=== PATIENT | male | born 1980 | race Caucasian/White ===

== ENCOUNTER 2016-08-07 16:04 | Emergency (ER) | payer MEDICAID, OTHER ==
[~2016-08-07 16:04] MED LIST: ALPR1T; ALPR1TAB; AUGMENTIN; BPR75T PO; BSP5T PO; BUSP5TAB59 PO; CARB200T6; CARB400T; CRB200T; CYCL10TA9 PO; DM H; DULO60CA6; DULO60CA6 PO; FLT05NA16 NSEACH; GABA-488 PO; GABA600T PO; HYDR-2890 PO; HYDR-3812 PO; HYDR1TAB PO; ISOM1CAP11; LISI-593 PO; LISINOPRIL; METH4TAB PO; METO10TA3 PO; NAPR-243 PO; ONDAN4ODT PO; OXYC-12 PO; OXYC5CAP10; TMSL.4C; TRAM-42 PO; TRM50T PO
== END 2016-08-07 16:57 | disposition left against medical advice (07) ==
LOC: EDUNIT# 16:04 → ER 16:06
DX: S61.412A Laceration without foreign body of left hand, initial encounter (principal); Z53.21 Procedure and treatment not carried out due to patient leaving prior to being seen by health care provider

== ENCOUNTER 2016-12-30 13:30 | Outpatient (RCR) | payer MEDICAID | END 2017-01-04 16:09 | disposition home or self-care (01) | PROVIDERS: ATTEND Nurse Practitioner Adult Health | DX: M54.5 Low back pain (principal) ==

== ENCOUNTER 2017-05-19 11:48 | Emergency (ER) | payer MEDICAID ==
[~2017-05-19] VITALS: Ht 182.9 cm; Wt 104.3 kg
[~2017-05-19 11:48] MED LIST changes: +ACHD5005 PO; -HYDR-3812 PO
--- OUTSIDE RECORDS SUMMARY | 2017-05-19 11:54 | XMS REPORT ---
Author Author DEBBIE DOUGLAS [facility] eClinicalWorks Address Unknown Phone Unavailable Care Team Providers Care Senior Estimator Name Role Phone DEBBIE DOUGLAS Unavailable Allergies No Known Allergies Problems Problem Type Condition ICD-9 Code Onset Dates Condition Status Problem Syncope and collapse 780.2 Active Problem Attention deficit disorder of childhood without mention of hyperactivity 314.00 Active Problem Posttraumatic stress disorder 309.81 Active Problem Other specified counseling V65.49 Active Problem Depressive disorder, not elsewhere classified 311 Active Problem Back pain 724.5 Active Problem Major depressive disorder, recurrent episode, moderate 296.32 Active Problem Lumbago 724.2 Active Problem Generalized osteoarthrosis, unspecified site 715.00 Active Problem Counseling on substance use and abuse V65.42 Active Assessment Generalized anxiety disorder 300.02 Active Assessment Major depressive disorder, recurrent episode, severe, without mention of psychotic behavior 296.33 Active Assessment Posttraumatic stress disorder 309.81 Active Problem Generalized anxiety disorder 300.02 Active Problem Bicipital tenosynovitis 726.12 Active Problem Pain in joint, shoulder region 719.41 Active Problem Unspecified concussion 850.9 Active Problem Major depressive disorder, recurrent episode, severe, without mention of psychotic behavior 296.33 Active Problem Unspecified fall E888.9 Active Medications Medication Code System Code Instructions Start Date End Date Status Dosage Neurontin [facility] [address]-20 600 MG Orally Three times a day October 31, 2013 1 Tablet 3 times per day Wellbutrin SR [facility] [address]-22 200 MG Orally Twice a day October 31, 2013 1 Tablet 2 times per day Zithromax [facility] [address]-26 100 MG/5ML Orally Jan 29, 2015 as directed Tramadol & Dietary Manage Prod ND 0 50 MG Orally 2 times a day Jan 29, 2015 as directed Ibuprofen [facility] [address]-83 600 mg October 03, 2012 take 1 tablet by Oral route 2 times per day with food Lisinopril-Hydrochlorothiazide [facility] 81456646189 20-25 MG TAKE TWO TABLETS BY MOUTH EVERY MORNING PredniSONE [facility] [address]-99 20 mg Orally Once a day Jan 29, 2015 2 Procedures Procedure Coding System Code Date Office Visit, Est Pt., Level 3 CPT-4 35979 Jan 29, 2015 Vital Signs Date/Time: Jan 29, 2015 Temperature 97.7 F Weight 209 lbs Height 72 in BMI 28.34 Index Blood Pressure Diastolic 76 mmHg Blood Pressure Systolic 124 mmHg Cardiac Monitoring Heart Rate 84 bpm Results No Known Results Summary Purpose eClinicalWorks Submission
--- OUTSIDE RECORDS SUMMARY | 2017-05-19 11:54 | XMS REPORT ---
Author Author TAYLA GRACIA Organization eClinicalWorks Address Unknown Phone Unavailable Care Team Providers Care Spring Fitter Name Role Phone TAYLA GRACIA CP Unavailable Allergies No Known Allergies Problems Problem Type Condition Code Onset Dates Condition Status Problem Lumbago 724.2 Active Problem Counseling on substance use and abuse V65.42 Active Problem Major depressive disorder, recurrent episode, moderate 296.32 Active Problem Leg pain M79.606 Active Problem Neuropathy G62.9 Active Problem HTN (hypertension) I10 Active Problem Depressive disorder, not elsewhere classified 311 Active Problem Generalized osteoarthrosis, unspecified site 715.00 Active Problem Back pain 724.5 Active Problem Other specified counseling V65.49 Active Problem Major depressive disorder, recurrent episode, severe, without mention of psychotic behavior 296.33 Active Problem Generalized anxiety disorder 300.02 Active Problem Pain in joint, shoulder region 719.41 Active Problem Unspecified fall E888.9 Active Problem Syncope and collapse 780.2 Active Problem Bicipital tenosynovitis 726.12 Active Problem Posttraumatic stress disorder 309.81 Active Problem Unspecified concussion 850.9 Active Problem Attention deficit disorder of childhood without mention of hyperactivity 314.00 Active Medications Medication Code System Code Instructions Start Date End Date Status Dosage Lisinopril-Hydrochlorothiazide [facility] [address]-10 20-25 MG Orally Once a day TAKE TWO TABLETS BY MOUTH EVERY MORNING Results No Known Results Summary Purpose eClinicalWorks Submission
--- OUTSIDE RECORDS SUMMARY | 2017-05-19 11:55 | XMS REPORT ---
Author TAYLA Devine [facility] eClinicalWorks Address Unknown Phone Unavailable Care Team Providers Care Casting House Worker Name Role Phone TAYLA GRACIA CP Unavailable Allergies, Adverse Reactions, Alerts Substance Reaction Event Type Amphetamine Failed UDS at hospital Non Drug Allergy Buspirone 7.5 Mg Tablet Headache Non Drug Allergy Benzodiazepines Failed UDS at hospital Non Drug Allergy Hydrocodone Failed UDS at hospital Non Drug Allergy Problems Problem Type Condition Code Onset Dates Condition Status Problem Lumbago 724.2 Active Problem Counseling on substance use and abuse V65.42 Active Problem Major depressive disorder, recurrent episode, moderate 296.32 Active Problem Leg pain M79.606 Active Assessment Leg pain M79.606 Active Problem Neuropathy G62.9 Active Assessment Neuropathy G62.9 Active Problem HTN (hypertension) I10 Active Problem Depressive disorder, not elsewhere classified 311 Active Problem Generalized osteoarthrosis, unspecified site 715.00 Active Problem Back pain 724.5 Active Problem Other specified counseling V65.49 Active Problem Major depressive disorder, recurrent episode, severe, without mention of psychotic behavior 296.33 Active Problem Generalized anxiety disorder 300.02 Active Assessment HTN (hypertension) I10 Active Problem Pain in joint, shoulder region 719.41 Active Problem Unspecified fall E888.9 Active Problem Syncope and collapse 780.2 Active Problem Bicipital tenosynovitis 726.12 Active Problem Posttraumatic stress disorder 309.81 Active Problem Unspecified concussion 850.9 Active Problem Attention deficit disorder of childhood without mention of hyperactivity 314.00 Active Medications Medication Code System Code Instructions Start Date End Date Status Dosage Tramadol & Dietary Manage Prod NDC 0 50 MG Orally 2 times a day Jan 29, 2015 as directed Ultram [facility] [address]-24 50 MG Orally 2 times a day Mar 18, 2015 1 tablet as needed Lisinopril-Hydrochlorothiazide [facility] 57121457741 20-25 MG TAKE TWO TABLETS BY MOUTH EVERY MORNING Neurontin [facility] [address]-01 600 MG Orally 4 times a day October 31, 2013 1 Tablet Wellbutrin SR [facility] [address]-66 200 MG Orally Twice a day October 31, 2013 1 Tablet 2 times per day Procedures Procedure Coding System Code Date Office Visit, Est Pt., Level 4 CPT-4 54700 Mar 18, 2015 No Charge CPT-4 98086 Mar 18, 2015 Vital Signs Date/Time: Mar 18, 2015 Temperature 98.0 F Weight 213.9 lbs Height 72 in BMI 29.01 Index Blood Pressure Diastolic 94 mmHg Blood Pressure Systolic 142 mmHg Cardiac Monitoring Heart Rate 80 bpm Results No Known Results Summary Purpose eClinicalWorks Submission
--- OUTSIDE RECORDS SUMMARY | 2017-05-19 11:55 | XMS REPORT ---
Author Author TAYLA GRACIA Organization eClinicalWorks Address Unknown Phone Unavailable Care Team Providers Care Event Mgr Name Role Phone TAYLA GRACIA CP Unavailable Allergies, Adverse Reactions, Alerts Substance Reaction Event Type Buspirone 7.5 Mg Tablet Headache Non Drug Allergy Benzodiazepines Failed UDS at hospital Non Drug Allergy Hydrocodone Failed UDS at hospital Non Drug Allergy Amphetamine Failed UDS at hospital Non Drug Allergy Problems Problem Type Condition Code Onset Dates Condition Status Assessment Depressed F32.9 Active Assessment Chronic pain G89.29 Active Problem Chronic pain G89.29 Active Problem Syncopal episodes R55 Active Problem Depressed F32.9 Active Assessment HTN (hypertension) I10 Active Assessment Syncopal episodes R55 Active Problem HTN (hypertension) I10 Active Problem Neuropathy G62.9 Active Medications Medication Code System Code Instructions Start Date End Date Status Dosage Cymbalta [facility] [address]-27 60 MG Orally Once a day Jun 25, 2015 1 capsule Ibuprofen [facility] [address]-35 200 MG Orally Three times a day October 03, 2012 take 3 tablet by Oral route 2 times per day with food Tylenol [facility] [address]-65 325 MG Orally every 6 hrs 1 tablet as needed Ultram [facility] [address]-48 50 MG Orally 2 times a day Mar 18, 2015 1 tablet as needed Lisinopril [facility] [address]-37 20 MG Orally Once a day Jun 25, 2015 1 tablet Neurontin [facility] [address]-84 600 MG Orally 4 times a day October 31, 2013 1 Tablet Procedures Procedure Coding System Code Date Office Visit, Est Pt., Level 4 CPT-4 78463 Jun 25, 2015 Vital Signs Date/Time: Jun 25, 2015 Temperature 98.0 F Weight 230.2 lbs Height 72 in BMI 31.22 Index Blood Pressure Diastolic 90 mmHg Blood Pressure Systolic 156 mmHg Cardiac Monitoring Heart Rate 68 bpm Results No Known Results Summary Purpose eClinicalWorks Submission
--- OUTSIDE RECORDS SUMMARY | 2017-05-19 11:55 | XMS REPORT ---
Author Author TAYLA GRACIA Organization [facility] Address [address] [place] [address] Care Team Providers Care Cheese Cooker Name Role Phone GRACIACORNELIUSTAYLA Unavailable PROBLEMS Type Condition ICD9-CM Code [id number] Code Onset Dates Condition Status SNOMED Code Problem HTN (hypertension) I10 Active 57911262 Problem Chronic pain G89.29 Active 17484289 Problem Syncopal episodes R55 Active 894276647 Problem Elevated liver enzymes R74.8 Active 364626882 Problem Neuropathy G62.9 Active 744845337 Problem Low back pain M54.5 Active 848888922 Problem Neck muscle strain, initial encounter S16.1XXA Active 872384495 Problem Adjustment disorder with depressed mood F43.21 Active 80510611 Problem Depressed F32.9 Active 46872636 Problem Kidney stones N20.0 Active 02940306 Problem Post traumatic stress disorder (PTSD) F43.10 Active 53647167 ALLERGIES Substance Reaction Event Type Date Status Buspirone 7.5 Mg Tablet Headache Non Drug Allergy Jul, Active SOCIAL HISTORY Never Assessed PLAN OF CARE Activity Details Follow Up 4 weeks Reason:htn anxiety VITAL SIGNS Height 72 in 2016-08-02 Weight 245 lbs 2016-08-02 Temperature 97.9 degrees Fahrenheit 2016-08-02 Heart Rate 80 bpm 2016-08-02 Respiratory Rate 20 2016-08-02 BMI 33.22 kg/m2 2016-08-02 Blood pressure systolic 164 mmHg 2016-08-02 Blood pressure diastolic 100 mmHg 2016-08-02 MEDICATIONS Medication Instructions Dosage Frequency Start Date End Date Duration Status Lisinopril-Hydrochlorothiazide 20-25 MG Orally Once a day TAKE TWO TABLETS BY MOUTH EVERY MORNING 24h 30 Active Ibuprofen 800 MG Orally Three times a day 1 tablet 8h Jul,Aug 30 day(s) Active Neurontin 600 MG Orally 4 times a day 1 Tablet 6h 12 Oct, 2013 30 days Active Ibuprofen 200 MG Orally Three times a day take 3 tablet by Oral route 2 times per day with food 8h 15 Sep, 2012 Active Clonidine HCl 0.1 MG Orally twice a day 1 tablet 12h 14 Jul, 2016 30 day(s) Active Tylenol 325 MG Orally every 6 hrs 1 tablet as needed 6h Active Wellbutrin SR 200 MG Orally Twice a day 1 Tablet 2 times per day 12h 12 Oct Active RESULTS Name Result Date Reference Range UA LONG DIP (IN HOUSE) 2016-08-02 Lot # [id number] Exp date 05/2017 Clarity CLEAR Color YELLOW Odor NO GLU NEG ARSALAN NEG KET NEG SG 1.020 BLO NEG pH 6.0 Protein NEG URO 0.2 NIT NEG JYOTHI NEG Lot # Exp date Written Authorization 2016-08-02 Written Authorization TSH 2016-08-02 TSH 1.200 0.450-4.500 CBC 2016-08-02 WBC 11.2 3.4-10.8 RBC 5.16 4.14-5.80 Hemoglobin 15.7 12.6-17.7 Hematocrit 45.3 37.5-51.0 MCV 88 79-97 MCH 30.4 26.6-33.0 MCHC 34.7 31.5-35.7 RDW 13.3 12.3-15.4 Platelets 242 150-379 Neutrophils 60 Lymphs 29 Monocytes 8 Eos 2 Basos 1 Immature Cells Neutrophils (Absolute) 6.7 1.4-7.0 Lymphs (Absolute) 3.2 0.7-3.1 Monocytes(Absolute) 0.9 0.1-0.9 Eos (Absolute) 0.2 0.0-0.4 Baso (Absolute) 0.1 0.0-0.2 Immature Granulocytes 0 Immature Grans (Abs) 0.0 0.0-0.1 Hematology Comments: Note: CMP 2016-08-02 Glucose, Serum 83 65-99 BUN 7 6-20 Creatinine, Serum 0.88 0.76-1.27 eGFR If NonAfricn Am 112 >59 eGFR If Africn Am 130 >59 BUN/Creatinine Ratio 8 8-19 Sodium, Serum 142 134-144 Potassium, Serum 4.0 3.5-5.2 Chloride, Serum 101 96-106 Carbon Dioxide, Total 23 18-29 Calcium, Serum 9.5 8.7-10.2 Protein, Total, Serum 7.4 6.0-8.5 Albumin, Serum 4.7 3.5-5.5 Globulin, Total 2.7 1.5-4.5 A/G Ratio 1.7 1.2-2.2 Bilirubin, Total 0.4 0.0-1.2 Alkaline Phosphatase, S 124 39-117 AST (SGOT) 33 0-40 ALT (SGPT) 64 0-44 HEPATITIS PROFILE 2016-08-02 Hep A Ab, IgM Negative Negative HBsAg Screen Negative Negative Hep B Core Ab, IgM Negative Negative Hep C Virus Ab <0.1 0.0-0.9 Written Authorization 2016-08-02 Written Authorization PROCEDURES Procedure Date Ordered Result Body Site URINALYSIS, AUTO, W/O SCOPE August 02, 2016 COMPLETE CBC W/AUTO DIFF WBC August 02, 2016 ASSAY THYROID STIM HORMONE August 02, 2016 COMPREHEN METABOLIC PANEL August 02, 2016 VENIPUNCT, ROUTINE* August 02, 2016 IMMUNIZATIONS No Known Immunizations MEDICAL (GENERAL) HISTORY Type Description Date Medical History hypertension Medical History chronic back pain Medical History PTSD Medical History depression and anxiety Surgical History cholecystectomy Surgical History kidney surgery Surgical History right hand Hospitalization History surgeries
--- OUTSIDE RECORDS SUMMARY | 2017-05-19 11:55 | XMS REPORT ---
Author Author ORAL VALDEZ Organization [facility] Address [address] [place] [address] Care Team Providers Care Lab Clerk Name Role Phone ORAL VALDEZ Unavailable PROBLEMS Type Condition ICD9-CM Code [id number] Code Onset Dates Condition Status SNOMED Code Problem HTN (hypertension) I10 Active 60409659 Problem Chronic pain G89.29 Active 16261129 Problem Syncopal episodes R55 Active 897449557 Problem Elevated liver enzymes R74.8 Active 811418885 Problem Neuropathy G62.9 Active 541869863 Problem Low back pain M54.5 Active 183782411 Problem Neck muscle strain, initial encounter S16.1XXA Active 902618250 Problem Adjustment disorder with depressed mood F43.21 Active 82465067 Problem Depressed F32.9 Active 57861242 Problem Kidney stones N20.0 Active 29297811 Problem Post traumatic stress disorder (PTSD) F43.10 Active 53220885 ALLERGIES No Information SOCIAL HISTORY Never Assessed PLAN OF CARE Activity Details Follow Up Next available, prn Reason:Depression VITAL SIGNS MEDICATIONS No Known Medications RESULTS No Results PROCEDURES Procedure Date Ordered Result Body Site Psychotherapy, patient &/family, 30 minutes, established patient August 01, 2016 IMMUNIZATIONS No Known Immunizations MEDICAL (GENERAL) HISTORY Type Description Date Medical History hypertension Medical History chronic back pain Medical History PTSD Medical History depression and anxiety Surgical History cholecystectomy Surgical History kidney surgery Surgical History right hand Hospitalization History surgeries
--- OUTSIDE RECORDS SUMMARY | 2017-05-19 11:55 | XMS REPORT ---
Author BRAD Ramesh [facility] eClinicalWorks Address Unknown Phone Unavailable Care Team Providers Care Ammunition And Explosives Handler Name Role Phone BRAD REID CP Unavailable Allergies, Adverse Reactions, Alerts Substance Reaction Event Type Buspirone 7.5 Mg Tablet Headache Non Drug Allergy Benzodiazepines Failed UDS at hospital Non Drug Allergy Hydrocodone Failed UDS at hospital Non Drug Allergy Amphetamine Failed UDS at hospital Non Drug Allergy Problems Problem Type Condition ICD-9 Code Onset [...] substance use and abuse V65.42 Active Assessment Back pain 724.5 Active Assessment Acute bronchitis 466.0 Active Problem Generalized anxiety disorder 300.02 Active Problem Bicipital tenosynovitis 726.12 Active Problem Pain in joint, shoulder region 719.41 Active Problem Unspecified concussion 850.9 Active Problem Major depressive disorder, recurrent episode, severe, without mention of psychotic behavior 296.33 Active Problem Unspecified fall E888.9 Active Medications Medication Code System Code Instructions Start Date End Date Status Dosage Neurontin [facility] [address]-35 600 mg October 31, 2013 1 Tablet 3 times per day Tramadol & Dietary Manage Prod NDC 0 50 MG Orally 2 times a day Jan 29, 2015 as directed PredniSONE [facility] [address]-90 20 mg Orally Once a day Jan 29, 2015 2 Zithromax Z-Neil [facility] [address]-43 250 MG Orally Once a day Jan 29, 2015 Feb 03, 2015 2 tablets on the first day, then 1 tablet daily for 4 days Lisinopril-Hydrochlorothiazide [facility] 30155651323 20-25 MG TAKE TWO TABLETS BY MOUTH EVERY MORNING Procedures Procedure Coding System Code Date Office Visit, Est Pt., Level 4 CPT-4 36352 Jan 29, 2015 Vital Signs Date/Time: Jan 29, 2015 Temperature 97.7 F Weight 209 lbs Height 72 in BMI 28.34 Index Blood Pressure Diastolic 76 mmHg Blood Pressure Systolic 124 mmHg Cardiac Monitoring Heart Rate 84 bpm Results No Known Results Summary Purpose eClinicalWorks Submission
--- OUTSIDE RECORDS SUMMARY | 2017-05-19 11:55 | XMS REPORT ---
Author Author ORAL VALDEZ Organization [facility] Address [address] [place] [address] Care Team Providers Care Candy Counter Clerk Name Role Phone ORAL VALDEZ Unavailable PROBLEMS Type Condition ICD9-CM Code [id number]-QA Code Onset Dates Condition Status SNOMED Code Problem HTN (hypertension) I10 Active 85104933 Problem Chronic pain G89.29 Active 08859395 Problem Syncopal episodes R55 Active 742236642 Problem Elevated liver enzymes R74.8 Active 337188703 Problem Neuropathy G62.9 Active 884235384 Problem Low back pain M54.5 Active 262901630 Problem Neck muscle strain, initial encounter S16.1XXA Active 112995341 Problem Adjustment disorder with depressed mood F43.21 Active 87991521 Problem Depressed F32.9 Active 97238443 Problem Kidney stones N20.0 Active 65094610 Problem Post traumatic stress disorder (PTSD) F43.10 Active 40270281 ALLERGIES No Information SOCIAL HISTORY Never Assessed PLAN OF CARE Activity Details Follow Up Next available, 1 Week Reason:Depression, anxiety VITAL SIGNS MEDICATIONS No Known Medications RESULTS No Results PROCEDURES Procedure Date Ordered Result Body Site Psychotherapy, patient &/family, 30 minutes, established patient July 29, 2016 IMMUNIZATIONS No Known Immunizations MEDICAL (GENERAL) HISTORY Type Description Date Medical History hypertension Medical History chronic back pain Medical History PTSD Medical History depression and anxiety Surgical History cholecystectomy Surgical History kidney surgery Surgical History right hand Hospitalization History surgeries
--- OUTSIDE RECORDS SUMMARY | 2017-05-19 11:55 | XMS REPORT ---
Author Author TAYLA GRACIA Organization eClinicalWorks Address Unknown Phone Unavailable Care Team Providers Care Wellness Specialist Name Role Phone TAYLA GRACIA CP Unavailable [...] Instructions Start Date End Date Status Dosage [facility] [address]-00 50 MG Orally 2 times a day Mar 18, 2015 1 tablet as needed Results No Known Results Summary Purpose eClinicalWorks Submission
--- OUTSIDE RECORDS SUMMARY | 2017-05-19 11:56 | XMS REPORT ---
Author Author TAYLA GRACIA Organization eClinicalWorks Address Unknown Phone Unavailable Care Team Providers Care Administrative Support Assoc Name Role Phone TAYLA GRACIA CP Unavailable [...] Status Dosage Neurontin [facility] [address]-66 600 MG Orally 4 times a day October 31, 2013 1 Tablet Results No Known Results Summary Purpose eClinicalWorks Submission
--- OUTSIDE RECORDS SUMMARY | 2017-05-19 11:57 | XMS REPORT | Continuity of Care Document ---
Author Author [facility] Address Unknown Phone Unavailable Allergies Active Description Code Type Severity Reaction Onset Reported/Identified Relationship to Patient Clinical Status Yes No Known Drug Allergies [id number] Drug Allergy Mild N/A 10/29/2008 Yes buspirone 7.5 mg tablet Drug Allergy N/A N/A 08/13/2013 Yes amphetamine Drug Allergy N/A N/A 09/02/2013 Yes Benzodiazepines Drug Allergy N/A N/A 09/02/2013 Yes hydrocodone Drug Allergy N/A N/A 09/02/2013 Medications There is no data. Problems Date Dx Coded Attending Type Code Diagnosis Diagnosed By 01/31/2008 ERA DE JESUS DO V58.69 MEDICATION HIGH RISK 01/31/2008 V58.69 MEDICATION HIGH RISK 01/31/2008 ERA DE JESUS DO V58.69 MEDICATION HIGH RISK 01/31/2008 ERA DE JESUS DO V58.69 MEDICATION HIGH RISK 01/31/2008 V58.69 MEDICATION HIGH RISK 01/31/2008 V58.69 MEDICATION HIGH RISK 01/31/2008 V58.69 MEDICATION HIGH RISK 01/31/2008 GENOVEVA YAP, BOB Schmidt V58.69 MEDICATION HIGH RISK 01/31/2008 [facility], JOSEE R V58.69 MEDICATION HIGH RISK 01/31/2008 ERA DE JESUS DO V58.69 MEDICATION HIGH RISK 01/31/2008 ERA DE JESUS DO V58.69 MEDICATION HIGH RISK 01/31/2008 [facility], JOSEE R V58.69 MEDICATION HIGH RISK 01/31/2008 ERA DE JESUS DO V58.69 MEDICATION HIGH RISK 01/31/2008 HAN CABALLERO APRN V58.69 MEDICATION HIGH RISK 01/31/2008 HAN CABALLERO APRN V58.69 MEDICATION HIGH RISK 01/31/2008 DEBBIE DOUGLAS APRN V58.69 MEDICATION HIGH RISK 01/31/2008 ERA DE JESUS DO V58.69 MEDICATION HIGH RISK 01/31/2008 DEBBIE DOUGLAS APRN V58.69 MEDICATION HIGH RISK 01/31/2008 DAVEY PHD, BRISSA Harden V58.69 MEDICATION HIGH RISK 01/31/2008 LIZA VALENCIA ERA K V58.69 MEDICATION HIGH RISK 01/31/2008 JEANETTE TORRES, BRAD V58.69 MEDICATION HIGH RISK 02/27/2008 DE JESUS DO ERA K 848.9 SPRAIN/STRAIN OTHER UNSPEC SITE 02/27/2008 848.9 SPRAIN/STRAIN OTHER UNSPEC SITE 02/27/2008 DE JESUS JONNIE VALENCIAA K 848.9 SPRAIN/STRAIN OTHER UNSPEC SITE 02/27/2008 DE JESUS ERA VALENCIA K 848.9 SPRAIN/STRAIN OTHER UNSPEC SITE 02/27/2008 848.9 SPRAIN/STRAIN OTHER UNSPEC SITE 02/27/2008 848.9 SPRAIN/STRAIN OTHER UNSPEC SITE 02/27/2008 848.9 SPRAIN/STRAIN OTHER UNSPEC SITE 02/27/2008 GENOVEVA YAP, BOB Schmidt 848.9 SPRAIN/STRAIN OTHER UNSPEC SITE 02/27/2008 [facility], JOSEE R 848.9 SPRAIN/STRAIN OTHER UNSPEC SITE 02/27/2008 DE JESUS JONNIE VALENCIAA K 848.9 SPRAIN/STRAIN OTHER UNSPEC SITE 02/27/2008 DE JESUS ERA VALENCIA K 848.9 SPRAIN/STRAIN OTHER UNSPEC SITE 02/27/2008 [facility], JOSEE R 848.9 SPRAIN/STRAIN OTHER UNSPEC SITE 02/27/2008 DE JESUS JONNIE VALENCIAA K 848.9 SPRAIN/STRAIN OTHER UNSPEC SITE 02/27/2008 HAN CABALLERO APRN 848.9 SPRAIN/STRAIN OTHER UNSPEC SITE 02/27/2008 HAN CABALLERO APRN 848.9 SPRAIN/STRAIN OTHER UNSPEC SITE 02/27/2008 DEBBIE DOUGLAS APRN 848.9 SPRAIN/STRAIN OTHER UNSPEC SITE 02/27/2008 DE JESUS JONNIE VALENCIAA K 848.9 SPRAIN/STRAIN OTHER UNSPEC SITE 02/27/2008 DEBBIE DOUGLAS APRN 848.9 SPRAIN/STRAIN OTHER UNSPEC SITE 02/27/2008 DAVEY PHD, BRISSA Harden 848.9 SPRAIN/STRAIN OTHER UNSPEC SITE 02/27/2008 ERA DE JESUS DO 848.9 SPRAIN/STRAIN OTHER UNSPEC SITE 02/27/2008 BRAD REID MD 848.9 SPRAIN/STRAIN OTHER UNSPEC SITE 06/25/2008 ERA DE JESUS DO 296.80 MO BIPOLAR NOS 06/25/2008 ERA DE JESUS DO K 300.01 AN PANIC DIS W/O AGORA 06/25/2008 296.80 MO BIPOLAR NOS 06/25/2008 300.01 AN PANIC DIS W/O AGORA 06/25/2008 ERA DE JESUS DO K 296.80 MO BIPOLAR NOS 06/25/2008 DE JESUS ERA VALENCIA K 300.01 AN PANIC DIS W/O AGORA 06/25/2008 ERA DE JESUS DO K 296.80 MO BIPOLAR NOS 06/25/2008 ERA DE JESUS DO K 300.01 AN PANIC DIS W/O AGORA 06/25/2008 296.80 MO BIPOLAR NOS 06/25/2008 300.01 AN PANIC DIS W/O AGORA 06/25/2008 296.80 MO BIPOLAR NOS 06/25/2008 300.01 AN PANIC DIS W/O AGORA 06/25/2008 296.80 MO BIPOLAR NOS 06/25/2008 300.01 AN PANIC DIS W/O AGORA 06/25/2008 [facility] DDS, BOB B 296.80 MO BIPOLAR NOS 06/25/2008 [facility] DDS, BOB B 300.01 AN PANIC DIS W/O AGORA 06/25/2008 [facility], JOSEE R 296.80 MO BIPOLAR NOS 06/25/2008 [facility], JOSEE R 300.01 AN PANIC DIS W/O AGORA 06/25/2008 ERA DE JESUS DO K 296.80 MO BIPOLAR NOS 06/25/2008 ERA DE JESUS DO K 300.01 AN PANIC DIS W/O AGORA 06/25/2008 JONNIE DE JESUS DOA K 296.80 MO BIPOLAR NOS 06/25/2008 ERA DE JESUS DO K 300.01 AN PANIC DIS W/O AGORA 06/25/2008 [facility], JOSEE R 296.80 MO BIPOLAR NOS 06/25/2008 [facility], JOSEE R 300.01 AN PANIC DIS W/O AGORA 06/25/2008 ERA DE JESUS DO K 296.80 MO BIPOLAR NOS 06/25/2008 ERA DE JESUS DO K 300.01 AN PANIC DIS W/O AGORA 06/25/2008 LITATON CROSS CUT SAW OPERATORHAN Zuniga 296.80 MO BIPOLAR NOS 06/25/2008 GARTON CROSS CUT SAW OPERATOR, HAN D 300.01 AN PANIC DIS W/O AGORA 06/25/2008 GARTON CROSS CUT SAW OPERATORHAN Zuniga D 296.80 MO BIPOLAR NOS 06/25/2008 G[facility] CROSS CUT SAW OPERATOR, HAN D 300.01 AN PANIC DIS W/O AGORA 06/25/2008 STELLA CROSS CUT SAW OPERATOR, DEBBIE 296.80 MO BIPOLAR NOS 06/25/2008 STELLA CROSS CUT SAW OPERATOR, DEBBIE 300.01 AN PANIC DIS W/O AGORA 06/25/2008 ERA DE JESUS DO 296.80 MO BIPOLAR NOS 06/25/2008 ERA DE JESUS DO 300.01 AN PANIC DIS W/O AGORA 06/25/2008 STELLA CROSS CUT SAW OPERATOR, DEBBIE 296.80 MO BIPOLAR NOS 06/25/2008 STELLA CROSS CUT SAW OPERATOR, DEBBIE 300.01 AN PANIC DIS W/O AGORA 06/25/2008 DAVEY LOU, BRISSA A 296.80 MO BIPOLAR NOS 06/25/2008 DAVEY LOU, BRISSA Harden 300.01 AN PANIC DIS W/O AGORA 06/25/2008 ERA DE JESUS DO 296.80 MO BIPOLAR NOS 06/25/2008 ERA DE JESUS DO 300.01 AN PANIC DIS W/O AGORA 06/25/2008 BRAD REID MD 296.80 MO BIPOLAR NOS 06/25/2008 BRAD REID MD 300.01 AN PANIC DIS W/O AGORA 08/29/2008 ERA DE JESUS DO 300.00 AN ANXIETY UNSPEC 08/29/2008 ERA DE JESUS DO 307.47 SI DYSSOMNIA NOS 08/29/2008 ERA DE JESUS DO K 312.30 I IMPULSE CONTROL DISORDER NOS 08/29/2008 300.00 AN ANXIETY UNSPEC 08/29/2008 307.47 SI DYSSOMNIA NOS 08/29/2008 312.30 I IMPULSE CONTROL DISORDER NOS 08/29/2008 ERA DE JESUS DO K 300.00 AN ANXIETY UNSPEC 08/29/2008 ERA DE JESUS DO K 307.47 SI DYSSOMNIA NOS 08/29/2008 ERA DE JESUS DO K 312.30 I IMPULSE CONTROL DISORDER NOS 08/29/2008 DE JESUS DO, ERA K 300.00 AN ANXIETY UNSPEC 08/29/2008 DE JESUS DO, ERA K 307.47 SI DYSSOMNIA NOS 08/29/2008 DE JESUS DO, ERA K 312.30 I IMPULSE CONTROL DISORDER NOS 08/29/2008 300.00 AN ANXIETY UNSPEC 08/29/2008 307.47 SI DYSSOMNIA NOS 08/29/2008 312.30 I IMPULSE CONTROL DISORDER NOS 08/29/2008 300.00 AN ANXIETY UNSPEC 08/29/2008 307.47 SI DYSSOMNIA NOS 08/29/2008 312.30 I IMPULSE CONTROL DISORDER NOS 08/29/2008 300.00 AN ANXIETY UNSPEC 08/29/2008 307.47 SI DYSSOMNIA NOS 08/29/2008 312.30 I IMPULSE CONTROL DISORDER NOS 08/29/2008 [facility] DDS, BOB B 300.00 AN ANXIETY UNSPEC 08/29/2008 [facility] DDS, BOB B 307.47 SI DYSSOMNIA NOS 08/29/2008 [facility] DDS, BOB B 312.30 I IMPULSE CONTROL DISORDER NOS 08/29/2008 [facility], JOSEE R 300.00 AN ANXIETY UNSPEC 08/29/2008 [facility], JOSEE R 307.47 SI DYSSOMNIA NOS 08/29/2008 [facility], JOSEE R 312.30 I IMPULSE CONTROL DISORDER NOS 08/29/2008 LIZA VALENCIA ERA K 300.00 AN ANXIETY UNSPEC 08/29/2008 DE JESUS DO ERA K 307.47 SI DYSSOMNIA NOS 08/29/2008 DE JESUS DO, ERA K 312.30 I IMPULSE CONTROL DISORDER NOS 08/29/2008 LIZA VALENCIA ERA K 300.00 AN ANXIETY UNSPEC 08/29/2008 DE JESUS DO ERA K 307.47 SI DYSSOMNIA NOS 08/29/2008 DE JESUS DO, ERA K 312.30 I IMPULSE CONTROL DISORDER NOS 08/29/2008 [facility], JOSEE R 300.00 AN ANXIETY UNSPEC 08/29/2008 [facility], JOSEE R 307.47 SI DYSSOMNIA NOS 08/29/2008 [facility], JOSEE R 312.30 I IMPULSE CONTROL DISORDER NOS 08/29/2008 DE JESUS DO ERA K 300.00 AN ANXIETY UNSPEC 08/29/2008 DE JESUS DO ERA K 307.47 SI DYSSOMNIA NOS 08/29/2008 LIZA VALENCIA ERA K 312.30 I IMPULSE CONTROL DISORDER NOS 08/29/2008 HAN CABALLERO APRN 300.00 AN ANXIETY UNSPEC 08/29/2008 HAN CABALLERO APRN 307.47 SI DYSSOMNIA NOS 08/29/2008 HAN CABALLERO APRN 312.30 I IMPULSE CONTROL DISORDER NOS 08/29/2008 HAN CABALLERO APRN 300.00 AN ANXIETY UNSPEC 08/29/2008 HAN CABALLERO APRN 307.47 SI DYSSOMNIA NOS 08/29/2008 HAN CABALLERO APRN 312.30 I IMPULSE CONTROL DISORDER NOS 08/29/2008 DAVID DOUGLAS APRNETTE 300.00 AN ANXIETY UNSPEC 08/29/2008 DAVID DOUGLAS APRNETTE 307.47 SI DYSSOMNIA NOS 08/29/2008 DAVID DOUGLAS APRNETTE 312.30 I IMPULSE CONTROL DISORDER NOS 08/29/2008 JONNIE DE JESUS DOA K 300.00 AN ANXIETY UNSPEC 08/29/2008 JONNIE DE JESUS DOA K 307.47 SI DYSSOMNIA NOS 08/29/2008 LIZA VALENCIA ERA K 312.30 I IMPULSE CONTROL DISORDER NOS 08/29/2008 DAVID DOUGLAS APRNETTE 300.00 AN ANXIETY UNSPEC 08/29/2008 DEBBIE DOUGLAS APRN 307.47 SI DYSSOMNIA NOS 08/29/2008 STELLA PARKER DEBBIE 312.30 I IMPULSE CONTROL DISORDER NOS 08/29/2008 DAVEY LOU, BRISSA A 300.00 AN ANXIETY UNSPEC 08/29/2008 DAVEY PHD, BRISSA A 307.47 SI DYSSOMNIA NOS 08/29/2008 DAVEY PHD, BRISSA A 312.30 I IMPULSE CONTROL DISORDER NOS 08/29/2008 LIZA VALENCIA ERA K 300.00 AN ANXIETY UNSPEC 08/29/2008 JONNIE DE JESUS DOA K 307.47 SI DYSSOMNIA NOS 08/29/2008 DE JESUS DO ERA K 312.30 I IMPULSE CONTROL DISORDER NOS 08/29/2008 BRAD REID MD 300.00 AN ANXIETY UNSPEC 08/29/2008 BRAD REID MD 307.47 SI DYSSOMNIA NOS 08/29/2008 BRAD REID MD 312.30 I IMPULSE CONTROL DISORDER NOS 09/18/2008 ERA DE JESUS DO 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 09/18/2008 ERA DE JESUS DO K 297.0 PARANOID STATE SIMPLE 09/18/2008 ERA DE JESUS DO K 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 09/18/2008 ERA DE JESUS DO K 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 09/18/2008 ERA DE JESUS DO K 316 PF PSYCHIC FACTORS MED COND 09/18/2008 ERA DE JESUS DO V61.10 RL RELATION COUNS 09/18/2008 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 09/18/2008 297.0 PARANOID STATE SIMPLE 09/18/2008 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 09/18/2008 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 09/18/2008 316 PF PSYCHIC FACTORS MED COND 09/18/2008 V61.10 RL RELATION COUNS 09/18/2008 ERA DE JESUS DO 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 09/18/2008 ERA DE JESUS DO K 297.0 PARANOID STATE SIMPLE 09/18/2008 ERA DE JESUS DO 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 09/18/2008 ERA DE JESUS DO 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 09/18/2008 ERA DE JESUS DO K 316 PF PSYCHIC FACTORS MED COND 09/18/2008 ERA DE JESUS DO V61.10 RL RELATION COUNS 09/18/2008 ERA DE JESUS DO 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 09/18/2008 ERA DE JESUS DO K 297.0 PARANOID STATE SIMPLE 09/18/2008 ERA DE JESUS DO K 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 09/18/2008 ERA DE JESUS DO 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 09/18/2008 ERA DE JESUS DO K 316 PF PSYCHIC FACTORS MED COND 09/18/2008 ERA DE JESUS DO V61.10 RL RELATION COUNS 09/18/2008 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 09/18/2008 297.0 PARANOID STATE SIMPLE 09/18/2008 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 09/18/2008 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 09/18/2008 316 PF PSYCHIC FACTORS MED COND 09/18/2008 V61.10 RL RELATION COUNS 09/18/2008 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 09/18/2008 297.0 PARANOID STATE SIMPLE 09/18/2008 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 09/18/2008 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 09/18/2008 316 PF PSYCHIC FACTORS MED COND 09/18/2008 V61.10 RL RELATION COUNS 09/18/2008 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 09/18/2008 297.0 PARANOID STATE SIMPLE 09/18/2008 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 09/18/2008 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 09/18/2008 316 PF PSYCHIC FACTORS MED COND 09/18/2008 V61.10 RL RELATION COUNS 09/18/2008 GEN[facility]A DDS, BOB B 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 09/18/2008 GENOVEVA DDS, BOB B 297.0 PARANOID STATE SIMPLE 09/18/2008 GENOVEVA DDS, BOB B 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 09/18/2008 GENOVEVA DDS, BOB B 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 09/18/2008 GENOVEVA DDS, BOB B 316 PF PSYCHIC FACTORS MED COND 09/18/2008 GENOVEVA DDS, BOB B V61.10 RL RELATION COUNS 09/18/2008 [facility] JOSEE [facility] 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 09/18/2008 [facility], JOSEE R 297.0 PARANOID STATE SIMPLE 09/18/2008 [facility] JOSEE R 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 09/18/2008 [facility], JOSEE R 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 09/18/2008 [facility], JOSEE R 316 PF PSYCHIC FACTORS MED COND 09/18/2008 [facility], JOSEE R V61.10 RL RELATION COUNS 09/18/2008 DE JESUS DO, ERA K 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 09/18/2008 DE JESUS DO, ERA K 297.0 PARANOID STATE SIMPLE 09/18/2008 DE JESUS DO, ERA K 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 09/18/2008 DE JESUS DO, ERA K 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 09/18/2008 DE JESUS DO, ERA K 316 PF PSYCHIC FACTORS MED COND 09/18/2008 DE JESUS DO, ERA K V61.10 RL RELATION COUNS 09/18/2008 DE JESUS DO, ERA K 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 09/18/2008 DE JESUS DO, ERA K 297.0 PARANOID STATE SIMPLE 09/18/2008 JONNIE DE JESUS DOA K 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 09/18/2008 LIZA VALENCIA ERA K 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 09/18/2008 LIZA VALENCIA ERA K 316 PF PSYCHIC FACTORS MED COND 09/18/2008 LIZA VALENCIA ERA K V61.10 RL RELATION COUNS 09/18/2008 [facility], JOSEE R 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 09/18/2008 [facility], JOSEE R 297.0 PARANOID STATE SIMPLE 09/18/2008 [facility], JOSEE R 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 09/18/2008 [facility], JOSEE R 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 09/18/2008 [facility], JOSEE R 316 PF PSYCHIC FACTORS MED COND 09/18/2008 [facility], JOSEE R V61.10 RL RELATION COUNS 09/18/2008 ERA DE JESUS DO K 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 09/18/2008 JONNIE ED JESUS DOA K 297.0 PARANOID STATE SIMPLE 09/18/2008 LIZA VALENCIA ERA K 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 09/18/2008 JONNIE DE JESUS DOA K 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 09/18/2008 LIZA VALENCIA ERA K 316 PF PSYCHIC FACTORS MED COND 09/18/2008 JONNIE DE JESUS DOA K V61.10 RL RELATION COUNS 09/18/2008 HAN CABALLERO APRN 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 09/18/2008 HAN CABALLERO APRN 297.0 PARANOID STATE SIMPLE 09/18/2008 HAN CABALLERO APRN 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 09/18/2008 HAN CABALLERO APRN 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 09/18/2008 HAN CABALLERO APRN 316 PF PSYCHIC FACTORS MED COND 09/18/2008 HAN CABALLERO APRN V61.10 RL RELATION COUNS 09/18/2008 HAN CABALLERO APRN 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 09/18/2008 HAN CABALLERO APRN 297.0 PARANOID STATE SIMPLE 09/18/2008 HAN CABALLEOR APRN 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 09/18/2008 HAN CABALLERO APRN 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 09/18/2008 HAN CABALLERO APRN 316 PF PSYCHIC FACTORS MED COND 09/18/2008 HAN CABALLERO APRN V61.10 RL RELATION COUNS 09/18/2008 STELLA CROSS CUT SAW OPERATOR, DEBBIE 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 09/18/2008 TSELLA CROSS CUT SAW OPERATOR, DEBBIE 297.0 PARANOID STATE SIMPLE 09/18/2008 STELLA CROSS CUT SAW OPERATOR, DEBBIE 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 09/18/2008 STELLA CROSS CUT SAW OPERATOR, DEBBIE 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 09/18/2008 STELLA CROSS CUT SAW OPERATOR, DEBBIE 316 PF PSYCHIC FACTORS MED COND 09/18/2008 STELLA CROSS CUT SAW OPERATOR, DEBBIE V61.10 RL RELATION COUNS 09/18/2008 DE JESUS DO ERA K 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 09/18/2008 DE JESUS DO ERA K 297.0 PARANOID STATE SIMPLE 09/18/2008 DE JESUS DO ERA K 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 09/18/2008 DE JESUS DO ERA K 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 09/18/2008 DE JESUS DO, ERA K 316 PF PSYCHIC FACTORS MED COND 09/18/2008 DE JESUS DO, ERA K V61.10 RL RELATION COUNS 09/18/2008 STELLA CROSS CUT SAW OPERATOR, DEBBIE 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 09/18/2008 STELLA CROSS CUT SAW OPERATOR, DEBBIE 297.0 PARANOID STATE SIMPLE 09/18/2008 STELLA CROSS CUT SAW OPERATOR, DEBBIE 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 09/18/2008 STELLA CROSS CUT SAW OPERATOR, DEBBIE 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 09/18/2008 STELLA CROSS CUT SAW OPERATOR, DEBBIE 316 PF PSYCHIC FACTORS MED COND 09/18/2008 STELLA CROSS CUT SAW OPERATOR, DEBBIE V61.10 RL RELATION COUNS 09/18/2008 DAVEY LOU, BRISSA Harden 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 09/18/2008 BRISSA MARISCAL PHD 297.0 PARANOID STATE SIMPLE 09/18/2008 DAVEY LOU, BRISSA Harden 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 09/18/2008 DAVEY LOU, BRISSA Harden 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 09/18/2008 BRISSA MARISCAL PHD 316 PF PSYCHIC FACTORS MED COND 09/18/2008 BRISSA MARISCAL PHD V61.10 RL RELATION COUNS 09/18/2008 DE JESUS DO, ERA K 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 09/18/2008 DE JESUS DO, ERA K 297.0 PARANOID STATE SIMPLE 09/18/2008 DE JESUS DO, ERA K 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 09/18/2008 DE JESUS DO, ERA K 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 09/18/2008 DE JESUS DO, ERA K 316 PF PSYCHIC FACTORS MED COND 09/18/2008 DE JESUS DO, ERA K V61.10 RL RELATION COUNS 09/18/2008 BRAD REID MD 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 09/18/2008 BRAD REID MD 297.0 PARANOID STATE SIMPLE 09/18/2008 BRAD REID MD 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 09/18/2008 BRAD REID MD 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 09/18/2008 BRAD REID MD 316 PF PSYCHIC FACTORS MED COND 09/18/2008 BRAD REID MD V61.10 RL RELATION COUNS 11/09/2008 DE JESUS DO, ERA K 590.2 KIDNEY STONES 11/09/2008 590.2 KIDNEY STONES 11/09/2008 DE JESUS DO, ERA K 590.2 KIDNEY STONES 11/09/2008 DE JESUS DO, ERA K 590.2 KIDNEY STONES 11/09/2008 590.2 KIDNEY STONES 11/09/2008 590.2 KIDNEY STONES 11/09/2008 590.2 KIDNEY STONES 11/09/2008 [facility] DDS, BOB B 590.2 KIDNEY STONES 11/09/2008 [facility], JOSEE R 590.2 KIDNEY STONES 11/09/2008 DE JESUS DO, ERA K 590.2 KIDNEY STONES 11/09/2008 DE JESUS DO, ERA K 590.2 KIDNEY STONES 11/09/2008 [facility], JOSEE R 590.2 KIDNEY STONES 11/09/2008 DE JESUS DO, ERA K 590.2 KIDNEY STONES 11/09/2008 HAN CABALLERO APRN 590.2 KIDNEY STONES 11/09/2008 HAN CABALLERO APRN 590.2 KIDNEY STONES 11/09/2008 STELLA CROSS CUT SAW OPERATOR, DEBBIE 590.2 KIDNEY STONES 11/09/2008 DE JESUS DO, ERA K 590.2 KIDNEY STONES 11/09/2008 STELLA CROSS CUT SAW OPERATOR, DEBBIE 590.2 KIDNEY STONES 11/09/2008 DAVEY PHD, BRISSA Harden 590.2 KIDNEY STONES 11/09/2008 DE JESUS DO ERA K 590.2 KIDNEY STONES 11/09/2008 JEANETTE TORRES, BRAD 590.2 KIDNEY STONES 03/27/2010 Ot 788.0 03/27/2010 Ot 789.09 03/27/2010 Ot V13.01 06/28/2010 Ot 592.0 07/26/2010 DE JESUS DO ERA K 305.1 NONDEPENDENT TOBACCO USE DISORDER 07/26/2010 DE JESUS DO ERA K 465.9 UPPER RESPIRATORY INFECTION 07/26/2010 DE JESUS DO ERA K 466.0 BRONCHITIS, ACUTE 07/26/2010 305.1 NONDEPENDENT TOBACCO USE DISORDER 07/26/2010 465.9 UPPER RESPIRATORY INFECTION 07/26/2010 466.0 BRONCHITIS, ACUTE 07/26/2010 DE JESUS DO ERA K 305.1 NONDEPENDENT TOBACCO USE DISORDER 07/26/2010 DE JESUS DO ERA K 465.9 UPPER RESPIRATORY INFECTION 07/26/2010 DE JESUS DO ERA K 466.0 BRONCHITIS, ACUTE 07/26/2010 DE JESUS DO ERA K 305.1 NONDEPENDENT TOBACCO USE DISORDER 07/26/2010 DE JESUS DO, ERA K 465.9 UPPER RESPIRATORY INFECTION 07/26/2010 DE JESUS DO ERA K 466.0 BRONCHITIS, ACUTE 07/26/2010 305.1 NONDEPENDENT TOBACCO USE DISORDER 07/26/2010 465.9 UPPER RESPIRATORY INFECTION 07/26/2010 466.0 BRONCHITIS, ACUTE 07/26/2010 305.1 NONDEPENDENT TOBACCO USE DISORDER 07/26/2010 465.9 UPPER RESPIRATORY INFECTION 07/26/2010 466.0 BRONCHITIS, ACUTE 07/26/2010 305.1 NONDEPENDENT TOBACCO USE DISORDER 07/26/2010 465.9 UPPER RESPIRATORY INFECTION 07/26/2010 466.0 BRONCHITIS, ACUTE 07/26/2010 [facility] DDS, BOB B 305.1 NONDEPENDENT TOBACCO USE DISORDER 07/26/2010 [facility] DDS, BOB B 465.9 UPPER RESPIRATORY INFECTION 07/26/2010 [facility] DDS, BOB B 466.0 BRONCHITIS, ACUTE [facility]26/[facility] 305[facility]1 NONDEPENDENT TOBACCO USE DISORDER 07/26/2010 [facility], JOSEE R 465.9 UPPER RESPIRATORY INFECTION 07/26/2010 [facility], JOSEE R 466.0 BRONCHITIS, ACUTE 07/26/2010 DE JESUS DO, ERA K 305.1 NONDEPENDENT TOBACCO USE DISORDER 07/26/2010 DE JESUS DO, ERA K 465.9 UPPER RESPIRATORY INFECTION 07/26/2010 DE JESUS DO, ERA K 466.0 BRONCHITIS, ACUTE 07/26/2010 DE JESUS DO, ERA K 305.1 NONDEPENDENT TOBACCO USE DISORDER 07/26/2010 DE JESUS DO, ERA K 465.9 UPPER RESPIRATORY INFECTION 07/26/2010 DE JESUS DO, ERA K 466.0 BRONCHITIS, ACUTE 07/26/2010 [facility], JOSEE R 305.1 NONDEPENDENT TOBACCO USE DISORDER 07/26/2010 [facility], JOSEE R 465.9 UPPER RESPIRATORY INFECTION 07/26/2010 [facility], JOSEE R 466.0 BRONCHITIS, ACUTE 07/26/2010 DE JESUS DO, ERA K 305.1 NONDEPENDENT TOBACCO USE DISORDER 07/26/2010 DE JESUS DO, ERA K 465.9 UPPER RESPIRATORY INFECTION 07/26/2010 DE JESUS DO, ERA K 466.0 BRONCHITIS, ACUTE 07/26/2010 HAN CABALLERO APRN 305.1 NONDEPENDENT TOBACCO USE DISORDER 07/26/2010 HAN CABALLERO APRN 465.9 UPPER RESPIRATORY INFECTION 07/26/2010 HAN CABALLERO APRN 466.0 BRONCHITIS, ACUTE 07/26/2010 HAN CABALLERO APRN 305.1 NONDEPENDENT TOBACCO USE DISORDER 07/26/2010 HAN CABALLERO APRN 465.9 UPPER RESPIRATORY INFECTION 07/26/2010 HAN CABALLERO APRN 466.0 BRONCHITIS, ACUTE 07/26/2010 STELLA CROSS CUT SAW OPERATOR, DEBBIE 305.1 NONDEPENDENT TOBACCO USE DISORDER 07/26/2010 STELLA CROSS CUT SAW OPERATOR, DEBBIE 465.9 UPPER RESPIRATORY INFECTION 07/26/2010 STELLA CROSS CUT SAW OPERATOR, DEBBIE 466.0 BRONCHITIS, ACUTE 07/26/2010 DE JESUS DO, ERA K 305.1 NONDEPENDENT TOBACCO USE DISORDER 07/26/2010 DE JESUS DO, ERA K 465.9 UPPER RESPIRATORY INFECTION 07/26/2010 DE JESUS DO, ERA K 466.0 BRONCHITIS, ACUTE 07/26/2010 STELLA CROSS CUT SAW OPERATOR, DEBBIE 305.1 NONDEPENDENT TOBACCO USE DISORDER 07/26/2010 STELLA CROSS CUT SAW OPERATOR, DEBBIE 465.9 UPPER RESPIRATORY INFECTION 07/26/2010 STELLA CROSS CUT SAW OPERATOR, DEBBIE 466.0 BRONCHITIS, ACUTE 07/26/2010 DAVEY PHD, BRISSA A 305.1 NONDEPENDENT TOBACCO USE DISORDER 07/26/2010 DAVEY PHD, BRISSA A 465.9 UPPER RESPIRATORY INFECTION 07/26/2010 DAVEY PHD, BRISSA A 466.0 BRONCHITIS, ACUTE 07/26/2010 LIZA VALENCIA ERA K 305.1 NONDEPENDENT TOBACCO USE DISORDER 07/26/2010 DE JESUS DO ERA K 465.9 UPPER RESPIRATORY INFECTION 07/26/2010 LIZA VALENCIA ERA K 466.0 BRONCHITIS, ACUTE 07/26/2010 BRAD REID MD 305.1 NONDEPENDENT TOBACCO USE DISORDER 07/26/2010 BRAD REID MD 465.9 UPPER RESPIRATORY INFECTION 07/26/2010 BRAD REID MD 466.0 BRONCHITIS, ACUTE 09/20/2010 LIZA VALENCIA ERA K 401.1 ESSENTIAL HYPERTENSION BENIGN 09/20/2010 DE JESUS DO ERA K 719.45 joint pain, localized in the hip 09/20/2010 401.1 ESSENTIAL HYPERTENSION BENIGN 09/20/2010 719.45 joint pain, localized in the hip 09/20/2010 DE JESUS DO ERA K 401.1 ESSENTIAL HYPERTENSION BENIGN 09/20/2010 DE JESUS DO ERA K 719.45 joint pain, localized in the hip 09/20/2010 DE JESUS DO ERA K 401.1 ESSENTIAL HYPERTENSION BENIGN 09/20/2010 DE JESUS DO ERA K 719.45 joint pain, localized in the hip 09/20/2010 401.1 ESSENTIAL HYPERTENSION BENIGN 09/20/2010 719.45 joint pain, localized in the hip 09/20/2010 401.1 ESSENTIAL HYPERTENSION BENIGN 09/20/2010 719.45 joint pain, localized in the hip 09/20/2010 401.1 ESSENTIAL HYPERTENSION BENIGN 09/20/2010 719.45 joint pain, localized in the hip 09/20/2010 GENOVEVA DDS, BOB B 401.1 ESSENTIAL HYPERTENSION BENIGN 09/20/2010 GENOVEVA DDS, BOB B 719.45 joint pain, localized in the hip 09/20/2010 JOSEE NELSON 401.1 ESSENTIAL HYPERTENSION BENIGN 09/20/2010 [facility], JOSEE R 719.45 joint pain, localized in the hip 09/20/2010 DE JESUS DO, ERA K 401.1 ESSENTIAL HYPERTENSION BENIGN 09/20/2010 DE JESUS DO, ERA K 719.45 joint pain, localized in the hip 09/20/2010 DE JESUS DO, ERA K 401.1 ESSENTIAL HYPERTENSION BENIGN 09/20/2010 DE JESUS DO, ERA K 719.45 joint pain, localized in the hip 09/20/2010 [facility], JOSEE R 401.1 ESSENTIAL HYPERTENSION BENIGN 09/20/2010 [facility] JO[facility] 719.45 joint pain, localized in the hip 09/20/2010 DE JESUS DO, ERA K 401.1 ESSENTIAL HYPERTENSION BENIGN 09/20/2010 DE JESUS DO, ERA K 719.45 joint pain, localized in the hip 09/20/2010 HAN CABALLERO APRN 401.1 ESSENTIAL HYPERTENSION BENIGN 09/20/2010 HAN CABALLERO APRN 719.45 joint pain, localized in the hip 09/20/2010 HAN CABALLERO APRN 401.1 ESSENTIAL HYPERTENSION BENIGN 09/20/2010 HAN CABALLERO APRN 719.45 joint pain, localized in the hip 09/20/2010 STELLA KEITH DEBBIE 401.1 ESSENTIAL HYPERTENSION BENIGN 09/20/2010 STELLA CROSS CUT SAW OPERATOR DEBBIE 719.45 joint pain, localized in the hip 09/20/2010 DE JESUS DO, ERA K 401.1 ESSENTIAL HYPERTENSION BENIGN 09/20/2010 DE JESUS DO, ERA K 719.45 joint pain, localized in the hip 09/20/2010 STELLA CROSS CUT SAW OPERATOR DEBBIE 401.1 ESSENTIAL HYPERTENSION BENIGN 09/20/2010 STELLA CROSS CUT SAW OPERATOR, DEBBIE 719.45 joint pain, localized in the hip 09/20/2010 BRISSA MARISCAL PHD 401.1 ESSENTIAL HYPERTENSION BENIGN 09/20/2010 BRISSA MARISCAL PHD 719.45 joint pain, localized in the hip 09/20/2010 DE JESUS DO, ERA K 401.1 ESSENTIAL HYPERTENSION BENIGN 09/20/2010 DE JESUS DO, ERA K 719.45 joint pain, localized in the hip 09/20/2010 BRAD REID MD 401.1 ESSENTIAL HYPERTENSION BENIGN 09/20/2010 BRAD REID MD 719.45 joint pain, localized in the hip 09/30/2010 LIZA VALENCIA ERA K 726.5 ENTHESOPATHY OF HIP REGION 09/30/2010 726.5 ENTHESOPATHY OF HIP REGION 09/30/2010 DE JESUS DO ERA K 726.5 ENTHESOPATHY OF HIP REGION 09/30/2010 DE JESUS DO ERA K 726.5 ENTHESOPATHY OF HIP REGION 09/30/2010 726.5 ENTHESOPATHY OF HIP REGION 09/30/2010 726.5 ENTHESOPATHY OF HIP REGION 09/30/2010 726.5 ENTHESOPATHY OF HIP REGION 09/30/2010 GENOVEVA HERNANDEZS, BOB B 726.5 ENTHESOPATHY OF HIP REGION 09/30/2010 [facility] ENTHESOPATHY OF HIP REGION 09/30/2010 JONNIE DE JESUS DOA K 726.5 ENTHESOPATHY OF HIP REGION 09/30/2010 JONNIE DE JESUS DOA K 726.5 ENTHESOPATHY OF HIP REGION 09/30/2010 [facility] ENTHESOPATHY OF HIP REGION 09/30/2010 JONNIE DE JESUS DOA K 726.5 ENTHESOPATHY OF HIP REGION 09/30/2010 HAN CABALLERO APRN 726.5 ENTHESOPATHY OF HIP REGION 09/30/2010 HAN CABALLERO APRN 726.5 ENTHESOPATHY OF HIP REGION 09/30/2010 STELLA PARKER DEBBIE 726.5 ENTHESOPATHY OF HIP REGION 09/30/2010 JONNIE DE JESUS DOA K 726.5 ENTHESOPATHY OF HIP REGION 09/30/2010 STELLA PARKER DEBBIE 726.5 ENTHESOPATHY OF HIP REGION 09/30/2010 DAVEY PHD, BRISSA Harden 726.5 ENTHESOPATHY OF HIP REGION 09/30/2010 JONNIE DE JESUS DOA K 726.5 ENTHESOPATHY OF HIP REGION 09/30/2010 BRAD REID MD 726.5 ENTHESOPATHY OF HIP REGION 01/10/2012 Ot 845.00 SPRAIN OF ANKLE NOS 01/10/2012 Ot 959.7 LOWER LEG INJURY NOS 01/10/2012 Ot E000.8 OTHER EXTERNAL CAUSE STATUS 01/10/2012 Ot E849.0 ACCIDENT IN HOME 01/10/2012 Ot E927.0 OVEREXERTION FROM SUDDEN STRENUOUS MOVEM 02/28/2012 ERA DE JESUS DO K 311 DEPRESSIVE DISORDER NOS 02/28/2012 311 DEPRESSIVE DISORDER NOS 02/28/2012 JONNIE DE JESUS DOA K 311 DEPRESSIVE DISORDER NOS 02/28/2012 LIZA VALENCIA, ERA K 311 DEPRESSIVE DISORDER NOS 02/28/2012 311 DEPRESSIVE DISORDER NOS 02/28/2012 311 DEPRESSIVE DISORDER NOS 02/28/2012 311 DEPRESSIVE DISORDER NOS 02/28/2012 GENOVEVA HERNANDEZS, BOB B 311 DEPRESSIVE DISORDER NOS 02/28/2012 [facility], JOSEE R 311 DEPRESSIVE DISORDER NOS 02/28/2012 JONNIE DE JESUS DOA K 311 DEPRESSIVE DISORDER NOS 02/28/2012 JONNIE DE JESUS DOA K 311 DEPRESSIVE DISORDER NOS 02/28/2012 [facility], JOSEE R 311 DEPRESSIVE DISORDER NOS 02/28/2012 LIZA VALENCIA, ERA K 311 DEPRESSIVE DISORDER NOS 02/28/2012 HAN CABALLERO APRN 311 DEPRESSIVE DISORDER NOS 02/28/2012 HAN CABALLERO APRN 311 DEPRESSIVE DISORDER NOS 02/28/2012 STELLARUSTY PARKER, DEBBIE 311 DEPRESSIVE DISORDER NOS 02/28/2012 JONNIE DE JESUS DOA K 311 DEPRESSIVE DISORDER NOS 02/28/2012 STELLA PARKER DEBBIE 311 DEPRESSIVE DISORDER NOS 02/28/2012 DAVEY LOU, BRISSA Harden 311 DEPRESSIVE DISORDER NOS 02/28/2012 LIZA VALENCIA, ERA K 311 DEPRESSIVE DISORDER NOS 02/28/2012 BRAD REID MD 311 DEPRESSIVE DISORDER NOS 05/13/2012 Ot 719.41 JOINT PAIN- SHLDER 05/13/2012 Ot 959.2 SHLDR/UPPER ARM INJ NOS 05/13/2012 Ot E000.8 OTHER EXTERNAL CAUSE STATUS 05/13/2012 Ot E927.0 OVEREXERTION FROM SUDDEN STRENUOUS MOVEM 05/16/2012 REA DE JESUS DO 726.12 BICIPITAL TENOSYNOVITIS 05/16/2012 726.12 BICIPITAL TENOSYNOVITIS 05/16/2012 ERA DE JESUS DO 726.12 BICIPITAL TENOSYNOVITIS 05/16/2012 ERA DE JESUS DO 726.12 BICIPITAL TENOSYNOVITIS 05/16/2012 726.12 BICIPITAL TENOSYNOVITIS 05/16/2012 726.12 BICIPITAL TENOSYNOVITIS 05/16/2012 726.12 BICIPITAL TENOSYNOVITIS 05/16/2012 GENOVEVA YAP, BOB B 726.12 BICIPITAL TENOSYNOVITIS 05/16/2012 [facility], JOSEE R 726.12 BICIPITAL TENOSYNOVITIS 05/16/2012 ERA DE JESUS DO 726.12 BICIPITAL TENOSYNOVITIS 05/16/2012 ERA DE JESUS DO 726.12 BICIPITAL TENOSYNOVITIS 05/16/2012 [facility], JOSEE R 726.12 BICIPITAL TENOSYNOVITIS 05/16/2012 ERA DE JESUS DO 726.12 BICIPITAL TENOSYNOVITIS 05/16/2012 HAN CABALLERO APRN 726.12 BICIPITAL TENOSYNOVITIS 05/16/2012 HAN CABALLERO APRN 726.12 BICIPITAL TENOSYNOVITIS 05/16/2012 STELLA CROSS CUT SAW OPERATOR, DEBBIE 726.12 BICIPITAL TENOSYNOVITIS 05/16/2012 ERA DE JESUS DO 726.12 BICIPITAL TENOSYNOVITIS 05/16/2012 STELLA CROSS CUT SAW OPERATOR, DEBBIE 726.12 BICIPITAL TENOSYNOVITIS 05/16/2012 ERA DE JESUS DO 726.12 BICIPITAL TENOSYNOVITIS 05/16/2012 BRAD REID MD 726.12 BICIPITAL TENOSYNOVITIS 06/20/2012 719.41 PAIN IN JOINT INVOLVING SHOULDER REGION 06/20/2012 ERA DE JESUS DO 719.41 PAIN IN JOINT INVOLVING SHOULDER REGION 06/20/2012 ERA DE JESUS DO 719.41 PAIN IN JOINT INVOLVING SHOULDER REGION 06/20/2012 719.41 PAIN IN JOINT INVOLVING SHOULDER REGION 06/20/2012 719.41 PAIN IN JOINT INVOLVING SHOULDER REGION 06/20/2012 719.41 PAIN IN JOINT INVOLVING SHOULDER REGION 06/20/2012 GENOVEVA YAP, BOB B 719.41 PAIN IN JOINT INVOLVING SHOULDER REGION 06/20/2012 [facility] PAIN IN JOINT INVOLVING SHOULDER REGION 06/20/2012 ERA DE JESUS DO 719.41 PAIN IN JOINT INVOLVING SHOULDER REGION 06/20/2012 ERA DE JESUS DO 719.41 PAIN IN JOINT INVOLVING SHOULDER REGION 06/20/2012 [facility], JOSEE R 719.41 PAIN IN JOINT INVOLVING SHOULDER REGION 06/20/2012 ERA DE JESUS DO 719.41 PAIN IN JOINT INVOLVING SHOULDER REGION 06/20/2012 HAN CABALLERO APRN 719.41 PAIN IN JOINT INVOLVING SHOULDER REGION 06/20/2012 HAN CABALLERO APRN 719.41 PAIN IN JOINT INVOLVING SHOULDER REGION 06/20/2012 DEBBIE DOUGLAS APRN 719.41 PAIN IN JOINT INVOLVING SHOULDER REGION 06/20/2012 ERA DE JESUS DO 719.41 PAIN IN JOINT INVOLVING SHOULDER REGION 06/20/2012 DEBBIE DOUGLAS APRN 719.41 PAIN IN JOINT INVOLVING SHOULDER REGION 06/20/2012 ERA DE JESUS DO 719.41 PAIN IN JOINT INVOLVING SHOULDER REGION 06/20/2012 BRAD REID MD 719.41 PAIN IN JOINT INVOLVING SHOULDER REGION 08/03/2012 Ot 719.41 JOINT PAIN- SHLDER 08/03/2012 Ot V57.1 PHYSICAL THERAPY NEC 08/07/2012 ERA DE JESUS DO 724.2 LUMBAGO/ LOW BACK PAIN 08/07/2012 724.2 LUMBAGO/ LOW BACK PAIN 08/07/2012 724.2 LUMBAGO/ LOW BACK PAIN 08/07/2012 724.2 LUMBAGO/ LOW BACK PAIN 08/07/2012 GENOVEVA YAP, BOB B 724.2 LUMBAGO/ LOW BACK PAIN 08/07/2012 [facility], JSOEE R 724.2 LUMBAGO/ LOW BACK PAIN 08/07/2012 ERA DE JESUS DO K 724.2 LUMBAGO/ LOW BACK PAIN 08/07/2012 ERA DE JESUS DO 724.2 LUMBAGO/ LOW BACK PAIN 08/07/2012 [facility], JOSEE R 724.2 LUMBAGO/ LOW BACK PAIN 08/07/2012 ERA DE JESUS DO 724.2 LUMBAGO/ LOW BACK PAIN 08/07/2012 HAN CABALLERO APRN 724.2 LUMBAGO/ LOW BACK PAIN 08/07/2012 HAN CABALLERO APRN 724.2 LUMBAGO/ LOW BACK PAIN 08/07/2012 DEBBIE DOUGLAS APRN 724.2 LUMBAGO/ LOW BACK PAIN 08/07/2012 ERA DE JESUS DO 724.2 LUMBAGO/ LOW BACK PAIN 08/07/2012 DEBBIE DOUGLAS APRN 724.2 LUMBAGO/ LOW BACK PAIN 08/07/2012 ERA DE JESUS DO 724.2 LUMBAGO/ LOW BACK PAIN 08/07/2012 BRAD REID MD 724.2 LUMBAGO/ LOW BACK PAIN 09/17/2012 296.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 09/17/2012 300.02 AN GEN ANXIETY 09/17/2012 296.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 09/17/2012 300.02 AN GEN ANXIETY 09/17/2012 296.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 09/17/2012 300.02 AN GEN ANXIETY 09/17/2012 GENOVEVA BOB YAP 296.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 09/17/2012 [facility] DAVIDSBOB B 300.02 AN GEN ANXIETY 09/17/2012 [facility], JOSEE R 296.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 09/17/2012 [facility], JOSEE R 300.02 AN GEN ANXIETY 09/17/2012 ERA DE JESUS DO K 296.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 09/17/2012 JONNIE DE JESUS DOA K 300.02 AN GEN ANXIETY 09/17/2012 ERA DE JESUS DO K 296.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 09/17/2012 ERA DE JESUS DO K 300.02 AN GEN ANXIETY 09/17/2012 [facility], JOSEE R 296.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 09/17/2012 [facility], JOSEE R 300.02 AN GEN ANXIETY 09/17/2012 JONNIE DE JESUS DOA K 296.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 09/17/2012 ERA DE JESUS DO K 300.02 AN GEN ANXIETY 09/17/2012 HAN CABALLERO APRN 296.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 09/17/2012 HAN CABALLERO APRN 300.02 AN GEN ANXIETY 09/17/2012 HAN CABALLERO APRN 296.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 09/17/2012 HAN CABALLERO APRN 300.02 AN GEN ANXIETY 09/17/2012 DEBBIE DOUGLAS APRN 296.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 09/17/2012 STELLA PARKER DEBBIE 300.02 AN GEN ANXIETY 09/17/2012 JONNIE DE JESUS DOA K 296.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 09/17/2012 JONNIE DE JESUS DOA K 300.02 AN GEN ANXIETY 09/17/2012 STELLA KEITH DEBBIE 296.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 09/17/2012 STELLA PARKER DEBBIE 300.02 AN GEN ANXIETY 09/17/2012 JONNIE DE JESUS DOA K 296.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 09/17/2012 JONNIE DE JESUS DOA K 300.02 AN GEN ANXIETY 09/17/2012 BRAD REID MD 296.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 09/17/2012 BRAD REID MD 300.02 AN GEN ANXIETY 10/09/2012 309.81 AN PTSD 10/09/2012 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 10/09/2012 [facility] DDS, BOB B 309.81 AN PTSD 10/09/2012 [facility] DDS, BOB B 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 10/09/2012 [facility], JOSEE R 309.81 AN PTSD 10/09/2012 [facility], JOSEE R 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 10/09/2012 JONNIE DE JESUS DOA K 309.81 AN PTSD 10/09/2012 JONNIE DE JESUS DOA K 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 10/09/2012 JONNIE DE JESUS DOA K 309.81 AN PTSD 10/09/2012 LIZA VALENCIA ERA K 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 10/09/2012 [facility], JOSEE R 309.81 AN PTSD 10/09/2012 [facility], JOSEE R 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 10/09/2012 JONNIE DE JESUS DOA K 309.81 AN PTSD 10/09/2012 JONNIE DE JESUS DOA K 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 10/09/2012 HAN CABALLERO APRN 309.81 AN PTSD 10/09/2012 HAN CABALLERO APRN 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 10/09/2012 HAN CABALLERO APRN 309.81 AN PTSD 10/09/2012 HAN CABALLERO APRN 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 10/09/2012 STELLA CROSS CUT SAW OPERATOR, DEBBIE 309.81 AN PTSD 10/09/2012 STELLA CROSS CUT SAW OPERATOR, DEBBIE 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 10/09/2012 ERA DE JESUS DO K 309.81 AN PTSD 10/09/2012 JONNIE DE JESUS DOA K 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 10/09/2012 STELLA CROSS CUT SAW OPERATOR, DEBBIE 309.81 AN PTSD 10/09/2012 STELLA CROSS CUT SAW OPERATOR, DEBBIE 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 10/09/2012 JONNIE DE JESUS DOA K 309.81 AN PTSD 10/09/2012 JONNIE DE JESUS DOA K 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 10/09/2012 BRAD REID MD 309.81 AN PTSD 10/09/2012 BRAD REID MD 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 07/29/2013 ERA DE JESUS DO K 715.00 OSTEOARTHROSIS GENERALIZED INVOLVING UNSPECIFIED SITE 07/29/2013 JONNIE DE JESUS DOA K V65.42 COUNSELING - SMOKING CESSATION 07/29/2013 JONNIE DE JESUS DOA K 715.00 OSTEOARTHROSIS GENERALIZED INVOLVING UNSPECIFIED SITE 07/29/2013 JONNIE DE JESUS DOA K V65.42 COUNSELING - SMOKING CESSATION 07/29/2013 [facility], JOSEE R 715.00 OSTEOARTHROSIS GENERALIZED INVOLVING UNSPECIFIED SITE 07/29/2013 [facility], JOSEE R V65.42 COUNSELING - SMOKING CESSATION 07/29/2013 ERA DE JESUS DO K 715.00 OSTEOARTHROSIS GENERALIZED INVOLVING UNSPECIFIED SITE 07/29/2013 JONNIE DE JESUS DOA K V65.42 COUNSELING - SMOKING CESSATION 07/29/2013 HAN CABALLERO APRN 715.00 OSTEOARTHROSIS GENERALIZED INVOLVING UNSPECIFIED SITE 07/29/2013 HAN CABALLERO APRN V65.42 COUNSELING - SMOKING CESSATION 07/29/2013 HAN CABALLERO APRN 715.00 OSTEOARTHROSIS GENERALIZED INVOLVING UNSPECIFIED SITE 07/29/2013 HAN CABALLERO APRN V65.42 COUNSELING - SMOKING CESSATION 07/29/2013 DEBBIE DOUGLAS APRN 715.00 OSTEOARTHROSIS GENERALIZED INVOLVING UNSPECIFIED SITE 07/29/2013 DEBBIE DOUGLAS APRN V65.42 COUNSELING - SMOKING CESSATION 07/29/2013 ERA DE JESUS DO 715.00 OSTEOARTHROSIS GENERALIZED INVOLVING UNSPECIFIED SITE 07/29/2013 ERA DE JESUS DO V65.42 COUNSELING - SMOKING CESSATION 07/29/2013 DEBBIE DOUGLAS APRN 715. OSTEOARTHROSIS GENERALIZED INVOLVING UNSPECIFIED SITE 07/29/2013 DEBBIE DOUGLAS APRN V65.42 COUNSELING - SMOKING CESSATION 07/29/2013 ERA DE JESUS DO 715.00 OSTEOARTHROSIS GENERALIZED INVOLVING UNSPECIFIED SITE 07/29/2013 ERA DE JESUS DO V65.42 COUNSELING - SMOKING CESSATION 07/29/2013 BRAD REID MD 715.00 OSTEOARTHROSIS GENERALIZED INVOLVING UNSPECIFIED SITE 07/29/2013 BRAD REID MD V65.42 COUNSELING - SMOKING CESSATION 08/02/2013 ERA DE JESUS DO 296.32 MO DEPRESSIVE RECURRENT MODERATE 08/02/2013 [facility], JOSEE R 296.32 MO DEPRESSIVE RECURRENT MODERATE 08/02/2013 ERA DE JESUS DO 296.32 MO DEPRESSIVE RECURRENT MODERATE 08/02/2013 HAN CABALLERO APRN 296.32 MO DEPRESSIVE RECURRENT MODERATE 08/02/2013 HAN CABALLERO APRN 296.32 MO DEPRESSIVE RECURRENT MODERATE 08/02/2013 DEBBIE DOUGLAS APRN 296.32 MO DEPRESSIVE RECURRENT MODERATE 08/02/2013 ERA DE JESUS DO 296.32 MO DEPRESSIVE RECURRENT MODERATE 08/02/2013 DEBBIE DOUGLAS APRN 296.32 MO DEPRESSIVE RECURRENT MODERATE 08/02/2013 ERA DE JESUS DO 296.32 MO DEPRESSIVE RECURRENT MODERATE 08/02/2013 BRAD REID MD 296.32 MO DEPRESSIVE RECURRENT MODERATE 08/30/2013 MICKEY TORRES, TITO Robles Ot 780.2 SYNCOPE AND COLLAPSE 08/30/2013 MICKEY TORRES, TITO Robles Ot 910.8 SUPERFIC INJ HEAD NEC 08/30/2013 TITO AREVALO MD Ot E000.8 OTHER EXTERNAL CAUSE STATUS 08/30/2013 TITO AREVALO MD Ot E849.0 ACCIDENT IN HOME 08/30/2013 TITO AREVALO MD Ot E888.9 FALL NOS 09/13/2013 DE JESUS DO, ERA K 780.2 SYNCOPE 09/13/2013 DE JESUS DO, ERA K 850.9 CONCUSSION UNSPECIFIED 09/13/2013 DE JESUS DO, ERA K E888.9 UNSPECIFIED ACCIDENTAL FALL 09/13/2013 HNA CABALLERO APRN 780.2 SYNCOPE 09/13/2013 LITAHAN SHERIDAN APRN 850.9 CONCUSSION UNSPECIFIED 09/13/2013 LITAHAN SHERIDAN APRN E888.9 UNSPECIFIED ACCIDENTAL FALL 09/13/2013 LITAHAN SHERIDAN APRN 780.2 SYNCOPE 09/13/2013 LITAHAN SHERIDAN APRN 850.9 CONCUSSION UNSPECIFIED 09/13/2013 HAN CABALLERO APRN E888.9 UNSPECIFIED ACCIDENTAL FALL 09/13/2013 STELLA DEBBIE PARKER 780.2 SYNCOPE 09/13/2013 STELLA CROSS CUT SAW OPERATOR, DEBBIE 850.9 CONCUSSION UNSPECIFIED 09/13/2013 STELLA CROSS CUT SAW OPERATOR, DEBBIE E888.9 UNSPECIFIED ACCIDENTAL FALL 09/13/2013 DE JESUS DO, ERA K 780.2 SYNCOPE 09/13/2013 DE JESUS DO, ERA K 850.9 CONCUSSION UNSPECIFIED 09/13/2013 DE JESUS DO, ERA K E888.9 UNSPECIFIED ACCIDENTAL FALL 09/13/2013 STELLA CROSS CUT SAW OPERATORDEBBIE Zuniga 780.2 SYNCOPE 09/13/2013 STELLA CROSS CUT SAW OPERATOR, DEBBIE 850.9 CONCUSSION UNSPECIFIED 09/13/2013 STELLA CROSS CUT SAW OPERATOR, DEBBIE E888.9 UNSPECIFIED ACCIDENTAL FALL 09/13/2013 DE JESUS DO, ERA K 780.2 SYNCOPE 09/13/2013 DE JESUS DO, ERA K 850.9 CONCUSSION UNSPECIFIED 09/13/2013 DE JESUS DO, ERA K E888.9 UNSPECIFIED ACCIDENTAL FALL 09/13/2013 BRAD REID MD 780.2 SYNCOPE 09/13/2013 BRAD REID MD 850.9 CONCUSSION UNSPECIFIED 09/13/2013 BRAD REID MD E888.9 UNSPECIFIED ACCIDENTAL FALL 11/26/2013 DE JESUS DO, ERA K V65.49 OTHER SPECIFIED COUNSELING 11/26/2013 DEBBIE DOUGLAS APRN V65.49 OTHER SPECIFIED COUNSELING 11/26/2013 DE JESUS DO ERA K V65.49 OTHER SPECIFIED COUNSELING 11/26/2013 BRAD REID MD V65.49 OTHER SPECIFIED COUNSELING 09/08/2014 BRAD REID MD 892.0 OPEN WOUND OF FOOT EXCEPT TOE(S) ALONE WITHOUT COMPLICATION 04/16/2015 Ot 592.0 04/16/2015 TATE TORRES, EMI Harden Ot S43.401A UNSPECIFIED SPRAIN OF RIGHT SHOULDER HUNG 04/16/2015 TATE TORRES, EMI Harden Ot Y93.G1 ACTIVITY, FOOD PREPARATION AND CLEAN UP 04/16/2015 TATE TORRES, EMI Harden Ot Y99.8 OTHER EXTERNAL CAUSE STATUS 06/22/2015 Ot 592.0 06/22/2015 BERGER DO, ADRIANA L Ot F12.10 CANNABIS ABUSE, UNCOMPLICATED 06/22/2015 BERGER DO, ADRIANA L Ot F17.210 NICOTINE DEPENDENCE, CIGARETTES, UNCOMPL 06/22/2015 BERGER DO, ADRIANA L Ot R56.9 UNSPECIFIED CONVULSIONS 06/22/2015 BERGER DO, ADRIANA L Ot S13.4XXA SPRAIN OF LIGAMENTS OF CERVICAL SPINE, I 06/22/2015 BERGRE DO, ADRIANA L Ot W18.30XA FALL ON SAME LEVEL, UNSPECIFIED, INITIAL 06/22/2015 BERGER DO, ADRIANA L Ot Y92.[address] IN [facility] NON[facility] (PRIVATE 06/22/2015 BERGER DO, ADRIANA L Ot Y99.8 OTHER EXTERNAL CAUSE STATUS 06/30/2015 Ot 592.0 05/01/2016 MICKEY TORRES, TITO Robles Ot F17.210 NICOTINE DEPENDENCE, CIGARETTES, UNCOMPL 05/01/2016 TITO AREVALO MD Ot I10 ESSENTIAL (PRIMARY) HYPERTENSION 05/01/2016 MICKEY TORRES, TITO Robles Ot S93.402A SPRAIN OF UNSPECIFIED LIGAMENT OF LEFT A 05/01/2016 TITO AREVALO MD Ot S93.602A UNSPECIFIED SPRAIN OF LEFT FOOT, INITIAL 05/01/2016 TITO AREVALO MD Ot S99.912A UNSPECIFIED INJURY OF LEFT ANKLE, INITIA 05/01/2016 TITO AREVALO MD Ot X58.XXXA EXPOSURE TO OTHER SPECIFIED FACTORS, INI 05/01/2016 TITO AREVALO MD Ot Y92.[address] IN [facility] 05/01/2016 TITO AREVALO MD Ot Y93.9 ACTIVITY, UNSPECIFIED 05/01/2016 TITO AREVALO MD Ot Y99.8 OTHER EXTERNAL CAUSE STATUS 05/03/2016 TITO AREVALO MD Ot F17.210 NICOTINE DEPENDENCE, CIGARETTES, UNCOMPL 05/03/2016 TITO AREVALO MD Ot I10 ESSENTIAL (PRIMARY) HYPERTENSION 05/03/2016 TITO AREVALO MD Ot S93.402A SPRAIN OF UNSPECIFIED LIGAMENT OF LEFT A 05/03/2016 TITO AREVALO MD Ot S93.602A UNSPECIFIED SPRAIN OF LEFT FOOT, INITIAL 05/03/2016 TITO RAEVALO MD Ot S99.912A UNSPECIFIED INJURY OF LEFT ANKLE, INITIA 05/03/2016 TITO AREVALO MD Ot X58.XXXA EXPOSURE TO OTHER SPECIFIED FACTORS, INI 05/03/2016 TITO AREVALO MD Ot Y92.[address] IN [facility] (PRIVATE 05/03/2016 TITO AREVALO MD Ot Y93.9 ACTIVITY, UNSPECIFIED 05/03/2016 TITO AREVALO MD Ot Y99.8 OTHER EXTERNAL CAUSE STATUS 05/07/2016 TITO AREVALO MD Ot F17.210 NICOTINE DEPENDENCE, CIGARETTES, UNCOMPL 05/07/2016 TITO AREVALO MD Ot I10 ESSENTIAL (PRIMARY) HYPERTENSION 05/07/2016 TITO AREVALO MD Ot S93.402A SPRAIN OF UNSPECIFIED LIGAMENT OF LEFT A 05/07/2016 TITO AREVALO MD Ot S93.602A UNSPECIFIED SPRAIN OF LEFT FOOT, INITIAL 05/07/2016 TITO AREVALO MD Ot S99.912A UNSPECIFIED INJURY OF LEFT ANKLE, INITIA 05/07/2016 TITO AREVALO MD Ot X58.XXXA EXPOSURE TO OTHER SPECIFIED FACTORS, INI 05/07/2016 TITO AREVALO MD Ot Y92.[address] IN [facility] (PRIVATE 05/07/2016 MCIKEY TORRES, TITO Robles Ot Y93.9 ACTIVITY, UNSPECIFIED 05/07/2016 MICKEY TORRES, TITO Robles Ot Y99.8 OTHER EXTERNAL CAUSE STATUS 12/13/2016 TAYLA GRACIA [facility] Ot M54.5 LOW BACK PAIN 12/15/2016 TAYLA GRACIA [facility] Ot M54.5 LOW BACK PAIN 12/15/2016 TAYLA GRACIA [facility] Ot M54.5 LOW BACK PAIN 12/19/2016 TAYLA GRACIA [facility] Ot M54.5 LOW BACK PAIN 12/30/2016 TAYLA GRACIA [facility] Ot M54.5 LOW BACK PAIN Procedures Code Description Performed By Performed On ALYSON STRICKLAND 05/16/2012 ALYSON STRICKLAND 06/20/2012 [facility], VIA LIZZIE 06/20/2012 30124 ROUTINE VENIPUNCTURE 08/07/2012 01940 XRAY LUMBAR SPINE 2 OR 3 VIEWS 08/07/2012 52388 CMP 08/07/2012 12258 URINE DRUG SCREEN (IN-HOUSE ) 08/07/2012 84136 TSH 08/07/2012 14651 CBC 08/07/2012 PHYSI PHYSICAL THERAPY, VIA LIZZIE 08/07/2012 93425 PSYCH DIAGNOSTIC EVALUATION 09/18/2012 00805 PSYTX PT&/FAMILY 45 MINUTES 09/18/2012 26471 URINE DRUG SCREEN (IN-HOUSE ) 10/09/2012 58746 URINE THC CON'F 10/19/2012 97782 PSYCH DIAG EVAL W/MED SRVCS 10/19/2012 73567 PSYTX PT&/FAMILY 30 MINUTES 10/19/2012 85996 PSYTX PT&/FAMILY 30 MINUTES 07/10/2013 28470 PSYTX PT&/FAMILY 45 MINUTES 08/02/2013 07309 ROUTINE VENIPUNCTURE 08/13/2013 11861 URINE DRUG SCREEN (IN-HOUSE ) 08/13/2013 8555604 GFR CALC (RESULT ONLY) 08/13/2013 41095 CMP 08/13/2013 05163 PSYTX PT&/FAMILY 45 MINUTES 08/22/2013 Results There is no data. Encounters ACCT No. Visit Date/Time Discharge Status Pt. Type Provider Facility Loc./Unit Complaint [id number] 09/08/2014 13:54:00 09/08/2014 23:59:59 CLS Outpatient BRAD REID MD [id number] 08/22/2014 13:39:00 08/22/2014 23:59:59 CLS Outpatient DE JESUS ERA [id number] 11/26/2013 09:50:00 11/26/2013 23:59:59 CLS Outpatient DE JESUS DOERA [id number] 10/31/2013 15:25:00 10/31/2013 23:59:59 CLS Outpatient DEBBIE DOUGLAS APRN [id number] 10/31/2013 15:25:00 10/31/2013 23:59:59 CLS Outpatient DEBBIE DOUGLAS APRN [id number] 09/17/2013 15:42:00 09/17/2013 23:59:59 CLS Outpatient HNA CABALLERO APRN [id number] 09/17/2013 15:42:00 09/17/2013 23:59:59 CLS Outpatient HAN CABALLERO APRN [id number] 09/13/2013 10:16:00 09/13/2013 23:59:59 CLS Outpatient DE JESUS DOERA [id number] 08/21/2013 15:24:00 08/21/2013 23:59:59 CLS Outpatient JOSEE NELSON [id number] 08/02/2013 16:57:00 08/02/2013 23:59:59 CLS Outpatient ERA DE JESUS DO [id number] 07/29/2013 15:38:00 07/29/2013 23:59:59 CLS Outpatient DE JESUS DOERA [id number] 07/10/2013 11:00:00 07/10/2013 23:59:59 CLS Outpatient TOMASA LSJOSEE ABURTO [id number] 12/04/2012 10:27:00 12/04/2012 23:59:59 CLS Outpatient BOB TOMAS DDS [id number] 08/07/2012 12:55:00 08/07/2012 23:59:59 CLS Outpatient LIZA DOERA [id number] 07/11/2012 18:40:00 07/11/2012 23:59:59 CLS Outpatient LIZA DOERA [id number] 06/20/2012 13:40:00 06/20/2012 23:59:59 CLS Outpatient [id number] 05/16/2012 14:37:00 05/16/2012 23:59:59 CLS Outpatient ERA DE JESUS DO [id number] 02/28/2012 13:13:00 02/28/2012 23:59:59 CLS Outpatient BRISSA MARISCAL PHD [id number] 10/19/2012 10:23:00 Document Registration [id number] 10/03/2012 09:39:00 Document Registration [id number] 09/18/2012 09:39:00 Document Registration [id number] 12/30/2016 13:30:00 01/04/2017 16:09:00 DIS Outpatient TAYLA GRACIA Via [facility] REHAB LOW BACK PAIN [id number] 08/07/2016 16:06:00 08/07/2016 16:57:00 DIS Emergency RYLEE BENNETT MD Via [facility] ER L HAND LAC [id number] 05/01/2016 17:49:00 05/01/2016 19:54:00 DIS Emergency TITO AREVAOL MD Via [facility] ER L ANKLE INJ [id number] 06/22/2015 13:48:00 06/22/2015 15:53:00 DIS Emergency ADRIANA BERGER DO Via [facility] ER SYNCOPAL EPISODE, GROIN PAIN [id number] 04/16/2015 10:26:00 04/16/2015 11:26:00 DIS Emergency EMI YBARRA MD Via [facility] ER RIGHT SHOULDER PAIN [id number] 08/30/2013 17:50:00 08/30/2013 21:57:00 DIS Emergency TITO AREVALO MD Via [facility] ER PASSED OUT; HEAD INJ [id number] 04/16/2015 10:26:00 Document Registration [id number] 04/16/2015 10:26:00 Document Registration [id number] 06/26/2012 08:20:00 Document Registration [id number] 05/13/2012 11:19:00 Document Registration [id number] 01/10/2012 10:51:00 Document Registration [id number] 06/29/2010 00:00:00 Document Registration [id number] 03/30/2010 14:44:00 Document Registration [id number] 03/27/2010 15:43:00 Document Registration
--- NOTE | 2017-05-19 12:15 | ED EENT ---
History of Present Illness General Chief Complaint: Pediatric Illness/Problems Stated Complaint: LT EAR PAIN Nursing Triage Note: ARRIVED VIA AMB TO ROOM 08. COMPLAINS OF LEFT EAR PAIN STARTING LAST NIGHT. STATES HE TOOK HIS "EMERGENCY HYDROCODONE" AND IT HAS NOT HELPED. Source: patient Exam Limitations: no limitations History of Present Illness Time seen by provider: 12:15 Initial Comments 37-year-old male patient presents to the emergency Department with reports of left ear pain starting last night. Reports taking one of his "emergency hydrocodone" with only a little help with the pain. Took 800 mg of motrin at 0900 this AM. States he has a h/o frequent ear infections. Denies seeing an EENT specialist for this or contacting his PCP at [facility]. Location Injury Occurred: denies known injury Timing/Duration: abrupt, yesterday Location: ear (L) Prearrival Treatment: over the counter meds, prescription meds Modifying Factors: Worse With Other (worse with movement) Allergies and Home Medications Allergies Coded Allergies: No Known Drug Allergies (Unverified Allergy, Mild, 10/29/08) Home Medications Amoxicillin 500 Mg Capsule, 1,000 MG PO TID, #60 Ref 0 Prescribed by: HUGH HOOK on 05/19/17 1252 Gabapentin 800 Mg Tablet, (Reported) Hydrocodone/Acetaminophen 1 Each Tablet, 1 EACH PO Q4H PRN for pain, #14 Ref 0 Prescribed by: HUGH HOOK on 05/19/17 1252 Lisinopril/Hydrochlorothiazide 1 Each Tablet, (Reported) Review of Systems Constitutional: No chills, No dizziness, No fever, malaise Eyes: No Symptoms Reported Ears: Denies Dizziness, Pain (left ear pain), Denies Tinnitus, Denies Other ( denies drainage) Nose: denies congestion, denies pain Mouth: no symptoms reported Throat: denies pain, denies swelling, denies neck stiffness, denies hoarse, denies aphonia, denies muffled, denies difficulty with fluids Respiratory: no symptoms reported Cardiovascular: no symptoms reported Gastrointestinal: no symptoms reported Skin: no symptoms reported Neurological: No Symptoms Reported All Other Systems Reviewed Negative Unless Noted: Yes (Negative excepted noted.) Past Tsqeruh-Ogwhgt-Higqqj Hx Patient Social History Recent Foreign Travel: No Contact w/Someone Who Travel: No Recent Hopitalizations: No Seasonal Allergies Seasonal Allergies: No Surgeries History of Surgeries: Yes (ON HAND, kidney stone) Surgeries: Gallbladder, Orthopedic Respiratory History of Respiratory Disorde: No Cardiovascular History of Cardiac Disorders: Yes Cardiac Disorders: Hypertension Neurological History of Neurological Disord: Yes Neurological Disorders: Seizure Disorder Reproductive System Hx Reproductive Disorders: No Genitourinary Genitourinary Disorders: UTI-Chronic Gastrointestinal History of Gastrointestinal Di: No Musculoskeletal History of Musculoskeletal Dis: Yes Musculoskeletal Disorders: Arthritis, Chronic Back Pain Endocrine History of Endocrine Disorders: No HEENT History of HEENT Disorders: Yes (frequent ear infections) Cancer History of Cancer: No Psychosocial History of Psychiatric Problem: Yes Behavioral Health Disorders: Anxiety, PTSD, Depression Integumentary History of Skin or Integumenta: No Blood Transfusions History of Blood Disorders: No Reviewed Nursing Assessment Reviewed/Agree w Nursing PMH: Yes Family Medical History Significant Family History: No Pertinent Family Hx Physical Exam Vital Signs Vital Sign - Last 12Hours 05/19/17 12:00 Pulse 87 Resp 18 B/P (MAP) 113/57 General Appearance: WD/WN, no apparent distress Eyes: bilateral eye normal inspection, bilateral eye PERRL, bilateral eye EOMI Ears: right ear TM dull (RT TM air fluid levels and dull.), left ear tenderness , left ear TM red, left ear TM bulging, bilateral ear auricle normal, bilateral ear canal normal Nose: normal inspection Mouth/Throat: normal mouth inspection, No excessive drooling, other ((+) pharyngeal erythema) Neck: full range of motion, supple, lymphadenopathy (R) (tender to palpation), lymphadenopathy (L) (tender to palpation) Cardiovascular: normal peripheral pulses, regular rate, rhythm, no murmur Respiratory: lungs clear, normal breath sounds, no respiratory distress, no accessory muscle use Neurologic/Psychiatric: alert, normal mood/affect, oriented x 3 Skin: normal color, warm/dry Progress/Results/Core Measures Results/Orders My Orders Orders - HUGH HOOK Acetaminophen Tablet (Tylenol Tablet) (05/19/17 12:38) Ceftriaxone Injection (Rocephin Injectio (05/19/17 12:45) Lidocaine 1% (Xylocaine 1%) (05/19/17 12:45) Vital Signs/I&O Vital Sign - Last 12Hours 05/19/17 12:00 Pulse 87 Resp 18 B/P (MAP) 113/57 Departure Communication (Admissions) Progress Notes Patient seen and evaluated. Patient is driving himself home from the emergency department. Patient then 1000 mg po Tylenol and 1 g Rocephin IM prior to discharge. Follow-up with his PCP for recheck as an outpatient early next week. Impression Impression: Primary Impression: Left acute suppurative otitis media Disposition: HOME, SELF-CARE Condition: Improved Departure-Patient Inst. Decision time for Depature: 12:46 [place]: [facility] [place] Primary Care Physician Patient Instructions: Ear Infections (Otitis Media) (DC) Add. Discharge Instructions: All discharge instructions reviewed with patient and/or family. Voiced understanding. Medications as instructed. Ibuprofen 800 mg by mouth every 8 hours as needed for pain. Avoid getting water in the left ear. Follow-up with your primary care provider or Dr. kaur for recheck early next week. Return to the emergency department for worsened pain, fever, drainage, or any other concerns. Scripts Amoxicillin (Amoxicillin) 500 Mg Capsule 1000 MG PO TID, #60 CAP 0 Refills Prov: HUGH HOOK 05/19/17 Hydrocodone/Acetaminophen (Hydrocodon-Acetaminophn 10-325) 1 Each Tablet 1 EACH PO Q4H Y for pain, #14 TAB 0 Refills Prov: HUGH HOOK 05/19/17 HUGH HOOK May 19, 2017 12:15
[2017-05-19] MEDS ORDERED: LISI1TAB10 (12:16)
[2017-05-19] MEDS ORDERED: GABA800T2 (12:16)
[2017-05-19] MEDS ORDERED: ACETAMINOPHEN 500 MG TAB (TYLENOL) PO STA (12:38)
[2017-05-19] MEDS ORDERED: LIDOCAINE 1% INJ 50 ML (XYLOCAINE) VIAL IJ ONE (12:45)
[2017-05-19] MEDS ORDERED: cefTRIAXone 1 GM (ROCEPHIN) VIAL IM ONE (12:45)
[2017-05-19] MEDS ORDERED: AMOX500C2 PO (12:52)
[2017-05-19] MEDS ORDERED: HYDR-3820 PO (12:52)
[2017-05-19 13:14] VITALS: BP 124/71
== END 2017-05-19 13:14 | disposition home or self-care (01) ==
LOC: EDUNIT# 11:48 → ER 11:50
DX: H66.002 Acute suppurative otitis media without spontaneous rupture of ear drum, left ear (principal); I10 Essential (primary) hypertension; G40.909 Epilepsy, unspecified, not intractable, without status epilepticus; F41.9 Anxiety disorder, unspecified; F43.10 Post-traumatic stress disorder, unspecified; F32.9 Major depressive disorder, single episode, unspecified; Z87.440 Personal history of urinary (tract) infections; Z87.442 Personal history of urinary calculi
CPT/HCPCS: 99284

== ENCOUNTER 2017-07-17 11:58 | Outpatient (CLI) | payer MEDICAID ==
[~2017-07-17] VITALS: Ht 182.9 cm; Wt 108.0 kg
[~2017-07-17 11:58] MED LIST changes: +AMOX500C2 PO; +GABA800T2 PO; +HYDR-3820 PO; +LISI1TAB10
[2017-07-17 12:05] VITALS: BP 135/88
[2017-07-17 12:30] LABS: BASOPHILS # (AUTO) 0.1 10^3/uL (0.0-0.1); BASOPHILS % (AUTO) 1 % (0-10); EOSINOPHILS # (AUTO) 0.2 10^3/uL (0.0-0.3); EOSINOPHILS % (AUTO) 2 % (0-10); HEMATOCRIT 40 % (40-54); HEMOGLOBIN 13.7 G/DL (13.3-17.7); LYMPHOCYTES % (AUTO) 25 % (12-44); MEAN CORPUSCULAR HEMOGLOBIN 32 PG (25-34); MEAN CORPUSCULAR HGB CONC 35 G/DL (32-36); MEAN CORPUSCULAR VOLUME 92 FL (80-99); MEAN PLATELET VOLUME 10.7 FL (7.4-10.4); MONOCYTES # (AUTO) 0.8 X 10^3 (0.0-1.0); MONOCYTES % (AUTO) 7 % (0-12); NEUTROPHILS % (AUTO) 66 % (42-75); PLATELET COUNT 221 10^3/uL (130-400); RED BLOOD COUNT 4.34 10^6/uL (4.35-5.85); RED CELL DISTRIBUTION WIDTH 13.5 % (10.0-14.5); WHITE BLOOD COUNT 12.2 10^3/uL (4.3-11.0)
[2017-07-17 12:54] LABS: BUN/CREATININE RATIO 11; CALCIUM 9.2 MG/DL (8.5-10.1); CARBON DIOXIDE 24 MMOL/L (21-32); CHLORIDE 105 MMOL/L (98-107); GFR ESTIMATED > 60; GLUCOSE 95 MG/DL (70-105); POTASSIUM 3.9 MMOL/L (3.6-5.0); SODIUM 141 MMOL/L (135-145)
== END 2017-07-17 12:25 | disposition home or self-care (01) ==
LOC: PREOP 11:58
PROVIDERS: ATTEND Otolaryngology Otolaryngology/Facial Plastic Surgery
DX: Z01.812 Encounter for preprocedural laboratory examination (principal); Z11.2 Encounter for screening for other bacterial diseases; H65.23 Chronic serous otitis media, bilateral
CPT/HCPCS: 36415; 80048; 85025; 87081

== ENCOUNTER 2017-07-20 06:55 | Day surgery (SDC) | payer MEDICAID ==
[~2017-07-20] VITALS: Ht 182.9 cm; Wt 108.0 kg
--- NOTE | 2017-07-20 07:13 | Progress Note-Pre Operative ---
Pre-Operative Progress Note H&P Reviewed The H&P was reviewed, patient examined and no changes noted. 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
[2017-07-20] MEDS ORDERED: LACTATED RINGERS 1,000 ML IV PRN (07:14)
[2017-07-20 07:17] VITALS: BP 138/89
[2017-07-20] MEDS ORDERED: fentaNYL INJECTION 100 MCG/2 ML AMP ONE (08:00)
[2017-07-20] MEDS ORDERED: MIDAZOLAM 2 MG/2 ML (VERSED) VIAL ONE (08:00)
[2017-07-20] MEDS ORDERED: LIDOCAINE PF 2% 5 ML (XYLOCAINE) VIAL ONE (08:00)
[2017-07-20] MEDS ORDERED: proPOfol 200 MG/20 ML (DIPRIVAN) VIAL IV ONE (08:00)
--- NOTE | 2017-07-20 08:39 | Progress Note-Post Operative ---
Post-Operative Progess Note Surgeon (s)/Gsa Coordinator (s) Surgeon RAMIRO FRAZIER MD Gsa Coordinator n/a Pre-Operative Diagnosis Chroinc GILLES, Possible Nasopharyngeal Mass Post-Operative Diagnosis same Post-Op Procedure Note Date of Procedure: Jul 20, 2017 Name of Procedure Performed: BMT, Nasopharyngeal Biopsy Description & Findings Description and Findings: n/a Anesthesia Type get Estimated Blood Loss minimal Packing none. Specimen(s) collected/removed nasopharyngeal biopsy RAMIRO FRAZIER MD Jul 20, 2017 8:39 am
[2017-07-20] MEDS ORDERED: APAP 325 MG/10.15 ML LIQ (TYLENOL) UDC PO PRN (08:45)
[2017-07-20] MEDS ORDERED: HYDROcodone/APAP 5 MG/325 MG (LORTAB) TAB PO PRN (08:45)
[2017-07-20] MEDS ORDERED: SEVOFLURANE (ULTANE) 15 ML INHAL SOLN ONE (08:49)
[2017-07-20] MEDS ORDERED: ONDANSETRON 4 MG/2 ML (SDV) Z0FRAN ONE (08:49)
[2017-07-20] MEDS ORDERED: DEXAMETHASONE 10 MG/ML (DECADRON) 1 ML VIAL ONE (08:49)
[2017-07-20] MEDS ORDERED: ONDANSETRON 4 MG/2 ML (SDV) Z0FRAN IVP PRN (09:00)
[2017-07-20] MEDS: morphine INJ 10 MG/ML 1ML (SYR OR VIAL) IVP PRN ×2 (09:02→09:07)
[2017-07-20 09:40] VITALS: BP 138/86
[2017-07-20] MEDS ORDERED: CIPR5DRO OP (09:58)
[2017-07-20] MEDS ORDERED: HYDR-3812 PO (09:58)
[2017-07-20 10:10] VITALS: BP 138/76
[2017-07-20 10:13] VITALS: BP 138/76
--- NOTE | 2017-07-20 13:42 | Anesthesia-General Post-Op ---
General Patient Condition Mental Status/LOC: Same as Preop Cardiovascular: Satisfactory Nausea/Vomiting: Absent Respiratory: Satisfactory Pain: Controlled Complications: Absent Post Op Complications Complications None Follow Up Care/Instructions Patient Instructions None needed. Anesthesia/Patient Condition Patient Condition Patient is doing well, no complaints, stable vital signs, no apparent adverse anesthesia problems. No complications reported per nursing. AMY ALDANA CRNA Jul 20, 2017 13:42
== END 2017-07-20 10:13 | disposition home or self-care (01) ==
LOC: SDC 06:55
PROVIDERS: ATTEND Otolaryngology Otolaryngology/Facial Plastic Surgery
DX: H65.23 Chronic serous otitis media, bilateral (principal); J34.89 Other specified disorders of nose and nasal sinuses; F17.210 Nicotine dependence, cigarettes, uncomplicated; I10 Essential (primary) hypertension; F43.10 Post-traumatic stress disorder, unspecified; Z79.899 Other long term (current) drug therapy

== ENCOUNTER 2017-12-30 15:35 | Emergency (ER) | payer MEDICAID ==
[~2017-12-30] VITALS: Ht 182.9 cm; Wt 95.3 kg
[~2017-12-30 15:35] MED LIST changes: +CIPR5DRO OP; +HYDR-3812 PO
--- OUTSIDE RECORDS SUMMARY | 2017-12-30 15:42 | XMS REPORT ---
Author Author BRAD REID Organization [facility] Address [address] [place] [address] Care Team Providers Care Central Station Operator Name Role Phone BRAD REID Unavailable PROBLEMS Type Condition ICD9-CM Code DHD99-KO Code Onset Dates Condition Status SNOMED Code Problem HTN (hypertension) I10 Active 40676954 Problem Chronic pain G89.29 Active 32498193 Problem Syncopal episodes R55 Active 831093457 Problem Elevated liver enzymes R74.8 Active 580375070 Problem Neuropathy G62.9 Active 544044982 Problem Low back pain M54.5 Active 635592063 Problem Neck muscle strain, initial encounter S16.1XXA Active 135585406 Problem Adjustment disorder with depressed mood F43.21 Active 55806763 Problem Depressed F32.9 Active 33810820 Problem Kidney stones N20.0 Active 88954055 Problem Post traumatic stress disorder (PTSD) F43.10 Active 04665677 ALLERGIES Substance Reaction Event Type Date Status Buspirone 7.5 Mg Tablet Headache Non Drug Allergy Jul, Active ENCOUNTERS Encounter Location Date Diagnosis [facility] [id number] [place] [address] Jul, HTN (hypertension) I10 ; Neuropathy G62.9 and Depressed F32.9 [facility] [id number] [place] [address] Jun, Myalgia M79.1 ; Abnormal LFTs R94.5 ; Neuropathy G62.9 ; Low back pain M54.5 and Adjustment disorder with depressed mood F43.21 [facility] [id number] [place] [address] May, [facility] [id number] [place] [address] May, Other acute nonsuppurative otitis media of left ear, recurrence not specified H65.192 and Acute otitis externa of left ear, unspecified type H60.502 [facility] [id number] [place] [address] Nov, Acute otitis externa of left ear, unspecified type H60.502 [facility] [address] [address] Oct, HTN (hypertension) I10 ; Neuropathy G62.9 ; Chronic pain G89.29 ; Low back pain M54.5 ; Neck muscle strain, initial encounter S16.1XXA ; Depressed F32.9 and Adjustment disorder with depressed mood F43.21 [place] [address] [address] Oct, [place] [address] [address] Oct, Depressed F32.9 [place] [address] [address] Aug, Chronic pain G89.29 [place] [address] [address] Aug, Chronic pain G89.29 [facility] [address] [address] Aug, Chronic pain G89.29 [place] [address] [address] Jul, HTN (hypertension) I10 ; Chronic pain G89.29 ; Depressed F32.9 ; Post traumatic stress disorder (PTSD) F43.10 and Right elbow pain M25.521 [place] [address] [address] 14 Jul, 2016 HTN (hypertension) I10 ; Neuropathy G62.9 ; Adjustment disorder with depressed mood F43.21 ; Chronic pain G89.29 ; Kidney stones N20.0 and Screening cholesterol level Z13.220 [place] [id number] [place] [address]- [address] 13 Jul, 2016 Adjustment disorder with depressed mood F43.21 ; Post traumatic stress disorder (PTSD) F43.10 ; Depressed F32.9 and Chronic pain G89.29 [place] [id number] [place] [address] Jul, Depressed F32.9 ; Chronic pain G89.29 ; Neuropathy G62.9 ; Adjustment disorder with depressed mood F43.21 and Post traumatic stress disorder (PTSD) F43.10 [place] [id number] [place] [address]41- [address] Jul, [place] [address] [address] Jul, [place] [address] [address] Jun, HTN (hypertension) I10 ; Syncopal episodes R55 ; Depressed F32.9 and Chronic pain G89.29 [place] [id number] [place] [address]- [address] May, [place] [address] [address] May, [place] [id number] [place] [address]- [address] Mar, [place] [address] [address] Feb, HTN (hypertension) I10 ; Leg pain M79.606 and Neuropathy G62.9 [place] [address] [address]- [address] 10 Jan, 2015 Major depressive disorder, recurrent episode, severe, without mention of psychotic behavior 296.33 ; Generalized anxiety disorder 300.02 and Posttraumatic stress disorder 309.81 [place] [address] [address] Jan, Acute bronchitis 466.0 and Back pain 724.5 [facility] [address] [id number] [place] [address] 17 Oct, 2014 [facility] [address] [id number] [place] [address] Aug, [facility] [address] [facility] [id number] [place] [address] Aug, [facility] [address] [id number] [place] [address] 60[address] Jul, [facility] [address] [id number] [place] [address] Jul, [facility] [address] [facility] [id number] [place] [address] Dec, [facility] [address] [facility] [id number] [place] [address]- [address] Dec, [facility] [address] [facility] [id number] [place] [address] Nov, [facility] [address] [facility] [id number] [place] [address] Nov, [facility] [address] [facility] [id number] [place] [address] Oct, [facility] [address] [facility] [id number] [place] [address]- [address] Oct, [facility] [address] [facility] [id number] [address] September, [facility] [address] [id number] [place] [address]- 1385 September, [facility] [address] [facility] [id number] [place] [address]- [address] Aug, [facility] [address] [facility] [id number] [address] Aug, [facility] [place] [facility] [address] [id number] [place] [address] Aug, [facility] [place] [facility] [address] [id number] [place] [address]- [address] Aug, [facility] [place] [facility] [address] [id number] [place] [address]- 98[address] Aug, [facility] [place] [facility] [address] [id number] [place] [address]- [address] Aug, [facility] [place] [facility] [address] [id number] [place] [address]- 0[address] Aug, [facility] [place] [facility] [address] [id number] [place] [address]- 8[address] Aug, [facility] [place] [facility] [address] [id number] [place] [address]- 9370 Jul, [facility] [place] [facility] [address] [id number] [place] [address]- 475[address] 25 Jul, 2013 [facility] [place] [facility] [address] [id number] [place] [address]- 7[address] 18 Jul, 2013 [facility] [place] [facility] [address] [id number] [place] [address]- 2[address] 18 Jul, 2013 [facility] [place] [facility] [address] [id number] [place] [address]- 79[address] 14 Jul, 2013 [facility] [place] [facility] [address] [id number] [place] [address]- 73[address] 14 Jul, 2013 [facility] [place] [facility] [address] [id number] [place] [address]- 24[address] 14 Jul, 2013 [facility] [place] [facility] [address] [id number] [place] [address]- 66[address] 14 Jul, 2013 [facility] [place] [facility] [address] [id number] [place] [address]- 31[address] 10 Jul, 2013 [facility] [place] [facility] [address] [id number] [place] [address]- [address] Jul, [facility] [address] [id number] [place] [address]- 3056 Jun, [facility] [place] [facility] [address] [id number] [place] [address] Jun, [facility] [place] [facility] [address] [id number] [place] [address]- 9393 Jun, [facility] [place] [facility] [address] [id number] [place] [address]- 5268 Jun, [facility] [place] [facility] [address] [id number] [place] [address]- 120[address] Jan, [facility] [place] [facility] [address] [id number] [place] [address]- 9258 Dec, [facility] [place] [facility] [address] [id number] [place] [address]- 7262 Nov, [facility] [place] [facility] [address] [id number] [place] [address]- 9[address] Oct, [facility] [place] [facility] [address] [id number] [place] [address]- [address] September, [facility] [place] [facility] [address] [id number] [place] [address]- 9572 September, [facility] [place] [facility] [address] [id number] [place] [address]- [address] September, [facility] [place] [facility] [address] [id number] [place] [address]- 5[address] September, [facility] [place] [facility] [address] [id number] [place] [address]- 3[address] 30 Aug, 2012 [facility] [place] [facility] [address] [id number] [place] [address]- [address]472 Aug, [facility] [place] [facility] [address] [id number] [place] [address]- [address] Jul, [facility] [place] [facility] [address] [facility] [id number] [place] [address]- [address] Jul, [facility] [address] [facility] [id number] [place] [address]- [address] Jun, [facility] [address] [facility] [id number] [place] [address]- 6[address] Jun, [facility] [address] [facility] [id number] [place] Jun, [facility] [address] [facility] [id number] [place] [address]- [address] May, [facility] [address] [facility] [id number] [place] [address]- 9[address] May, [facility] [address] [facility] [id number] [place] [address]- [address] Apr, [facility] [address] [address] Apr, [facility] [address] [facility] [id number] [place] [address]- [address] Mar, [facility] [address] [address] Mar, [facility] [id number] [address] Mar, [facility] [address] [address] Mar, [facility] [address] [facility] [id number] [address]- [address] Feb, [facility] [address] [id number] [address]- [address] Mar, [facility] [address] [facility] [id number] [place] [address]- [address] Feb, IMMUNIZATIONS No Known Immunizations SOCIAL HISTORY Never Assessed REASON FOR VISIT pain management-Crystal HAYSE PLAN OF CARE Activity Details Follow Up 3 Months Reason: VITAL SIGNS Height 72 in 2017-08-01 Weight 237.0 lbs 2017-08-01 Temperature 98.5 degrees Fahrenheit 2017-08-01 Heart Rate 80 bpm 2017-08-01 Respiratory Rate 18 2017-08-01 BMI 32.14 kg/m2 2017-08-01 Blood pressure systolic 126 mmHg 2017-08-01 Blood pressure diastolic 78 mmHg 2017-08-01 MEDICATIONS Medication Instructions Dosage Frequency Start Date End Date Duration Status Hydrocodone-Acetaminophen 5-325 MG Orally every 6 hrs 1 tablet as needed 6h Active Ibuprofen 800 MG TAKE ONE TABLET BY MOUTH THREE TIMES DAILY 30 Active Lisinopril-Hydrochlorothiazide 20-25 MG TAKE TWO TABLETS BY MOUTH ONCE DAILY IN THE MORNING (MUST HAVE APPOINTMENT FOR REFILL) 90 Active Neurontin 800 MG Orally 4 times a day TAKE ONE TABLET BY MOUTH FOUR TIMES DAILY (NEED APPOINTMENT FOR FURTHER REFILLS) 6h Active Tylenol 325 MG Orally every 6 hrs 1 tablet as needed 6h Active Cymbalta 60 mg Orally Once a day 1 capsule 24h Jun, 30 day(s) Active Clonidine HCl 0.1 MG TAKE ONE TABLET BY MOUTH TWICE DAILY 30 Not -Taking RESULTS No Results PROCEDURES No Known procedures INSTRUCTIONS MEDICATIONS ADMINISTERED No Known Medications MEDICAL (GENERAL) HISTORY Type Description Date Medical History hypertension Medical History chronic back pain Medical History PTSD Medical History depression and anxiety Surgical History cholecystectomy Surgical History kidney surgery Surgical History right hand Surgical History tubes in both ears and 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
--- OUTSIDE RECORDS SUMMARY | 2017-12-30 15:43 | XMS REPORT ---
Author Author YOGI DEL REAL [facility] Address [address] [place] [address] Care Team Providers Care Cricket Coach Name Role Phone YOGI DEL REAL Unavailable PROBLEMS Type Condition ICD9-CM Code LKF17-LV Code Onset Dates Condition Status SNOMED Code Problem HTN (hypertension) I10 Active 26805456 Problem Chronic pain G89.29 Active 90729680 Problem Syncopal episodes R55 Active 894469035 Problem Elevated liver enzymes R74.8 Active 124013197 Problem Neuropathy G62.9 Active 574660757 Problem Low back pain M54.5 Active 931191485 Problem Neck muscle strain, initial encounter S16.1XXA Active 355676145 Problem Adjustment disorder with depressed mood F43.21 Active 47485035 Problem Depressed F32.9 Active 71650650 Problem Kidney stones N20.0 Active 82372276 Problem Post traumatic stress disorder (PTSD) F43.10 Active 44733242 ALLERGIES Substance Reaction Event Type Date Status Buspirone 7.5 Mg Tablet Headache Non Drug Allergy May, Active ENCOUNTERS Encounter Location Date Diagnosis [facility] [place] [id number] [place] [address] 68635- 8844 Jul, HTN (hypertension) I10 ; Neuropathy G62.9 and Depressed F32.9 [facility] [place] [id number] [place] [address] 22960- 2726 Jun, Myalgia M79.1 ; Abnormal LFTs R94.5 ; Neuropathy G62.9 ; Low back pain M54.5 and Adjustment disorder with depressed mood F43.21 [facility] [place] [id number] [place] [address] 35117- 7997 May, [facility] [id number] [place] [address] 13328 -2456 May, Other acute nonsuppurative otitis media of left ear, recurrence not specified H65.192 and Acute otitis externa of left ear, unspecified type H60.502 [facility] [id number] [place] [address] 60938 -4005 Nov, Acute otitis externa of left ear, unspecified type H60.502 [facility] [place] [id number] [place] [address] 11641- 1729 Oct, HTN (hypertension) I10 ; Neuropathy G62.9 ; Chronic pain G89.29 ; Low back pain M54.5 ; Neck muscle strain, initial encounter S16.1XXA ; Depressed F32.9 and Adjustment disorder with depressed mood F43.21 [facility] [place] [id number] [place] [address] 09142- 8472 Oct, [place] [address] 78458- 9487 Oct, Depressed F32.9 [place] [address] 33066- 5735 Aug, Chronic pain G89.29 [place] [address] 99594- 9987 Aug, Chronic pain G89.29 [place] [id number] [place] [address] 24468- 5745 Aug, Chronic pain G89.29 [place] [address] 93091- 1657 Jul, HTN (hypertension) I10 ; Chronic pain G89.29 ; Depressed F32.9 ; Post traumatic stress disorder (PTSD) F43.10 and Right elbow pain M25.521 [place] [id number] [place] [address] 79887- 3168 14 Jul, 2016 HTN (hypertension) I10 ; Neuropathy G62.9 ; Adjustment disorder with depressed mood F43.21 ; Chronic pain G89.29 ; Kidney stones N20.0 and Screening cholesterol level Z13.220 [place] [id number] [place] [address] 73548- 5841 Jul, Adjustment disorder with depressed mood F43.21 ; Post traumatic stress disorder (PTSD) F43.10 ; Depressed F32.9 and Chronic pain G89.29 [place] [address] 69921- 9358 Jul, Depressed F32.9 ; Chronic pain G89.29 ; Neuropathy G62.9 ; Adjustment disorder with depressed mood F43.21 and Post traumatic stress disorder (PTSD) F43.10 [place] [address] 13102- 3954 Jul, [place] [address] 47134- 7778 Jul, [place] [address] 08308- 5498 Jun, HTN (hypertension) I10 ; Syncopal episodes R55 ; Depressed F32.9 and Chronic pain G89.29 [place] [address] 63849- 7058 May, [place] [address] 56720- 1067 May, [place] [address] 63120- 7311 Mar, [place] [address] 43934- 4445 Feb, HTN (hypertension) I10 ; Leg pain M79.606 and Neuropathy G62.9 [place] [address] 98040- 2673 10 Jan, 2015 Major depressive disorder, recurrent episode, severe, without mention of psychotic behavior 296.33 ; Generalized anxiety disorder 300.02 and Posttraumatic stress disorder 309.81 [place] [address] 14106- 5113 Jan, Acute bronchitis 466.0 and Back pain 724.5 [facility] [address] [id number] [place] [address]- 0867 17 Oct, 2014 [facility] [address] [id number] [place] [address]- 8658 14 Aug, 2014 [facility] [address] [id number] [place] [address]- 4499 Aug, [facility] [address] [id number] [place] [address]- 7959 Jul, [facility] [address] [id number] [place] [address]- 3617 Jul, [facility] [address] [facility] [id number] [place] [address]- 7507 Dec, [facility] [address] [facility] [id number] [place] [address]- 8313 Dec, [facility] [address] [id number] [place] [address]- 4711 Nov, [facility] [address] [facility] [id number] [place] [address]- 2701 Nov, [facility] [address] [facility] [id number] [place] [address]- 6180 Oct, [facility] [address] [facility] [id number] [place] [address]- 0998 Oct, [facility] [address] [id number], [place] [address] 8620 September, [facility] [address] [id number] [place] [address] September, [facility] [address] [id number] [place] [address]- 8453 Aug, [facility] [address] [id number] [place] [address]- 4571 Aug, [facility] [place] [facility] [address] [id number] [place] [address]- 4774 Aug, [facility] [place] [facility] [address] [id number] [place] [address]- 4409 Aug, [facility] [place] [facility] [address] [id number] [place] [address]- 7244 Aug, [facility] [place] [facility] [address] [id number] [place] [address]- 9335 Aug, [facility] [place] [facility] [address] [id number] [place] [address]- 4161 Aug, [facility] [place] [facility] [address] [id number] [place] [address]- 8085 Aug, [facility] [place] [facility] [address] [id number] [place] [address]- 8552 Jul, [facility] [place] [facility] [address] [id number] [place] [address]- 2340 Jul, [facility] [place] [facility] [address] [id number] [place] [address]- 3939 18 Jul, 2013 [facility] [place] [facility] [address] [id number] [place] [address]- 6522 18 Jul, 2013 [facility] [place] [facility] [address] [id number] [place] [address]- 2788 Jul, [facility] [place] [facility] [address] [id number] [place] [address]- 0625 14 Jul, 2013 [facility] [place] [facility] [address] [id number] [place] [address]- 9797 14 Jul, 2013 [facility] [place] [facility] [address] [id number] [place] [address]- 9599 14 Jul, 2013 [facility] [place] [facility] [address] [id number] [place] [address]- 4250 10 Jul, 2013 [facility] [place] [facility] [address] [id number] [place] [address]- 3788 Jul, [facility] [address] [id number] [place] [address]- 3930 Jun, [facility] [place] [facility] [address] [id number] [place] [address]- 2625 Jun, [facility] [address] [id number] [place] [address]- 8250 Jun, [facility] [place] [facility] [address] [id number] [place] [address]- 5709 Jun, [facility] [place] [facility] [address] [id number] [place] [address]- 5272 Jan, [facility] [place] [facility] [address] [id number] [place] [address]- 4956 Dec, [facility] [address] [id number] [place] [address]- 5709 Nov, [facility] [address] [id number] [place] [address]- 7420 Oct, [facility] [place] [facility] [address] [id number] [place] [address]- 3209 September, [facility] [address] [id number] [place] [address]- 9601 September, [facility] [place] [facility] [address] [id number] [place] [address]- 4821 September, [facility] [place] [facility] [address] [id number] [place] [address]- 0309 September, [facility] [place] [facility] [address] [id number] [place] [address]- 8314 30 Aug, 2012 [facility] [place] [facility] [address] [id number] [place] [address]- 5539 Aug, [facility] [place] [facility] [address] [id number] [place] [address]- 3893 Jul, [facility] [place] [address] [facility] [id number], [place] [address]- 5119 Jul, [facility] [place] [address] [facility] [id number], [place] [address]- 0539 Jun, [facility] [place] [address] [facility] [id number], [place] [address]- 5815 Jun, [facility] [place] [address] [facility] [id number], [place] [address]- 3922 Jun, [facility] [place] [address] [facility] [id number], [place] [address]- 3236 May, [facility] [place] [address] [facility] [id number], [place] [address]- 7527 May, [facility] [place] [address] [id number], [place] [address]- 6275 Apr, [facility] [place] [address] [id number], [place] [address]- 3112 Apr, [facility] [place] [address] [id number], [place] [address]- 5885 Mar, [facility] [place] [address] [id number], [place] [address]- 9941 Mar, [facility] [place] [address], [place] [address]- 6234 Mar, [facility] [place] [address] [id number], [place] [address]- 2598 Mar, [facility] [place] [address] [facility] [id number], [place] [address]- 2260 Feb, [facility] [place] [address] [facility] [id number], [place] [address]- 9092 08 Mar, 2011 [facility] [place] [address] [id number], [place] [address]- 9234 15 Feb, 2008 IMMUNIZATIONS No Known Immunizations SOCIAL HISTORY Never Assessed REASON FOR VISIT head congestion- pt. has surgery for ear tubes because ears won't drain and the fluid build up is giving him head aches Santos [facility] PLAN OF CARE Activity Details Follow Up keep appt with Dr. Juarez Reason: VITAL SIGNS Height 72 in 2017-05-26 Weight 237 lbs 2017-05-26 Temperature 97.8 degrees Fahrenheit 2017-05-26 Heart Rate 92 bpm 2017-05-26 Respiratory Rate 20 2017-05-26 BMI 32.14 kg/m2 2017-05-26 Blood pressure systolic 142 mmHg 2017-05-26 Blood pressure diastolic 90 mmHg 2017-05-26 MEDICATIONS Medication Instructions Dosage Frequency Start Date End Date Duration Status Hydrocodone-Acetaminophen 5-325 MG Orally every 6 hrs 1 tablet as needed 6h Active Ciprodex 0.3-0.1 % Otic Twice a day 4 drops into affected ear 12h 25 Nov, 2016 7 days Not-Taking Amoxicillin 500 MG (Prior Auth: Rx Ref#:[id number]) 10 Active Ibuprofen 800 MG TAKE ONE TABLET BY MOUTH THREE TIMES DAILY 30 Active Wellbutrin SR 200 MG Orally Twice a day 1 Tablet 2 times per day 12h 12 Oct Active Ultram 50 MG Orally 2 times a day 1 tablet as needed 12h 28 Feb, 2015 28 days Not-Taking Cefdinir 300 MG Orally every 12 hrs 1 capsule 12h May, May, 10 day(s) Active Tylenol 325 MG Orally every 6 hrs 1 tablet as needed 6h Active Neurontin 800 MG Orally 4 times a day 1 Tablet 6h 90 Active Lisinopril-Hydrochlorothiazide 20-25 MG TAKE TWO TABLETS BY MOUTH ONCE DAILY IN THE MORNING 90 Active Cymbalta 60 MG Orally Once a day 1 capsule 24h Jun, 30 day(s) Not-Taking Clonidine HCl 0.1 MG Orally twice a day 1 tablet 12h 30 Not-Taking Lisinopril 20 MG Orally Once a day 1 tablet 24h Jun, 30 day(s) Not-Taking Ofloxacin 0.3 % Otic Four times a day 5 drops into affected ear 6h May, May, 7 day(s) Active RESULTS No Results PROCEDURES No Known procedures [...]
--- OUTSIDE RECORDS SUMMARY | 2017-12-30 15:43 | XMS REPORT ---
Author Author BRAD REID Organization [facility] Address [address] [place] [address] Care Team Providers Care Benefit Authorizer Name Role Phone BRAD REID Unavailable PROBLEMS Type Condition ICD9-CM Code NBQ00-PL Code Onset Dates Condition Status SNOMED Code Problem HTN (hypertension) I10 Active 77804354 Problem Chronic pain G89.29 Active 69077456 Problem Syncopal episodes R55 Active 294553020 Problem Elevated liver enzymes R74.8 Active 093282389 Problem Neuropathy G62.9 Active 338128887 Problem Low back pain M54.5 Active 282727672 Problem Neck muscle strain, initial encounter S16.1XXA Active 213071195 Problem Adjustment disorder with depressed mood F43.21 Active 00214870 Problem Depressed F32.9 Active 47041548 Problem Kidney stones N20.0 Active 73396728 Problem Post traumatic stress disorder (PTSD) F43.10 Active 92812060 ALLERGIES No Information ENCOUNTERS Encounter Location Date Diagnosis [facility] [id number] [place] [address] 02747- 0232 Jul, HTN (hypertension) I10 ; Neuropathy G62.9 and Depressed F32.9 [facility] [id number] [place] [address] 89336- 5666 Jun, Myalgia M79.1 ; Abnormal LFTs R94.5 ; Neuropathy G62.9 ; Low back pain M54.5 and Adjustment disorder with depressed mood F43.21 [facility] [id number] [place] [address] 09091- 1532 May, [facility] [address] [place] [address] 70029 -4339 May, Other acute nonsuppurative otitis media of left ear, recurrence not specified H65.192 and Acute otitis externa of left ear, unspecified type H60.502 [facility] [id number] [place] [address] 68390 -2641 Nov, Acute otitis externa of left ear, unspecified type H60.502 [facility] [id number] [place] [address] 98169- 2274 Oct, HTN (hypertension) I10 ; Neuropathy G62.9 ; Chronic pain G89.29 ; Low back pain M54.5 ; Neck muscle strain, initial encounter S16.1XXA ; Depressed F32.9 and Adjustment disorder with depressed mood F43.21 [place] [id number] [place] [address] 84865- 1587 Oct, [facility] [address] 27890- 0517 Oct, Depressed F32.9 [facility] [address] 17812- 2015 Aug, Chronic pain G89.29 [place] [id number] [place] [address] 85160- 2762 Aug, Chronic pain G89.29 [facility] [id number] [place] [address] 70038- 8490 Aug, Chronic pain G89.29 [place] [id number] [place] [address] 67463- 2279 Jul, HTN (hypertension) I10 ; Chronic pain G89.29 ; Depressed F32.9 ; Post traumatic stress disorder (PTSD) F43.10 and Right elbow pain M25.521 [place] [id number] [place] [address] 68720- 2355 Jul, HTN (hypertension) I10 ; Neuropathy G62.9 ; Adjustment disorder with depressed mood F43.21 ; Chronic pain G89.29 ; Kidney stones N20.0 and Screening cholesterol level Z13.220 [facility] [address] 08893- 5080 Jul, Adjustment disorder with depressed mood F43.21 ; Post traumatic stress disorder (PTSD) F43.10 ; Depressed F32.9 and Chronic pain G89.29 [place] [id number] [place] [address] 87415- 7044 Jul, Depressed F32.9 ; Chronic pain G89.29 ; Neuropathy G62.9 ; Adjustment disorder with depressed mood F43.21 and Post traumatic stress disorder (PTSD) F43.10 [place] [id number] [place] [address] 24363- 0808 Jul, [place] [address] 65954- 0570 Jul, [place] [address] 43630- 7083 Jun, HTN (hypertension) I10 ; Syncopal episodes R55 ; Depressed F32.9 and Chronic pain G89.29 [place] [id number] [place] [address] 79225- 1532 May, [place] [address] 79716- 3830 May, [place] [address] 19641- 6391 Mar, [place] [address] 64656- 3094 Feb, HTN (hypertension) I10 ; Leg pain M79.606 and Neuropathy G62.9 [facility] [id number] [place] [address] 87746- 5909 10 Jan, 2015 Major depressive disorder, recurrent episode, severe, without mention of psychotic behavior 296.33 ; Generalized anxiety disorder 300.02 and Posttraumatic stress disorder 309.81 [place] [id number] [place] [address] 66495- 0469 10 Jan, 2015 Acute bronchitis 466.0 and Back pain 724.5 [place] [address] [id number] [place] [address]- 1530 17 Oct, 2014 [facility] [place] [facility] [address] [id number] [place] [address]- 8001 14 Aug, 2014 [facility] [place] [facility] [address] [id number] [place] [address]- 8882 Aug, [facility] [place] [facility] [address] [id number] [place] [address]- 8124 Jul, [facility] [place] [facility] [address] [id number] [place] [address]- 6446 Jul, [facility] [place] [facility] [address] [id number] [place] [address]- 6464 Dec, [facility] [place] [facility] [address] [id number] [place] [address]- 9180 Dec, [facility] [place] [facility] [address] [id number] [place] [address]- 9297 Nov, [facility] [place] [facility] [address] [id number] [place] [address]- 9161 Nov, [facility] [place] [facility] [address] [id number] [place] [address]- 9575 Oct, [facility] [place] [facility] [address] [id number] [place] [address]- 5975 Oct, [facility] [place] [facility] [address] [id number] [place] [address]- 2467 September, [facility] [place] [facility] [address] [id number] [place] [address]- 3631 September, [facility] [place] [facility] [address] [id number] [place] [address]- 1426 Aug, [facility] [place] [facility] [address] [id number] [place] [address]- 2891 Aug, [facility] [place] [facility] [address] [id number] [place] [address]- 7450 Aug, [facility] [place] [facility] [address] [id number] [place] [address]- 9446 Aug, [facility] [place] [facility] [address] [id number] [place] [address]- 0686 Aug, [facility] [place] [facility] [address] [id number] [place] [address]- 1455 Aug, [facility] [place] [facility] [address] [id number] [place] [address]- 6705 Aug, [facility] [place] [facility] [address] [id number] [place] [address]- 1573 Aug, [facility] [place] [facility] [address] [id number] [place] [address]- 2435 Jul, [facility] [place] [facility] [address] [id number] [place] [address]- 8434 Jul, [facility] [place] [facility] [address] [id number] [place] [address]- 5809 18 Jul, 2013 [facility] [place] [facility] [address] [id number] [place] [address]- 0913 18 Jul, 2013 [facility] [place] [facility] [address] [id number] [place] [address]- 5843 14 Jul, 2013 [facility] [place] [facility] [address] [id number] [place] [address]- 4739 14 Jul, 2013 [facility] [place] [facility] [address] [id number] [place] [address]- 0300 14 Jul, 2013 [facility] [place] [facility] [address] [id number] [place] [address]- 1812 14 Jul, 2013 [facility] [place] [facility] [address] [id number] [place] [address]- 4295 10 Jul, 2013 [facility] [place] [facility] [address] [id number] [place] [address]- 2198 10 Jul, 2013 [facility] [place] [facility] [address] [id number] [place] [address]- 9706 Jun, [facility] [address] [id number] [place] [address]- 7178 Jun, [facility] [address] [id number] [place] [address]- 5049 10 Jun, 2013 [facility] [address] [id number] [place] [address] Jun, [facility] [address] [id number] [place] [address] Jan, [facility] [address] [id number] [place] [address] Dec, [facility] [address] [id number] [place] [address] Nov, [facility] [address] [id number] [place] [address] Oct, [facility] [address] [id number] [place] [address] September, [facility] [address] [id number] [place] [address] September, [facility] [address] [id number] [place] [address] September, [facility] [address] [id number] [place] [address] September, [facility] [address] [id number] [place] [address] Aug, [facility] [address] [id number] [place] [address] Aug, [facility] [address] [id number] [place] [address] Jul, [facility] [address] [id number] [place] [address] Jul, [facility] [id number] [address] Jun, [facility] [id number] [address] [address] Jun, [facility] [id number] [address] Jun, [facility] [id number] [address] May, [facility] [id number] [address] May, [facility] [id number] [place] [address] Apr, [facility] [id number] [address] [address] Apr, [facility] [id number] [address] Mar, [facility] [id number] [address] Mar, [facility] [id number], [place] [address] Mar, [facility] [id number] [address] Mar, [facility] [id number] [address] Feb, [facility] [id number] [address] Mar, [facility] [id number] [address] Feb, IMMUNIZATIONS No Known Immunizations SOCIAL HISTORY Never Assessed REASON FOR VISIT request early refill PLAN OF CARE VITAL SIGNS MEDICATIONS No Known Medications RESULTS No Results PROCEDURES No Known procedures [...]
--- OUTSIDE RECORDS SUMMARY | 2017-12-30 15:43 | XMS REPORT ---
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 Name Role Phone TAYLA Lester Unavailable PROBLEMS Type Condition ICD9-CM Code ASX48-IK Code Onset Dates Condition Status SNOMED Code Problem HTN (hypertension) I10 Active 37555250 Problem Chronic pain G89.29 Active 76839945 Problem Syncopal episodes R55 Active 541919621 Problem Elevated liver enzymes R74.8 Active 345953868 Problem Neuropathy G62.9 Active 479826048 Problem Low back pain M54.5 Active 173496141 Problem Neck muscle strain, initial encounter S16.1XXA Active 926811811 Problem Adjustment disorder with depressed mood F43.21 Active 30597522 Problem Depressed F32.9 Active 80326983 Problem Kidney stones N20.0 Active 53154600 Problem Post traumatic stress disorder (PTSD) F43.10 Active 47467374 ALLERGIES Substance Reaction Event Type Date Status Buspirone 7.5 Mg Tablet Headache Non Drug Allergy Oct, Active ENCOUNTERS Encounter Location Date Diagnosis [facility] [id number] [place] [address] 00590- 2630 Jul, HTN (hypertension) I10 ; Neuropathy G62.9 and Depressed F32.9 [facility] [id number] [place] [address] 29489- 3028 05 Jun, 2017 Myalgia M79.1 ; Abnormal LFTs R94.5 ; Neuropathy G62.9 ; Low back pain M54.5 and Adjustment disorder with depressed mood F43.21 [facility] [id number] [place] [address] 74480- 1371 May, [facility] [id number] [place] [address] 28399 -3721 May, Other acute nonsuppurative otitis media of left ear, recurrence not specified H65.192 and Acute otitis externa of left ear, unspecified type H60.502 [facility] [id number] [place] [address]011 -1889 Nov, Acute otitis externa of left ear, unspecified type H60.502 [facility] [id number] [place] [address] 44994- 0727 Oct, HTN (hypertension) I10 ; Neuropathy G62.9 ; Chronic pain G89.29 ; Low back pain M54.5 ; Neck muscle strain, initial encounter S16.1XXA ; Depressed F32.9 and Adjustment disorder with depressed mood F43.21 [facility] [id number] [place] [address] 35348- 0332 Oct, [place] [address] [address]- 9628 Oct, Depressed F32.9 [place] [address] 86189- 1080 Aug, Chronic pain G89.29 [place] [address] 55596- 9858 Aug, Chronic pain G89.29 [place] [id number] [place] [address] 66614- 4531 Aug, Chronic pain G89.29 [place] [address] 79223- 4408 Jul, HTN (hypertension) I10 ; Chronic pain G89.29 ; Depressed F32.9 ; Post traumatic stress disorder (PTSD) F43.10 and Right elbow pain M25.521 [place] [id number] [place] [address] 20303- 3030 Jul, HTN (hypertension) I10 ; Neuropathy G62.9 ; Adjustment disorder with depressed mood F43.21 ; Chronic pain G89.29 ; Kidney stones N20.0 and Screening cholesterol level Z13.220 [facility] [address] 56138- 9275 Jul, Adjustment disorder with depressed mood F43.21 ; Post traumatic stress disorder (PTSD) F43.10 ; Depressed F32.9 and Chronic pain G89.29 [place] [address] 25485- 7158 Jul, Depressed F32.9 ; Chronic pain G89.29 ; Neuropathy G62.9 ; Adjustment disorder with depressed mood F43.21 and Post traumatic stress disorder (PTSD) F43.10 [place] [address] 92779- 6411 Jul, [place] [address] 48534- 8316 Jul, [place] [address] 46451- 8595 Jun, HTN (hypertension) I10 ; Syncopal episodes R55 ; Depressed F32.9 and Chronic pain G89.29 [place] [address] 03261- 5198 May, [place] [address] 88936- 1770 May, [place] [address] 49905- 1092 Mar, [place] [address] 26785- 8491 Feb, HTN (hypertension) I10 ; Leg pain M79.606 and Neuropathy G62.9 [place] [address] 74744- 4291 10 Jan, 2015 Major depressive disorder, recurrent episode, severe, without mention of psychotic behavior 296.33 ; Generalized anxiety disorder 300.02 and Posttraumatic stress disorder 309.81 [place] [address] 34087- 5492 Jan, Acute bronchitis 466.0 and Back pain 724.5 [facility] [address] [id number] [place] [address] 4904 17 Oct, 2014 [facility] [address] [id number] [place] [address] 5090 14 Aug, 2014 [facility] [address] [id number] [place] [address]- 3339 Aug, [facility] [address] [id number] [place] [address]- 6303 Jul, [facility] [address] [id number] [place] [address]- 8376 Jul, [facility] [address] [facility] [id number] [place] [address]- 5677 Dec, [facility] [address] [id number] [place] [address]- 6260 Dec, [facility] [address] [id number] [place] [address]- 6781 Nov, [facility] [address] [id number] [place] [address]- 2802 Nov, [facility] [address] [facility] [id number] [place] [address]- 3779 Oct, [facility] [address] [id number] [place] [address]- 9551 Oct, [facility] [address] [id number] [place] [address]- 4041 September, [facility] [address] [id number] [place] [address] September, [facility] [address] [id number] [place] [address]- 3031 Aug, [facility] [address] [id number] [place] [address]- 0350 Aug, [facility] [place] [facility] [address] [id number] [place] [address]- 4444 Aug, [facility] [place] [facility] [address] [id number] [place] [address]- 3014 Aug, [facility] [place] [facility] [address] [id number] [place] [address]- 9878 Aug, [facility] [place] [facility] [address] [id number] [place] [address]- 2892 Aug, [facility] [place] [facility] [address] [id number] [place] [address]- 1295 Aug, [facility] [place] [facility] [address] [id number] [place] [address]- 0885 Aug, [facility] [place] [facility] [address] [id number] [place] [address]- 2187 Jul, [facility] [place] [facility] [address] [id number] [place] [address]- 0994 Jul, [facility] [place] [facility] [address] [id number] [place] [address]- 6966 18 Jul, 2013 [facility] [place] [facility] [address] [id number] [place] [address]- 5728 18 Jul, 2013 [facility] [place] [facility] [address] [id number] [place] [address]- 1200 Jul, [facility] [place] [facility] [address] [id number] [place] [address]- 9457 14 Jul, 2013 [facility] [place] [facility] [address] [id number] [place] [address]- 7607 14 Jul, 2013 [facility] [place] [facility] [address] [id number] [place] [address]- 8427 14 Jul, 2013 [facility] [place] [facility] [address] [id number] [place] [address]- 0594 10 Jul, 2013 [facility] [place] [facility] [address] [id number] [place] [address]- 3695 Jul, [facility] [address] [id number] [place] [address]- 7699 Jun, [facility] [address] [id number] [place] [address]- 4516 Jun, [facility] [address] [id number] [place] [address]- 9473 Jun, [facility] [place] [facility] [address] [id number] [place] [address]- 3792 Jun, [facility] [address] [id number] [place] [address]- 0009 Jan, [facility] [address] [id number] [place] [address]- 7136 Dec, [facility] [address] [id number] [place] [address]- 5793 Nov, [facility] [address] [id number] [place] [address]- 3086 Oct, [facility] [address] [id number] [place] [address]- 7231 September, [facility] [address] [id number] [place] [address]- 1917 September, [facility] [address] [id number] [place] [address]- 3362 September, [facility] [address] [id number] [place] [address]- 4405 September, [facility] [place] [facility] [address] [id number] [place] [address]- 4450 30 Aug, 2012 [facility] [place] [facility] [address] [id number] [place] [address]- 3134 Aug, [facility] [place] [facility] [address] [id number] [place] [address]- 2329 Jul, [facility] [address] [facility] [id number], [place] [address]- 7679 Jul, [facility] [address] [facility] [id number], [place] [address]- 2826 Jun, [facility] [address] [facility] [id number], [place] [address]- 2546 Jun, [facility] [address] [facility] [id number], [place] [address] 2546 Jun, [facility] [address] [facility] [id number] [place] [address]- 9269 May, [facility] [address] [facility] [id number], [place] [address]- 4888 May, [facility] [address] [id number], [place] [address]- 4712 Apr, [facility] [address] [id number], [place] [address]- 0759 Apr, [facility] [address] [facility] [id number], [place] [address]- 0004 Mar, [facility] [address] [id number], [place] [address]- 2212 Mar, [facility] [address] [id number], [place] [address]- 7311 Mar, [facility] [address] [facility] [id number], [place] [address]- 4982 Mar, [facility] [address] [facility] [id number], [place] [address]- 7690 Feb, [facility] [address] [facility] [id number][place]13[place]- [address] 08 Mar, 2011 [facility] [address] [id number] [address] 15 Feb, 2008 IMMUNIZATIONS No Known Immunizations SOCIAL HISTORY Never Assessed REASON FOR VISIT Pain management (chronic). Neck pain x months. Back pain also (lower). Would like to know about possibility of steroid injection in his back. NADEGE Cole PLAN OF CARE Activity Details Follow Up 3 Months Reason:htn, chronic pain VITAL SIGNS Height 72 in 2016-11-09 Weight 234 lbs 2016-11-09 Temperature 98.4 degrees Fahrenheit 2016-11-09 Heart Rate 80 bpm 2016-11-09 Respiratory Rate 18 2016-11-09 BMI 31.73 kg/m2 2016-11-09 Blood pressure systolic 120 mmHg 2016-11-09 Blood pressure diastolic 80 mmHg 2016-11-09 MEDICATIONS Medication Instructions Dosage Frequency Start Date End Date Duration Status Ibuprofen 800 MG TAKE ONE TABLET BY MOUTH THREE TIMES DAILY 30 Active Baclofen 10 mg Orally twice a day 1 tablet with food or milk 12h Oct, Jan, 30 day(s) Active Hydrocodone-Acetaminophen 5-325 MG Orally every 6 hrs 1 tablet as needed 6h Active Wellbutrin SR 200 MG Orally Twice a day 1 Tablet 2 times per day 12h Oct Active Clonidine HCl 0.1 MG Orally twice a day 1 tablet 12h 30 Active Lisinopril-Hydrochlorothiazide 20-25 MG TAKE TWO TABLETS BY MOUTH IN THE MORNING 30 Active Tylenol 325 MG Orally every 6 hrs 1 tablet as needed 6h Active Neurontin 800 MG Orally 4 times a day 1 Tablet 6h 12 Oct, 2013 Active RESULTS Name Result Date Reference Range Xray : Spine, Lumbar 2-3 views (IN HOUSE) 2016-11-09 PROCEDURES Procedure Date Ordered Result Body Site X-RAY EXAM OF LOWER SPINE November 09, 2016 INSTRUCTIONS MEDICATIONS ADMINISTERED No Known Medications MEDICAL (GENERAL) HISTORY Type Description Date Medical History hypertension Medical History chronic back pain Medical History PTSD Medical History depression and anxiety Surgical History cholecystectomy Surgical History kidney surgery Surgical History right hand Surgical History tubes in both ears and 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
--- OUTSIDE RECORDS SUMMARY | 2017-12-30 15:44 | XMS REPORT ---
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 Name Role Phone KLARISSA ZULUAGA Unavailable PROBLEMS Type Condition ICD9-CM Code IPY70-AS Code Onset Dates Condition Status SNOMED Code Problem HTN (hypertension) I10 Active 46350201 Problem Chronic pain G89.29 Active 88985857 Problem Syncopal episodes R55 Active 932932938 Problem Elevated liver enzymes R74.8 Active 339972147 Problem Neuropathy G62.9 Active 125730680 Problem Low back pain M54.5 Active 659246316 Problem Neck muscle strain, initial encounter S16.1XXA Active 125824037 Problem Adjustment disorder with depressed mood F43.21 Active 72691649 Problem Depressed F32.9 Active 56583540 Problem Kidney stones N20.0 Active 34261230 Problem Post traumatic stress disorder (PTSD) F43.10 Active 84028186 ALLERGIES Substance Reaction Event Type Date Status Buspirone 7.5 Mg Tablet Headache Non Drug Allergy Nov, Active ENCOUNTERS Encounter Location Date Diagnosis [facility] [id number] [place] [address] 6[address]32- 2160 Jul, HTN (hypertension) I10 ; Neuropathy G62.9 and Depressed F32.9 [facility] [id number] [place] [address] 25737- 3388 05 Jun, 2017 Myalgia M79.1 ; Abnormal LFTs R94.5 ; Neuropathy G62.9 ; Low back pain M54.5 and Adjustment disorder with depressed mood F43.21 [facility] [id number] [place] [address] 78105- 1152 May, [facility] [id number] [place] [address] -[address]29 May, Other acute nonsuppurative otitis media of left ear, recurrence not specified H65.192 and Acute otitis externa of left ear, unspecified type H60.502 [facility] [id number] [place] [address] 81632 -3948 Nov, Acute otitis externa of left ear, unspecified type H60.502 [facility] [address] [address] Oct, HTN (hypertension) I10 ; Neuropathy G62.9 ; Chronic pain G89.29 ; Low back pain M54.5 ; Neck muscle strain, initial encounter S16.1XXA ; Depressed F32.9 and Adjustment disorder with depressed mood F43.21 [place] [address] [address]- [address] Oct, [place] [address] [address]- 8415 Oct, Depressed F32.9 [place] [address] [address]- [address]89 Aug, Chronic pain G89.29 [place] [address] [address]- 3196 Aug, Chronic pain G89.29 [place] [address] [address]007- 6726 Aug, Chronic pain G89.29 [place] [address] 23841- 0313 Jul, HTN (hypertension) I10 ; Chronic pain G89.29 ; Depressed F32.9 ; Post traumatic stress disorder (PTSD) F43.10 and Right elbow pain M25.521 [place] [address] 8[address]99- 4465 Jul, HTN (hypertension) I10 ; Neuropathy G62.9 ; Adjustment disorder with depressed mood F43.21 ; Chronic pain G89.29 ; Kidney stones N20.0 and Screening cholesterol level Z13.220 [place] [id number] [place] [address] 44989- 5228 13 Jul, 2016 Adjustment disorder with depressed mood F43.21 ; Post traumatic stress disorder (PTSD) F43.10 ; Depressed F32.9 and Chronic pain G89.29 [place] [id number] [place] [address] 51483- 3150 Jul, Depressed F32.9 ; Chronic pain G89.29 ; Neuropathy G62.9 ; Adjustment disorder with depressed mood F43.21 and Post traumatic stress disorder (PTSD) F43.10 [place] [id number] [place] [address] 72897- 8757 Jul, [place] [address] 25284- 8365 Jul, [place] [address] 68233- 0102 Jun, HTN (hypertension) I10 ; Syncopal episodes R55 ; Depressed F32.9 and Chronic pain G89.29 [place] [address] [address]31- 6406 May, [place] [address] 18618- 5402 May, [place] [address] 20593- 4956 Mar, [place] [address] 23469- 0141 Feb, HTN (hypertension) I10 ; Leg pain M79.606 and Neuropathy G62.9 [place] [address] 80645- 0128 10 Jan, 2015 Major depressive disorder, recurrent episode, severe, without mention of psychotic behavior 296.33 ; Generalized anxiety disorder 300.02 and Posttraumatic stress disorder 309.81 [place] [address] 64757- 2534 Jan, Acute bronchitis 466.0 and Back pain 724.5 [facility] [address] [id number] [place] [address]893 17 Oct, 2014 [facility] [address] [id number] [place] [address] 7138 Aug, [facility] [address] [id number] [place] [address] 0422 Aug, [facility] [address] [id number] [place] [address] 1774 Jul, [facility] [address] [id number] [place] [address] 6379 Jul, [facility] [address] [id number] [place] [address] 5033 Dec, [facility] [address] [facility] [id number] [place] [address] 5090 Dec, [facility] [address] [id number] [place] [address] 7988 Nov, [facility] [address] [id number] [place] [address] 8284 Nov, [facility] [address] [facility] [id number] [place] [address]- 4172 Oct, [facility] [address] [id number] [place] [address]- 4423 Oct, [facility] [address] [id number] [place] [address] 7459 September, [facility] [address] [id number] [place] [address]- 8531 September, [facility] [address] [id number] [place] [address]- 5657 Aug, [facility] [address] [id number] [place] [address] 8165 Aug, [facility] [place] [facility] [address] [id number] [place] [address]- 1347 Aug, [facility] [place] [facility] [address] [id number] [place] [address]- 4117 Aug, [facility] [place] [facility] [address] [id number] [place] [address]- 3268 Aug, [facility] [place] [facility] [address] [id number] [place] [address]- 8208 Aug, [facility] [place] [facility] [address] [id number] [place] [address]- 1314 Aug, [facility] [place] [facility] [address] [id number] [place] [address]- 7136 Aug, [facility] [place] [facility] [address] [id number] [place] [address]- 8717 Jul, [facility] [place] [facility] [address] [id number] [place] [address]- 8502 Jul, [facility] [place] [facility] [address] [id number] [place] [address]- 1058 18 Jul, 2013 [facility] [place] [facility] [address] [id number] [place] [address]- 5198 18 Jul, 2013 [facility] [place] [facility] [address] [id number] [place] [address]- 5603 14 Jul, 2013 [facility] [place] [facility] [address] [id number] [place] [address]- 8087 14 Jul, 2013 [facility] [place] [facility] [address] [id number] [place] [address]- 9501 14 Jul, 2013 [facility] [place] [facility] [address] [id number] [place] [address]- 0985 14 Jul, 2013 [facility] [place] [facility] [address] [id number] [place] [address]- 3678 10 Jul, 2013 [facility] [place] [facility] [address] [id number] [place] [address]- 5646 Jul, [facility] [address] [id number] [place] [address]- 0163 Jun, [facility] [address] [id number] [place] [address]- 6070 Jun, [facility] [address] [id number] [place] [address]- 2604 Jun, [facility] [address] [id number] [place] [address]- 0507 Jun, [facility] [address] [id number] [place] [address] Jan, [facility] [address] [id number] [place] [address]- 7141 Dec, [facility] [address] [id number] [place] [address]- 7512 Nov, [facility] [address] [id number] [place] [address]- 6374 Oct, [facility] [address] [id number] [place] [address]- 1930 September, [facility] [address] [facility] [id number] [place] [address]- 3418 September, [facility] [address] [id number] [place] [address]- 5247 September, [facility] [place] [facility] [address] [id number] [place] [address]- 3946 September, [facility] [place] [facility] [address] [id number] [place] [address]- 2645 30 Aug, 2012 [facility] [place] [facility] [address] [id number] [place] [address]- 4635 Aug, [facility] [place] [facility] [address] [id number] [place] [address]- 9313 Jul, [facility] [place] [facility] [address] [facility] [id number] [place] [address]- 8327 Jul, [facility] [address] [facility] [id number] [place] [address]- 3397 Jun, [facility] [address] [facility] [id number] [place] [address]- 2736 Jun, [facility] [address] [facility] [id number] [place] [address] 52399- 2146 Jun, [facility] [address] [facility] [id number] [place] [address]- 8148 May, [facility] [id number] [place] [address] 02693- 8442 May, [facility] [address] [address]- 5366 Apr, [facility] [address] [address]- 7108 Apr, [facility] [address] [address]- 6429 Mar, [facility] [address] [address]- 5041 Mar, [facility] [address] [address]- 3364 Mar, [facility] [address] [address]- 5606 Mar, [facility] [address] [id number] [address]- 6112 Feb, [facility] [address] [address]- 9045 Mar, [facility] [address] [id number] [address]- 0845 15 Feb, 2008 IMMUNIZATIONS No Known Immunizations SOCIAL HISTORY Never Assessed REASON FOR VISIT Left ear infection and rupture- has been on abx and steroid injection JStrasserRN PLAN OF CARE Activity Details Follow Up prn Reason: VITAL SIGNS Height 72 in 2016-12-13 Weight 234.6 lbs 2016-12-13 Temperature 97.7 degrees Fahrenheit 2016-12-13 Heart Rate 88 bpm 2016-12-13 Respiratory Rate 22 2016-12-13 BMI 31.81 kg/m2 2016-12-13 Blood pressure systolic 146 mmHg 2016-12-13 Blood pressure diastolic 100 mmHg 2016-12-13 MEDICATIONS Medication Instructions Dosage Frequency Start Date End Date Duration Status Lisinopril-Hydrochlorothiazide 20-25 MG TAKE TWO TABLETS BY MOUTH ONCE DAILY IN THE MORNING 90 Active Ciprodex 0.3-0.1 % Otic Twice a day 4 drops into affected ear 12h 25 Nov, 2016 7 days Active Baclofen 10 mg Orally twice a day 1 tablet with food or milk 12h 21 Oct, 2016 Jan, 30 day(s) Active Hydrocodone-Acetaminophen 5-325 MG Orally every 6 hrs 1 tablet as needed 6h Active Neurontin 800 MG Orally 4 times a day 1 Tablet 6h Oct, Active Tylenol 325 MG Orally every 6 hrs 1 tablet as needed 6h Active Clonidine HCl 0.1 MG Orally twice a day 1 tablet 12h 30 Active Wellbutrin SR 200 MG Orally Twice a day 1 Tablet 2 times per day 12h 12 Oct Active Ibuprofen 800 MG TAKE ONE TABLET BY MOUTH THREE TIMES DAILY 30 Active RESULTS No Results PROCEDURES No Known [...]
--- OUTSIDE RECORDS SUMMARY | 2017-12-30 15:46 | XMS REPORT | Continuity of Care Document ---
Author Author [facility] Address Unknown Phone Unavailable Allergies Active Description Code Type Severity Reaction Onset Reported/Identified Relationship to Patient Clinical Status Yes NO KNOWN DRUG ALLERGIES NO KNOWN DRUG ALLERG UNKNOWN Yes NO KNOWN DRUG ALLERGIES UNKNOWN NO KNOWN DRUG ALLERG Yes No Known Drug Allergies [id number] Drug Allergy Mild N/A 10/29/2008 Yes buspirone 7.5 mg tablet Drug Allergy N/A N/A 08/13/2013 Yes amphetamine Drug Allergy N/A N/A 09/02/2013 Yes Benzodiazepines Drug Allergy N/A N/A 09/02/2013 Yes hydrocodone Drug Allergy N/A N/A 09/02/2013 Medications Medication Packaging Start Date Stop Date Route Dosage Sig AMOX-CLAV 500/125 TAB 500 MG-125MG (AUGMENTIN) TAB 08/08/2016 08/08/2016 ONCE&1741 KETOROLAC VIAL INJ 60 MG/2CC (TORADOL VIAL) MG 11/24/2016 11/24/2016 ONCE&1021 DEXAMETHASONE VIAL INJ 10 MG/CC (DECADRON VIAL) MG 11/24/2016 11/24/2016 ONCE&1021 CEFTRIAXONE INJ 1 GM (ROCEPHIN) GM 12/26/2017 12/26/2017 ONCE&1000 Problems Date Dx Coded Attending Type Code Diagnosis Diagnosed By 01/31/2008 ERA DE JESUS DO V58.69 MEDICATION HIGH RISK 01/31/2008 V58.69 MEDICATION HIGH RISK 01/31/2008 ERA DE JESUS DO V58.69 MEDICATION HIGH RISK 01/31/2008 ERA DE JESUS DO V58.69 MEDICATION HIGH RISK 01/31/2008 V58.69 MEDICATION HIGH RISK 01/31/2008 V58.69 MEDICATION HIGH RISK 01/31/2008 V58.69 MEDICATION HIGH RISK 01/31/2008 BOB TOMAS DDS V58.69 MEDICATION HIGH RISK 01/31[facility] RISK 01/31/2008 LIZA VALENCIA ERA K V58.69 MEDICATION HIGH RISK 01/31/2008 DE JESUS DO ERA K V58.69 MEDICATION HIGH RISK 01/31/2008 [facility], JOSEE R V58.69 MEDICATION HIGH RISK 01/31/2008 DE JESUS DO, ERA K V58.69 MEDICATION HIGH RISK 01/31/2008 HAN CABALLERO APRN V58.69 MEDICATION HIGH RISK 01/31/2008 HAN CABALLERO APRN V58.69 MEDICATION HIGH RISK 01/31/2008 STELLARUSTY PARKER DEBBIE V58.69 MEDICATION HIGH RISK 01/31/2008 DE JESUS DO, ERA K V58.69 MEDICATION HIGH RISK 01/31/2008 DEBBIE ODUGLAS APRN V58.69 MEDICATION HIGH RISK 01/31/2008 DAVEY LOU, BRISSA Harden V58.69 MEDICATION HIGH RISK 01/31/2008 DE JESUS DO ERA K V58.69 MEDICATION HIGH RISK 01/31/2008 JEANETTE TORRES, BRAD V58.69 MEDICATION HIGH RISK 02/27/2008 DE JESUS DOJONNIEA K 848.9 SPRAIN/STRAIN OTHER UNSPEC SITE 02/27/2008 848.9 SPRAIN/STRAIN OTHER UNSPEC SITE 02/27/2008 JONNIE DE JESUS DOA K 848.9 SPRAIN/STRAIN OTHER UNSPEC SITE 02/27/2008 JONNIE DE JESUS DOA K 848.9 SPRAIN/STRAIN OTHER UNSPEC SITE 02/27/2008 848.9 SPRAIN/STRAIN OTHER UNSPEC SITE 02/27/2008 848.9 SPRAIN/STRAIN OTHER UNSPEC SITE 02/27/2008 848.9 SPRAIN/STRAIN OTHER UNSPEC SITE 02/27/2008 GENOVEVA HERNANDEZS, BOB B 848.9 SPRAIN/STRAIN OTHER UNSPEC SITE 02/27/2008 [facility], JOSEE R 848.9 SPRAIN/STRAIN OTHER UNSPEC SITE 02/27/2008 LIZA VALENCIA ERA K 848.9 SPRAIN/STRAIN OTHER UNSPEC SITE 02/27/2008 DE JESUS DO ERA K 848.9 SPRAIN/STRAIN OTHER UNSPEC SITE 02/27/2008 [facility], JOSEE R 848.9 SPRAIN/STRAIN OTHER UNSPEC SITE 02/27/2008 JONNIE DE JESUS DOA K 848.9 SPRAIN/STRAIN OTHER UNSPEC SITE 02/27/2008 HAN CABALLERO APRN 848.9 SPRAIN/STRAIN OTHER UNSPEC SITE 02/27/2008 HAN CABALLERO APRN 848.9 SPRAIN/STRAIN OTHER UNSPEC SITE 02/27/2008 DEBBIE DOUGLAS APRN 848.9 SPRAIN/STRAIN OTHER UNSPEC SITE 02/27/2008 ERA DE JESUS DO 848.9 SPRAIN/STRAIN OTHER UNSPEC SITE 02/27/2008 DEBBIE DOUGLAS APRN 848.9 SPRAIN/STRAIN OTHER UNSPEC SITE 02/27/2008 DAVEY PHD, BRISSA Harden 848.9 SPRAIN/STRAIN OTHER UNSPEC SITE 02/27/2008 ERA DE JESUS DO 848.9 SPRAIN/STRAIN OTHER UNSPEC SITE 02/27/2008 JEANETTE TORRES, BRAD 848.9 SPRAIN/STRAIN OTHER UNSPEC SITE 06/25/2008 ERA [...] 300.01 AN PANIC DIS W/O AGORA 06/25/2008 BOB TOMAS DDS 296.80 [place] BIPOLAR NOS 06/25/2008 BOB TOMAS DDS 300.01 AN PANIC DIS W/O AGORA 06/25/2008 JOSEE NELSON 296.80 MO BIPOLAR NOS 06/25/2008 JOSEE NELSON 300.01 AN PANIC DIS W/O AGORA 06/25/2008 DE JESUS DO, ERA K 296.80 MO BIPOLAR NOS 06/25/2008 DE JESUS DO, ERA K 300.01 AN PANIC DIS W/O AGORA 06/25/2008 DE JESUS DO, ERA K 296.80 MO BIPOLAR NOS 06/25/2008 DE JESUS DO, ERA K 300.01 AN PANIC DIS W/O AGORA 06/25/2008 [facility], JOSEE R 296.80 MO BIPOLAR NOS 06/25/2008 [facility], JOSEE R 300.01 AN PANIC DIS W/O AGORA 06/25/2008 DE JESUS DO, ERA K 296.80 MO BIPOLAR NOS 06/25/2008 DE JESUS DO, ERA K 300.01 AN PANIC DIS W/O AGORA 06/25/2008 HAN CABALLERO APRN 296.80 MO BIPOLAR NOS 06/25/2008 HAN CABALLERO APRN 300.01 AN PANIC DIS W/O AGORA 06/25/2008 HAN CABALLERO APRN 296.80 MO BIPOLAR NOS 06/25/2008 HAN CABALLERO APRN 300.01 AN PANIC DIS W/O AGORA 06/25/2008 DAVID DOUGLAS APRNETTE 296.80 MO BIPOLAR NOS 06/25/2008 DAVID DOUGLAS APRNETTE 300.01 AN PANIC DIS W/O AGORA 06/25/2008 JONNIE DE JESUS DOA K 296.80 MO BIPOLAR NOS 06/25/2008 DE JESUS DOJONNIEA K 300.01 AN PANIC DIS W/O AGORA 06/25/2008 STELLA KEITH, DEBBIE 296.80 MO BIPOLAR NOS 06/25/2008 STELLA PARKER DEBBIE 300.01 AN PANIC DIS W/O AGORA 06/25/2008 DAVEY LOU, BIRSSA Harden 296.80 MO BIPOLAR NOS 06/25/2008 DAVEY LOU, BRISSA Harden 300.01 AN PANIC DIS W/O AGORA 06/25/2008 JONNIE DE JESUS DOA K 296.80 MO BIPOLAR NOS 06/25/2008 JONNIE DE JESUS DOA K 300.01 AN PANIC DIS W/O AGORA 06/25/2008 BRAD REID MD 296.80 MO BIPOLAR NOS 06/25/2008 BRAD REID MD 300.01 AN PANIC DIS W/O AGORA 08/29/2008 DE JESUS DO, ERA K 300.00 [...] 312.30 I IMPULSE CONTROL DISORDER NOS 08/29/2008 [facility], BOB B 300.00 AN ANXIETY UNSPEC 08/29/2008 [facility], BOB B 307.47 SI DYSSOMNIA NOS 08/29/2008 [facility], BOB B 312.30 I IMPULSE CONTROL DISORDER NOS 08/29/2008 [facility], JOSEE R 300.00 AN ANXIETY UNSPEC 08/29/2008 [facility], JOSEE R 307.47 SI DYSSOMNIA NOS 08/29/2008 [facility], JOSEE R 312.30 I IMPULSE CONTROL DISORDER [...] 312.30 I IMPULSE CONTROL DISORDER NOS 08/29/2008 [facility], JOSEE R 300.00 AN ANXIETY UNSPEC 08/29/2008 [facility], JOSEE R 307.47 SI DYSSOMNIA NOS 08/29/2008 [facility], JOSEE R 312.30 I IMPULSE CONTROL DISORDER [...] 312.30 I IMPULSE CONTROL DISORDER NOS 08/29/2008 STELLA PARKER DEBBIE 300.00 AN ANXIETY UNSPEC 08/29/2008 DEBBIE DOUGLAS APRN 307.47 SI DYSSOMNIA NOS 08/29/2008 STELLA PARKER DEBBIE 312.30 I IMPULSE CONTROL DISORDER NOS 08/29/2008 LIZA VALENCIA ERA K 300.00 AN ANXIETY UNSPEC 08/29/2008 DE JESUS DO ERA K 307.47 SI DYSSOMNIA NOS 08/29/2008 DE JESUS DO ERA K 312.30 I IMPULSE CONTROL DISORDER NOS 08/29/2008 STELLA FILING MACHINE OPERATOR, DEBBIE 300.00 AN ANXIETY UNSPEC 08/29/2008 STELLA PARKER DEBBIE 307.47 SI DYSSOMNIA NOS 08/29/2008 STELLA FILING MACHINE OPERATOR, DEBBIE 312.30 I IMPULSE CONTROL DISORDER NOS 08/29/2008 DAVEY LOU, BRISSA Harden 300.00 AN ANXIETY UNSPEC 08/29/2008 DAVEY LOU, BRISSA Harden 307.47 SI DYSSOMNIA NOS 08/29/2008 ADVEY PHD, BRISSA A 312.30 I IMPULSE CONTROL DISORDER NOS 08/29/2008 DE JESUS DO ERA K 300.00 AN ANXIETY UNSPEC 08/29/2008 LIZA VALENCIA ERA K 307.47 SI DYSSOMNIA NOS 08/29/2008 DE JESUS DO ERA K 312.30 I IMPULSE CONTROL DISORDER NOS 08/29/2008 BRAD REID MD 300.00 AN ANXIETY UNSPEC 08/29/2008 BRAD REID MD 307.47 SI DYSSOMNIA NOS 08/29/2008 BRAD REID MD 312.30 I IMPULSE CONTROL DISORDER NOS 09/18/2008 LIZA DO ERA K 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 09/18/2008 LIZA DO ERA K 297.0 PARANOID STATE SIMPLE 09/18/2008 DE JESUS DO, ERA K 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 09/18/2008 DE JESUS DO ERA K 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 09/18/2008 LIZA DO ERA K 316 PF PSYCHIC FACTORS MED COND 09/18/2008 DE JESUS DO ERA K V61.10 RL RELATION COUNS 09/18/2008 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 09/18/2008 297.0 PARANOID STATE SIMPLE 09/18/2008 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 09/18/2008 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 09/18/2008 316 PF PSYCHIC FACTORS MED COND 09/18/2008 V61.10 RL RELATION COUNS 09/18/2008 DE JESUS DO ERA K 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 09/18/2008 LIZA VALENCIA ERA K 297.0 PARANOID STATE SIMPLE 09/18/2008 DE JESUS DO, ERA K 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 09/18/2008 DE JESUS DO ERA K 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 09/18/2008 DE JESUS DO, ERA K 316 PF PSYCHIC FACTORS MED COND 09/18/2008 DE JESUS DO ERA K V61.10 RL RELATION COUNS 09/18/2008 DE JESUS DO ERA K 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 09/18/2008 DE JESUS DO ERA K 297.0 PARANOID STATE SIMPLE 09/18/2008 DE JESUS DO ERA K 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 09/18/2008 DE JESUS DO ERA K 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 09/18/2008 ERA [...] BOB B V61.10 RL RELATION COUNS 09/18/2008 TOMASA [facility], JOSEE R 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 09/18/2008 TOMASA LSCS, JOSEE R 297.0 PARANOID STATE SIMPLE 09/18/2008 TOMASA LSCS, JOSEE R 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 09/18/2008 TOMASA LSCS, JOSEE R 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 09/18/2008 TOMASA LSC[facility], JOSEE R 316 PF PSYCHIC FACTORS MED COND 09/18/2008 T[facility]OR[facility]HY[facility], JOSEE R V61.10 RL RELATION COUNS 09/18/2008 [...] ERA K V61.10 RL RELATION COUNS 09/18/2008 [facility], JOSEE R 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 09/18/2008 [facility] 297.0 PARANOID STATE SIMPLE 09/18/2008 [facility] R 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 09/18/2008 [facility] R 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 09/18/2008 [facility] JO[facility] R 316 PF PSYCHIC FACTORS MED COND 09/18/2008 [facility] R V61.10 RL RELATION [...] ERA K V61.10 RL RELATION COUNS 09/18/2008 HAN [...] APRN V61.10 RL RELATION COUNS 09/18/2008 STELLA FILING MACHINE OPERATOR, DEBBIE 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 09/18/2008 STELLA FILING MACHINE OPERATOR, DEBBIE 297.0 PARANOID STATE SIMPLE 09/18/2008 STELLA FILING MACHINE OPERATOR, DEBBIE 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 09/18/2008 STELLA FILING MACHINE OPERATOR, DEBBIE 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 09/18/2008 STELLA FILING MACHINE OPERATOR, DEBBIE 316 PF PSYCHIC FACTORS MED COND 09/18/2008 STELLA FILING MACHINE OPERATOR, DEBBIE V61.10 RL RELATION COUNS 09/18/2008 [...] K V61.10 RL RELATION COUNS 09/18/2008 STELLA FILING MACHINE OPERATOR, DEBBIE 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 09/18/2008 STELLA FILING MACHINE OPERATOR, DEBBIE 297.0 PARANOID STATE SIMPLE 09/18/2008 STELLA FILING MACHINE OPERATOR, DEBBIE 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 09/18/2008 STELLA FILING MACHINE OPERATOR, DEBBIE 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 09/18/2008 STELLA FILING MACHINE OPERATOR, DEBBIE 316 PF PSYCHIC FACTORS MED COND 09/18/2008 STELLA FILING MACHINE OPERATOR, DEBBIE V61.10 RL RELATION COUNS 09/18/2008 DAVEY LOU, BRISSA Harden 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 09/18/2008 DAVEY LOU, BRISSA A 297.0 PARANOID STATE SIMPLE 09/18/2008 DAVEY LOU, BRISSA A 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 09/18/2008 DAVEY LOU, BRISSA A 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 09/18/2008 DAVEY PHD, BRISSA A 316 PF PSYCHIC FACTORS MED COND 09/18/2008 DAVEY PHD, BRISSA A V61.10 RL RELATION COUNS 09/18/2008 JONNIE DE JESUS DOA K 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 09/18/2008 LIZA VALENCIA ERA K 297.0 PARANOID STATE SIMPLE 09/18/2008 LIZA VALENCIA ERA K 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 09/18/2008 LIZA VALENCIA ERA K 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 09/18/2008 LIZA VALENCIA ERA K 316 PF PSYCHIC FACTORS MED COND 09/18/2008 LIZA VALENCIA ERA K V61.10 RL RELATION COUNS 09/18/2008 BRAD REID MD 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 09/18/2008 BRAD REID MD 297.0 PARANOID STATE SIMPLE 09/18/2008 BRAD REID MD 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 09/18/2008 BRDA REID MD 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 09/18/2008 BRAD REID MD 316 PF PSYCHIC FACTORS MED COND 09/18/2008 BRAD REID MD V61.10 RL RELATION COUNS 11/09/2008 JONNIE DE JESUS DOA K 590.2 KIDNEY STONES 11/09/2008 590.2 KIDNEY STONES 11/09/2008 JONNIE DE JESUS DOA K 590.2 KIDNEY STONES 11/09/2008 JONNIE DE JESUS DOA K 590.2 KIDNEY STONES 11/09/2008 590.2 KIDNEY STONES 11/09/2008 590.2 KIDNEY STONES 11/09/2008 590.2 KIDNEY STONES 11/09/2008 GENOVEVA HERNANDEZS, BOB Schmidt 590.2 KIDNEY STONES 11/09/2008 [facility], JOSEE Watters 590.2 KIDNEY STONES 11/09/2008 DE JESUS DO, ERA K 590.2 KIDNEY STONES 11/09/2008 DE JESUS DO, ERA K 590.2 KIDNEY STONES 11/09/2008 [facility], JOSEE R 590.2 KIDNEY STONES 11/09/2008 DE JESUS DO, ERA K 590.2 KIDNEY STONES 11/09/2008 HAN CABALLERO APRN 590.2 KIDNEY STONES 11/09/2008 HAN CABALLERO APRN 590.2 KIDNEY STONES 11/09/2008 STELLA FILING MACHINE OPERATOR, DEBBIE 590.2 KIDNEY STONES 11/09/2008 DE JESUS DO, ERA K 590.2 KIDNEY STONES 11/09/2008 STELLA FILING MACHINE OPERATOR, DEBBIE 590.2 KIDNEY STONES 11/09/2008 DAVEY PHD, BRISSA Harden 590.2 KIDNEY STONES 11/09/2008 DE JESUS DO, ERA K 590.2 KIDNEY STONES 11/09/2008 JEANETTE TORRES, BRAD 590.2 KIDNEY STONES 03/27/2010 Ot 788.0 03/27/2010 Ot 789.09 03/27/2010 Ot V13.01 06/28/2010 Ot 592.0 07/26/2010 DE JESUS DO, ERA K 305.1 NONDEPENDENT TOBACCO USE DISORDER 07/26/2010 DE JESUS DO, ERA K 465.9 UPPER RESPIRATORY INFECTION 07/26/2010 DE JESUS DO, ERA K 466.0 BRONCHITIS, ACUTE 07/26/2010 305.1 [...] DO, ERA K 466.0 BRONCHITIS, ACUTE 07/26/2010 305.1 NONDEPENDENT TOBACCO USE DISORDER 07/26/2010 465.9 UPPER RESPIRATORY INFECTION 07/26/2010 466.0 BRONCHITIS, ACUTE 07/26/2010 305.1 NONDEPENDENT TOBACCO USE DISORDER 07/26/2010 465.9 UPPER RESPIRATORY INFECTION 07/26/2010 466.0 BRONCHITIS, ACUTE 07/26/2010 305.1 NONDEPENDENT TOBACCO USE DISORDER 07/26/2010 465.9 UPPER RESPIRATORY INFECTION 07/26/2010 466.0 BRONCHITIS, ACUTE 07/26/2010 [facility], BOB B 305.1 NONDEPENDENT TOBACCO USE DISORDER 07/26/2010 [facility], BOB B 465.9 UPPER RESPIRATORY INFECTION 07/26/2010 [facility], BOB B 466.0 BRONCHITIS, ACUTE 07/26/2010 [facility], JOSEE R 305.1 NONDEPENDENT TOBACCO USE DISORDER 07/26/2010 [facility], JOSEE R 465.9 UPPER RESPIRATORY INFECTION 07/26/2010 [facility], JOSEE R 466.0 BRONCHITIS, ACUTE 07/26/2010 DE [...] DO, ERA K 466.0 BRONCHITIS, ACUTE 07/26/2010 [facility], JOSEE R 305.1 NONDEPENDENT TOBACCO USE DISORDER 07/26/2010 [facility], JOSEE R 465.9 UPPER RESPIRATORY INFECTION 07/26/2010 [facility], JOSEE R 466.0 BRONCHITIS, ACUTE 07/26/2010 DE [...] CABALLERO APRN 466.0 BRONCHITIS, ACUTE 07/26/2010 STELLA FILING MACHINE OPERATOR, DEBBIE 305.1 NONDEPENDENT TOBACCO USE DISORDER 07/26/2010 STELLA FILING MACHINE OPERATOR, DEBBIE 465.9 UPPER RESPIRATORY INFECTION 07/26/2010 STELLA FILING MACHINE OPERATOR, DEBBIE 466.0 BRONCHITIS, ACUTE 07/26/2010 DE JESUS DO, ERA K 305.1 NONDEPENDENT TOBACCO USE DISORDER 07/26/2010 DE JESUS DO, ERA K 465.9 UPPER RESPIRATORY INFECTION 07/26/2010 DE JESUS DO, ERA K 466.0 BRONCHITIS, ACUTE 07/26/2010 STELLA FILING MACHINE OPERATOR, DEBBIE 305.1 NONDEPENDENT TOBACCO USE DISORDER 07/26/2010 STLELA FILING MACHINE OPERATOR, DEBBIE 465.9 UPPER RESPIRATORY INFECTION 07/26/2010 STELLA FILING MACHINE OPERATOR, DEBBIE 466.0 BRONCHITIS, ACUTE 07/26/2010 DAVEY PHD, BRISSA Harden 305.1 NONDEPENDENT TOBACCO USE DISORDER 07/26/2010 DAVEY PHD, BRISSA A 465.9 UPPER RESPIRATORY INFECTION 07/26/2010 DAVEY LOU, BRISSA A 466.0 BRONCHITIS, ACUTE 07/26/2010 DE JESUS DO, ERA K 305.1 NONDEPENDENT TOBACCO USE DISORDER 07/26/2010 DE JESUS DO, ERA K 465.9 UPPER RESPIRATORY INFECTION 07/26/2010 DE JESUS DO, ERA K 466.0 BRONCHITIS, ACUTE 07/26/2010 BRAD REID MD 305.1 NONDEPENDENT TOBACCO USE DISORDER 07/26/2010 BRAD REID MD 465.9 UPPER RESPIRATORY INFECTION 07/26/2010 BRAD REID MD 466.0 BRONCHITIS, ACUTE 09/20/2010 DE JESUS DO, ERA K 401.1 [...] joint pain, localized in the hip 09/20/2010 [facility] 401.1 ESSENTIAL HYPERTENSION BENIGN 09/20/2010 [facility] R 719.45 joint pain, localized in the hip 09/20/2010 DE JESUS DO, ERA K 401.1 ESSENTIAL HYPERTENSION BENIGN 09/20/2010 DE JESUS DO, ERA K 719.45 joint pain, localized in the hip 09/20/2010 DE JESUS DO, ERA K 401.1 ESSENTIAL HYPERTENSION BENIGN 09/20/2010 DE JESUS DO, ERA K 719.45 joint pain, localized in the hip 09/20/2010 [facility] R 401.1 ESSENTIAL HYPERTENSION BENIGN 09/20/2010 [facility] R 719.45 joint pain, [...] joint pain, localized in the hip 09/20/2010 DEBBIE DOUGLAS APRN 401.1 ESSENTIAL HYPERTENSION BENIGN 09/20/2010 STELLA PARKER DEBBIE 719.45 joint pain, localized in the hip 09/20/2010 DE JESUS DO, ERA K 401.1 ESSENTIAL HYPERTENSION BENIGN 09/20/2010 DE JESUS DO, ERA K 719.45 joint pain, localized in the hip 09/20/2010 DEBBIE DOUGLAS APRN 401.1 ESSENTIAL HYPERTENSION BENIGN 09/20/2010 DEBBIE DOUGLAS APRN 719.45 joint pain, localized in the hip 09/20/2010 DAVEY LOU, BRISSA Harden 401.1 ESSENTIAL HYPERTENSION BENIGN 09/20/2010 DAVEY LOU, BRISSA Harden 719.45 joint pain, localized in the hip 09/20/2010 ERA DE JESUS DO 401.1 ESSENTIAL HYPERTENSION BENIGN 09/20/2010 ERA DE JESUS DO 719.45 joint pain, localized in the hip 09/20/2010 BRAD REID MD 401.1 ESSENTIAL HYPERTENSION BENIGN 09/20/2010 BRAD REID MD 719.45 joint pain, localized in the hip 09/30/2010 ERA DE JESUS DO K 726.5 ENTHESOPATHY OF HIP REGION 09/30/2010 726.5 ENTHESOPATHY OF HIP REGION 09/30/2010 JONNIE DE JESUS DOA K 726.5 ENTHESOPATHY OF HIP REGION 09/30/2010 JONNIE DE JESUS DOA K 726.5 ENTHESOPATHY OF HIP REGION 09/30/2010 726.5 ENTHESOPATHY OF HIP REGION 09/30/2010 726.5 ENTHESOPATHY OF HIP REGION 09/30/2010 726.5 ENTHESOPATHY OF HIP REGION 09/30/2010 GENOVEVA YAP, BOB Schmidt 726.5 ENTHESOPATHY OF HIP REGION 09/30/2010 [facility], JOSEE R 726.5 ENTHESOPATHY OF HIP REGION 09/30/2010 JONNIE DE JESUS DOA K 726.5 ENTHESOPATHY OF HIP REGION 09/30/2010 JONNIE DE JESUS DOA K 726.5 ENTHESOPATHY OF HIP REGION 09/30/2010 [facility], JOSEE R 726.5 ENTHESOPATHY OF HIP REGION 09/30/2010 LIZA VALENCIA ERA K 726.5 ENTHESOPATHY OF HIP REGION 09/30/2010 HAN CABALLERO APRN 726.5 ENTHESOPATHY OF HIP REGION 09/30/2010 HAN CABALLERO APRN 726.5 ENTHESOPATHY OF HIP REGION 09/30/2010 DEBBIE DOUGLAS APRN 726.5 ENTHESOPATHY OF HIP REGION 09/30/2010 JONNIE DE JESUS DOA K 726.5 ENTHESOPATHY OF HIP REGION 09/30/2010 DEBBIE DOUGLAS APRN 726.5 ENTHESOPATHY OF HIP REGION 09/30/2010 DAVEY PHD, BRISSA Harden 726.5 ENTHESOPATHY OF HIP REGION 09/30/2010 ERA DE JESUS DO 726.5 ENTHESOPATHY OF HIP REGION 09/30/2010 BRAD [...] NOS 02/28/2012 311 DEPRESSIVE DISORDER NOS 02/28/2012 ERA DE JESUS DO K 311 DEPRESSIVE DISORDER NOS 02/28/2012 ERA DE JESUS DO K 311 DEPRESSIVE DISORDER NOS 02/28/2012 311 DEPRESSIVE DISORDER NOS 02/28/2012 311 DEPRESSIVE DISORDER NOS 02/28/2012 311 DEPRESSIVE DISORDER NOS 02/28/2012 GENOVEVA HERNANDEZS, BOB B 311 DEPRESSIVE DISORDER NOS 02/28/2012 [facility], JOSEE R 311 DEPRESSIVE DISORDER NOS 02/28/2012 ERA D EJESUS DO K 311 DEPRESSIVE DISORDER NOS 02/28/2012 ERA DE JESUS DO K 311 DEPRESSIVE DISORDER NOS 02/28/2012 [facility], JOSEE R 311 DEPRESSIVE DISORDER NOS 02/28/2012 ERA DE JESUS DO K 311 DEPRESSIVE DISORDER NOS 02/28/2012 HAN CABALLERO APRN 311 DEPRESSIVE DISORDER NOS 02/28/2012 HAN CABALLERO APRN 311 DEPRESSIVE DISORDER NOS 02/28/2012 DAVID DOUGLAS APRNETTE 311 DEPRESSIVE DISORDER NOS 02/28/2012 ERA DE JESUS DO K 311 DEPRESSIVE DISORDER NOS 02/28/2012 DEBBIE DOUGLAS APRN 311 DEPRESSIVE DISORDER NOS 02/28/2012 DAVEY LOU, BRISSA Harden 311 DEPRESSIVE DISORDER NOS 02/28/2012 ERA DE JESUS DO 311 DEPRESSIVE DISORDER NOS 02/28/2012 BRAD REID MD 311 DEPRESSIVE DISORDER NOS 05/13/2012 Ot 719.41 JOINT PAIN- SHLDER 05/13/2012 Ot 959.2 SHLDR/UPPER ARM INJ NOS 05/13/2012 Ot E000.8 OTHER EXTERNAL CAUSE STATUS 05/13/2012 Ot E927.0 OVEREXERTION FROM SUDDEN STRENUOUS MOVEM 05/16/2012 ERA DE JESUS DO 726.12 BICIPITAL TENOSYNOVITIS 05/16/2012 726.12 BICIPITAL TENOSYNOVITIS 05/16/2012 ERA DE JESUS DO 726.12 BICIPITAL TENOSYNOVITIS 05/16/2012 ERA DE JESUS DO 726.12 BICIPITAL TENOSYNOVITIS 05/16/2012 726.12 BICIPITAL TENOSYNOVITIS 05/16/2012 726.12 BICIPITAL TENOSYNOVITIS 05/16/2012 726.12 BICIPITAL TENOSYNOVITIS 05/16/2012 [facility] YAP, BOB B 726.12 BICIPITAL TENOSYNOVITIS 05/16/2012 [facility], JOSEE R 726.12 BICIPITAL TENOSYNOVITIS 05/16/2012 ERA DE JESUS DO 726.12 BICIPITAL TENOSYNOVITIS 05/16/2012 ERA DE JESUS DO 726.12 BICIPITAL TENOSYNOVITIS 05/16/2012 [facility], JOSEE R 726.12 BICIPITAL TENOSYNOVITIS 05/16/2012 ERA DE JESUS DO 726.12 BICIPITAL TENOSYNOVITIS 05/16/2012 HAN CABALLERO APRN 726.12 BICIPITAL TENOSYNOVITIS 05/16/2012 HAN CABALLERO APRN 726.12 BICIPITAL TENOSYNOVITIS 05/16/2012 STELLA PARKER DEBBIE 726.12 BICIPITAL TENOSYNOVITIS 05/16/2012 ERA DE JESUS DO 726.12 BICIPITAL TENOSYNOVITIS 05/16/2012 STELLA PARKER, DEBBIE 726.12 BICIPITAL TENOSYNOVITIS 05/16/2012 ERA DE [...] PAIN IN JOINT INVOLVING SHOULDER REGION [facility]/20[facility]2012 [facility] PAIN IN JOINT INVOLVING SHOULDER REGION 06/20/2012 ERA DE JESUS DO 719.41 PAIN IN JOINT INVOLVING SHOULDER REGION 06/20/2012 ERA DE JESUS DO 719.41 PAIN IN JOINT INVOLVING SHOULDER REGION 06/20/2012 [facility]OM[facility] JOSEE ABURTO 719.41 PAIN IN JOINT INVOLVING SHOULDER REGION [...] B 724.2 LUMBAGO/ LOW BACK PAIN 08/07/2012 [facility] LUMBAGO/ LOW BACK PAIN 08/07/2012 ERA DE JESUS DO 724.2 LUMBAGO/ LOW BACK PAIN 08/07/2012 ERA DE JESUS DO 724.2 LUMBAGO/ LOW BACK PAIN 08/07/2012 [facility], JOSEE R 724.2 LUMBAGO/ LOW BACK PAIN 08/07/2012 ERA DE JESUS DO 724.2 LUMBAGO/ LOW BACK PAIN 08/07/2012 HAN CABALLERO APRN 724.2 LUMBAGO/ LOW BACK PAIN 08/07/2012 HAN CABALLERO APRN 724.2 LUMBAGO/ LOW BACK PAIN 08/07/2012 STELLA [employer], DEBBIE 724.2 LUMBAGO/ LOW BACK PAIN 08/07/2012 DE JESUS ERA VALENCIA K 724.2 LUMBAGO/ LOW BACK PAIN 08/07/2012 STELLA [employer], DEBBIE 724.2 LUMBAGO/ LOW BACK PAIN 08/07/2012 ERA [...] BEHAVIOR 09/17/2012 300.02 AN GEN ANXIETY 09/17/2012 [facility], BOB B 296.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 09/17/2012 [facility] DDS, BOB B 300.02 AN GEN ANXIETY 09/17/2012 [facility], JOSEE R 296.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 09/17/2012 [facility], JOSEE R 300.02 AN GEN ANXIETY 09/17/2012 ERA DE JESUS DO 296.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 09/17/2012 ERA DE JESUS DO 300.02 AN GEN ANXIETY 09/17/2012 ERA DE JESUS DO 296.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 09/17/2012 ERA DE JESUS DO 300.02 AN GEN ANXIETY 09/17/2012 [facility], JOSEE R 296.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 09/17/2012 [facility], JOSEE R 300.02 AN GEN ANXIETY 09/17/2012 ERA DE JESUS DO 296.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 09/17/2012 ERA DE JESUS DO 300.02 AN GEN ANXIETY 09/17/2012 HAN CABALLERO APRN 296.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 09/17/2012 HAN CABALLERO APRN 300.02 AN GEN ANXIETY 09/17/2012 HAN CABALLERO APRN 296.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 09/17/2012 HAN CABALLERO APRN 300.02 AN GEN ANXIETY 09/17/2012 STELLA PARKER DEBBIE 296.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 09/17/2012 DAVID DUOGLAS APRNETTE 300.02 AN GEN ANXIETY 09/17/2012 ERA DE JESUS DO 296.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 09/17/2012 ERA DE JESUS DO 300.02 AN GEN ANXIETY 09/17/2012 [facility] [employer], DEBBIE 296.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 09/17/2012 DAVID DOUGLAS APRNETTE 300.02 AN GEN ANXIETY 09/17/2012 ERA DE JESUS DO K 296.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 09/17/2012 ERA DE JESUS DO 300.02 AN GEN ANXIETY 09/17/2012 BRAD REID MD 296.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 09/17/2012 BRAD REID MD 300.02 AN GEN ANXIETY 10/09/2012 309.81 AN PTSD 10/09/2012 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 10/09/2012 [facility] 309.81 AN PTSD 10/09/2012 [facility] 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 10/09/2012 [facility], JOSEE R 309.81 AN PTSD 10/09/2012 [facility], JOSEE R 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 10/09/2012 ERA DE EJSUS DO 309.81 AN PTSD 10/09/2012 DE JESUS DO, ERA K 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 10/09/2012 DE JESUS DO, ERA K 309.81 AN PTSD 10/09/2012 DE JESUS DO, ERA K 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 10/09/2012 [facility], JOSEE R 309.81 AN PTSD 10/09/2012 [facility], JOSEE R 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 10/09/2012 DE JESUS DO, ERA K 309.81 AN PTSD 10/09/2012 DE JESUS DO ERA K 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 10/09/2012 GARFATIMAH FILING MACHINE OPERATORHAN Zuniga D 309.81 AN PTSD 10/09/2012 GARTON FILING MACHINE OPERATORHAN Zuniga D 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 10/09/2012 GARTON FILING MACHINE OPERATORHAN Zuniga D 309.81 AN PTSD 10/09/2012 ADA FILING MACHINE OPERATORHAN Zuniga D 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 10/09/2012 STELLA FILING MACHINE OPERATOR, DEBBIE 309.81 AN PTSD 10/09/2012 STELLA FILING MACHINE OPERATOR, DEBBIE 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 10/09/2012 DE JESUS DO ERA K 309.81 AN PTSD 10/09/2012 DE JESUS DO, ERA K 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 10/09/2012 STELLA FILING MACHINE OPERATOR, DEBBIE 309.81 AN PTSD 10/09/2012 STELLA FILING MACHINE OPERATOR, DEBBIE 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 10/09/2012 DE JESUS DO, ERA K 309.81 AN PTSD 10/09/2012 DE JESUS DO ERA K 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 10/09/2012 BRAD REID MD 309.81 AN PTSD 10/09/2012 BRAD REID MD 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 07/29/2013 DE JESUS DO ERA K 715.00 OSTEOARTHROSIS GENERALIZED INVOLVING UNSPECIFIED SITE 07/29/2013 DE JESUS DO, ERA K V65.42 COUNSELING - SMOKING CESSATION 07/29/2013 DE JESUS DO ERA K 715.00 OSTEOARTHROSIS GENERALIZED INVOLVING UNSPECIFIED SITE 07/29/2013 DE JESUS DO ERA K V65.42 COUNSELING - SMOKING CESSATION 07/29/2013 [facility] JOSEE R 715.00 OSTEOARTHROSIS GENERALIZED INVOLVING UNSPECIFIED SITE 07/29/2013 [facility] JOSEE R V65.42 COUNSELING - SMOKING CESSATION 07/29/2013 DE JESUS DO ERA K 715.00 OSTEOARTHROSIS GENERALIZED INVOLVING UNSPECIFIED SITE 07/29/2013 ERA DE JESUS DO V65.42 COUNSELING - SMOKING CESSATION 07/29/2013 HAN CABALLERO APRN 715.00 OSTEOARTHROSIS GENERALIZED INVOLVING UNSPECIFIED SITE 07/29/2013 HAN CABALLERO APRN V65.42 COUNSELING - SMOKING CESSATION 07/29/2013 HAN CABALLERO APRN 715.00 OSTEOARTHROSIS GENERALIZED INVOLVING UNSPECIFIED SITE 07/29/2013 HAN CABALLERO APRN V65.42 COUNSELING - SMOKING CESSATION 07/29/2013 STELLARUSTY PARKER DEBBIE 715.00 OSTEOARTHROSIS GENERALIZED INVOLVING UNSPECIFIED SITE 07/29/2013 STELLA PARKER DEBBIE V65.42 COUNSELING - SMOKING CESSATION 07/29/2013 ERA DE JESUS DO 715.00 OSTEOARTHROSIS GENERALIZED INVOLVING UNSPECIFIED SITE 07/29/2013 ERA DE JESUS DO V65.42 COUNSELING - SMOKING CESSATION 07/29/2013 STELLA PARKER DEBBIE 715.00 OSTEOARTHROSIS GENERALIZED INVOLVING UNSPECIFIED SITE 07/29/2013 STELLA PARKER DEBBIE V65.42 COUNSELING - SMOKING CESSATION 07/29/2013 ERA DE JESUS DO K 715.00 OSTEOARTHROSIS GENERALIZED INVOLVING UNSPECIFIED SITE 07/29/2013 ERA DE JESUS DO K V65.42 COUNSELING - SMOKING CESSATION 07/29/2013 BRAD REID MD 715.00 OSTEOARTHROSIS GENERALIZED INVOLVING UNSPECIFIED SITE 07/29/2013 BRAD REID MD V65.42 COUNSELING - SMOKING CESSATION 08/02/2013 ERA DE JESUS DO 296.32 MO DEPRESSIVE RECURRENT MODERATE 08/02/2013 [facility] JOSEE R 296.32 MO DEPRESSIVE RECURRENT MODERATE 08/02/2013 ERA DE JESUS DO K 296.32 MO DEPRESSIVE RECURRENT MODERATE 08/02/2013 HAN CABALLERO APRN 296.32 MO DEPRESSIVE RECURRENT MODERATE 08/02/2013 HAN CABALLERO APRN 296.32 MO DEPRESSIVE RECURRENT MODERATE 08/02/2013 STELLARUSTY PARKER DEBBIE 296.32 MO DEPRESSIVE RECURRENT MODERATE 08/02/2013 ERA DE JESUS DO K 296.32 MO DEPRESSIVE RECURRENT MODERATE 08/02/2013 STELLARUSTY PARKER DEBBIE 296.32 MO DEPRESSIVE RECURRENT MODERATE 08/02/2013 ERA DE JESUS DO 296.32 MO DEPRESSIVE RECURRENT MODERATE 08/02/2013 JEANETTE TORRES, BRAD 296.32 MO DEPRESSIVE RECURRENT MODERATE 08/30/2013 MICKEY TORRES, TITO Robles Ot 780.2 SYNCOPE AND COLLAPSE 08/30/2013 MICKEY TORRES, TITO Robles Ot 910.8 SUPERFIC INJ HEAD NEC 08/30/2013 MICKEY TORRES, TITO Robles Ot E000.8 OTHER EXTERNAL CAUSE STATUS 08/30/2013 MICKEY TORRES, TITO Robles Ot E849.0 ACCIDENT IN HOME 08/30/2013 MICKEY TORRES, TITO Robles Ot E888.9 FALL NOS 09/13/2013 ERA DE JESUS DO K 780.2 SYNCOPE 09/13/2013 JONNIE DE JESUS DOA K 850.9 CONCUSSION UNSPECIFIED 09/13/2013 JONNIE DE JESUS DOA K E888.9 UNSPECIFIED ACCIDENTAL FALL 09/13/2013 HAN CABALLERO APRN 780.2 SYNCOPE 09/13/2013 HAN CABALLERO APRN 850.9 CONCUSSION UNSPECIFIED 09/13/2013 HAN CABALLERO APRN E888.9 UNSPECIFIED ACCIDENTAL FALL 09/13/2013 HAN CABALLERO APRN 780.2 SYNCOPE 09/13/2013 HAN CABALLERO APRN 850.9 CONCUSSION UNSPECIFIED 09/13/2013 HAN CABALLERO APRN E888.9 UNSPECIFIED ACCIDENTAL FALL 09/13/2013 DEBBIE DOUGLAS APRN 780.2 SYNCOPE 09/13/2013 DEBBIE DOUGLAS APRN 850.9 CONCUSSION UNSPECIFIED 09/13/2013 STELLA PARKER DEBBIE E888.9 UNSPECIFIED ACCIDENTAL FALL 09/13/2013 JONNIE DE JESUS DOA K 780.2 SYNCOPE 09/13/2013 JONNIE DE JESUS DOA K 850.9 CONCUSSION UNSPECIFIED 09/13/2013 JONNIE DE JESUS DOA K E888.9 UNSPECIFIED ACCIDENTAL FALL 09/13/2013 STELLA PARKER DEBBIE 780.2 SYNCOPE 09/13/2013 STELLA PARKER DEBBIE 850.9 CONCUSSION UNSPECIFIED 09/13/2013 STELLA PARKER DEBBIE E888.9 UNSPECIFIED ACCIDENTAL FALL 09/13/2013 JONNIE DE JESUS DOA K 780.2 SYNCOPE 09/13/2013 ERA DE JESUS DO 850.9 CONCUSSION UNSPECIFIED 09/13/2013 ERA DE JESUS DO E888.9 UNSPECIFIED ACCIDENTAL FALL 09/13/2013 BRAD REID MD 780.2 SYNCOPE 09/13/2013 BRAD REID MD 850.9 CONCUSSION UNSPECIFIED 09/13/2013 BRAD REID MD E888.9 UNSPECIFIED ACCIDENTAL FALL 11/26/2013 ERA DE JESUS DO V65.49 OTHER SPECIFIED COUNSELING 11/26/2013 DEBBIE DOUGLAS APRN V65.49 OTHER SPECIFIED COUNSELING 11/26/2013 ERA DE JESUS DO V65.49 OTHER SPECIFIED COUNSELING 11/26/2013 BRAD REID MD V65.49 OTHER SPECIFIED COUNSELING 09/08/2014 BRAD REID MD 892.0 OPEN WOUND OF FOOT EXCEPT TOE(S) ALONE WITHOUT COMPLICATION 04/16/2015 Ot 592.0 04/16/2015 TATE TORRES, EMI Harden Ot S43.401A UNSPECIFIED SPRAIN OF RIGHT SHOULDER HUNG 04/16/2015 TATE TORRES, EMI Harden Ot Y93.G1 ACTIVITY, FOOD PREPARATION AND CLEAN UP 04/16/2015 EMI YBARRA MD Ot Y99.8 OTHER EXTERNAL CAUSE STATUS 06/22/2015 Ot 592.0 06/22/2015 CELINE DO, ADRIANA L Ot F12.10 CANNABIS ABUSE, UNCOMPLICATED 06/22/2015 BERGER DO, ADRIANA L Ot F17.210 NICOTINE DEPENDENCE, CIGARETTES, UNCOMPL 06/22/2015 BERGER DO, ADRIANA L Ot R56.9 UNSPECIFIED CONVULSIONS 06/22/2015 CELINE VALENCIA, ADRIANA L Ot S13.4XXA SPRAIN OF LIGAMENTS OF CERVICAL SPINE, I 06/22/2015 CELINE VALENCIA, ADRIANA L Ot W18.30XA FALL ON SAME LEVEL, UNSPECIFIED, INITIAL 06/22/2015 BERGER , ADRIANA L Ot Y92.[address] [facility] [address] IN [facility] NON-[facility] (PRIVATE 06/22/2015 BERGER DO, ADRIANA L Ot Y99.8 OTHER EXTERNAL CAUSE STATUS 06/30/2015 Ot 592.0 05/01/2016 TITO AREVALO MD Ot F17.210 NICOTINE DEPENDENCE, CIGARETTES, UNCOMPL 05/01/2016 TITO AREVALO MD Ot I10 ESSENTIAL (PRIMARY) HYPERTENSION 05/01/2016 TITO AREVALO MD Ot S93.402A SPRAIN OF UNSPECIFIED LIGAMENT OF LEFT A 05/01/2016 TITO AREVALO MD Ot S93.602A UNSPECIFIED SPRAIN OF LEFT FOOT, INITIAL 05/01/2016 TITO AREVALO MD Ot S99.912A UNSPECIFIED INJURY OF LEFT ANKLE, INITIA 05/01/2016 TITO AREVALO MD T Ot X58.XXXA EXPOSURE TO OTHER SPECIFIED FACTORS, INI 05/01/2016 TITO AREVALO MD Ot Y92.[address] IN [facility] NON-[facility] (PRIVATE 05/01/2016 TITO AREVALO MD Ot Y93.9 ACTIVITY, UNSPECIFIED 05/01/2016 TITO AREVALO MD Ot Y99.8 OTHER EXTERNAL CAUSE STATUS 05/03/2016 TITO AREVALO MD Ot F17.210 NICOTINE DEPENDENCE, CIGARETTES, UNCOMPL 05/03/2016 TITO AREVALO MD T Ot I10 ESSENTIAL (PRIMARY) HYPERTENSION 05/03/2016 TITO AREVALO MD Ot S93.402A SPRAIN OF UNSPECIFIED LIGAMENT OF LEFT A 05/03/2016 TITO AREVALO MD Ot S93.602A UNSPECIFIED SPRAIN OF LEFT FOOT, INITIAL 05/03/2016 TITO AREVALO MD Ot S99.912A UNSPECIFIED INJURY OF LEFT ANKLE, INITIA 05/03/2016 TITO AREVALO MD T Ot X58.XXXA EXPOSURE TO OTHER SPECIFIED FACTORS, INI 05/03/2016 TITO AREVALO MD Ot Y92.[address] IN [facility] (PRIVATE 05/03/2016 TITO AREVALO MD Ot Y93.9 ACTIVITY, UNSPECIFIED 05/03/2016 TITO AREVALO MD T Ot Y99.8 OTHER EXTERNAL CAUSE STATUS 05/07/2016 TITO AREVALO MD Ot F17.210 NICOTINE DEPENDENCE, CIGARETTES, UNCOMPL 05/07/2016 TITO AREVALO MD T Ot I10 ESSENTIAL (PRIMARY) HYPERTENSION 05/07/2016 MICKEY TORRES, TITO Robles Ot S93.402A SPRAIN OF UNSPECIFIED LIGAMENT OF LEFT A 05/07/2016 MICKEY TORRES, TITO Robles Ot S93.602A UNSPECIFIED SPRAIN OF LEFT FOOT, INITIAL 05/07/2016 TITO AREVALO MD Ot S99.912A UNSPECIFIED INJURY OF LEFT ANKLE, INITIA 05/07/2016 TITO AREVALO MD Ot X58.XXXA EXPOSURE TO OTHER SPECIFIED FACTORS, INI 05/07/2016 MICKEY TORRES, TITO Robles Ot Y92.[address] [facility]IVATE 05/07/2016 MICKEY TORRES, TITO Robles Ot Y93.9 ACTIVITY, UNSPECIFIED 05/07/2016 MICKEY TORRES, TITO Robles Ot Y99.8 OTHER EXTERNAL CAUSE STATUS 08/08/2016 Nathan Maher 882.0 OPEN WOUND OF HAND EXCEPT FINGERS ALONE, WITHOUT MENTION OF COMPLICATION 08/08/2016 Nathan Maher S61.412A LACERATION WITHOUT FOREIGN BODY OF LEFT HAND, INIT ENCNTR 11/24/2016 Nathan Maher 461.9 ACUTE SINUSITIS, UNSPECIFIED 11/24/2016 Nathan Maher J01.90 ACUTE SINUSITIS, UNSPECIFIED 12/13/2016 TAYLA GRACIA TUBE BUILDING MACHINE OPERATOR Ot M54.5 LOW BACK PAIN 12/15/2016 MICHAEL GRACIAE A TUBE BUILDING MACHINE OPERATOR Ot M54.5 LOW BACK PAIN 12/15/2016 MICHAEL GRACIAE A TUBE BUILDING MACHINE OPERATOR Ot M54.5 LOW BACK PAIN 12/19/2016 GRACIAMICHAELE A TUBE BUILDING MACHINE OPERATOR Ot M54.5 LOW BACK PAIN 12/30/2016 MICHAEL GRACIAE A TUBE BUILDING MACHINE OPERATOR Ot M54.5 LOW BACK PAIN 05/19/2017 HUGH YORK Ot F32.9 MAJOR DEPRESSIVE DISORDER, SINGLE EPISOD 05/19/2017 HUGH YORK Ot F41.9 ANXIETY DISORDER, UNSPECIFIED 05/19/2017 HUGH YORK Ot F43.10 POST-TRAUMATIC STRESS DISORDER, UNSPECIF 05/19/2017 HUGH YORK Ot G40.909 EPILEPSY, UNSP, NOT INTRACTABLE, WITHOUT 05/19/2017 HUGH YORK Ot H66.002 ACUTE SUPPR OTITIS MEDIA W/O SPON RUPT E 05/19/2017 HUGH YORK Ot H92.02 OTALGIA, LEFT EAR 05/19/2017 HUGH YORK Ot I10 ESSENTIAL (PRIMARY) HYPERTENSION 05/19/2017 HUGH YORK Ot Z87.440 PERSONAL HISTORY OF URINARY (TRACT) INFE 05/19/2017 HUGH YORK Ot Z87.442 PERSONAL HISTORY OF URINARY CALCULI 07/17/2017 RAMIRO FRAZIER MD Ot H65.23 CHRONIC SEROUS OTITIS MEDIA, BILATERAL 07/17/2017 RAMIRO FRAZIER MD Ot Z01.812 ENCOUNTER FOR PREPROCEDURAL LABORATORY E 07/17/2017 RAMIRO FRAZIER MD Ot Z11.2 ENCOUNTER FOR SCREENING FOR OTHER BACTER 07/18/2017 RAMIRO FRAZIER MD Ot H65.23 CHRONIC SEROUS OTITIS MEDIA, BILATERAL 07/18/2017 RAMIRO FRAZIER MD Ot Z01.812 ENCOUNTER FOR PREPROCEDURAL LABORATORY E 07/18/2017 RAMIRO FRAZIER MD Ot Z11.2 ENCOUNTER FOR SCREENING FOR OTHER BACTER 07/20/2017 RAMIRO FRAZIER MD Ot F17.210 NICOTINE DEPENDENCE, CIGARETTES, UNCOMPL 07/20/2017 RAMIRO FRAZIER MD Ot F43.10 POST-TRAUMATIC STRESS DISORDER, UNSPECIF 07/20/2017 RAMIRO FRAZIER MD Ot H65.23 CHRONIC SEROUS OTITIS MEDIA, BILATERAL 07/20/2017 RAMIRO FRAZIER MD Ot I10 ESSENTIAL (PRIMARY) HYPERTENSION 07/20/2017 RAMIRO FRAZIER MD Ot J34.89 OTHER SPECIFIED DISORDERS OF NOSE AND NA 07/20/2017 RAMIRO FRAZIER MD Ot Z79.899 OTHER JAIL (CURRENT) DRUG THERAPY 07/26/2017 RAMIRO FRAZIER MD Ot F17.210 NICOTINE DEPENDENCE, CIGARETTES, UNCOMPL 07/26/2017 RAMIRO FRAZIER MD Ot F43.10 POST-TRAUMATIC STRESS DISORDER, UNSPECIF 07/26/2017 RAMIRO FRAZIER MD Ot H65.23 CHRONIC SEROUS OTITIS MEDIA, BILATERAL 07/26/2017 RAMIRO FRAZIER MD Ot I10 ESSENTIAL (PRIMARY) HYPERTENSION 07/26/2017 RAMIRO FRAZIER MD Ot J34.89 OTHER SPECIFIED DISORDERS OF NOSE AND NA 07/26/2017 RAMIRO FRAZIER MD Ot Z79.899 OTHER COOKIE MIXER HELPER (CURRENT) DRUG THERAPY 07/28/2017 RAMIRO FRAZIER MD Ot F17.210 NICOTINE DEPENDENCE, CIGARETTES, UNCOMPL 07/28/2017 RAMIRO FRAZIER MD Ot F43.10 POST-TRAUMATIC STRESS DISORDER, UNSPECIF 07/28/2017 RAMIRO FRAZIER MD Ot H65.23 CHRONIC SEROUS OTITIS MEDIA, BILATERAL 07/28/2017 RAMIRO FRAZIER MD Ot I10 ESSENTIAL (PRIMARY) HYPERTENSION 07/28/2017 RAMIRO FRAZIER MD Ot J34.89 OTHER SPECIFIED DISORDERS OF NOSE AND NA 07/28/2017 RAMIRO FRAZIER MD, Ot Z79.899 OTHER COOKIE MIXER HELPER (CURRENT) DRUG THERAPY 12/26/2017 A 382.9 UNSPECIFIED OTITIS MEDIA 12/26/2017 A H66.93 OTITIS MEDIA , UNSPECIFIED, BILATERAL Procedures Code Description Performed By Performed On MARTITA PISANO ALYSON 05/16/2012 [facility] [place] 06/20/2012 [facility], [facility] 06/20/2012 81910 ROUTINE VENIPUNCTURE 08/07/2012 05892 XRAY LUMBAR SPINE 2 OR 3 VIEWS 08/07/2012 30132 CMP 08/07/2012 50331 URINE DRUG SCREEN (IN-HOUSE ) 08/07/2012 74663 TSH 08/07/2012 60358 CBC 08/07/2012 [facility] 08/07/2012 03321 PSYCH DIAGNOSTIC EVALUATION 09/18/2012 77382 PSYTX PT&/FAMILY 45 MINUTES 09/18/2012 76411 URINE DRUG SCREEN (IN-HOUSE ) 10/09/2012 43411 URINE THC CON'F 10/19/2012 51226 PSYCH DIAG EVAL W/MED SRVCS 10/19/2012 24393 PSYTX PT&/FAMILY 30 MINUTES 10/19/2012 22273 PSYTX PT&/FAMILY 30 MINUTES 07/10/2013 10454 PSYTX PT&/FAMILY 45 MINUTES 08/02/2013 16678 ROUTINE VENIPUNCTURE 08/13/2013 31702 URINE DRUG SCREEN (IN-HOUSE ) 08/13/2013 6222771 GFR CALC (RESULT ONLY) 08/13/2013 89612 CMP 08/13/2013 30026 PSYTX PT&/FAMILY 45 MINUTES 08/22/2013 Results Test Result Range CBC With Differential/Platelet - 08/02/16 08:55 WBC 11.2 x10E3/uL 3.4-10.8 RBC 5.16 x10E6/uL 4.14-5.80 Hemoglobin 15.7 g/dL 12.6-17.7 Hematocrit 45.3 % 37.5-51.0 MCV 88 fL 79-97 MCH 30.4 pg 26.6-33.0 MCHC 34.7 g/dL 31.5-35.7 RDW 13.3 % 12.3-15.4 Platelets 242 x10E3/uL 150-379 Neutrophils 60 % Lymphs 29 % Monocytes 8 % Eos 2 % Basos 1 % Neutrophils (Absolute) 6.7 x10E3/uL 1.4-7.0 Lymphs (Absolute) 3.2 x10E3/uL 0.7-3.1 Monocytes(Absolute) 0.9 x10E3/uL 0.1-0.9 Eos (Absolute) 0.2 x10E3/uL 0.0-0.4 Baso (Absolute) 0.1 x10E3/uL 0.0-0.2 Immature Granulocytes 0 % Immature Grans (Abs) 0.0 x10E3/uL 0.0-0.1 Hematology Comments: Note: Comp. Metabolic Panel (14) - 08/02/16 08:55 Glucose, Serum 83 mg/dL 65-99 BUN 7 mg/dL 6-20 Creatinine, Serum 0.88 mg/dL 0.76-1.27 eGFR If NonAfricn Am 112 mL/min/1.73 >59 eGFR If Africn Am 130 mL/min/1.73 >59 BUN/Creatinine Ratio 8 8-19 Sodium, Serum 142 mmol/L 134-144 Potassium, Serum 4.0 mmol/L 3.5-5.2 Chloride, Serum 101 mmol/L 96-106 Carbon Dioxide, Total 23 mmol/L 18-29 Calcium, Serum 9.5 mg/dL 8.7-10.2 Protein, Total, Serum 7.4 g/dL 6.0-8.5 Albumin, Serum 4.7 g/dL 3.5-5.5 Globulin, Total 2.7 g/dL 1.5-4.5 A/G Ratio 1.7 1.2-2.2 Bilirubin, Total 0.4 mg/dL 0.0-1.2 Alkaline Phosphatase, S 124 IU/L 39-117 AST (SGOT) 33 IU/L 0-40 ALT (SGPT) 64 IU/L 0-44 TSH - 08/02/16 08:55 TSH 1.200 uIU/mL 0.450-4.500 Hepatitis Panel (4) - 08/02/16 08:55 HBsAg Screen Negative Negative Hep A Ab, IgM Negative Negative Hep B Core Ab, IgM Negative Negative Hep C Virus Ab <0.1 s/co ratio 0.0-0.9 Written Authorization - 08/02/16 08:55 Written Authorization Comment CRP - 06/26/17 14:10 C-REACTIVE PROTEIN 7.6 mg/L <8.0 Complete blood count (CBC) with automated white blood cell (WBC) differential - 07/17/17 12:12 Blood leukocytes automated count (number/volume) 12.2 10*3/uL 4.3-11.0 Blood erythrocytes automated count (number/volume) 4.34 10*6/uL 4.35-5.85 Venous blood hemoglobin measurement (mass/volume) 13.7 g/dL 13.3-17.7 Blood hematocrit (volume fraction) 40 % 40-54 Automated erythrocyte mean corpuscular volume 92 [foz_us] 80-99 Automated erythrocyte mean corpuscular hemoglobin (mass per erythrocyte) 32 pg 25-34 Automated erythrocyte mean corpuscular hemoglobin concentration measurement ( mass/volume) 35 g/dL 32-36 Automated erythrocyte distribution width ratio 13.5 % 10.0-14.5 Automated blood platelet count (count/volume) 221 10*3/uL 130-400 Automated blood platelet mean volume measurement 10.7 [foz_us] 7.4-10.4 Automated blood neutrophils/100 leukocytes 66 % 42-75 Automated blood lymphocytes/100 leukocytes 25 % 12-44 Blood monocytes/100 leukocytes 7 % 0-12 Automated blood eosinophils/100 leukocytes 2 % 0-10 Automated blood basophils/100 leukocytes 1 % 0-10 Blood neutrophils automated count (number/volume) 8.0 10*3 1.8-7.8 Blood lymphocytes automated count (number/volume) 3.0 10*3 1.0-4.0 Blood monocytes automated count (number/volume) 0.8 10*3 0.0-1.0 Automated eosinophil count 0.2 10*3/uL 0.0-0.3 Automated blood basophil count (count/volume) 0.1 10*3/uL 0.0-0.1 Whole blood basic metabolic panel - 07/17/17 12:12 Serum or plasma sodium measurement (moles/volume) 141 mmol/L 135-145 Serum or plasma potassium measurement (moles/volume) 3.9 mmol/L 3.6-5.0 Serum or plasma chloride measurement (moles/volume) 105 mmol/L 98-107 Carbon dioxide 24 mmol/L 21-32 Serum or plasma anion gap determination (moles/volume) 12 mmol/L 5-14 Serum or plasma urea nitrogen measurement (mass/volume) 9 mg/dL 7-18 Serum or plasma creatinine measurement (mass/volume) 0.80 mg/dL 0.60-1.30 Serum or plasma urea nitrogen/creatinine mass ratio 11 NRG Serum or plasma creatinine measurement with calculation of estimated glomerular filtration rate > NRG Serum or plasma glucose measurement (mass/volume) 95 mg/dL 70-105 Serum or plasma calcium measurement (mass/volume) 9.2 mg/dL 8.5-10.1 Methicillin resistant Staphylococcus aureus (MRSA) screening culture - 12:12 Methicillin resistant Staphylococcus aureus (MRSA) screening culture NEG NRG Encounters ACCT No. Visit Date/Time Discharge Status Pt. Type Provider Facility Loc./Unit Complaint [id number] 09/08/2014 13:54:00 09/08/2014 23:59:59 CLS Outpatient BRAD REID MD [id number] 08/22/2014 13:39:00 08/22/2014 23:59:59 CLS Outpatient ERA DE JESUS DO [id number] 11/26/2013 09:50:00 11/26/2013 23:59:59 CLS Outpatient ERA DE JESUS DO [id number] 10/31/2013 15:25:00 10/31/2013 23:59:59 CLS Outpatient DEBBIE DOUGLAS APRN [id number] 10/31/2013 15:25:00 10/31/2013 23:59:59 CLS Outpatient DEBBIE DOUGLAS APRN [id number] 09/17/2013 15:42:00 09/17/2013 23:59:59 CLS Outpatient HAN CABALLERO APRN [id number] 09/17/2013 15:42:00 09/17/2013 23:59:59 CLS Outpatient HAN CABALLERO APRN [id number] 09/13/2013 10:16:00 09/13/2013 23:59:59 CLS Outpatient LIZA DOERA Alejandra [id number] 08/21/2013 15:24:00 08/21/2013 23:59:59 [facility] [id number] 08/02/2013 16:57:00 08/02/2013 23:59:59 CLS Outpatient DE JESUS DOERA Alejandra [id number] 07/29/2013 15:38:00 07/29/2013 23:59:59 CLS Outpatient LIZA DOERA Alejandra [id number] 07/10/2013 11:00:00 07/10/2013 23:59:59 [facility] [id number] 12/04/2012 10:27:00 12/04/2012 23:59:59 CLS Outpatient GENOVEVA HERNANDEZJanetJAISONEDILBERTO Schmidt [id number] 08/07/2012 12:55:00 08/07/2012 23:59:59 CLS Outpatient DE JESUS DOERA Alejandra [id number] 07/11/2012 18:40:00 07/11/2012 23:59:59 CLS Outpatient DE JESUS DOERA Alejandra [id number] 06/20/2012 13:40:00 06/20/2012 23:59:59 CLS Outpatient [id number] 05/16/2012 14:37:00 05/16/2012 23:59:59 CLS Outpatient ERA DE JESUS DO Alejandra [id number] 02/28/2012 13:13:00 02/28/2012 23:59:59 CLS Outpatient BRISSA MARISCAL PHD [id number] 10/19/2012 10:23:00 Document Registration [id number] 10/03/2012 09:39:00 Document Registration [id number] 09/18/2012 09:39:00 Document Registration [id number] 08/03/2016 14:09:00 Document Registration [id number] 08/04/2016 06:08:00 Document Registration [id number] 11/24/2016 10:06:00 11/24/2016 10:50:00 DIS Outpatient Nathan Maher [id number] 08/08/2016 17:36:00 08/08/2016 18:01:00 DIS Outpatient Nathan Maher [facility] [id number] 12/26/2017 09:26:50 Document Registration [id number] 08/08/2016 17:42:02 Document Registration [id number] 08/01/2017 09:20:00 08/01/2017 23:59:59 CLS Outpatient TAYLA GRACIA [facility] [id number] 06/26/2017 13:20:00 Document Registration [id number] 07/20/2017 06:55:00 07/20/2017 10:13:00 DIS Outpatient RAMIRO FRAZIER MD [facility] SDC CHRONIC SEROUS OTITIS MEDIA [id number] 07/17/2017 11:58:00 07/17/2017 12:25:00 DIS Outpatient RAMIRO FRAZIER MD [facility] PREOP CHRONIC SEROUS OTITIS MEDIA [id number] 05/19/2017 11:50:00 05/19/2017 13:14:00 DIS Emergency HUGH YORK [facility] ER LT EAR PAIN [id number] 12/30/2016 13:30:00 01/04/2017 16:09:00 DIS Outpatient TAYLA GRACIA TUBE BUILDING MACHINE OPERATOR [facility] REHAB LOW BACK PAIN [id number] 08/07/2016 16:06:00 08/07/2016 16:57:00 DIS Emergency RYLEE BENNETT MD [facility] ER L HAND LAC [id number] 05/01/2016 17:49:00 05/01/2016 19:54:00 DIS Emergency TITO AREVALO MD [facility] ER L ANKLE INJ [id number] 06/22/2015 13:48:00 06/22/2015 15:53:00 DIS Emergency CELINE DOOLGAADRIANA Donna [facility] ER SYNCOPAL EPISODE, GROIN PAIN [id number] 04/16/2015 10:26:00 04/16/2015 11:26:00 DIS Emergency EMI YBARRA MD [facility] ER RIGHT SHOULDER PAIN [id number] 08/30/2013 17:50:00 08/30/2013 21:57:00 DIS Emergency TITO AREVALO MD [facility] ER PASSED OUT; HEAD INJ [id number] 04/16/2015 10:26:00 Document Registration [id number] 04/16/2015 10:26:00 Document Registration [id number] 06/26/2012 08:20:00 Document Registration [id number] 05/13/2012 11:19:00 Document Registration [id number] 01/10/2012 10:51:00 Document Registration [id number] 06/29/2010 00:00:00 Document Registration [id number] 03/30/2010 14:44:00 Document Registration [id number] 03/27/2010 15:43:00 Document Registration
[2017-12-30] MEDS ORDERED: RX-CIPROFLOXACIN (CILOXAN) 0.3% OP SOLN 2.5 ML OP STA (15:47)
[2017-12-30] MEDS ORDERED: AMOX1TAB12 (15:48)
--- NOTE | 2017-12-30 15:57 | ED EENT ---
History of Present Illness General Chief Complaint: Ear Problems Stated Complaint: INFECTION IN EAR Source: patient Exam Limitations: no limitations History of Present Illness Date Seen by Provider: Dec 30, 2017 Time Seen by Provider: 15:38 Initial Comments Here with complaint of left ear pain. Has had chronic infection of the left ear and was seen at another facility last week. He was prescribed antibiotics and was to follow-up with Dr. Juarez. He missed that appointment but he is taking the antibiotics. Pain continues. He has oral antibiotics but no topical. Denies nausea or vomiting. Denies fever or chills. He is taking Tylenol and/or ibuprofen and that is not really done much for the pain. He did have hydrocodone that helped earlier. He is currently out of that. Timing/Duration: abrupt, last week Severity: moderate Location: ear (L) Prearrival Treatment: over the counter meds, prescription meds Associated Symptoms: No cough; ear drainage; No facial pain/swelling, No fever ; nasal congestion/drainage; No sinus infection, No sore throat Allergies and Home Medications Allergies Coded Allergies: No Known Drug Allergies (Unverified , 10/29/08) Home Medications Ciprofloxacin HCl 5 Ml Drops, 3 DROPS OP BID 3 Drops Each Ear Prescribed by: ALEX CHANEY on 07/20/17957 Gabapentin 800 Mg Tablet, 800 MG PO QID, (Reported) Hydrocodone/Acetaminophen 1 Each Tablet, 1 EACH PO Q4H Prescribed by: ALEX CHANEY on 07/20/17957 Patient Home Medication List Home Medication List Reviewed: Yes Review of Systems Constitutional: see HPI; No chills, No fever Eyes: No Symptoms Reported Ears: See HPI, Pain, Purulent Discharge Nose: no symptoms reported Mouth: no symptoms reported Throat: no symptoms reported Respiratory: no symptoms reported Cardiovascular: no symptoms reported Past Nzoyzgt-Hvczch-Dkgbaj Hx Past Med/Social Hx: Reviewed Nursing Past Med/Soc Hx Patient Social History Alcohol Use: Denies Use Recreational Drug Use: No Smoking Status: Former Smoker Type Used: Cigarettes Recent Foreign Travel: No Contact w/Someone Who Travel: No Recent Hopitalizations: No Seasonal Allergies Seasonal Allergies: Yes Past Medical History Surgeries: Yes (ON HAND, kidney stone) Ear Surgery (tubes), Gallbladder, Orthopedic Respiratory: No Cardiac: Yes Hypertension Neurological: Yes (seizure when younger never found out cause) Seizure Disorder Reproductive Disorders: No Kidney Stones Gastrointestinal: No Musculoskeletal: Yes Arthritis, Chronic Back Pain Endocrine: No HEENT: Yes (frequent ear infections) Chronic Ear Infection Cancer: No Psychosocial: Yes Anxiety, PTSD, Depression Integumentary: No Blood Disorders: No Family Medical History Reviewed Nursing Family Hx No Pertinent Family Hx Physical Exam Height, Weight, BMI Height: 6'0.00" Weight: 238lbs. 2.0oz. 108.330950wz; 32.3 BMI Method:Stated General Appearance: WD/WN, mild distress Ears: right ear canal normal, right ear TM normal; left ear discharge, left ear tenderness, left ear TM dull; bilateral ear auricle normal Nose: normal inspection Mouth/Throat: normal mouth inspection, pharynx normal Neck: full range of motion, supple, normal inspection Cardiovascular: regular rate, rhythm, no murmur Respiratory: lungs clear, normal breath sounds Neurologic/Psychiatric: alert, oriented x 3 Progress/Results/Core Measures Results/Orders My Orders Orders - BENIGNO TODD MD Rx-Ciprofloxacin Ophth Soln (Rx-Ciloxan (12/30/17 15:47) Progress Progress Note : Progress Note Seen and evaluated. Reviewed outside pharmacy records. Patient is on Augmentin. We will add Cipro drops to the left ear and give that to him here. I'll write a small prescription for hydrocodone and encouraged him strongly to follow-up with Dr. Juarez earlier this week. Patient states he will comply. Discharged home with return precautions. Patient verbalize understanding instructions and agreement with plan. Departure Impression Primary Impression: Otalgia, left ear Disposition: 01 HOME, SELF-CARE Condition: Stable Departure-Patient Inst. Decision time for Depature: 15:56 Referrals: RAMIRO JUAREZ MD [facility]/ (PCP/Family) Primary Care Physician Patient Instructions: Outer Ear Infection (DC), Ear Infections (Otitis Media) ( DC) Add. Discharge Instructions: All discharge instructions reviewed with patient and/or family. Voiced understanding. It is very important that he follow-up with Dr. Juarez or one of his practitioners earlier this week for recheck and further evaluation. Do not miss this appointment. Continue antibiotics as prescribed. Use ear drops 4 drops to the left ear twice daily for the next 7 days. Return for worse pain, fever, vomiting, weakness, breathing problems or other concerns as needed. You may take Tylenol/acetaminophen 1000 mg every 8 hours as needed for pain but do not take if you're taking the prescribed pain medicine. You may also take ibuprofen 800 mg every 8 hours as needed for pain. Drink plenty of fluids. BENIGNO TODD MD Dec 30, 2017 15:57
[2017-12-30] MEDS ORDERED: ACHD5005 PO (16:00)
[2017-12-30 16:03] VITALS: BP 149/93
== END 2017-12-30 16:05 | disposition home or self-care (01) ==
LOC: EDUNIT# 15:35 → ER 15:37
DX: H92.02 Otalgia, left ear (principal); I10 Essential (primary) hypertension; F41.9 Anxiety disorder, unspecified; F43.10 Post-traumatic stress disorder, unspecified; F32.9 Major depressive disorder, single episode, unspecified; G40.909 Epilepsy, unspecified, not intractable, without status epilepticus; Z87.891 Personal history of nicotine dependence; Z87.442 Personal history of urinary calculi
CPT/HCPCS: 99283

== ENCOUNTER 2018-01-04 10:19 | Emergency (ER) | payer MEDICAID ==
[~2018-01-04] VITALS: Ht 182.9 cm; Wt 95.3 kg
[~2018-01-04 10:19] MED LIST changes: +AMOX1TAB12
--- NOTE | 2018-01-04 10:53 | ED EENT ---
History of Present Illness General Chief Complaint: Ear Problems Stated Complaint: EAR PAIN,CONGESTION Nursing Triage Note: Patient ambulatory to ER room 10 complaining of left ear pain x 2 weeks. Patient states he was seen by Dr. Juarez's [employer] yesterday for the ear pain and states she flushed out the ear. He began having severe pain last night. He states he was seen in [place] [facility] approximately 2 weeks ago for ear pain and was placed on Amoxicillin PO and is almost finished with the prescription. He was given prescriptions for Ofloxacin drops and Lotrimin drops yesterday by Dr. juarez's [employer] but did not the prescriptions filled. He has been having draining from the left ear since last night. Source: patient Exam Limitations: no limitations History of Present Illness Date Seen by Provider: Jan 04, 2018 Time Seen by Provider: 10:45 Initial Comments To ER with reports of left ear pain and congestion. He's had this for about 2 weeks. He is on Augmentin. He saw Dr. Juarez yesterday and states that he was diagnosed with a fungal infection. He was given a prescription for eardrops but has not yet had a chance to pick them up. Severity: moderate Location: ear (L) Associated Symptoms: nasal congestion/drainage Allergies and Home Medications Allergies Coded Allergies: No Known Drug Allergies (Unverified , 10/29/08) Home Medications Ciprofloxacin HCl 5 Ml Drops, 3 DROPS OP BID 3 Drops Each Ear Prescribed by: ALEX CHANEY on 07/20/17 0958 Gabapentin 800 Mg Tablet, 800 MG PO QID, (Reported) Hydrocodone Bit/Acetaminophen 1 Tab Tab, 1 EACH PO Q6H PRN for PAIN-MODERATE Prescribed by: BENIGNO TODD on 12/30/17 1600 Hydrocodone/Acetaminophen 1 Each Tablet, 1 EACH PO Q4H Prescribed by: ALEX CHANEY on 07/20/17 0958 Patient Home Medication List Home Medication List Reviewed: Yes Review of Systems Constitutional: see HPI Eyes: No Symptoms Reported Ears: See HPI Nose: no symptoms reported Mouth: no symptoms reported Throat: no symptoms reported Respiratory: no symptoms reported Cardiovascular: no symptoms reported Musculoskeletal: no symptoms reported Skin: no symptoms reported Neurological: No Symptoms Reported Hematologic/Lymphatic: No Symptoms Reported Immunological/Allergic: no symptoms reported Past Heqmzug-Bfwkdl-Fqqnpa Hx Patient Social History Alcohol Use: Denies Use Recreational Drug Use: Yes Drug of Choice: marijuana Smoking Status: Current Everyday Smoker Type Used: Cigarettes Recent Foreign Travel: No Contact w/Someone Who Travel: No Recent Infectious Disease Expo: No Recent Hopitalizations: No Seasonal Allergies Seasonal Allergies: No Past Medical History Surgeries: Yes (right hand surgery fx repair, 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 2.0oz. 95.194825wq; 32.3 BMI Method:Stated General Appearance: WD/WN, no apparent distress Eyes: bilateral eye normal inspection, bilateral eye PERRL, bilateral eye EOMI Ears: left ear other (left tympanic membrane has behind air-fluid levels. The ear canal is moist and swollen especially right next to the eardrum.); bilateral ear auricle normal Neck: non-tender, full range of motion Respiratory: no respiratory distress, no accessory muscle use Neurologic/Psychiatric: alert, normal mood/affect, oriented x 3 Skin: normal color, warm/dry Progress/Results/Core Measures Results/Orders Vital Signs/I&O 01/04/18 10:22 Temp 98.2 Pulse 90 Resp 18 B/P (MAP) 126/85 (99) Blood Pressure Mean: 99 Departure Impression Primary Impression: Otitis externa Disposition: HOME, SELF-CARE Condition: Stable (ERASED) Departure-Patient Inst. Decision time for Depature: 10:46 Referrals: [facility] (PCP/Family) Primary Care Physician Patient Instructions: Outer Ear Infection (DC) Add. Discharge Instructions: 1. Follow up with Dr Juarez 2. Return to ER for any concerns 3. The hydrocodone to be very addicting. When these ran out use Tylenol and Motrin. Scripts Hydrocodone/Acetaminophen ([place] 5-325 Tablet) 1 Each Tablet 1 EACH PO Q6H PRN for PAIN-MODERATE TO SEVERE, #5 TAB Do not fill until antifungal eardrops yesterday by Dr Carol peralta are filled. Prov: SOBIA MORALES APRN 01/04/18 SOBIA MORALES APRN Jan 04, 2018 10:53
[2018-01-04] MEDS ORDERED: HYDR-757 PO (10:54)
[2018-01-04 11:27] VITALS: BP 101/62
== END 2018-01-04 11:27 | disposition home or self-care (01) ==
LOC: EDUNIT# 10:19 → ER 10:21
DX: H60.92 Unspecified otitis externa, left ear (principal); I10 Essential (primary) hypertension; G40.909 Epilepsy, unspecified, not intractable, without status epilepticus; F41.9 Anxiety disorder, unspecified; F32.9 Major depressive disorder, single episode, unspecified; F43.10 Post-traumatic stress disorder, unspecified; F12.10 Cannabis abuse, uncomplicated; F17.210 Nicotine dependence, cigarettes, uncomplicated; Z87.442 Personal history of urinary calculi
CPT/HCPCS: 99282

== ENCOUNTER 2018-01-27 11:12 | Emergency (ER) | payer MEDICAID ==
[~2018-01-27] VITALS: Ht 182.9 cm; Wt 95.3 kg
[~2018-01-27 11:12] MED LIST changes: +HYDR-4226 PO
--- OUTSIDE RECORDS SUMMARY | 2018-01-27 11:23 | XMS REPORT | Continuity of Care Document ---
Author Author [facility] Address Unknown Phone Unavailable Allergies Active Description Code Type Severity Reaction Onset Reported/Identified Relationship to Patient Clinical Status Yes NO KNOWN DRUG ALLERGIES NO KNOWN DRUG ALLERG UNKNOWN Yes NO KNOWN DRUG ALLERGIES UNKNOWN NO KNOWN DRUG ALLERG Yes No Known Drug Allergies [id number] Drug Allergy Mild N/A 10/29/2008 Yes buspirone [...] DDS V58.69 MEDICATION HIGH RISK 01/31/2008 [facility] V58.69 MEDICATION HIGH RISK 01/31/2008 LIZA VALENCIA ERA K V58.69 MEDICATION HIGH RISK 01/31/2008 DE JESUS DO ERA K V58.69 MEDICATION HIGH RISK 01/31/2008 [facility], JOSEE R V58.69 MEDICATION HIGH RISK 01/31/2008 DE JESUS DO, ERA K V58.69 MEDICATION HIGH RISK 01/31/2008 HAN CABALLERO APRN V58.69 MEDICATION HIGH RISK 01/31/2008 HAN CABALLERO APRN V58.69 MEDICATION HIGH RISK 01/31/2008 STELLARUSTY PARKER DEBBIE V58.69 MEDICATION HIGH RISK 01/31/2008 DE JESUS DO, ERA K V58.69 MEDICATION HIGH RISK 01/31/2008 DEBBIE DOUGLAS [...] SPRAIN/STRAIN OTHER UNSPEC SITE 02/27/2008 GENOVEVA HERNANDEZS, OBB B 848.9 SPRAIN/STRAIN OTHER UNSPEC SITE 02/27/2008 [facility], JOSEE R 848.9 SPRAIN/STRAIN OTHER UNSPEC SITE 02/27/2008 LIZA VALENCIA ERA K 848.9 SPRAIN/STRAIN OTHER UNSPEC SITE 02/27/2008 DE JESUS DO ERA K 848.9 SPRAIN/STRAIN OTHER UNSPEC SITE 02/27/2008 [facility], JOSEE R 848.9 SPRAIN/STRAIN OTHER [...] 300.01 AN PANIC DIS W/O AGORA 06/25/2008 [facility], JOSEE R 296.80 MO BIPOLAR NOS 06/25/2008 [facility], JOSEE R 300.01 AN PANIC DIS W/O AGORA 06/25/2008 DE JESUS DO, ERA K 296.80 MO BIPOLAR NOS 06/25/2008 DE JESUS DO, ERA K 300.01 AN PANIC DIS W/O AGORA 06/25/2008 HAN CABALLERO APRN 296.80 MO BIPOLAR NOS 06/25/2008 HAN CABALLERO APRN 300.01 AN PANIC DIS W/O AGORA 06/25/2008 HAN CABALLERO APRN 296.80 MO BIPOLAR NOS 06/25/2008 HNA CABALLERO APRN 300.01 AN PANIC DIS W/O [...] DIS W/O AGORA 06/25/2008 DAVEY LOU, BRISSA Harden 296.80 MO BIPOLAR NOS 06/25/2008 DAVEY [...] 312.30 I IMPULSE CONTROL DISORDER NOS 08/29/2008 [facility] DDS, BOB B 300.00 AN ANXIETY UNSPEC 08/29/2008 [facility] DDS, BOB B 307.47 SI DYSSOMNIA NOS 08/29/2008 [facility] DDS, BOB B 312.30 I IMPULSE CONTROL DISORDER NOS 08/29/2008 [facility], JOSEE R 300.00 AN ANXIETY UNSPEC 08/29/2008 [facility], JOSEE R 307.47 SI DYSSOMNIA NOS 08/29/2008 [facility], JOSEE R 312.30 I IMPULSE [...] 312.30 I IMPULSE CONTROL DISORDER NOS 08/29/2008 [facility], JOSEE R 300.00 AN ANXIETY UNSPEC 08/29/2008 [facility], JOSEE R 307.47 SI DYSSOMNIA NOS 08/29/2008 [facility], JOSEE R 312.30 I IMPULSE [...] I IMPULSE CONTROL DISORDER NOS 08/29/2008 [employer], DEBBIE 300.00 AN ANXIETY UNSPEC 08/29/2008 STELLA PARKER DEBBIE 307.47 SI DYSSOMNIA NOS 08/29/2008 [employer], DEBBIE 312.30 I IMPULSE CONTROL DISORDER NOS 08/29/2008 DAVEY LOU, BRISSA Harden 300.00 AN ANXIETY UNSPEC 08/29/2008 DAVEY LOU, BRISSA Harden 307.47 SI DYSSOMNIA NOS 08/29/2008 DAVEY PHD, [...] ERA K V61.10 RL RELATION COUNS 09/18/2008 [facility], JOSEE R 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 09/18/2008 [facility], JOSEE R 297.0 PARANOID STATE SIMPLE 09/18/2008 [facility], JOSEE R 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 09/18/2008 [facility], JOSEE R 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 09/18/2008 [facility], JOSEE R 316 PF PSYCHIC FACTORS MED COND 09/18/2008 [facility], JOSEE R V61.10 RL RELATION COUNS 09/18/2008 [...] APRN V61.10 RL RELATION COUNS 09/18/2008 [employer], DEBBIE 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 09/18/2008 [employer] ENGINEER, DEBBIE 297.0 PARANOID STATE SIMPLE 09/18/2008 [employer] ENGINEER, DEBBIE 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 09/18/2008 [employer]S ENGINEER, DEBBIE 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 09/18/2008 [employer] SOFTWARE SYSTEMS ENGINEER, DEBBIE 316 PF PSYCHIC FACTORS MED COND 09/18/2008 [employer] SOFTWARE SYSTEMS ENGINEER, DEBBIE V61.10 RL RELATION COUNS 09/18/2008 DE [...] K V61.10 RL RELATION COUNS 09/18/2008 [employer] ENGINE[employer], DEBBIE 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 09/18/2008 [employer] SOFTWARE SYSTEMS ENGINEER, DEBBIE 297.0 PARANOID STATE SIMPLE 09/18/2008 [employer]S ENGINEER, DEBBIE 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 09/18/2008 [employer]S ENGINEER, DEBBIE 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 09/18/2008 [employer] ENGINEER, DEBBIE 316 PF PSYCHIC FACTORS MED COND 09/18/2008 [employer]S ENGINEER, DEBBIE V61.10 RL RELATION COUNS 09/18/2008 DAVEY [...] BOB Schmidt 590.2 KIDNEY STONES 11/09/2008 [facility], JOSEE Watters 590.2 KIDNEY STONES 11/09/2008 DE JESUS DO, ERA K 590.2 KIDNEY STONES 11/09/2008 DE JESUS DO, ERA K 590.2 KIDNEY STONES 11/09/2008 [facility], JOSEE R 590.2 KIDNEY STONES 11/09/2008 DE JESUS DO, ERA K 590.2 KIDNEY STONES 11/09/2008 HAN CABALLERO APRN 590.2 KIDNEY STONES 11/09/2008 HAN CABALLERO APRN 590.2 KIDNEY STONES 11/09/2008 [employer], DEBBIE 590.2 KIDNEY STONES 11/09/2008 DE JESUS DO, ERA K 590.2 KIDNEY STONES 11/09/2008 [employer], DEBBIE 590.2 KIDNEY STONES 11/09/2008 DAVEY PHD, [...] RESPIRATORY INFECTION 07/26/2010 466.0 BRONCHITIS, ACUTE 07/26/2010 [facility] DDS, BOB B 305.1 NONDEPENDENT TOBACCO USE DISORDER 07/26/2010 [facility] DDS, BOB B 465.9 UPPER RESPIRATORY INFECTION 07/26/2010 [facility] DDS, BOB B 466.0 BRONCHITIS, ACUTE 07/26/2010 [facility], JOSEE R 305.1 NONDEPENDENT TOBACCO USE DISORDER 07/26/2010 [facility], JOSEE R 465.9 UPPER RESPIRATORY INFECTION 07/26/2010 [facility], JOSEE R 466.0 BRONCHITIS, ACUTE [...] DO, ERA K 466.0 BRONCHITIS, ACUTE 07/26/2010 [facility], JOSEE R 305.1 NONDEPENDENT TOBACCO USE DISORDER 07/26/2010 [facility], JOSEE R 465.9 UPPER RESPIRATORY INFECTION 07/26/2010 [facility], JOSEE R 466.0 BRONCHITIS, ACUTE [...] CABALLERO APRN 466.0 BRONCHITIS, ACUTE 07/26/2010 [employer], DEBBIE 305.1 NONDEPENDENT TOBACCO USE DISORDER 07/26/2010 [employer] ENG[employer], DEBBIE 465.9 UPPER RESPIRATORY INFECTION 07/26/2010 [employer]S ENGINEER, DEBBIE 466.0 BRONCHITIS, ACUTE 07/26/2010 DE JESUS DO, ERA K 305.1 NONDEPENDENT TOBACCO USE DISORDER 07/26/2010 DE JESUS DO, ERA K 465.9 UPPER RESPIRATORY INFECTION 07/26/2010 DE JESUS DO, ERA K 466.0 BRONCHITIS, ACUTE 07/26/2010 [employer], DEBBIE 305.1 NONDEPENDENT TOBACCO USE DISORDER 07/26/2010 [employer] ENGINE[employer], DEBBIE 465.9 UPPER RESPIRATORY INFECTION 07/26/2010 [employer] ENGINEER, DEBBIE 466.0 BRONCHITIS, ACUTE 07/26/2010 DAVEY PHD, [...] joint pain, localized in the hip 09/20/2010 [facility], JOSEE R 401.1 ESSENTIAL HYPERTENSION BENIGN 09/20/2010 [facility], JOSEE R 719.45 joint pain, localized in the hip 09/20/2010 DE JESUS DO, ERA K 401.1 ESSENTIAL HYPERTENSION BENIGN 09/20/2010 DE JESUS DO, ERA K 719.45 joint pain, localized in the hip 09/20/2010 DE JESUS DO, ERA K 401.1 ESSENTIAL HYPERTENSION BENIGN 09/20/2010 DE JESUS DO, ERA K 719.45 joint pain, localized in the hip 09/20/2010 [facility], JOSEE R 401.1 ESSENTIAL HYPERTENSION BENIGN 09/20/2010 [facility], JOSEE R 719.45 joint pain, localized in [...] DOUGLAS APRN 401.1 ESSENTIAL HYPERTENSION BENIGN 09/20/2010 STELAL PARKER DEBBIE 719.45 joint pain, localized in [...] Schmidt 726.5 ENTHESOPATHY OF HIP REGION 09/30/2010 [facility], JOSEE R 726.5 ENTHESOPATHY OF HIP REGION 09/30/2010 JONNIE DE JESUS DOA K 726.5 ENTHESOPATHY OF HIP REGION 09/30/2010 JONNIE DE JESUS DOA K 726.5 ENTHESOPATHY OF HIP REGION 09/30/2010 [facility], JOSEE R 726.5 ENTHESOPATHY OF [...] BOB B 311 DEPRESSIVE DISORDER NOS 02/28/2012 [facility], JOSEE R 311 DEPRESSIVE DISORDER NOS 02/28/2012 ERA DE JESUS DO K 311 DEPRESSIVE DISORDER NOS 02/28/2012 ERA DE JESUS DO K 311 DEPRESSIVE DISORDER NOS 02/28/2012 [facility], JOSEE R 311 DEPRESSIVE DISORDER [...] YAP, BOB B 726.12 BICIPITAL TENOSYNOVITIS 05/16/2012 [facility], JOSEE R 726.12 BICIPITAL TENOSYNOVITIS 05/16/2012 ERA DE JESUS DO 726.12 BICIPITAL TENOSYNOVITIS 05/16/2012 ERA DE JESUS DO 726.12 BICIPITAL TENOSYNOVITIS 05/16/2012 [facility], JOSEE R 726.12 BICIPITAL TENOSYNOVITIS 05/16/2012 [...] IN JOINT INVOLVING SHOULDER REGION 06/20/2012 [facility] 719.41 PAIN IN JOINT INVOLVING SHOULDER [...] 724.2 LUMBAGO/ LOW BACK PAIN 08/07/2012 [facility] R 724.2 LUMBAGO/ LOW BACK PAIN 08/07/2012 ERA DE JESUS DO 724.2 LUMBAGO/ LOW BACK PAIN 08/07/2012 ERA DE JESUS DO 724.2 LUMBAGO/ LOW BACK PAIN 08/07/2012 [facility], JOSEE R 724.2 LUMBAGO/ LOW BACK PAIN 08/07/2012 ERA DE JESUS DO 724.2 LUMBAGO/ LOW BACK PAIN 08/07/2012 HAN CABALLERO APRN 724.2 LUMBAGO/ LOW BACK PAIN 08/07/2012 HAN CABALLERO APRN 724.2 LUMBAGO/ LOW BACK PAIN 08/07/2012 [employer], DEBBIE 724.2 LUMBAGO/ LOW BACK PAIN 08/07/2012 DE JESUS ERA VALENCIA K 724.2 LUMBAGO/ LOW BACK PAIN 08/07/2012 [employer], DEBBIE 724.2 LUMBAGO/ LOW BACK PAIN 08/07/2012 [...] BEHAVIOR 09/17/2012 300.02 AN GEN ANXIETY 09/17/2012 [facility] DAVIDS, BOB B 296.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 09/17/2012 [facility] DDS, BOB B 300.02 AN GEN ANXIETY 09/17/2012 [facility], JOSEE R 296.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 09/17/2012 [facility], JOSEE R 300.02 AN GEN ANXIETY 09/17/2012 ERA DE JESUS DO 296.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 09/17/2012 ERA DE JESUS DO 300.02 AN GEN ANXIETY 09/17/2012 ERA DE JESUS DO 296.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 09/17/2012 ERA DE JESUS DO 300.02 AN GEN ANXIETY 09/17/2012 [facility], JOSEE R 296.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 09/17/2012 [facility], JOSEE R 300.02 AN GEN [...] DO 300.02 AN GEN ANXIETY 09/17/2012 [employer], DEBBIE 296.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 RECURRENT SEVERE W/O [...] AN PTSD 10/09/2012 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 10/09/2012 [facility] BOB YAP 309.81 AN PTSD 10/09/2012 [facility] BOB YAP 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 10/09/2012 [facility], JOSEE R 309.81 AN PTSD 10/09/2012 [facility], JOSEE R 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 10/09/2012 ERA DE JESUS DO 309.81 AN PTSD 10/09/2012 DE JESUS DO, ERA K 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 10/09/2012 DE JESUS DO, ERA K 309.81 AN PTSD 10/09/2012 DE JESUS DO, ERA K 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 10/09/2012 [facility], JOSEE R 309.81 AN PTSD 10/09/2012 [facility], JOSEE R 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 10/09/2012 DE JESUS DO, ERA K 309.81 AN PTSD 10/09/2012 DE JESUS DO ERA K 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 10/09/2012 [employer]AR[employer]ATIMAH [employer] SOFTWARE SYSTEMS ENGINEERHAN Zuniga D 309.81 AN PTSD 10/09/2012 GARTON [employer] SOFTWARE SYSTEMS ENGINEERHAN Zuniga D 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 10/09/2012 [employer] SYSTEMS ENGINEERHAN Zuniga D 309.81 AN PTSD 10/09/2012 [facility] [employer] SOFTWARE SYSTEMS ENGINEERHAN Zuniga D 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 10/09/2012 [employer], DEBBIE 309.81 AN PTSD 10/09/2012 [employer] ENG[employer], DEBBIE 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 10/09/2012 DE JESUS DO ERA K 309.81 AN PTSD 10/09/2012 DE JESUS DO, ERA K 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 10/09/2012 [employer], DEBBIE 309.81 AN PTSD 10/09/2012 [employer], DEBBIE 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 10/09/2012 DE JESUS [...] K V65.42 COUNSELING - SMOKING CESSATION 07/29/2013 [facility], JOSEE R 715.00 OSTEOARTHROSIS GENERALIZED INVOLVING UNSPECIFIED SITE 07/29/2013 [facility], JOSEE R V65.42 COUNSELING - [...] DO 296.32 MO DEPRESSIVE RECURRENT MODERATE 08/02/2013 [facility], JOSEE R 296.32 MO DEPRESSIVE [...] E888.9 UNSPECIFIED ACCIDENTAL FALL 09/13/2013 STELLA PARKER DEBIBE 780.2 SYNCOPE 09/13/2013 STELLA PARKER DEBBIE 850.9 [...] 06/22/2015 BERGER , ADRIANA L Ot Y92.009 [facility] [address] IN [facility] NON-INSTITUT (PRIVATE 06/22/2015 BERGER DO, ADRIANA [...] AREVALO MD Ot Y92.[address] IN [facility] NON-INSTITUT (PRIVATE 05/01/2016 TITO AREVALO MD [...] AREVALO MD Ot Y92.[address] IN [facility] NON-INSTITUT (PRIVATE 05/03/2016 TITO AREVALO MD Ot Y93.9 ACTIVITY, UNSPECIFIED 05/03/2016 TITO AREVALO MD T Ot Y99.8 OTHER EXTERNAL CAUSE STATUS 05/07/2016 TITO AREVALO MD Ot F17.210 NICOTINE DEPENDENCE, CIGARETTES, UNCOMPL 05/07/2016 TITO AREVALO MD T Ot I10 ESSENTIAL (PRIMARY) HYPERTENSION 05/07/2016 MICKEY TORRES, TITO Robles Ot S93.402A SPRAIN OF UNSPECIFIED LIGAMENT OF LEFT A 05/07/2016 MICKEY TORRES, TTIO Robles Ot S93.602A UNSPECIFIED SPRAIN OF LEFT FOOT, INITIAL 05/07/2016 TITO AREVALO MD Ot S99.912A UNSPECIFIED INJURY OF LEFT ANKLE, INITIA 05/07/2016 TITO AREVALO MD Ot X58.XXXA EXPOSURE TO OTHER SPECIFIED FACTORS, INI 05/07/2016 MICKEY TORRES, TITO Robles Ot Y92.[address] [facility] 05/07/2016 MICKEY TORRES, TITO [...] J01.90 ACUTE SINUSITIS, UNSPECIFIED 12/13/2016 TAYLA GRACIA MANAGER DATABASE Ot M54.5 LOW BACK PAIN 12/15/2016 MICHAEL GRACIAE A MANAGER DATABASE Ot M54.5 LOW BACK PAIN 12/15/2016 MICHAEL GRACIAE A MANAGER DATABASE Ot M54.5 LOW BACK PAIN 12/19/2016 GRACIAMICHAELE A MANAGER DATABASE Ot M54.5 LOW BACK PAIN 12/30/2016 MICHAEL GRACIAE A MANAGER DATABASE Ot M54.5 LOW BACK PAIN 05/19/2017 HUGH [...] 07/20/2017 RAMIRO FRAZIER MD Ot Z79.899 OTHER SENIOR LIVING (CURRENT) DRUG THERAPY 07/26/2017 RAMIRO FRAZIER MD Ot F17.210 NICOTINE DEPENDENCE, CIGARETTES, UNCOMPL 07/26/2017 RAMIRO FRAZIER MD Ot F43.10 POST-TRAUMATIC STRESS DISORDER, UNSPECIF 07/26/2017 RAMIRO FRAZIER MD Ot H65.23 CHRONIC SEROUS OTITIS MEDIA, BILATERAL 07/26/2017 RAMIRO FRAZIER MD Ot I10 ESSENTIAL (PRIMARY) HYPERTENSION 07/26/2017 RAMIRO FRAZIER MD Ot J34.89 OTHER SPECIFIED DISORDERS OF NOSE AND NA 07/26/2017 RAMIRO FRAZIER MD Ot 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 07/28/2017 RAMIRO FRAZIER MD Ot F17.210 NICOTINE DEPENDENCE, CIGARETTES, UNCOMPL 07/28/2017 RAMIRO FRAZIER MD Ot F43.10 POST-TRAUMATIC STRESS DISORDER, UNSPECIF 07/28/2017 FREDDIE TORRES, RAMIRO Mcgowan Ot H65.23 CHRONIC SEROUS OTITIS MEDIA, BILATERAL 07/28/2017 RAMIRO FRAZIER MD Ot I10 ESSENTIAL (PRIMARY) HYPERTENSION 07/28/2017 RAMIRO FRAZIER MD Ot J34.89 OTHER SPECIFIED DISORDERS OF NOSE AND NA 07/28/2017 RAMIRO FRAZIER MD Ot 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 12/26/2017 Lawrence Booth A 382.9 UNSPECIFIED OTITIS MEDIA 12/26/2017 Lawrence Booth H66.93 OTITIS MEDIA, UNSPECIFIED, BILATERAL 01/08/2018 Ot F12.10 CANNABIS ABUSE, UNCOMPLICATED 01/08/2018 Ot F17.210 NICOTINE DEPENDENCE, CIGARETTES, UNCOMPL 01/08/2018 Ot F32.9 MAJOR DEPRESSIVE DISORDER, SINGLE EPISOD 01/08/2018 Ot F41.9 ANXIETY DISORDER, UNSPECIFIED 01/08/2018 Ot F43.10 POST- TRAUMATIC STRESS DISORDER, UNSPECIF 01/08/2018 Ot G40.909 EPILEPSY, UNSP, NOT INTRACTABLE, WITHOUT 01/08/2018 Ot H60.92 UNSPECIFIED OTITIS EXTERNA, LEFT EAR 01/08/2018 Ot H92.02 OTALGIA, LEFT EAR 01/08/2018 Ot I10 ESSENTIAL ( PRIMARY) HYPERTENSION 01/08/2018 Ot Z87.442 PERSONAL HISTORY OF URINARY CALCULI 01/10/2018 Ot F12.10 CANNABIS ABUSE, UNCOMPLICATED 01/10/2018 Ot F17.210 NICOTINE DEPENDENCE, CIGARETTES, UNCOMPL 01/10/2018 Ot F32.9 MAJOR DEPRESSIVE DISORDER, SINGLE EPISOD 01/10/2018 Ot F41.9 ANXIETY DISORDER, UNSPECIFIED 01/10/2018 Ot F43.10 POST- TRAUMATIC STRESS DISORDER, UNSPECIF 01/10/2018 Ot G40.909 EPILEPSY, UNSP, NOT INTRACTABLE, WITHOUT 01/10/2018 Ot H60.92 UNSPECIFIED OTITIS EXTERNA, LEFT EAR 01/10/2018 Ot H92.02 OTALGIA, LEFT EAR 01/10/2018 Ot I10 ESSENTIAL ( PRIMARY) HYPERTENSION 01/10/2018 Ot Z87.442 PERSONAL HISTORY OF URINARY CALCULI Procedures Code Description Performed By Performed On [facility] STRICKLAND 05/16/2012 [facility]ICK[facility] 06/20/2012 [facility] 06/20/2012 97993 ROUTINE VENIPUNCTURE 08/07/2012 59955 XRAY LUMBAR SPINE 2 OR 3 VIEWS 08/07/2012 32058 CMP 08/07/2012 84658 URINE DRUG SCREEN (IN-HOUSE ) 08/07/2012 52670 TSH 08/07/2012 35404 CBC 08/07/2012 [facility] 08/07/2012 44600 PSYCH DIAGNOSTIC EVALUATION 09/18/2012 54163 PSYTX PT&/FAMILY 45 MINUTES 09/18/2012 52935 URINE DRUG SCREEN (IN-HOUSE ) 10/09/2012 60114 URINE THC CON'F 10/19/2012 16608 PSYCH DIAG EVAL W/MED SRVCS 10/19/2012 37012 PSYTX PT&/FAMILY 30 MINUTES 10/19/2012 77001 PSYTX PT&/FAMILY 30 MINUTES 07/10/2013 28653 PSYTX PT&/FAMILY 45 MINUTES 08/02/2013 88446 ROUTINE VENIPUNCTURE 08/13/2013 23718 URINE DRUG SCREEN (IN-HOUSE ) 08/13/2013 9689594 GFR CALC (RESULT ONLY) 08/13/2013 49853 CMP 08/13/2013 34634 PSYTX PT&/FAMILY 45 MINUTES 08/22/2013 Results Test [...] Status Pt. Type Provider Facility Loc./Unit Complaint [id number] 09/08/2014 13:54:00 09/08/2014 23:59:59 CLS Outpatient BRAD REID MD [id number] 08/22/2014 13:39:00 08/22/2014 23:59:59 CLS Outpatient ERA DE JESUS DO [id number] 11/26/2013 09:50:00 11/26/2013 23:59:59 CLS Outpatient ERA DE JESUS DO [id number] 10/31/2013 15:25:00 10/31/2013 23:59:59 CLS Outpatient DEBBIE DOUGLAS APRN [id number] 10/31/2013 15:25:00 10/31/2013 23:59:59 CLS Outpatient DEBBIE DOUGLAS APRN [id number] 09/17/2013 15:42:00 09/17/2013 23:59:59 CLS Outpatient HAN CABALLERO APRN [id number] 09/17/2013 15:42:00 09/17/2013 23:59:59 CLS Outpatient HAN CABALLERO APRN [id number] 09/13/2013 10:16:00 09/13/2013 23:59:59 CLS Outpatient ERA DE JESUS DO [id number] 08/21/2013 15:24:00 08/21/2013 23:59:59 CLS Outpatient JOSEE NELSON [id number] 08/02/2013 16:57:00 08/02/2013 23:59:59 CLS Outpatient ERA DE JESUS DO [id number] 07/29/2013 15:38:00 07/29/2013 23:59:59 CLS Outpatient ERA DE JESUS DO [id number] 07/10/2013 11:00:00 07/10/2013 23:59:59 [id number]2012 10:27:00 12/04/2012 23:59:59 CLS Outpatient BOB TOMAS DDS [id number] 08/07/2012 12:55:00 08/07/2012 23:59:59 CLS Outpatient LIZA VALENCIAERA [id number] 07/11/2012 18:40:00 07/11/2012 23:59:59 CLS Outpatient LIZA VALENCIAERA [id number] 06/20/2012 13:40:00 06/20/2012 23:59:59 CLS Outpatient [id number] 05/16/2012 14:37:00 05/16/2012 23:59:59 CLS Outpatient LIZA VALENCIAERA [id number] 02/28/2012 13:13:00 02/28/2012 23:59:59 CLS Outpatient BRISSA MARISCAL PHD [id number] 10/19/2012 10:23:00 Document Registration [id number] 10/03/2012 09:39:00 Document Registration [id number] 09/18/2012 09:39:00 Document Registration [id number] 08/03/2016 14:09:00 Document Registration [id number] 08/04/2016 06:08:00 Document Registration [id number] 12/26/2017 09:26:00 12/26/2017 10:22:00 DIS Outpatient Lawrence Booth [id number] 11/24/2016 10:06:00 11/24/2016 10:50:00 DIS Outpatient Nathan Maher [id number] 08/08/2016 17:36:00 08/08/2016 18:01:00 DIS Outpatient Nathan Maher [facility] [id number] 08/08/2016 17:42:02 Document Registration [id number] 12/22/2017 16:00:00 12/22/2017 23:59:59 CLS Outpatient JE[facility]ORRES[facility] [id number] 06/26/2017 13:20:00 Document Registration [id number] 07/20/2017 06:55:00 07/20/2017 10:13:00 DIS Outpatient FREDDIE TORRES, RAMIRO Betancourt [facility] CHRONIC SEROUS OTITIS MEDIA [id number] 07/17/2017 11:58:00 07/17/2017 12:25:00 DIS Outpatient FREDDIE TORRES, RAMIRO Mcgowan [facility] PREOP CHRONIC SEROUS OTITIS MEDIA [id number] 05/19/2017 11:50:00 05/19/2017 13:14:00 DIS Emergency HUGH YORK [facility] ER LT EAR PAIN [id number] 12/30/2016 13:30:00 01/04/2017 16:09:00 DIS Outpatient TAYLA GRACIA [facility] REHAB LOW BACK PAIN [id number] 08/07/2016 16:06:00 08/07/2016 16:57:00 DIS Emergency SABRINA TORRES, RYLEE K [facility] ER L HAND LAC [id number] 05/01/2016 17:49:00 05/01/2016 19:54:00 DIS Emergency MICKEY TORRES, TITO Robles [facility] ER L ANKLE INJ [id number] 06/22/2015 13:48:00 06/22/2015 15:53:00 DIS Emergency ADRIANA BERGER DO [facility] ER SYNCOPAL EPISODE, GROIN PAIN [id number] 04/16/2015 10:26:00 04/16/2015 11:26:00 DIS Emergency EMI YBARRA MD [facility] ER RIGHT SHOULDER PAIN [id number] 08/30/2013 17:50:00 08/30/2013 21:57:00 DIS Emergency MICKEY TORRES, TITO Robles [facility] ER PASSED OUT; HEAD INJ [id number] 01/04/2018 10:21:00 Document Registration [id number] 04/16/2015 10:26:00 Document Registration [id number] 04/16/2015 10:26:00 Document Registration [id number] 06/26/2012 08:20:00 Document Registration [id number] 05/13/2012 11:19:00 Document Registration [id number] 01/10/2012 10:51:00 Document Registration [id number] 06/29/2010 00:00:00 Document Registration [id number] 03/30/2010 14:44:00 Document Registration [id number] 03/27/2010 15:43:00 Document Registration
--- NOTE | 2018-01-27 12:00 | ED EENT ---
History of Present Illness General Chief Complaint: Ear Problems Stated Complaint: EAR INFECTION Nursing Triage Note: LEFT EAR PAIN/PRESSURE. Source: patient Exam Limitations: no limitations History of Present Illness Date Seen by Provider: Jan 27, 2018 Time Seen by Provider: 11:55 Initial Comments Patient is 37-year-old male who presents to the emergency room with complaints of left ear pain and pressure. He reports that he had tubes put in his ears by Dr. Juarez around 6 months ago and is on ciprofloxacin and antifungal drops for preventative measures and has his tubes cleaned out frequently at Dr. Juarez's office. He has a follow-up appointment scheduled on 02/08/18 Dr. Juarez. He reports that last night his left ear pain became worse and is no longer being controlled by Tylenol and ibuprofen. He also reports that he did run a low- grade fever last night. Timing/Duration: yesterday Location: ear (L) Prearrival Treatment: over the counter meds, prescription meds Allergies and Home Medications Allergies Coded Allergies: No Known Drug Allergies (Unverified , 10/29/08) Home Medications Cefdinir 300 Mg Capsule, 300 MG PO BID Prescribed by: SEA DAVID on 01/27/18 1204 Ciprofloxacin HCl 5 Ml Drops, 3 DROPS OP BID 3 Drops Each Ear Prescribed by: ALEX CHANEY on 07/20/17 0958 Gabapentin 800 Mg Tablet, 800 MG PO QID, (Reported) Hydrocodone Bit/Acetaminophen 1 Tab Tab, 1 EACH PO Q6H PRN for PAIN-MODERATE Prescribed by: BENIGNO TODD on 12/30/17 1600 Hydrocodone Bit/Acetaminophen 1 Tab Tab, 1 EACH PO Q6H PRN for PAIN Prescribed by: SEA DAVID on 01/27/18 1204 Hydrocodone/Acetaminophen 1 Each Tablet, 1 EACH PO Q4H Prescribed by: ALEX CHANEY on 07/20/17 0958 Hydrocodone/Acetaminophen 1 Each Tablet, 1 EACH PO Q6H PRN for PAIN-MODERATE TO SEVERE Do not fill until antifungal eardrops yesterday by Dr Medina clinic are filled. Prescribed by: SOBIA MORALES on 01/04/18 1054 Patient Home Medication List Home Medication List Reviewed: Yes Review of Systems Review of Systems Constitutional: see HPI, chills, fever Ears: See HPI, Pain (left ear) All Other Systems Reviewed Negative Unless Noted: Yes Past Tzpfbif-Btzlif-Ysepnl Hx Past Med/Social Hx: Reviewed Nursing Past Med/Soc Hx Patient Social History Alcohol Use: Denies Use Recreational Drug Use: Yes Drug of Choice: marijuana Smoking Status: Current Everyday Smoker Type Used: Cigarettes Recent Foreign Travel: No Contact w/Someone Who Travel: No Recent Infectious Disease Expo: No Recent Hopitalizations: No Physical Abuse: No Sexual Abuse: No Seasonal Allergies Seasonal Allergies: No Past Medical History Surgeries: Yes (right hand surgery fx repair, 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) Ear Surgery, Gallbladder Respiratory: No Cardiac: No Hypertension Neurological: No Seizure Disorder Reproductive Disorders: No Genitourinary: Yes Kidney Stones Gastrointestinal: No Musculoskeletal: Yes Arthritis Endocrine: No HEENT: Yes (Tubes in Ears) Chronic Ear Infection Cancer: No Psychosocial: No Anxiety, PTSD, Depression Integumentary: No Blood Disorders: No Family Medical History Reviewed Nursing Family Hx No Pertinent Family Hx Physical Exam Vital Signs Vital Signs - First Documented 01/27/18 11:17 Temp 98.2 Pulse 96 Resp 12 B/P (MAP) 126/88 (101) Pulse Ox 98 Height, Weight, BMI Height: 6'0" Weight: 210lbs. 2.0oz. [id number]; 32.3 BMI Method:Stated General Appearance: WD/WN, no apparent distress Ears: left ear TM red, left ear TM bulging; bilateral ear auricle normal, bilateral ear canal normal, bilateral ear other (tubes in place. ) Cardiovascular: regular rate, rhythm, no edema, no gallop, no JVD, no murmur Respiratory: chest non-tender, lungs clear, normal breath sounds, no respiratory distress, no accessory muscle use Neurologic/Psychiatric: alert, normal mood/affect, oriented x 3 Skin: normal color Progress/Results/Core Measures Results/Orders Vital Signs/I&O Blood Pressure Mean: 101 Progress Progress Note : Time: 12:00 Progress Note I have seen and evaluated the patient. I informed him of findings on exam. I will be treating him with antibiotics for his ear infection. He agrees with close follow-up with Dr. Juarez's office. Return precautions were given. Departure Impression Primary Impression: Otitis media Disposition: 01 HOME, SELF-CARE Condition: Stable/Unchanged Departure-Patient Inst. Decision time for Depature: 12:00 Referrals: [facility] (PCP/Family) Primary Care Physician Patient Instructions: Ear Infections (Otitis Media) (DC) Add. Discharge Instructions: Take medication as directed. Call Dr. Sanchez's office first thing Monday morning to see if we can get your appointment time moved up. Return back to the emergency room for any worsening symptoms or concerns as needed. All discharge instructions reviewed with patient and/or family. Voiced understanding. Scripts Cefdinir (Cefdinir) 300 Mg Capsule 300 MG PO BID for 10 Days, #20 CAP Prov: SEA DAVID 01/27/18 Hydrocodone Bit/Acetaminophen (Hydrocodone/Acetaminophen 5/325mg Tablet) 1 Tab Tab 1 EACH PO Q6H PRN for PAIN, #14 TAB Prov: SEA DAVID 01/27/18 SEA DAVID Jan 27, 2018 12:00
[2018-01-27] MEDS ORDERED: ACHD5005 PO (12:04)
[2018-01-27] MEDS ORDERED: CEFD300C3 PO (12:04)
[2018-01-27 12:11] VITALS: BP 118/86
== END 2018-01-27 12:09 | disposition home or self-care (01) ==
LOC: EDUNIT# 11:12 → ER 11:13
DX: H66.92 Otitis media, unspecified, left ear (principal); I10 Essential (primary) hypertension; G40.909 Epilepsy, unspecified, not intractable, without status epilepticus; F41.9 Anxiety disorder, unspecified; F43.10 Post-traumatic stress disorder, unspecified; F32.9 Major depressive disorder, single episode, unspecified; F12.10 Cannabis abuse, uncomplicated; F17.210 Nicotine dependence, cigarettes, uncomplicated; Z87.442 Personal history of urinary calculi
CPT/HCPCS: 99282

== ENCOUNTER 2018-02-03 21:40 | Emergency (ER) | payer MEDICAID ==
[~2018-02-03 21:40] MED LIST changes: +CEFD300C3 PO
--- OUTSIDE RECORDS SUMMARY | 2018-02-03 23:00 | XMS REPORT | Continuity of Care Document ---
Author Author [facility] Address Unknown Phone Unavailable Allergies Active Description Code Type Severity Reaction Onset Reported/Identified Relationship to Patient Clinical Status Yes NO KNOWN DRUG ALLERGIES NO KNOWN DRUG ALLERG UNKNOWN Yes NO KNOWN DRUG ALLERGIES UNKNOWN NO KNOWN DRUG ALLERG Yes No Known Drug Allergies [id number] Drug Allergy Mild N/A 10/29/2008 Yes buspirone [...] DDS V58.69 MEDICATION [facility]IGH RISK [facility]/31[facility] V58.69 MEDICATION HIGH RISK 01/31/2008 LIZA VALENCIA ERA K V58.69 MEDICATION HIGH RISK 01/31/2008 DE JESUS DO ERA K V58.69 MEDICATION HIGH RISK 01/31/2008 [facility], JOSEE R V58.69 MEDICATION [...] B 848.9 SPRAIN/STRAIN OTHER UNSPEC SITE 02/27/2008 [facility], JOSEE R 848.9 SPRAIN/STRAIN OTHER UNSPEC SITE 02/27/2008 LIZA VALENCIA ERA K 848.9 SPRAIN/STRAIN OTHER UNSPEC SITE 02/27/2008 DE JESUS DO ERA K 848.9 SPRAIN/STRAIN OTHER UNSPEC SITE 02/27/2008 [facility], JOSEE R 848.9 SPRAIN/STRAIN [...] 848.9 SPRAIN/STRAIN OTHER UNSPEC SITE 02/27/2008 JEANETTE TRORES, BRAD 848.9 SPRAIN/STRAIN OTHER UNSPEC SITE 06/25/2008 [...] 300.01 AN PANIC DIS W/O AGORA 06/25/2008 [facility], JOSEE R 296.80 MO BIPOLAR NOS 06/25/2008 [facility], JOSEE R 300.01 AN [...] 312.30 I IMPULSE CONTROL DISORDER NOS 08/29/2008 [facility] DDS, BOB B 300.00 AN ANXIETY UNSPEC 08/29/2008 [facility] DDS, BOB B 307.47 SI DYSSOMNIA NOS 08/29/2008 [facility] DDS, BOB B 312.30 I IMPULSE CONTROL DISORDER NOS 08/29/2008 [facility], JOSEE R 300.00 AN ANXIETY UNSPEC 08/29/2008 [facility], JOSEE R 307.47 SI DYSSOMNIA NOS 08/29/2008 [facility], JOSEE R 312.30 I [...] 312.30 I IMPULSE CONTROL DISORDER NOS 08/29/2008 [facility], JOSEE R 300.00 AN ANXIETY UNSPEC 08/29/2008 [facility], JOSEE R 307.47 SI DYSSOMNIA NOS 08/29/2008 [facility], JOSEE R 312.30 I [...] I IMPULSE CONTROL DISORDER NOS 08/29/2008 [facility], DEBBIE 300.00 AN ANXIETY UNSPEC 08/29/2008 STELLA PARKER DEBBIE 307.47 SI DYSSOMNIA NOS 08/29/2008 [facility] CL[facility], DEBBIE 312.30 I IMPULSE CONTROL DISORDER NOS [...] ERA K V61.10 RL RELATION COUNS 09/18/2008 [facility], JOSEE R 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 09/18/2008 [facility] 297.0 PARANOID STATE SIMPLE 09/18/2008 [facility] R 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 09/18/2008 [facility] R 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 09/18/2008 [facility] R 316 PF PSYCHIC FACTORS MED COND 09/18/2008 [facility] R V61.10 RL RELATION COUNS 09/18/2008 [...] APRN V61.10 RL RELATION COUNS 09/18/2008 [facility], DEBBIE 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 09/18/2008 [facility] CLERK, DEBBIE 297.0 PARANOID STATE SIMPLE 09/18/2008 [facility] CLERK, DEBBIE 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 09/18/2008 [facility] CLERK, DEBBIE 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 09/18/2008 [facility] REC[facility] CLERK, DEBBIE 316 PF PSYCHIC FACTORS MED COND 09/18/2008 [facility] RECORD CLERK, DEBBIE V61.10 RL RELATION COUNS 09/18/2008 DE [...] K V61.10 RL RELATION COUNS 09/18/2008 [facility] REC[facility] CLERK, DEBBIE 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 09/18/2008 [facility] REC[facility] CLERK, DEBBIE 297.0 PARANOID STATE SIMPLE 09/18/2008 [facility] CLERK, DEBBIE 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 09/18/2008 [facility] CLERK, DEBBIE 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 09/18/2008 [facility] REC[facility] CLERK, DEBBIE 316 PF PSYCHIC FACTORS MED COND 09/18/2008 [facility] CLERK, DEBBIE V61.10 RL RELATION COUNS 09/18/2008 DAVEY [...] BOB Schmidt 590.2 KIDNEY STONES 11/09/2008 [facility] [place], JOSEE Watters 590.2 KIDNEY STONES 11/09/2008 DE JESUS DO, ERA K 590.2 KIDNEY STONES 11/09/2008 DE JESUS DO, ERA K 590.2 KIDNEY STONES 11/09/2008 [facility], JOSEE R 590.2 KIDNEY STONES 11/09/2008 DE JESUS DO, ERA K 590.2 KIDNEY STONES 11/09/2008 HAN CABALLERO APRN 590.2 KIDNEY STONES 11/09/2008 HAN CABALLERO APRN 590.2 KIDNEY STONES 11/09/2008 [facility], DEBBIE 590.2 KIDNEY STONES 11/09/2008 DE JESUS DO, ERA K 590.2 KIDNEY STONES 11/09/2008 [facility] CLERK, DEBBIE 590.2 KIDNEY STONES 11/09/2008 DAVEY PHD, [...] RESPIRATORY INFECTION 07/26/2010 466.0 BRONCHITIS, ACUTE 07/26/2010 [facility] DDS, BOB B 305.1 NONDEPENDENT TOBACCO USE DISORDER 07/26/2010 [facility] DDS, BOB B 465.9 UPPER RESPIRATORY INFECTION 07/26/2010 [facility] DDS, BOB B 466.0 BRONCHITIS, ACUTE 07/26/2010 [facility], JOSEE R 305.1 NONDEPENDENT TOBACCO USE DISORDER 07/26/2010 [facility], JOSEE R 465.9 UPPER RESPIRATORY INFECTION 07/26/2010 [facility], JOSEE R 466.0 BRONCHITIS, [...] DO, ERA K 466.0 BRONCHITIS, ACUTE 07/26/2010 [facility], JOSEE R 305.1 NONDEPENDENT TOBACCO USE DISORDER 07/26/2010 [facility], JOSEE R 465.9 UPPER RESPIRATORY INFECTION 07/26/2010 [facility], JOSEE R 466.0 BRONCHITIS, [...] CABALLERO APRN 466.0 BRONCHITIS, ACUTE 07/26/2010 [facility], DEBBIE 305.1 NONDEPENDENT TOBACCO USE DISORDER 07/26/2010 [facility] CLERK, DEBBIE 465.9 UPPER RESPIRATORY INFECTION 07/26/2010 [facility] REC[facility] CLERK, DEBBIE 466.0 BRONCHITIS, ACUTE 07/26/2010 DE JESUS DO, ERA K 305.1 NONDEPENDENT TOBACCO USE DISORDER 07/26/2010 DE JESUS DO, ERA K 465.9 UPPER RESPIRATORY INFECTION 07/26/2010 DE JESUS DO, ERA K 466.0 BRONCHITIS, ACUTE 07/26/2010 [facility] CLERK, DEBBIE 305.1 NONDEPENDENT TOBACCO USE DISORDER 07/26/2010 [facility] CLERK, DEBBIE 465.9 UPPER RESPIRATORY INFECTION 07/26/2010 [facility] REC[facility] CLERK, DEBBIE 466.0 BRONCHITIS, ACUTE 07/26/2010 DAVEY PHD, [...] joint pain, localized in the hip 09/20/2010 [facility] 401.1 ESSENTIAL HYPERTENSION BENIGN 09/20/2010 [facility] R 719.45 joint pain, localized in the hip 09/20/2010 DE JESUS DO, ERA K 401.1 ESSENTIAL HYPERTENSION BENIGN 09/20/2010 DE JESUS DO, ERA K 719.45 joint pain, localized in the hip 09/20/2010 DE JESUS DO, ERA K 401.1 ESSENTIAL HYPERTENSION BENIGN 09/20/2010 DE JESUS DO, ERA K 719.45 joint pain, localized in the hip 09/20/2010 [facility] 401.1 ESSENTIAL HYPERTENSION BENIGN 09/20/2010 [facility] R 719.45 joint pain, localized in [...] 726.5 ENTHESOPATHY OF HIP REGION 09/30/2010 JONNIE ED JESUS DOA K 726.5 ENTHESOPATHY OF HIP REGION 09/30/2010 JONNIE DE JESUS DOA K 726.5 ENTHESOPATHY OF HIP REGION 09/30/2010 726.5 ENTHESOPATHY OF HIP REGION 09/30/2010 726.5 ENTHESOPATHY OF HIP REGION 09/30/2010 726.5 ENTHESOPATHY OF HIP REGION 09/30/2010 GENOVEVA YAP, BOB Schmidt 726.5 ENTHESOPATHY OF HIP REGION 09/30/2010 [facility], JOSEE R 726.5 ENTHESOPATHY OF HIP REGION 09/30/2010 JONNIE DE JESUS DOA K 726.5 ENTHESOPATHY OF HIP REGION 09/30/2010 JONNIE DE JESUS DOA K 726.5 ENTHESOPATHY OF HIP REGION 09/30/2010 [facility], JOSEE R 726.5 ENTHESOPATHY [...] BOB B 311 DEPRESSIVE DISORDER NOS 02/28/2012 [facility], JOSEE R 311 DEPRESSIVE DISORDER NOS 02/28/2012 ERA DE JESUS DO K 311 DEPRESSIVE DISORDER NOS 02/28/2012 ERA DE JESUS DO K 311 DEPRESSIVE DISORDER NOS 02/28/2012 [facility], JOSEE R 311 DEPRESSIVE [...] YAP, BOB B 726.12 BICIPITAL TENOSYNOVITIS 05/16/2012 [facility], JOSEE R 726.12 BICIPITAL TENOSYNOVITIS 05/16/2012 ERA DE JESUS DO 726.12 BICIPITAL TENOSYNOVITIS 05/16/2012 ERA DE JESUS DO 726.12 BICIPITAL TENOSYNOVITIS 05/16/2012 [facility] [place] [place], JOSEE R 726.12 BICIPITAL TENOSYNOVITIS 05/16/2012 ERA [...] IN JOINT INVOLVING SHOULDER REGION 06/20/2012 [facility] 719.41 PAIN IN JOINT INVOLVING SHOULDER REGION [...] 724.2 LUMBAGO/ LOW BACK PAIN 08/07/2012 [facility] R 724.2 LUMBAGO/ LOW BACK PAIN 08/07/2012 ERA DE JESUS DO 724.2 LUMBAGO/ LOW BACK PAIN 08/07/2012 ERA DE JESUS DO 724.2 LUMBAGO/ LOW BACK PAIN 08/07/2012 [facility], JOSEE R 724.2 LUMBAGO/ LOW BACK PAIN 08/07/2012 ERA DE JESUS DO 724.2 LUMBAGO/ LOW BACK PAIN 08/07/2012 HAN CABALLERO APRN 724.2 LUMBAGO/ LOW BACK PAIN 08/07/2012 HAN CABALLERO APRN 724.2 LUMBAGO/ LOW BACK PAIN 08/07/2012 [facility], DEBBIE 724.2 LUMBAGO/ LOW BACK PAIN 08/07/2012 DE JESUS ERA VALENCIA K 724.2 LUMBAGO/ LOW BACK PAIN 08/07/2012 [facility] CL[facility], DEBBIE 724.2 LUMBAGO/ LOW BACK PAIN 08/07/2012 [...] BEHAVIOR 09/17/2012 300.02 AN GEN ANXIETY 09/17/2012 [facility] DAVIDS, BOB B 296.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 09/17/2012 [facility] DDS, BOB B 300.02 AN GEN ANXIETY 09/17/2012 [facility], JOSEE R 296.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 09/17/2012 [facility], JOSEE R 300.02 AN GEN ANXIETY 09/17/2012 ERA DE JESUS DO 296.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 09/17/2012 ERA DE JESUS DO 300.02 AN GEN ANXIETY 09/17/2012 ERA DE JESUS DO 296.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 09/17/2012 ERA DE JESUS DO 300.02 AN GEN ANXIETY 09/17/2012 [facility], JOSEE R 296.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 09/17/2012 [facility], JOSEE R 300.02 AN [...] DO 300.02 AN GEN ANXIETY 09/17/2012 [facility], DEBBIE 296.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 RECURRENT SEVERE W/O [...] AN PTSD 10/09/2012 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 10/09/2012 [facility] BOB YAP 309.81 AN PTSD 10/09/2012 [facility] BOB YAP 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 10/09/2012 [facility], JOSEE R 309.81 AN PTSD 10/09/2012 [facility], JOSEE R 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 10/09/2012 ERA DE JESUS DO 309.81 AN PTSD 10/09/2012 DE JESUS DO, ERA K 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 10/09/2012 DE JESUS DO, ERA K 309.81 AN PTSD 10/09/2012 DE JESUS DO, ERA K 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 10/09/2012 [facility], JOSEE R 309.81 AN PTSD 10/09/2012 [facility], JOSEE R 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 10/09/2012 DE JESUS DO, ERA K 309.81 AN PTSD 10/09/2012 DE JESUS DO ERA K 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 10/09/2012 [facility]AN Zuniga D 309.81 AN PTSD 10/09/2012 [facility] Zuniga D 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 10/09/2012 [facility] Zuniga D 309.81 AN PTSD 10/09/2012 [facility] RECORD CLERKHAN Zuniga D 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 10/09/2012 [facility], DEBBIE 309.81 AN PTSD 10/09/2012 [facility] CLERK, DEBBIE 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 10/09/2012 DE JESUS DO ERA K 309.81 AN PTSD 10/09/2012 DE JESUS DO, ERA K 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 10/09/2012 [facility], DEBBIE 309.81 AN PTSD 10/09/2012 [facility] CL[facility], DEBBIE 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 10/09/2012 DE JESUS [...] K V65.42 COUNSELING - SMOKING CESSATION 07/29/2013 [facility], JOSEE R 715.00 OSTEOARTHROSIS GENERALIZED INVOLVING UNSPECIFIED SITE 07/29/2013 [facility], JOSEE R V65.42 COUNSELING [...] DO 296.32 MO DEPRESSIVE RECURRENT MODERATE 08/02/2013 [facility], JOSEE R 296.32 MO [...] 06/22/2015 BERGER , ADRIANA L Ot Y92.009 [facility] PLACE IN [facility] NON-INSTITUT (PRIVATE 06/22/2015 BERGER DO, ADRIANA L [...] AREVALO MD Ot Y92.[address] [facility] NON-INSTITUT (PRIVATE 05/01/2016 TITO AREVALO MD Ot Y93.9 ACTIVITY, UNSPECIFIED 05/01/2016 TITO AREVALO MD Ot Y99.8 OTHER EXTERNAL CAUSE STATUS 05/03/2016 TITO AREVALO MD Ot F17.210 NICOTINE DEPENDENCE, CIGARETTES, UNCOMPL 05/03/2016 TITO RAEVALO MD T Ot I10 ESSENTIAL (PRIMARY) HYPERTENSION [...] AREVALO MD Ot Y92.[address] [facility] NON-INSTITUT (PRIVATE 05/03/2016 TITO AREVALO MD Ot [...] AREVALO MD Ot Y92.[address] [facility]IVATE 05/07/2016 TITO AREVALO MD Ot Y93.9 ACTIVITY, UNSPECIFIED 05/07/2016 TITO AREVALO MD Ot Y99.8 OTHER EXTERNAL CAUSE STATUS 08/07/2016 RYLEE BENNETT MD Ot S61.412A LACERATION WITHOUT FOREIGN BODY OF LEFT 08/07/2016 RYLEE BENNETT MD Ot Z53.21 PROC/TRTMT NOT CRD OUT D/T PT LV BEF SEE 08/08/2016 Nathan Maher 882.0 OPEN WOUND OF HAND EXCEPT FINGERS ALONE, WITHOUT MENTION OF COMPLICATION 08/08/2016 Nathan Maher S61.412A LACERATION WITHOUT FOREIGN BODY OF LEFT HAND, INIT ENCNTR 11/24/2016 Nathan Maher 461.9 ACUTE SINUSITIS, UNSPECIFIED 11/24/2016 Nathan Maher J01.90 ACUTE SINUSITIS, UNSPECIFIED 12/13/2016 [employer] Ot M54.5 LOW BACK PAIN 12/15/2016 [employer]LA [employer] Ot M54.5 LOW BACK PAIN 12/15/2016 TAYLA [employer] TE[employer]ER Ot M54.5 LOW BACK PAIN 12/19/2016 TAYLA [employer] TE[employer]ER Ot M54.5 LOW BACK PAIN 12/30/2016 TAYLA [employer] TE[employer]ER Ot M54.5 LOW BACK PAIN 01/04/2017 TAYLA [employer] TE[employer]ER Ot M54.5 LOW BACK PAIN 05/19/2017 HUGH YORK Ot F32.9 MAJOR DEPRESSIVE DISORDER, SINGLE EPISOD 05/19/2017 HUGH YORK Ot F41.9 ANXIETY DISORDER, UNSPECIFIED 05/19/2017 HGUH YORK Ot F43.10 POST-TRAUMATIC STRESS DISORDER, UNSPECIF [...] 07/20/2017 RAMIRO FRAZIER MD Ot Z79.899 OTHER STATIC BALANCER (CURRENT) DRUG THERAPY 07/26/2017 RAMIRO FRAZIER MD Ot F17.210 NICOTINE DEPENDENCE, CIGARETTES, UNCOMPL 07/26/2017 RAMIRO FRAZIER MD Ot F43.10 POST-TRAUMATIC STRESS DISORDER, UNSPECIF 07/26/2017 FREDDIE TORRES, RAMIRO Mcgowan Ot H65.23 CHRONIC SEROUS OTITIS MEDIA, BILATERAL 07/26/2017 RAMIRO FRAZIER MD Ot I10 ESSENTIAL (PRIMARY) HYPERTENSION 07/26/2017 RAMIRO FRAZIER MD Ot J34.89 OTHER SPECIFIED DISORDERS OF NOSE AND NA 07/26/2017 RAMIRO FRAZIER MD Ot Z79.899 OTHER JAIL (CURRENT) DRUG THERAPY 07/28/2017 RAMIRO FRAZIER MD Ot F17.210 NICOTINE DEPENDENCE, CIGARETTES, UNCOMPL 07/28/2017 RAMIRO FRAZIER MD Ot F43.10 POST-TRAUMATIC STRESS DISORDER, UNSPECIF 07/28/2017 RAMIRO FRAZIER MD Ot H65.23 CHRONIC SEROUS OTITIS MEDIA, BILATERAL 07/28/2017 RAMIRO FRAZIER MD Ot I10 ESSENTIAL (PRIMARY) HYPERTENSION 07/28/2017 RAMIRO FRAZIER MD Ot J34.89 OTHER SPECIFIED DISORDERS OF NOSE AND NA 07/28/2017 RAMIRO FRAZIER MD Ot Z79.899 OTHER JAIL (CURRENT) DRUG THERAPY 12/26/2017 Lawrence Booth 382.9 UNSPECIFIED OTITIS MEDIA 12/26/2017 Lawrence Booth H66.93 OTITIS MEDIA, UNSPECIFIED, BILATERAL 12/30/2017 Ot F32.9 MAJOR DEPRESSIVE DISORDER, SINGLE EPISOD 12/30/2017 Ot F41.9 ANXIETY DISORDER, UNSPECIFIED 12/30/2017 Ot F43.10 POST- TRAUMATIC STRESS DISORDER, UNSPECIF 12/30/2017 Ot G40.909 EPILEPSY, UNSP, NOT INTRACTABLE, WITHOUT 12/30/2017 Ot H92.02 OTALGIA, LEFT EAR 12/30/2017 Ot I10 ESSENTIAL ( PRIMARY) HYPERTENSION 12/30/2017 Ot Z87.442 PERSONAL HISTORY OF URINARY CALCULI 12/30/2017 Ot Z87.891 PERSONAL HISTORY OF NICOTINE DEPENDENCE 01/04/2018 Ot F12.10 CANNABIS ABUSE, UNCOMPLICATED 01/04/2018 Ot F17.210 NICOTINE DEPENDENCE, CIGARETTES, UNCOMPL 01/04/2018 Ot F32.9 MAJOR DEPRESSIVE DISORDER, SINGLE EPISOD 01/04/2018 Ot F41.9 ANXIETY DISORDER, UNSPECIFIED 01/04/2018 Ot F43.10 POST- TRAUMATIC STRESS DISORDER, UNSPECIF 01/04/2018 Ot G40.909 EPILEPSY, UNSP, NOT INTRACTABLE, WITHOUT 01/04/2018 Ot H60.92 UNSPECIFIED OTITIS EXTERNA, LEFT EAR 01/04/2018 Ot H92.02 OTALGIA, LEFT EAR 01/04/2018 Ot I10 ESSENTIAL ( PRIMARY) HYPERTENSION 01/04/2018 Ot Z87.442 PERSONAL HISTORY OF URINARY CALCULI 01/08/2018 Ot F12.10 CANNABIS ABUSE, UNCOMPLICATED 01/08/2018 [...] Ot Z87.442 PERSONAL HISTORY OF URINARY CALCULI 01/30/2018 SEA DAVID Ot F12.10 CANNABIS ABUSE, UNCOMPLICATED 01/30/2018 SEA DAVID Ot F17.210 NICOTINE DEPENDENCE, CIGARETTES, UNCOMPL 01/30/2018 SEA DAVID Ot F32.9 MAJOR DEPRESSIVE DISORDER, SINGLE EPISOD 01/30/2018 BERNOTSEA Ot F41.9 ANXIETY DISORDER, UNSPECIFIED 01/30/2018 SEA DAVID Ot F43.10 POST-TRAUMATIC STRESS DISORDER, UNSPECIF 01/30/2018 SEA DAVID Ot G40.909 EPILEPSY, UNSP, NOT INTRACTABLE, WITHOUT 01/30/2018 ISIDRA DAVIDIS Ot H66.92 OTITIS MEDIA, UNSPECIFIED, LEFT EAR 01/30/2018 SEA DAVID Ot H92.02 OTALGIA, LEFT EAR 01/30/2018 ISIDRA DAVIDIS Ot I10 ESSENTIAL (PRIMARY) HYPERTENSION 01/30/2018 ISIDRA DAVIDIS Ot Z87.442 PERSONAL HISTORY OF URINARY CALCULI 02/02/2018 SEA DAVID Ot F12.10 CANNABIS ABUSE, UNCOMPLICATED 02/02/2018 SEA DAVID Ot F17.210 NICOTINE DEPENDENCE, CIGARETTES, UNCOMPL 02/02/2018 SEA DAVID Ot F32.9 MAJOR DEPRESSIVE DISORDER, SINGLE EPISOD 02/02/2018 SEA DAVID Ot F41.9 ANXIETY DISORDER, UNSPECIFIED 02/02/2018 SEA DAVID Ot F43.10 POST-TRAUMATIC STRESS DISORDER, UNSPECIF 02/02/2018 SEA DAVID Ot G40.909 EPILEPSY, UNSP, NOT INTRACTABLE, WITHOUT 02/02/2018 SEA DAVID Ot H66.92 OTITIS MEDIA, UNSPECIFIED, LEFT EAR 02/02/2018 SEA DAVID Ot H92.02 OTALGIA, LEFT EAR 02/02/2018 SEA DAVID Ot I10 ESSENTIAL (PRIMARY) HYPERTENSION 02/02/2018 SEA DAVID Ot Z87.442 PERSONAL HISTORY OF URINARY CALCULI Procedures Code Description Performed By Performed On ALYSON STRICKLAND 05/16/2012 ALYSON STRICKLAND 06/20/2012 [facility]APY, [facility]IA [facility] 06/20/2012 22317 ROUTINE VENIPUNCTURE 08/07/2012 76546 XRAY LUMBAR SPINE 2 OR 3 VIEWS 08/07/2012 99132 CMP 08/07/2012 43704 URINE DRUG SCREEN (IN-HOUSE ) 08/07/2012 62282 TSH 08/07/2012 92870 CBC 08/07/2012 [facility]APY, [facility] 08/07/2012 30938 PSYCH DIAGNOSTIC EVALUATION 09/18/2012 63137 PSYTX PT&/FAMILY 45 MINUTES 09/18/2012 74238 URINE DRUG SCREEN (IN-HOUSE ) 10/09/2012 88450 URINE THC CON'F 10/19/2012 44844 PSYCH DIAG EVAL W/MED SRVCS 10/19/2012 30911 PSYTX PT&/FAMILY 30 MINUTES 10/19/2012 32138 PSYTX PT&/FAMILY 30 MINUTES 07/10/2013 29126 PSYTX PT&/FAMILY 45 MINUTES 08/02/2013 01445 ROUTINE VENIPUNCTURE 08/13/2013 09871 URINE DRUG SCREEN (IN-HOUSE ) 08/13/2013 7603924 GFR CALC (RESULT ONLY) 08/13/2013 63061 CMP 08/13/2013 94886 PSYTX PT&/FAMILY 45 MINUTES 08/22/2013 Results Test [...] Status Pt. Type Provider Facility Loc./Unit Complaint [id number] 09/08/2014 13:54:00 09/08/2014 23:59:59 CLS Outpatient BRAD REID MD [id number] 08/22/2014 13:39:00 08/22/2014 23:59:59 CLS Outpatient ERA DE JESUS DO [id number] 11/26/2013 09:50:00 11/26/2013 23:59:59 CLS Outpatient DE JESUS DO ERA Roberts [id number] 10/31/2013 15:25:00 10/31/2013 23:59:59 CLS Outpatient STELLA PARKER DEBBIE [id number] 10/31/2013 15:25:00 10/31/2013 23:59:59 CLS Outpatient DAVID DOUGLAS APRNETTE [id number] 09/17/2013 15:42:00 09/17/2013 23:59:59 CLS Outpatient ADA MARTÍNEZBHAVNA ZunigaHAN D [id number] 09/17/2013 15:42:00 09/17/2013 23:59:59 CLS Outpatient LITAFATIMAH MARTÍNEZHAN Zuniga [id number] 09/13/2013 10:16:00 09/13/2013 23:59:59 CLS Outpatient DE JESUS DOERA [id number] 08/21/2013 15:24:00 08/21/2013 23:59:59 [id number] 08/02/2013 16:57:00 08/02/2013 23:59:59 CLS Outpatient DE JESUS DOERA [id number] 07/29/2013 15:38:00 07/29/2013 23:59:59 CLS Outpatient DE JESUS DOERA [id number] 07/10/2013 11:00:00 07/10/2013 23:59:59 [facility] [id number] 12/04/2012 10:27:00 12/04/2012 23:59:59 CLS Outpatient BOB TOMAS DDS [id number] 08/07/2012 12:55:00 08/07/2012 23:59:59 CLS Outpatient DE JESUS DOERA [id number] 07/11/2012 18:40:00 07/11/2012 23:59:59 CLS Outpatient DE JESUS DOERA [id number] 06/20/2012 13:40:00 06/20/2012 23:59:59 CLS Outpatient [id number] 05/16/2012 14:37:00 05/16/2012 23:59:59 CLS Outpatient DE JESUS DOERA [id number] 02/28/2012 13:13:00 02/28/2012 23:59:59 CLS Outpatient BRISSA MARISCAL PHD [id number] 10/19/2012 10:23:00 Document Registration [id number] 10/03/2012 09:39:00 Document Registration [id number] 09/18/2012 09:39:00 Document Registration [id number] 08/03/2016 14:09:00 Document Registration [id number] 08/04/2016 06:08:00 Document Registration [id number] 12/26/2017 09:26:00 12/26/2017 10:22:00 DIS Outpatient Lawrence Booth [id number] 11/24/2016 10:06:00 11/24/2016 10:50:00 DIS Outpatient MaherNathan [id number] 08/08/2016 17:36:00 08/08/2016 18:01:00 DIS Outpatient Nathan Maher [facility] [id number] 08/08/2016 17:42:02 Document Registration [id number] 12/22/2017 16:00:00 12/22/2017 23:59:59 CLS Outpatient JEANETTE TORRES, [facility] [id number] 06/26/2017 13:20:00 Document Registration [id number] 01/27/2018 11:13:00 01/27/2018 12:09:00 DIS Outpatient SEA DAVID [facility] ER EAR INFECTION [id number] 07/20/2017 06:55:00 07/20/2017 10:13:00 DIS Outpatient RAMIRO FRAZIER MD [facility] CHRONIC SEROUS OTITIS MEDIA [id number] 07/17/2017 11:58:00 07/17/2017 12:25:00 DIS Outpatient RAMIRO FRAZIER MD [facility] PREOP CHRONIC SEROUS OTITIS MEDIA [id number] 05/19/2017 11:50:00 05/19/2017 13:14:00 DIS Emergency HUGH YORK [facility] ER LT EAR PAIN [id number] 12/30/2016 13:30:00 01/04/2017 16:09:00 DIS Outpatient TAYLA GRACIA [facility] REHAB LOW BACK PAIN [id number] 08/07/2016 16:06:00 08/07/2016 16:57:00 DIS Emergency RYLEE BENNETT MD [facility] ER L HAND LAC [id number] 05/01/2016 17:49:00 05/01/2016 19:54:00 DIS Emergency MICKEY TORRES, TITO Robles [facility] ER L ANKLE INJ [id number] 06/22/2015 13:48:00 06/22/2015 15:53:00 DIS Emergency BERGER DO, ADRIANA L [facility] ER SYNCOPAL EPISODE, GROIN PAIN [id number] 04/16/2015 10:26:00 04/16/2015 11:26:00 DIS Emergency TATE TORRES, EMI Harden [facility] ER RIGHT SHOULDER PAIN [id number] 08/30/2013 17:50:00 08/30/2013 21:57:00 DIS Emergency MICKEY TORRES, TITO Robles [facility] ER PASSED OUT; HEAD INJ [id number] 02/03/2018 21:42:00 ACT Emergency KEI TORRES, EL Workman [facility] ER LEFT EAR HURTING [id number] 01/04/2018 10:21:00 Document Registration [id number] 12/30/2017 15:37:00 Document Registration [id number] 04/16/2015 10:26:00 Document Registration [id number] 04/16/2015 10:26:00 Document Registration [id number] 06/26/2012 08:20:00 Document Registration [id number] 05/13/2012 11:19:00 Document Registration [id number] 01/10/2012 10:51:00 Document Registration [id number] 06/29/2010 00:00:00 Document Registration [id number] 03/30/2010 14:44:00 Document Registration [id number] 03/27/2010 15:43:00 Document Registration
== END 2018-02-03 22:15 | disposition left against medical advice (07) ==
LOC: EDUNIT# 21:40 → ER 21:42
DX: H92.02 Otalgia, left ear (principal)

== ENCOUNTER 2018-02-04 12:24 | Emergency (ER) | payer MEDICAID ==
--- OUTSIDE RECORDS SUMMARY | 2018-02-04 12:29 | XMS REPORT ---
Author Author BRAD REID [facility] Address [address] [place] [address] Care Team Providers Care Corsetier Name Role Phone BRAD REID Unavailable PROBLEMS Type Condition ICD9-CM Code BUC27-FJ Code Onset Dates Condition Status SNOMED Code Problem Syncopal episodes R55 Active 789688484 Problem Depressed F32.9 Active 73250341 Problem Chronic pain G89.29 Active 26744205 Problem Elevated liver enzymes R74.8 Active 808135855 Problem Neuropathy G62.9 Active 655753732 Problem HTN (hypertension) I10 Active 65161409 Problem Cervical radiculopathy M54.12 Active 90923163 Problem Low back pain M54.5 Active 412813978 Problem Post traumatic stress disorder (PTSD) F43.10 Active 88995501 Problem Adjustment disorder with depressed mood F43.21 Active 02716297 Problem Neck muscle strain, initial encounter S16.1XXA Active 119245892 Problem Kidney stones N20.0 Active 40320281 ALLERGIES Substance Reaction Event Type Date Status Buspirone 7.5 Mg Tablet Headache Non Drug Allergy Dec, Active ENCOUNTERS Encounter Location Date Diagnosis [facility] [id number] [place] [address] 81565- 9103 Dec, Cervical radiculopathy M54.12 [facility] [id number] [place] [address] 00749- 7400 Dec, Cervical radiculopathy M54.12 and HTN (hypertension) I10 [facility] [id number] [place] [address] 66895- 9987 Jul, HTN (hypertension) I10 ; Neuropathy G62.9 and Depressed F32.9 [facility] [id number] [place] [address] 82134- 2562 Jun, Myalgia M79.1 ; Abnormal LFTs R94.5 ; Neuropathy G62.9 ; Low back pain M54.5 and Adjustment disorder with depressed mood F43.21 [facility] [id number] [place] [address] 50738- 5491 May, [facility] [id number] [place] [address] 90766 -5435 May, Other acute nonsuppurative otitis media of left ear, recurrence not specified H65.192 and Acute otitis externa of left ear, unspecified type H60.502 [facility] [id number] [place] [address] 57438 -4248 Nov, Acute otitis externa of left ear, unspecified type H60.502 [facility] [id number] [place] [address] 71998- 2704 Oct, HTN (hypertension) I10 ; Neuropathy G62.9 ; Chronic pain G89.29 ; Low back pain M54.5 ; Neck muscle strain, initial encounter S16.1XXA ; Depressed F32.9 and Adjustment disorder with depressed mood F43.21 [facility] [id number] [place] [address] 20416- 2694 Oct, [facility] [id number] [place] [address] 32986- 1356 Oct, Depressed F32.9 [facility] [id number] [place] [address] 31598- 2363 Aug, Chronic pain G89.29 [facility] [id number] [place] [address] 41620- 7269 Aug, Chronic pain G89.29 [facility] [id number] [place] [address] 30279- 0802 Aug, Chronic pain G89.29 [facility] [id number] [place] [address] 88672- 8212 Jul, HTN (hypertension) I10 ; Chronic pain G89.29 ; Depressed F32.9 ; Post traumatic stress disorder (PTSD) F43.10 and Right elbow pain M25.521 [place] [address] [address]- 4218 14 Jul, 2016 HTN (hypertension) I10 ; Neuropathy G62.9 ; Adjustment disorder with depressed mood F43.21 ; Chronic pain G89.29 ; Kidney stones N20.0 and Screening cholesterol level Z13.220 [facility] [address] [address]- 1970 13 Jul, 2016 Adjustment disorder with depressed mood F43.21 ; Post traumatic stress disorder (PTSD) F43.10 ; Depressed F32.9 and Chronic pain G89.29 [facility] [address] 32598- 5215 Jul, Depressed F32.9 ; Chronic pain G89.29 ; Neuropathy G62.9 ; Adjustment disorder with depressed mood F43.21 and Post traumatic stress disorder (PTSD) F43.10 [facility] [place] [id number] [place] [address] 10746- 0765 Jul, [facility] [address] 15231- 3693 Jul, [facility] [place] [id number] [place] [address] 22442- 0321 Jun, HTN (hypertension) I10 ; Syncopal episodes R55 ; Depressed F32.9 and Chronic pain G89.29 [facility] [id number] [place] [address] 43032- 2689 May, [facility] [address] 57569- 3070 May, [place] [address] 01101- 1574 Mar, [facility] [address] 35744- 2517 Feb, HTN (hypertension) I10 ; Leg pain M79.606 and Neuropathy G62.9 [facility] [id number] [address] 10 Jan, 2015 Major depressive disorder, recurrent episode, severe, without mention of psychotic behavior 296.33 ; Generalized anxiety disorder 300.02 and Posttraumatic stress disorder 309.81 [facility] [id number] [place] [address] 139452- 2703 10 Jan, 2015 Acute bronchitis 466.0 and Back pain 724.5 [facility] [id number] [place] [address] 62820- 8636 17 Oct, 2014 [facility] [id number] [place] [address] 35003- 3091 14 Aug, 2014 [facility] [id number] [place] [address] 65829- 1358 Aug, [facility] [id number] [place] [address] 35462- 0896 Jul, [facility] [id number] [address] 9163 Jul, [facility] [id number] [address]14 Dec, [facility] [address] [place] [address]- 7319 Dec, [facility] [id number] [address] 7776 Nov, [facility] [address] [address]- 2046 Nov, [facility] [id number] [place] [address] 48546- 8015 Oct, [facility] [address] [address]- 7366 Oct, [facility] [id number] [place] [address] 18354- 0032 September, [facility] [place] [facility] [address] [id number] [place] [address]- 7879 September, [facility] [place] [facility] [address] [id number] [place] [address]- 0568 Aug, [facility] [place] [facility] [address] [id number] [place] [address]- 4183 Aug, [facility] [place] [facility] [address] [id number] [place] [address]- 1419 Aug, [facility] [place] [facility] [address] [id number] [place] [address]- 8110 Aug, [facility] [place] [facility] [address] [id number] [place] [address]- 9510 Aug, [facility] [place] [facility] [address] [id number] [place] [address]- 5841 Aug, [facility] [place] [facility] [address] [id number] [place] [address]- 2744 Aug, [facility] [place] [facility] [address] [id number] [place] [address]- 4988 Aug, [facility] [place] [facility] [address] [id number] [place] [address]- 0950 Jul, [facility] [place] [facility] [address] [id number] [place] [address]- 6944 Jul, [facility] [place] [facility] [address] [id number] [address]- 9037 Jul, [facility] [place] [facility] [address] [id number] [place] [address]- 4714 Jul, [facility] [place] [facility] [address] [id number] [place] [address]- 7839 Jul, [facility] [place] [facility] [address] [id number] [place] [address]- 4331 Jul, [facility] [place] [facility] [address] [id number] [place] [address]- 0291 14 Jul, 2013 [facility] [place] [facility] [address] [id number] [place] [address]- 8703 14 Jul, 2013 [facility] [place] [facility] [address] [id number] [place] [address]- 2414 10 Jul, 2013 [facility] [place] [facility] [address] [id number] [place] [address]- 4967 10 Jul, 2013 [facility] [place] [facility] [address] [id number] [place] [address]- 4490 19 Jun, 2013 [facility] [place] [facility] [address] [id number] [place] [address]- 1598 Jun, [facility] [place] [facility] [address] [id number] [place] [address]- 4085 10 Jun, 2013 [facility] [place] [facility] [address] [id number] [place] [address]- 8058 10 Jun, 2013 [facility] [place] [facility] [address] [id number] [place] [address]- 8744 Jan, [facility] [place] [facility] [address] [id number] [place] [address]- 9096 Dec, [facility] [place] [facility] [address] [id number] [place] [address]- 8616 Nov, [facility] [place] [facility] [address] [id number] [place] [address]- 2194 Oct, [facility] [place] [facility] [address] [id number] [place] [address]- 3206 September, [facility] [place] [facility] [address] [id number] [place] [address]- 1346 September, [facility] [place] [facility] [address] [id number] [place] [address]- 2546 September, [facility] [place] [facility] [address] [id number] [place] [address]- 6972 September, [facility] [address] [id number] [place] [address]- 4631 Aug, [facility] [address] [id number] [place] [address]- 6846 Aug, [facility] [address] [id number] [place] [address]- 9436 Jul, [facility] [place] [facility] [address] [id number] [place] [address]- 3876 Jul, [facility] [address] [id number] [place] [address]- 8632 Jun, [facility] [place] [facility] [address] [id number] [place] [address]- 9706 Jun, [facility] [address] [id number] [place] [address]- 9842 Jun, [facility] [address] [id number] [place] [address]- 6616 May, [facility] [address] [id number] [place] [address]- 6261 May, [facility] [address] [id number] [place] [address]- 0064 Apr, [facility] [place] [facility] [address] [id number] [place] [address]- 7989 Apr, [facility] [place] [facility] [address] [id number] [place] [address]- 8389 Mar, [facility] [place] [facility] [address] [id number] [place] [address]- 5325 Mar, [facility] [place] [facility] [address] [id number] [place] [address]- 5176 Mar, [facility] [place] [facility] [address] [id number] [place] [address]- 0683 Mar, [facility] [place] [facility] [address] [facility] [id number] [place] [address]- 1286 09 Feb, 2012 [facility] [address] [facility] [id number] [place] [address]- 1193 Mar, [facility] [address] [facility] [id number] [place] [address]- 5784 Feb, IMMUNIZATIONS No Known Immunizations SOCIAL HISTORY Never Assessed REASON FOR VISIT Pain management (chronic) Pt c/o increase intensity and frequency to neck pain , ABIGAIL Richard PLAN OF CARE Activity Details Follow Up Will call after MRI Reason: VITAL SIGNS Height 72 in 2017-12-22 Weight 226.7 lbs 2017-12-22 Temperature 98.2 degrees Fahrenheit 2017-12-22 Heart Rate 84 bpm 2017-12-22 Respiratory Rate 18 2017-12-22 BMI 30.74 kg/m2 2017-12-22 Blood pressure systolic 124 mmHg 2017-12-22 Blood pressure diastolic 72 mmHg 2017-12-22 MEDICATIONS Medication Instructions Dosage Frequency Start Date End Date Duration Status Neurontin 800 MG Orally 4 times a day TAKE ONE TABLET BY MOUTH FOUR TIMES DAILY (NEED APPOINTMENT FOR FURTHER REFILLS) 6h Active Lisinopril-Hydrochlorothiazide 20-25 MG TAKE TWO TABLETS BY MOUTH ONCE DAILY IN THE MORNING (MUST HAVE APPOINTMENT FOR REFILL) 90 Active Cymbalta 60 mg Orally Once a day 1 capsule 24h Jun, 30 day(s) Active Ibuprofen 800 MG TAKE ONE TABLET BY MOUTH THREE TIMES DAILY 30 Active Tylenol 325 MG Orally every 6 hrs 1 tablet as needed 6h Active Hydrocodone-Acetaminophen 5-325 MG Orally every 6 hrs 1 tablet as needed 6h Active RESULTS Name Result Date Reference Range MRI : Cervical w/o Contrast PROCEDURES No Known procedures INSTRUCTIONS MEDICATIONS ADMINISTERED [...]
--- OUTSIDE RECORDS SUMMARY | 2018-02-04 12:33 | XMS REPORT | Continuity of Care Document ---
Author Author [facility] Address Unknown Phone Unavailable Allergies Active Description Code Type Severity Reaction Onset Reported/Identified Relationship to Patient Clinical Status Yes NO KNOWN DRUG ALLERGIES NO KNOWN DRUG ALLERG UNKNOWN Yes NO KNOWN DRUG ALLERGIES UNKNOWN NO KNOWN DRUG ALLERG Yes No Known Drug Allergies [id number] Drug Allergy Mild N/A 10/29/2008 Yes buspirone [...] DDS V58.69 MEDICATION HIGH RISK 01/31/2008 [facility] V58.69 MEDICATION HIGH RISK 01/31/2008 LIZA VALENCIA ERA K V58.69 MEDICATION HIGH RISK 01/31/2008 DE JESUS DO ERA K V58.69 MEDICATION HIGH RISK 01/31/2008 [facility], JOSEE R V58.69 MEDICATION HIGH RISK 01/31/2008 [...] B 848.9 SPRAIN/STRAIN OTHER UNSPEC SITE 02/27/2008 [facility], JOSEE R 848.9 SPRAIN/STRAIN OTHER UNSPEC SITE 02/27/2008 LIZA VALENCIA ERA K 848.9 SPRAIN/STRAIN OTHER UNSPEC SITE 02/27/2008 DE JESUS DO ERA K 848.9 SPRAIN/STRAIN OTHER UNSPEC SITE 02/27/2008 [facility], JOSEE R 848.9 SPRAIN/STRAIN OTHER UNSPEC SITE [...] 300.01 AN PANIC DIS W/O AGORA 06/25/2008 [facility], JOSEE R 296.80 MO BIPOLAR NOS 06/25/2008 [facility], JOSEE R 300.01 AN PANIC DIS W/O [...] IMPULSE CONTROL DISORDER NOS 08/29/2008 [facility] DDS, BOB B 300.00 AN ANXIETY UNSPEC 08/29/2008 [facility] DDS, BOB B 307.47 SI DYSSOMNIA NOS 08/29/2008 [facility] DDS, BOB B 312.30 I IMPULSE CONTROL DISORDER NOS 08/29/2008 [facility], JOSEE R 300.00 AN ANXIETY UNSPEC 08/29/2008 [facility], JOSEE R 307.47 SI DYSSOMNIA NOS 08/29/2008 [facility], JOSEE R 312.30 I IMPULSE CONTROL DISORDER [...] 312.30 I IMPULSE CONTROL DISORDER NOS 08/29/2008 [facility], JOSEE R 300.00 AN ANXIETY UNSPEC 08/29/2008 [facility], JOSEE R 307.47 SI DYSSOMNIA NOS 08/29/2008 [facility], JOSEE R 312.30 I IMPULSE CONTROL DISORDER NOS 08/29/2008 DE JESUS DO, ERA K 300.00 AN ANXIETY UNSPEC 08/29/2008 DE JESUS DO, ERA K 307.47 SI DYSSOMNIA NOS 08/29/2008 DE JESUS DO, ERA K 312.30 I IMPULSE CONTROL DISORDER NOS 08/29/2008 HAN CABALELRO APRN 300.00 AN ANXIETY UNSPEC 08/29/2008 HAN [...] I IMPULSE CONTROL DISORDER NOS 08/29/2008 STELLA OUTSIDE SALES ACCOUNT MANAGER, DEBBIE 300.00 AN ANXIETY UNSPEC 08/29/2008 STELLA PARKER DEBBIE 307.47 SI DYSSOMNIA NOS 08/29/2008 STELLA OUTSIDE SALES ACCOUNT MANAGER, DEBBIE 312.30 I IMPULSE CONTROL DISORDER NOS 08/29/2008 DAVEY LOU, BRISSA Harden 300.00 AN ANXIETY UNSPEC 08/29/2008 DAVEY LOU, BRISSA Harden 307.47 SI DYSSOMNIA NOS 08/29/2008 DAVEY PHD, RBISSA A 312.30 I IMPULSE CONTROL DISORDER NOS [...] PSYCHIC FACTORS MED COND 09/18/2008 [facility], JSOEE R V61.10 RL RELATION COUNS 09/18/2008 DE [...] ERA K V61.10 RL RELATION COUNS 09/18/2008 [facility], JOSEE R 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 09/[facility] 297.0 PARANOID STATE SIMPLE 09/18/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 R 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 09/18/[facility] R 316 PF PSYCHIC FACTORS MED COND 09/18/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 09/18/2008 STELLA OUTSIDE SALES ACCOUNT MANAGER, DEBBIE 316 PF PSYCHIC FACTORS MED COND 09/18/2008 STELLA OUTSIDE SALES ACCOUNT MANAGER, DEBBIE V61.10 RL RELATION COUNS 09/18/2008 DE [...] K V61.10 RL RELATION COUNS 09/18/2008 STELLA OUTSIDE SALES ACCOUNT MANAGER, DEBBIE 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 09/18/2008 STELLA OUTSIDE SALES ACCOUNT MANAGER, DEBBIE 297.0 PARANOID STATE SIMPLE 09/18/2008 STELLA OUTSIDE SALES ACCOUNT MANAGER, DEBBIE 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 09/18/2008 STELLA OUTSIDE SALES ACCOUNT MANAGER, DEBBIE 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 09/18/2008 STELLA OUTSIDE SALES ACCOUNT MANAGER, DEBBIE 316 PF PSYCHIC FACTORS MED COND 09/18/2008 STELLA OUTSIDE SALES ACCOUNT MANAGER, DEBBIE V61.10 RL RELATION COUNS 09/18/2008 DVAEY LOU, BRISSA Harden 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 I [...] PSYCHIC FACTORS MED COND 09/18/2008 LIZA VALENCIA REA K V61.10 RL RELATION COUNS 09/18/2008 BRAD [...] BOB Schmidt 590.2 KIDNEY STONES 11/09/2008 [facility] JO[place] Watters 590.2 KIDNEY STONES 11/09/2008 DE JESUS DO, ERA K 590.2 KIDNEY STONES 11/09/2008 DE JESUS DO, ERA K 590.2 KIDNEY STONES 11/09/2008 [facility], JOSEE R 590.2 KIDNEY STONES 11/09/2008 DE JESUS DO, ERA K 590.2 KIDNEY STONES 11/09/2008 HAN CABALLERO APRN 590.2 KIDNEY STONES 11/09/2008 HAN CABALLERO APRN 590.2 KIDNEY STONES 11/09/2008 STE[employer]SIDE SALES ACCOUNT MANAGER, DEBBIE 590.2 KIDNEY STONES 11/09/2008 DE JESUS DO, ERA K 590.2 KIDNEY STONES 11/09/2008 STELLA OUTSIDE SALES ACCOUNT MANAGER, DEBBIE 590.2 KIDNEY STONES 11/09/2008 DAVEY PHD, [...] 07/26/2010 466.0 BRONCHITIS, ACUTE 07/26/2010 [facility] DDS, BOB B 305.1 NONDEPENDENT TOBACCO USE DISORDER 07/26/2010 [facility] DDS, BOB B 465.9 UPPER RESPIRATORY INFECTION 07/26/2010 [facility] DDS, BOB B 466.0 BRONCHITIS, ACUTE 07/26/2010 [facility], JOSEE R 305.1 NONDEPENDENT TOBACCO USE DISORDER 07/26/2010 [facility], JOSEE R 465.9 UPPER RESPIRATORY INFECTION 07/26/2010 [facility], JOSEE R 466.0 BRONCHITIS, ACUTE 07/26/2010 DE [...] DO, ERA K 466.0 BRONCHITIS, ACUTE 07/26/2010 [facility], JOSEE R 305.1 NONDEPENDENT TOBACCO USE DISORDER 07/26/2010 [facility], JOSEE R 465.9 UPPER RESPIRATORY INFECTION 07/26/2010 [facility], JOSEE R 466.0 BRONCHITIS, ACUTE 07/26/2010 DE [...] CABALLERO APRN 466.0 BRONCHITIS, ACUTE 07/26/2010 STE[employer]A [employer]SIDE SALES ACCOUNT MANAGER, DEBBIE 305.1 NONDEPENDENT TOBACCO USE DISORDER 07/26/2010 STELLA OUTSIDE SALES ACCOUNT MANAGER, DEBBIE 465.9 UPPER RESPIRATORY INFECTION 07/26/2010 STELLA OUTSIDE SALES ACCOUNT MANAGER, DEBBIE 466.0 BRONCHITIS, ACUTE 07/26/2010 DE JESUS DO, ERA K 305.1 NONDEPENDENT TOBACCO USE DISORDER 07/26/2010 DE JESUS DO, ERA K 465.9 UPPER RESPIRATORY INFECTION 07/26/2010 DE JESUS DO, ERA K 466.0 BRONCHITIS, ACUTE 07/26/2010 STELLA OUTSIDE SALES ACCOUNT MANAGER, DEBBIE 305.1 NONDEPENDENT TOBACCO USE DISORDER 07/26/2010 STELLA OUTSIDE SALES ACCOUNT MANAGER, DEBBIE 465.9 UPPER RESPIRATORY INFECTION 07/26/2010 STELLA OUTSIDE SALES ACCOUNT MANAGER, DEBBIE 466.0 BRONCHITIS, ACUTE 07/26/2010 DAVEY PHD, [...] joint pain, localized in the hip [facility] 401.1 ESSENTIAL HYPERTENSION BENIGN 09/20/2010 [facility] R 719.45 joint pain, localized in the hip 09/20/2010 DE JESUS DO, ERA K 401.1 ESSENTIAL HYPERTENSION BENIGN 09/20/2010 DE JESUS DO, ERA K 719.45 joint pain, localized in the hip 09/20/2010 DE JESUS DO, ERA K 401.1 ESSENTIAL HYPERTENSION BENIGN 09/20/2010 DE JESUS DO, ERA K 719.45 joint pain, localized in the hip [facility]20[facility] R 401.1 ESSENTIAL HYPERTENSION BENIGN 09/20/[facility] R 719.45 joint pain, [...] Schmidt 726.5 ENTHESOPATHY OF HIP REGION 09/30/2010 [facility], JOSEE R 726.5 ENTHESOPATHY OF HIP REGION 09/30/2010 JONNIE DE JESUS DOA K 726.5 ENTHESOPATHY OF HIP REGION 09/30/2010 JONNIE DE JESUS DOA K 726.5 ENTHESOPATHY OF HIP REGION 09/30/2010 [facility], JOSEE R 726.5 ENTHESOPATHY OF HIP REGION [...] BOB B 311 DEPRESSIVE DISORDER NOS 02/28/2012 [facility], JOSEE R 311 DEPRESSIVE DISORDER NOS 02/28/2012 ERA DE JESUS DO K 311 DEPRESSIVE DISORDER NOS 02/28/2012 ERA DE JESUS DO K 311 DEPRESSIVE DISORDER NOS 02/28/2012 [facility], JOSEE R 311 DEPRESSIVE DISORDER NOS 02/28/2012 [...] YAP, BOB B 726.12 BICIPITAL TENOSYNOVITIS 05/16/2012 [facility], JOSEE R 726.12 BICIPITAL TENOSYNOVITIS 05/16/2012 ERA DE JESUS DO 726.12 BICIPITAL TENOSYNOVITIS 05/16/2012 ERA DE JESUS DO 726.12 BICIPITAL TENOSYNOVITIS 05/16/2012 [facility] JOSEE R 726.12 BICIPITAL TENOSYNOVITIS 05/16/2012 ERA [...] IN JOINT INVOLVING SHOULDER REGION 06/20/2012 [facility] 719.41 PAIN IN JOINT INVOLVING SHOULDER REGION [...] 724.2 LUMBAGO/ LOW BACK PAIN 08/07/2012 [facility] R 724.2 LUMBAGO/ LOW BACK PAIN 08/07/2012 ERA DE JESUS DO 724.2 LUMBAGO/ LOW BACK PAIN 08/07/2012 ERA DE JESUS DO 724.2 LUMBAGO/ LOW BACK PAIN 08/07/2012 [facility], JOSEE R 724.2 LUMBAGO/ LOW BACK PAIN 08/07/2012 ERA DE JESUS DO 724.2 LUMBAGO/ LOW BACK PAIN 08/07/2012 HAN CABALLERO APRN 724.2 LUMBAGO/ LOW BACK PAIN 08/07/2012 HAN CABALLERO APRN 724.2 LUMBAGO/ LOW BACK PAIN 08/07/2012 STE[employer]A [employer] SALES ACCOUNT MANAGER, DEBBIE 724.2 LUMBAGO/ LOW BACK PAIN 08/07/2012 DE JESUS ERA VALENCIA K 724.2 LUMBAGO/ LOW BACK PAIN 08/07/2012 STE[employer]A [employer]SIDE SALES ACCOUNT MANAGER, DEBBIE 724.2 LUMBAGO/ LOW BACK PAIN 08/07/2012 [...] 300.02 AN GEN ANXIETY 09/17/2012 [facility] DAVIDS, BOB B 296.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 09/17/2012 [facility] DDS, BOB B 300.02 AN GEN ANXIETY 09/17/2012 [facility], JOSEE R 296.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 09/17/2012 [facility], JOSEE R 300.02 AN GEN ANXIETY 09/17/2012 ERA DE JESUS DO 296.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 09/17/2012 ERA DE JESUS DO 300.02 AN GEN ANXIETY 09/17/2012 ERA DE JESUS DO 296.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 09/17/2012 ERA DE JESUS DO 300.02 AN GEN ANXIETY 09/17/2012 [facility], JOSEE R 296.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 09/17/2012 [facility], JOSEE R 300.02 AN GEN ANXIETY 09/17/2012 [...] DO 300.02 AN GEN ANXIETY 09/17/2012 [employer] SALES ACCOUNT MANAGER, DEBBIE 296.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 RECURRENT SEVERE W/O [...] 10/09/2012 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 10/09/2012 [facility] BOB YAP 309.81 AN PTSD 10/09/2012 [facility] BOB YAP 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 10/09/2012 [facility], JOSEE R 309.81 AN PTSD 10/09/2012 [facility], JOSEE R 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 10/09/2012 ERA DE JESUS DO 309.81 AN PTSD 10/09/2012 DE JESUS DO, ERA K 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 10/09/2012 DE JESUS DO, ERA K 309.81 AN PTSD 10/09/2012 DE JESUS DO, ERA K 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 10/09/2012 [facility], JOSEE R 309.81 AN PTSD 10/09/2012 [facility], JOSEE R 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 10/09/2012 DE JESUS DO, ERA K 309.81 AN PTSD 10/09/2012 DE JESUS DO ERA K 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 10/09/2012 GARFATIMAH OUTSIDE SALES ACCOUNT MANAGERHAN Zuniga D 309.81 AN PTSD 10/09/2012 GARTON OUTSIDE SALES ACCOUNT MANAGERHAN Zuniga D 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 10/09/2012 GARTON OUTSIDE SALES ACCOUNT MANAGERHAN Zuniga D 309.81 AN PTSD 10/09/2012 ADA OUTSIDE SALES ACCOUNT MANAGERHAN Zuniga D 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 10/09/2012 STELLA OUTSIDE SALES ACCOUNT MANAGER, DEBBIE 309.81 AN PTSD 10/09/2012 STELLA OUTSIDE SALES ACCOUNT MANAGER, DEBBIE 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 10/09/2012 DE JESUS DO ERA K 309.81 AN PTSD 10/09/2012 DE JESUS DO, ERA K 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 10/09/2012 STELLA OUTSIDE SALES ACCOUNT MANAGER, DEBBIE 309.81 AN PTSD 10/09/2012 STELLA OUTSIDE SALES ACCOUNT MANAGER, DEBBIE 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 10/09/2012 DE JESUS [...] K V65.42 COUNSELING - SMOKING CESSATION 07/29/2013 [facility], JOSEE R 715.00 OSTEOARTHROSIS GENERALIZED INVOLVING UNSPECIFIED SITE 07/29/2013 [facility], JOSEE R V65.42 COUNSELING - SMOKING CESSATION [...] DO 296.32 MO DEPRESSIVE RECURRENT MODERATE 08/02/2013 [facility], JOSEE R 296.32 MO DEPRESSIVE RECURRENT MODERATE [...] 06/22/2015 BERGER , ADRIANA L Ot Y92.[address] [facility] [address] IN [facility] NON-INSTITUT (PRIVATE 06/22/2015 BERGER DO, ADRIANA [...] AREVALO MD Ot Y92.[address] IN [facility] NON-INSTITUT (PRIVATE 05/01/2016 TITO AREVALO MD [...] AREVALO MD Ot Y92.[address] IN [facility] NON-INSTITUT (PRIVATE 05/03/2016 TITO AREVALO MD [...] AREVALO MD Ot Y92.[address] IN [facility] (PRIVATE 05/07/2016 TITO AREVALO MD Ot [...] J01.90 ACUTE SINUSITIS, UNSPECIFIED 12/13/2016 TAYLA GRACIA ASBESTOS SHINGLE INSPECTOR Ot M54.5 LOW BACK PAIN 12/15/2016 TAYLA GRACIA ASBESTOS SHINGLE INSPECTOR Ot M54.5 LOW BACK PAIN 12/15/2016 TAYLA GRACIA ASBESTOS SHINGLE INSPECTOR Ot M54.5 LOW BACK PAIN 12/19/2016 TAYLA GRACIA ASBESTOS SHINGLE INSPECTOR Ot M54.5 LOW BACK PAIN 12/30/2016 TAYLA GRACIA ASBESTOS SHINGLE INSPECTOR Ot M54.5 LOW BACK PAIN 01/04/2017 TAYLA GRACIA ASBESTOS SHINGLE INSPECTOR Ot M54.5 LOW BACK PAIN 05/19/2017 HUGH [...] 07/20/2017 RAMIRO FRAZIER MD Ot 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 07/26/2017 RAMIRO FRAZIER MD [...] 07/26/2017 RAMIRO FRAZIER MD Ot Z79.899 OTHER SENIOR LIVING (CURRENT) DRUG THERAPY 07/28/2017 RAMIRO FRAZIER MD Ot F17.210 NICOTINE DEPENDENCE, CIGARETTES, UNCOMPL 07/28/2017 RAMIRO FRAZIER MD Ot F43.10 POST-TRAUMATIC STRESS DISORDER, UNSPECIF 07/28/2017 RAMIRO FRAZIER MD Ot H65.23 CHRONIC SEROUS OTITIS MEDIA, BILATERAL 07/28/2017 RAMIRO FRAZIER MD Ot I10 ESSENTIAL (PRIMARY) HYPERTENSION 07/28/2017 RAMIRO FRAZIER MD Ot J34.89 OTHER SPECIFIED DISORDERS OF NOSE AND NA 07/28/2017 RAMIRO FRAZIER MD Ot Z79.899 OTHER SENIOR LIVING (CURRENT) DRUG THERAPY 12/26/2017 Lawrence Booth 382.9 [...] ALYSON STRICKLAND 06/20/2012 [facility], VIA [facility] 06/20/2012 63452 ROUTINE VENIPUNCTURE 08/07/2012 75321 XRAY LUMBAR SPINE 2 OR 3 VIEWS 08/07/2012 29614 CMP 08/07/2012 70787 URINE DRUG SCREEN (IN-HOUSE ) 08/07/2012 81251 TSH 08/07/2012 35303 CBC 08/07/2012 [facility], VIA [facility] 08/07/2012 70395 PSYCH DIAGNOSTIC EVALUATION 09/18/2012 06912 PSYTX PT&/FAMILY 45 MINUTES 09/18/2012 55091 URINE DRUG SCREEN (IN-HOUSE ) 10/09/2012 78344 URINE THC CON'F 10/19/2012 70904 PSYCH DIAG EVAL W/MED SRVCS 10/19/2012 04837 PSYTX PT&/FAMILY 30 MINUTES 10/19/2012 24521 PSYTX PT&/FAMILY 30 MINUTES 07/10/2013 73334 PSYTX PT&/FAMILY 45 MINUTES 08/02/2013 45443 ROUTINE VENIPUNCTURE 08/13/2013 57122 URINE DRUG SCREEN (IN-HOUSE ) 08/13/2013 2565360 GFR CALC (RESULT ONLY) 08/13/2013 08604 CMP 08/13/2013 75649 PSYTX PT&/FAMILY 45 MINUTES 08/22/2013 Results Test [...] Status Pt. Type Provider Facility Loc./Unit Complaint [id number] 09/08/2014 13:54:00 09/08/2014 23:59:59 CLS Outpatient BRAD REID MD [id number] 08/22/2014 13:39:00 08/22/2014 23:59:59 CLS Outpatient ERA DE JESUS DO [id number] 11/26/2013 09:50:00 11/26/2013 23:59:59 CLS Outpatient DE JESUS DO ERA Roberts [id number] 10/31/2013 15:25:00 10/31/2013 23:59:59 CLS Outpatient STELLA PARKER DEBBIE [id number] 10/31/2013 15:25:00 10/31/2013 23:59:59 CLS Outpatient DAVID DOUGLAS APRNETTE [id number] 09/17/2013 15:42:00 09/17/2013 23:59:59 CLS Outpatient ADA MARTÍNEZBHAVNA ZunigaHAN D [id number] 09/17/2013 15:42:00 09/17/2013 23:59:59 CLS Outpatient LITAFATIMAH MARTÍNEZHAN Zuniga [id number] 09/13/2013 10:16:00 09/13/2013 23:59:59 CLS Outpatient DE JESUS DOERA [id number] 08/21/2013 15:24:00 08/21/2013 23:59:59 [id number] 08/02/2013 16:57:00 08/02/2013 23:59:59 CLS Outpatient DE JESUS DOERA [id number] 07/29/2013 15:38:00 07/29/2013 23:59:59 CLS Outpatient DE JESUS DOERA [id number] 07/10/2013 11:00:00 07/10/2013 23:59:59 [facility] [id number] 12/04/2012 10:27:00 12/04/2012 23:59:59 CLS Outpatient BOB TOMAS DDS [id number] 08/07/2012 12:55:00 08/07/2012 23:59:59 CLS Outpatient DE JESUS DOERA [id number] 07/11/2012 18:40:00 07/11/2012 23:59:59 CLS Outpatient DE JESUS DOERA [id number] 06/20/2012 13:40:00 06/20/2012 23:59:59 CLS Outpatient [id number] 05/16/2012 14:37:00 05/16/2012 23:59:59 CLS Outpatient DE JESUS DOERA [id number] 02/28/2012 13:13:00 02/28/2012 23:59:59 CLS Outpatient BRISSA MARISCAL PHD [id number] 10/19/2012 10:23:00 Document Registration [id number] 10/03/2012 09:39:00 Document Registration [id number] 09/18/2012 09:39:00 Document Registration [id number] 08/03/2016 14:09:00 Document Registration [id number] 08/04/2016 06:08:00 Document Registration [id number] 12/26/2017 09:26:00 12/26/2017 10:22:00 DIS Outpatient Lawrence Booth [id number] 11/24/2016 10:06:00 11/24/2016 10:50:00 DIS Outpatient MaherNathan [id number] 08/08/2016 17:36:00 08/08/2016 18:01:00 DIS Outpatient [place] [facility] [place] [id number] 08/08/2016 17:42:02 Document Registration [id number] 12/22/2017 16:00:00 12/22/2017 23:59:59 CLS Outpatient JEANETTE TORRES, [facility] [id number] 06/26/2017 13:20:00 Document Registration [id number] 01/27/2018 11:13:00 01/27/2018 12:09:00 DIS Outpatient SEA DAVID Via [facility] ER EAR INFECTION [id number] 07/20/2017 06:55:00 07/20/2017 10:13:00 DIS Out[facility]IT[facility] MEDIA [id number] 07/17/2017 11:58:00 07/17/2017 12:25:00 DIS Outpatient RAMIRO FRAZIER MD Via [facility] PREOP CHRONIC SEROUS OTITIS MEDIA [id number] 05/19/2017 11:50:00 05/19/2017 13:14:00 DIS Emergency HUGH YORK Via [facility] ER LT EAR PAIN [id number] 12/30/2016 13:30:00 01/04/2017 16:09:00 DIS Outpatient TAYLA GRACIA [facility] REHAB LOW BACK PAIN [id number] 08/07/2016 16:06:00 08/07/2016 16:57:00 DIS Emergency RYLEE BENNETT MD Via [facility] ER L HAND LAC [id number] 05/01/2016 17:49:00 05/01/2016 19:54:00 DIS Emergency MICKEY TORRES, TITO Robles Via [facility] ER L ANKLE INJ [id number] 06/22/2015 13:48:00 06/22/2015 15:53:00 DIS Emergency BERGER DO, ADRIANA L Via [facility] ER SYNCOPAL EPISODE, GROIN PAIN [id number] 04/16/2015 10:26:00 04/16/2015 11:26:00 DIS Emergency TATE TORRES, EMI Harden Via [facility] ER RIGHT SHOULDER PAIN [id number] 08/30/2013 17:50:00 08/30/2013 21:57:00 DIS Emergency MICKEY TORRES, TITO Robles Via [facility] ER PASSED OUT; HEAD INJ [id number] 02/03/2018 21:42:00 ACT Emergency KEI TORRES, EL Workman Via [facility] ER LEFT EAR HURTING [id number] 01/04/2018 10:21:00 Document Registration [id number] 12/30/2017 15:37:00 Document Registration [id number] 04/16/2015 10:26:00 Document Registration [id number] 04/16/2015 10:26:00 Document Registration [id number] 06/26/2012 08:20:00 Document Registration [id number] 05/13/2012 11:19:00 Document Registration [id number] 01/10/2012 10:51:00 Document Registration [id number] 06/29/2010 00:00:00 Document Registration [id number] 03/30/2010 14:44:00 Document Registration [id number] 03/27/2010 15:43:00 Document Registration
== END 2018-02-04 14:23 | disposition left against medical advice (07) ==
LOC: EDUNIT# 12:24 → ER 12:25
DX: H66.90 Otitis media, unspecified, unspecified ear (principal)

== ENCOUNTER 2018-04-04 10:05 | Emergency (ER) | payer MEDICAID ==
--- OUTSIDE RECORDS SUMMARY | 2018-04-04 15:31 | XMS REPORT ---
Author Author BRAD REID [facility] Address [address] [place] [address] Care Team Providers [employer] Inspector Name Role Phone BRAD REID Unavailable PROBLEMS Type Condition ICD9-CM Code UJE19-MA Code Onset Dates Condition Status SNOMED Code Problem Syncopal episodes R55 Active 556633308 Problem Depressed F32.9 Active 34021113 Problem Chronic pain G89.29 Active 36501168 Problem Elevated liver enzymes R74.8 Active 033197630 Problem Neuropathy G62.9 Active 198973290 Problem HTN (hypertension) I10 Active 02934750 Problem Cervical radiculopathy M54.12 Active 00813929 Problem Low back pain M54.5 Active 877152826 Problem Post traumatic stress disorder (PTSD) F43.10 Active 88732272 Problem Adjustment disorder with depressed mood F43.21 Active 31909076 Problem Neck muscle strain, initial encounter S16.1XXA Active 136692633 Problem Kidney stones N20.0 Active 56917733 ALLERGIES No Information ENCOUNTERS Encounter Location Date Diagnosis [place] [id number] [place] [address]- [address]134 Dec, Cervical radiculopathy M54.12 [place] [address] [address] Dec, Cervical radiculopathy M54.12 and HTN (hypertension) I10 [place] [address] [address]- [address] Jul, HTN (hypertension) I10 ; Neuropathy G62.9 and Depressed F32.9 [place] [id number] [place] [address] 11103- 0070 05 Jun, 2017 Myalgia M79.1 ; Abnormal LFTs R94.5 ; Neuropathy G62.9 ; Low back pain M54.5 and Adjustment disorder with depressed mood F43.21 [facility] [id number] [place] [address] 48108- 1708 May, [facility] [id number] [place] [address] -4530 May, Other acute nonsuppurative otitis media of left ear, recurrence not specified H65.192 and Acute otitis externa of left ear, unspecified type H60.[address] [facility] [id number] [place] [address] 36234 -0329 Nov, Acute otitis externa of left ear, unspecified type H60.502 [place] [id number] [place] [address] 10015- 3253 Oct, HTN (hypertension) I10 ; Neuropathy G62.9 ; Chronic pain G89.29 ; Low back pain M54.5 ; Neck muscle strain, initial encounter S16.1XXA ; Depressed F32.9 and Adjustment disorder with depressed mood F43.21 [place] [place] [id number] [place] [address] 92004- 8991 Oct, [place] [id number] [place] [address] 92051- 4613 Oct, Depressed F32.9 [place] [id number] [place] [address] 00832- 2064 Aug, Chronic pain G89.29 [place] [facility] [id number] [place] [address] 02098- 5457 Aug, Chronic pain G89.29 [place] [place] [id number] [place] [address] 47315- 1707 Aug, Chronic pain G89.29 [place] [id number] [place] [address] 90636- 1365 Jul, HTN (hypertension) I10 ; Chronic pain G89.29 ; Depressed F32.9 ; Post traumatic stress disorder (PTSD) F43.10 and Right elbow pain M25.521 [facility] [id number] [place] [address] 24739- 9401 14 Jul, 2016 HTN (hypertension) I10 ; Neuropathy G62.9 ; Adjustment disorder with depressed mood F43.21 ; Chronic pain G89.29 ; Kidney stones N20.0 and Screening cholesterol level Z13.220 [place] [address] [address]- 1587 13 Jul, 2016 Adjustment disorder with depressed mood F43.21 ; Post traumatic stress disorder (PTSD) F43.10 ; Depressed F32.9 and Chronic pain G89.29 [place] [address] 8[address]53- 4051 Jul, Depressed F32.9 ; Chronic pain G89.29 ; Neuropathy G62.9 ; Adjustment disorder with depressed mood F43.21 and Post traumatic stress disorder (PTSD) F43.10 [place] [id number] [place] [address] 05777- 2677 Jul, [place] [id number] [place] [address] 19412- 3880 Jul, [place] [address] 83497- 2082 Jun, HTN (hypertension) I10 ; Syncopal episodes R55 ; Depressed F32.9 and Chronic pain G89.29 [place] [place] [id number] [place] [address] 40739- 1866 May, [place] [id number] [place] [address] 88976- 3704 May, [place] [address] 71172- 0502 Mar, [place] [id number] [place] [address] 16768- 8927 Feb, HTN (hypertension) I10 ; Leg pain M79.606 and Neuropathy G62.9 [place] [address] [address] 10 Jan, 2015 Major depressive disorder, recurrent episode, severe, without mention of psychotic behavior 296.33 ; Generalized anxiety disorder 300.02 and Posttraumatic stress disorder 309.81 [facility] [id number] [address] 477[address] 10 Jan, 2015 Acute bronchitis 466.0 and Back pain 724.5 [facility] [id number] [place] [address] 56477- 4256 17 Oct, 2014 [facility] [id number] [place] [address] 984102- 4990 Aug, [facility] [id number] [place] [address] 76779- 9276 Aug, [facility] [id number] [address] 7210 Jul, [facility] [id number] [place] [address] 61528- 6199 Jul, [facility] [address] [address]- 0387 Dec, [facility] [address] [place] [address] 3921 Dec, [facility] [address] [place] [address]- 6640 Nov, [facility] [address] [address] Nov, [facility] [address] [address] Oct, [facility] [address] [address] Oct, [facility] [address] [place] [address]- 6855 September, [facility] [id number] [place] [address] [place] [address]- 7890 September, [facility] [place] [facility] [address] [id number] [place] [address]- 2828 Aug, [facility] [place] [facility] [address] [id number] [place] [address]- 5360 Aug, [facility] [place] [facility] [address] [id number] [place] [address]- 0385 Aug, [facility] [place] [facility] [address] [id number] [place] [address]- 9763 Aug, [facility] [place] [facility] [address] [id number] [place] [address]- 3079 Aug, [facility] [place] [facility] [address] [id number] [place] [address]- 4789 Aug, [facility] [place] [facility] [address] [id number] [place] [address]- 7671 Aug, [facility] [place] [facility] [address] [id number] [place] [address]- 9652 Aug, [facility] [place] [facility] [address] [id number] [place] [address]- 3631 Jul, [facility] [place] [facility] [address] [id number] [place] [address]- 7457 Jul, [facility] [place] [facility] [address] [id number] [place] [address]- 6956 Jul, [facility] [place] [facility] [address] [id number] [place] [address]- 4609 Jul, [facility] [place] [facility] [address] [id number] [place] [address]- 0769 Jul, [facility] [place] [facility] [address] [id number] [place] [address]- 0498 Jul, [facility] [place] [facility] [address] [id number] [place] [address]- 9910 Jul, [facility] [place] [facility] [address] [id number] [place] [address]- 0253 14 Jul, 2013 [facility] [place] [facility] [address] [id number] [place] [address]- 7579 10 Jul, 2013 [facility] [place] [facility] [address] [id number] [place] [address]- 5375 10 Jul, 2013 [facility] [place] [facility] [address] [id number] [place] [address]- 7530 Jun, [facility] [place] [facility] [address] [id number] [place] [address]- 4537 Jun, [facility] [place] [facility] [address] [id number] [place] [address]- 2035 Jun, [facility] [place] [facility] [address] [id number] [place] [address]- 9743 Jun, [facility] [place] [facility] [address] [id number] [place] [address]- 3246 Jan, [facility] [place] [facility] [address] [id number] [place] [address]- 9848 Dec, [facility] [place] [facility] [address] [id number] [place] [address]- 0287 Nov, [facility] [place] [facility] [address] [id number] [place] [address]- 9280 Oct, [facility] [place] [facility] [address] [id number] [place] [address]- 0940 September, [facility] [place] [facility] [address] [id number] [place] [address]- 0313 September, [facility] [place] [facility] [address] [id number] [place] [address]- 2686 September, [facility] [place] [facility] [address] [id number] [place] [address]- 2900 September, [facility] [place] [facility] [address] [id number] [address]- 4221 Aug, [facility] [address] [id number] [place] [address]- 5196 Aug, [facility] [place] [facility] [address] [id number] [place] [address]- 7427 Jul, [facility] [address] [facility] [id number] [place] [address]- 3046 Jul, [facility] [place] [facility] [address] [id number] [place] [address]- 0678 Jun, [facility] [address] [id number] [place] [address]- 1082 Jun, [facility] [place] [facility] [address] [facility] [id number] [place] [address]- 2335 Jun, [facility] [address] [facility] [id number] [place] [address]- 6281 May, [facility] [address] [id number] [place] [address]- 7460 May, [facility] [address] [facility] [id number] [place] [address]- 6887 Apr, [facility] [address] [facility] [id number] [place] [address]- 0602 Apr, [facility] [address] [id number] [place] [address]- 6556 Mar, [facility] [place] [facility] [address] [id number], [place] [address]- 6619 Mar, [facility] [place] [facility] [address] [id number] [place] [address]- 4134 Mar, [facility] [place] [facility] [address] [facility] [id number] [place] [address]- 3841 14 Mar, 2012 [facility] [place] [facility] [address] [facility] [id number] [place] [address]- 9934 Feb, [facility] [place] [facility] [address] [facility] [id number] [place] [address]- 0011 Mar, [facility] [address] [facility] [id number] [place] [address]- 3122 Feb, IMMUNIZATIONS No Known Immunizations SOCIAL HISTORY Never Assessed REASON FOR VISIT PLAN OF CARE VITAL SIGNS MEDICATIONS Unknown Medications RESULTS No Results PROCEDURES No Known [...]
--- OUTSIDE RECORDS SUMMARY | 2018-04-04 15:36 | XMS REPORT | Continuity of Care Document ---
Author Author [facility] Address Unknown Phone Unavailable Allergies Active Description Code Type Severity Reaction Onset Reported/Identified Relationship to Patient Clinical Status Yes NO KNOWN DRUG ALLERGIES NO KNOWN DRUG ALLERG UNKNOWN Yes NO KNOWN DRUG ALLERGIES UNKNOWN NO KNOWN DRUG ALLERG Yes No Known Drug Allergies [id number] Drug Allergy Mild N/A 10/29/2008 Yes buspirone [...] DDS V58.69 MEDICATION HIGH RIS[facility] RIS[facility] 01/31/2008 LIZA VALENCIA ERA K V58.69 MEDICATION HIGH RISK 01/31/2008 DE JESUS DO ERA K V58.69 MEDICATION HIGH RISK 01/31/2008 [facility], JOSEE R V58.69 MEDICATION HIGH [...] B 848.9 SPRAIN/STRAIN OTHER UNSPEC SITE 02/27/2008 [facility], JOSEE R 848.9 SPRAIN/STRAIN OTHER UNSPEC SITE 02/27/2008 LIZA VALENCIA ERA K 848.9 SPRAIN/STRAIN OTHER UNSPEC SITE 02/27/2008 DE JESUS DO ERA K 848.9 SPRAIN/STRAIN OTHER UNSPEC SITE 02/27/2008 [facility], JOSEE R 848.9 SPRAIN/STRAIN OTHER [...] 300.01 AN PANIC DIS W/O AGORA 06/25/2008 [facility], JOSEE R 296.80 MO BIPOLAR NOS 06/25/2008 [facility], JOSEE R 300.01 AN PANIC [...] SI DYSSOMNIA NOS 08/29/2008 DE JESUS DO, REA K 312.30 I IMPULSE CONTROL DISORDER NOS [...] 312.30 I IMPULSE CONTROL DISORDER NOS 08/29/2008 [facility] DDS, BOB B 300.00 AN ANXIETY UNSPEC 08/29/2008 [facility] DDS, BOB B 307.47 SI DYSSOMNIA NOS 08/29/2008 [facility] DDS, BOB B 312.30 I IMPULSE CONTROL DISORDER NOS 08/29/2008 [facility], JOSEE R 300.00 AN ANXIETY UNSPEC 08/29/2008 [facility], JOSEE R 307.47 SI DYSSOMNIA NOS 08/29/2008 [facility], JOSEE R 312.30 I IMPULSE [...] 312.30 I IMPULSE CONTROL DISORDER NOS 08/29/2008 [facility], JOSEE R 300.00 AN ANXIETY UNSPEC 08/29/2008 [facility], JOSEE R 307.47 SI DYSSOMNIA NOS 08/29/2008 [facility], JOSEE R 312.30 I IMPULSE CONTROL DISORDER NOS 08/29/2008 DE JESUS DO, ERA K 300.00 AN ANXIETY UNSPEC 08/29/2008 DE JESUS DO, ERA K 307.47 SI DYSSOMNIA NOS 08/29/2008 DE JESUS DO, ERA K 312.30 I IMPULSE CONTROL DISORDER NOS 08/29/2008 HAN CABALLERO APRN 300.00 AN ANXIETY UNSPEC 08/29/2008 HAN CAABLLERO APRN 307.47 SI DYSSOMNIA NOS 08/29/2008 HAN [...] I IMPULSE CONTROL DISORDER NOS 08/29/2008 STELLA AP OPERATOR, DEBBIE 300.00 AN ANXIETY UNSPEC 08/29/2008 STELLA PARKER DEBBIE 307.47 SI DYSSOMNIA NOS 08/29/2008 STELLA AP OPERATOR, DEBBIE 312.30 I IMPULSE CONTROL DISORDER [...] ERA K V61.10 RL RELATION COUNS 09/18/2008 [facility], JOSEE R 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 09/18/2008 [facility] 297.0 PARANOID STATE SIMPLE 09/18/2008 [facility] JO[facility] R 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 09/18/2008 [facility] JO[facility] R 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 09/18/2008 [facility] R 316 PF PSYCHIC FACTORS MED COND 09/18/2008 [facility] R V61.10 RL RELATION COUNS [...] APRN V61.10 RL RELATION COUNS 09/18/2008 STELLA AP OPERATOR, DEBBIE 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 09/18/2008 STELLA AP OPERATOR, DEBBIE 297.0 PARANOID STATE SIMPLE 09/18/2008 STELLA AP OPERATOR, DEBBIE 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 09/18/2008 STELLA AP OPERATOR, DEBBIE 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 09/18/2008 STELLA AP OPERATOR, DEBBIE 316 PF PSYCHIC FACTORS MED COND 09/18/2008 STELLA AP OPERATOR, DEBBIE V61.10 RL RELATION COUNS 09/18/2008 [...] K V61.10 RL RELATION COUNS 09/18/2008 STELLA AP OPERATOR, DEBBIE 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 09/18/2008 STELLA AP OPERATOR, DEBBIE 297.0 PARANOID STATE SIMPLE 09/18/2008 STELLA AP OPERATOR, DEBBIE 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 09/18/2008 STELLA AP OPERATOR, DEBBIE 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 09/18/2008 STELLA AP OPERATOR, DEBBIE 316 PF PSYCHIC FACTORS MED COND 09/18/2008 STELLA AP OPERATOR, DEBBIE V61.10 RL RELATION COUNS 09/18/2008 [...] BOB Schmidt 590.2 KIDNEY STONES 11/09/2008 [facility] JOSEE Watters 590.2 KIDNEY STONES 11/09/2008 DE JESUS DO, ERA K 590.2 KIDNEY STONES 11/09/2008 DE JESUS DO, ERA K 590.2 KIDNEY STONES 11/09/2008 [facility], JOSEE R 590.2 KIDNEY STONES 11/09/2008 DE JESUS DO, ERA K 590.2 KIDNEY STONES 11/09/2008 HAN CABALLERO APRN 590.2 KIDNEY STONES 11/09/2008 HAN CABALLERO APRN 590.2 KIDNEY STONES 11/09/2008 STELLA AP OPERATOR, DEBBIE 590.2 KIDNEY STONES 11/09/2008 DE JESUS DO, REA K 590.2 KIDNEY STONES 11/09/2008 STELLA AP OPERATOR, DEBBIE 590.2 KIDNEY STONES 11/09/2008 DAVEY [...] RESPIRATORY INFECTION 07/26/2010 466.0 BRONCHITIS, ACUTE 07/26/2010 [facility] DDS, BOB B 305.1 NONDEPENDENT TOBACCO USE DISORDER 07/26/2010 [facility] DDS, BOB B 465.9 UPPER RESPIRATORY INFECTION 07/26/2010 [facility] DDS, BOB B 466.0 BRONCHITIS, ACUTE 07/26/2010 [facility], JOSEE R 305.1 NONDEPENDENT TOBACCO USE DISORDER 07/26/2010 [facility], JOSEE R 465.9 UPPER RESPIRATORY INFECTION 07/26/2010 [facility], JOSEE R 466.0 BRONCHITIS, ACUTE 07/26/2010 DE JESUS DO, ERA K 305.1 NONDEPENDENT TOBACCO USE DISORDER 07/26/2010 DE JESUS DO, ERA K 465.9 UPPER RESPIRATORY INFECTION 07/26/2010 DE JESUS DO, EAR K 466.0 BRONCHITIS, ACUTE 07/26/2010 DE JESUS DO, ERA K 305.1 NONDEPENDENT TOBACCO USE DISORDER 07/26/2010 DE JESUS DO, ERA K 465.9 UPPER RESPIRATORY INFECTION 07/26/2010 DE JESUS DO, ERA K 466.0 BRONCHITIS, ACUTE 07/26/2010 [facility], JOSEE R 305.1 NONDEPENDENT TOBACCO USE DISORDER 07/26/2010 [facility], JOSEE R 465.9 UPPER RESPIRATORY INFECTION 07/26/2010 [facility], JOSEE R 466.0 BRONCHITIS, ACUTE [...] CABALLERO APRN 466.0 BRONCHITIS, ACUTE 07/26/2010 STELLA AP OPERATOR, DEBBIE 305.1 NONDEPENDENT TOBACCO USE DISORDER 07/26/2010 STELLA AP OPERATOR, DEBBIE 465.9 UPPER RESPIRATORY INFECTION 07/26/2010 STELLA AP OPERATOR, DEBBIE 466.0 BRONCHITIS, ACUTE 07/26/2010 DE JESUS DO, ERA K 305.1 NONDEPENDENT TOBACCO USE DISORDER 07/26/2010 DE JESUS DO, ERA K 465.9 UPPER RESPIRATORY INFECTION 07/26/2010 DE JESUS DO, ERA K 466.0 BRONCHITIS, ACUTE 07/26/2010 STELLA AP OPERATOR, DEBBIE 305.1 NONDEPENDENT TOBACCO USE DISORDER 07/26/2010 STELLA AP OPERATOR, DEBBIE 465.9 UPPER RESPIRATORY INFECTION 07/26/2010 STELLA AP OPERATOR, DEBBIE 466.0 BRONCHITIS, ACUTE 07/26/2010 DAEVY PHD, BRISSA Harden 305.1 NONDEPENDENT TOBACCO USE [...] joint pain, localized in the hip 09/20/2010 [facility] R 401.1 ESSENTIAL HYPERTENSION BENIGN 09/20/2010 [facility] JO[facility] R 719.45 joint pain, localized in the hip 09/20/2010 DE JESUS DO, ERA K 401.1 ESSENTIAL HYPERTENSION BENIGN 09/20/2010 DE JESUS DO, ERA K 719.45 joint pain, localized in the hip 09/20/2010 DE JESUS DO, ERA K 401.1 ESSENTIAL HYPERTENSION BENIGN 09/20/2010 DE JESUS DO, ERA K 719.45 joint pain, localized in the hip 09/20/2010 [facility] R 401.1 ESSENTIAL HYPERTENSION BENIGN 09/20/2010 [facility] JOSEE R 719.45 joint pain, localized [...] Schmidt 726.5 ENTHESOPATHY OF HIP REGION 09/30/2010 [facility], JOSEE R 726.5 ENTHESOPATHY OF HIP REGION 09/30/2010 JONNIE DE JESUS DOA K 726.5 ENTHESOPATHY OF HIP REGION 09/30/2010 JONNIE DE JESUS DOA K 726.5 ENTHESOPATHY OF HIP REGION 09/30/2010 [facility], JOSEE R 726.5 ENTHESOPATHY OF [...] BOB B 311 DEPRESSIVE DISORDER NOS 02/28/2012 [facility], JOSEE R 311 DEPRESSIVE DISORDER NOS 02/28/2012 ERA DE JESUS DO K 311 DEPRESSIVE DISORDER NOS 02/28/2012 ERA DE JESUS DO K 311 DEPRESSIVE DISORDER NOS 02/28/2012 [facility], JOSEE R 311 DEPRESSIVE DISORDER [...] YAP, BOB B 726.12 BICIPITAL TENOSYNOVITIS 05/16/2012 [facility], JOSEE R 726.12 BICIPITAL TENOSYNOVITIS 05/16/2012 ERA DE JESUS DO 726.12 BICIPITAL TENOSYNOVITIS 05/16/2012 ERA DE JESUS DO 726.12 BICIPITAL TENOSYNOVITIS 05/16/2012 [facility], JOSEE R 726.12 BICIPITAL TENOSYNOVITIS 05/16/2012 [...] IN JOINT INVOLVING SHOULDER REGION 06/20/2012 [facility] 719.41 PAIN IN JOINT INVOLVING SHOULDER [...] 724.2 LUMBAGO/ LOW BACK PAIN 08/07/2012 [facility] 724.2 LUMBAGO/ LOW BACK PAIN 08/07/2012 ERA DE JESUS DO 724.2 LUMBAGO/ LOW BACK PAIN 08/07/2012 ERA DE JESUS DO 724.2 LUMBAGO/ LOW BACK PAIN 08/07/2012 [facility], JOSEE R 724.2 LUMBAGO/ LOW BACK PAIN 08/07/2012 ERA DE JESUS DO 724.2 LUMBAGO/ LOW BACK PAIN 08/07/2012 HAN CABALLERO APRN 724.2 LUMBAGO/ LOW BACK PAIN 08/07/2012 HAN CABALLERO APRN 724.2 LUMBAGO/ LOW BACK PAIN 08/07/2012 STELLA AP OPERATOR, DEBBIE 724.2 LUMBAGO/ LOW BACK PAIN 08/07/2012 DE JESUS ERA VALENCIA K 724.2 LUMBAGO/ LOW BACK PAIN 08/07/2012 STELLA AP OPERATOR, DEBBIE 724.2 LUMBAGO/ LOW BACK PAIN [...] BEHAVIOR 09/17/2012 300.02 AN GEN ANXIETY 09/17/2012 [facility] DAVIDS, BOB B 296.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 09/17/2012 [facility] DDS, BOB B 300.02 AN GEN ANXIETY 09/17/2012 [facility], JOSEE R 296.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 09/17/2012 [facility], JOSEE R 300.02 AN GEN ANXIETY 09/17/2012 ERA DE JESUS DO 296.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 09/17/2012 ERA DE JESUS DO 300.02 AN GEN ANXIETY 09/17/2012 ERA DE JESUS DO 296.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 09/17/2012 ERA DE JESUS DO 300.02 AN GEN ANXIETY 09/17/2012 [facility], JOSEE R 296.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 09/17/2012 [facility], JOSEE R 300.02 AN GEN ANXIETY 09/17/2012 EAR DE JESUS DO 296.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 RECURRENT [...] DO 300.02 AN GEN ANXIETY 09/17/2012 STELLA AP OPERATOR, DEBBIE 296.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 RECURRENT SEVERE [...] AN PTSD 10/09/2012 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 10/09/2012 [facility] BOB YAP 309.81 AN PTSD 10/09/2012 [facility] BOB YAP 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 10/09/2012 [facility], JOSEE R 309.81 AN PTSD 10/09/2012 [facility], JOSEE R 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 10/09/2012 ERA DE JESUS DO 309.81 AN PTSD 10/09/2012 DE JESUS DO, ERA K 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 10/09/2012 DE JESUS DO, ERA K 309.81 AN PTSD 10/09/2012 DE JESUS DO, ERA K 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 10/09/2012 [facility], JOSEE R 309.81 AN PTSD 10/09/2012 [facility], JOSEE R 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 10/09/2012 DE JESUS DO, ERA K 309.81 AN PTSD 10/09/2012 DE JESUS DO ERA K 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 10/09/2012 GARFATIMAH AP OPERATORHAN Zuniga D 309.81 AN PTSD 10/09/2012 GARTON AP OPERATORHAN Zuniga D 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 10/09/2012 GARTON AP OPERATORHAN Zuniga D 309.81 AN PTSD 10/09/2012 ADA AP OPERATORHAN Zuniga D 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.] DO 296.32 MO DEPRESSIVE RECURRENT MODERATE 08/02/2013 [facility], JOSEE R 296.32 MO DEPRESSIVE [...] ALONE WITHOUT COMPLICATION 04/16/2015 Ot 592.0 04/16/2015 ATTE TORRES, EMI Harden Ot S43.401A UNSPECIFIED SPRAIN [...] 06/22/2015 BERGER , ADRIANA L Ot Y92.[address] [facility] PL[address] IN [facility] NON-INSTITUT (PRIVATE 06/22/2015 BERGER DO, ADRIANA L [...] AREVALO MD Ot Y92.[address] [facility] NON-INSTITUT (PRIVATE 05/01/2016 TITO AREVALO MD Ot [...] AREVALO MD Ot Y92.[address] [facility] NON-INSTITUT (PRIVATE 05/03/2016 TITO AREVALO MD Ot [...] AREVALO MD Ot Y92.[address] [facility] 05/07/2016 TITO AREVALO MD [...] J01.90 ACUTE SINUSITIS, UNSPECIFIED 12/13/2016 TAYLA GRACIA DENTAL HYGIENE TEACHER Ot M54.5 LOW BACK PAIN 12/15/2016 TAYLA GRACIA DENTAL HYGIENE TEACHER Ot M54.5 LOW BACK PAIN 12/15/2016 TAYLA GRACIA DENTAL HYGIENE TEACHER Ot M54.5 LOW BACK PAIN 12/19/2016 TAYLA GRACIA DENTAL HYGIENE TEACHER Ot M54.5 LOW BACK PAIN 12/30/2016 TAYLA GRACIA DENTAL HYGIENE TEACHER Ot M54.5 LOW BACK PAIN 01/04/2017 TAYLA GRACIA DENTAL HYGIENE TEACHER Ot M54.5 LOW BACK PAIN 05/19/2017 [...] 07/20/2017 RAMIRO FRAZIER MD Ot Z79.899 OTHER CAN BANDER OPERATOR (CURRENT) DRUG THERAPY 07/26/2017 RAMIRO FRAZIER MD [...] 07/26/2017 RAMIRO FRAZIER MD Ot Z79.899 OTHER SHELTER (CURRENT) DRUG THERAPY 07/28/2017 RAMIRO FRAZIER MD Ot F17.210 NICOTINE DEPENDENCE, CIGARETTES, UNCOMPL 07/28/2017 RAMIRO FRAZIER MD Ot F43.10 POST-TRAUMATIC STRESS DISORDER, UNSPECIF 07/28/2017 RAMIRO FRAZIER MD Ot H65.23 CHRONIC SEROUS OTITIS MEDIA, BILATERAL 07/28/2017 RAMIRO FRAZIER MD Ot I10 ESSENTIAL (PRIMARY) HYPERTENSION 07/28/2017 RAMIRO FRAZIER MD Ot J34.89 OTHER SPECIFIED DISORDERS OF NOSE AND NA 07/28/2017 RAMIRO FRAZIER MD Ot Z79.899 OTHER SHELTER (CURRENT) DRUG THERAPY 12/26/2017 Lawrence Booth 382.9 [...] Ot Z87.442 PERSONAL HISTORY OF URINARY CALCULI 01/27/2018 SEA DAVID Ot F12.10 CANNABIS ABUSE, UNCOMPLICATED 01/27/2018 BERNSEA WALTERS Ot F17.210 NICOTINE DEPENDENCE, CIGARETTES, UNCOMPL 01/27/2018 BERNOTSEA Ot F32.9 MAJOR DEPRESSIVE DISORDER, SINGLE EPISOD 01/27/2018 BERNOT, SEA Ot F41.9 ANXIETY DISORDER, UNSPECIFIED 01/27/2018 BERNOTISIDRAIS Ot F43.10 POST-TRAUMATIC STRESS DISORDER, UNSPECIF 01/27/2018 BERNOT, SEA Ot G40.909 EPILEPSY, UNSP, NOT INTRACTABLE, WITHOUT 01/27/2018 BERNOT, SEA Ot H66.92 OTITIS MEDIA, UNSPECIFIED, LEFT EAR 01/27/2018 BERNOT, SEA Ot H92.02 OTALGIA, LEFT EAR 01/27/2018 BERNOT, SEA Ot I10 ESSENTIAL (PRIMARY) HYPERTENSION 01/27/2018 BERNOT, SEA Ot Z87.442 PERSONAL HISTORY OF URINARY CALCULI 01/30/2018 DONOT, SEA Ot F12.10 CANNABIS ABUSE, UNCOMPLICATED 01/30/2018 BERNOT, SEA Ot F17.210 NICOTINE DEPENDENCE, CIGARETTES, UNCOMPL 01/30/2018 BERNOT, SEA Ot F32.9 MAJOR DEPRESSIVE DISORDER, SINGLE EPISOD 01/30/2018 BERNOT, SAE Ot F41.9 ANXIETY DISORDER, UNSPECIFIED 01/30/2018 BERNOT, SEA Ot F43.10 POST-TRAUMATIC STRESS DISORDER, UNSPECIF 01/30/2018 BERNOT, SEA Ot G40.909 EPILEPSY, UNSP, NOT INTRACTABLE, WITHOUT 01/30/2018 BERNOT, SEA Ot H66.92 OTITIS MEDIA, UNSPECIFIED, LEFT EAR 01/30/2018 BERNOT, SEA Ot H92.02 OTALGIA, LEFT EAR 01/30/2018 BERNOT, SEA Ot I10 ESSENTIAL (PRIMARY) HYPERTENSION 01/30/2018 DONOT, SEA Ot Z87.442 PERSONAL HISTORY OF URINARY CALCULI 02/02/2018 DONOT, SEA Ot F12.10 CANNABIS ABUSE, UNCOMPLICATED 02/02/2018 BERNOT, SEA Ot F17.210 NICOTINE DEPENDENCE, CIGARETTES, UNCOMPL 02/02/2018 BERNOT ESA Ot F32.9 MAJOR DEPRESSIVE DISORDER, SINGLE EPISOD 02/02/2018 BERNOT, SEA Ot F41.9 ANXIETY DISORDER, UNSPECIFIED 02/02/2018 BERNOT, SEA Ot F43.10 POST-TRAUMATIC STRESS DISORDER, UNSPECIF 02/02/2018 BERNOT, SEA Ot G40.909 EPILEPSY, UNSP, NOT INTRACTABLE, WITHOUT 02/02/2018 BERNOT, SEA Ot H66.92 OTITIS MEDIA, UNSPECIFIED, LEFT EAR 02/02/2018 BERNOT, SEA Ot H92.02 OTALGIA, LEFT EAR 02/02/2018 BERNOT, SEA Ot I10 ESSENTIAL (PRIMARY) HYPERTENSION 02/02/2018 SEA DAVID Ot Z87.442 PERSONAL HISTORY OF URINARY CALCULI 02/05/2018 Lawrence Booth 382.9 UNSPECIFIED OTITIS MEDIA 02/05/2018 Lawrence Booth H66.92 OTITIS MEDIA, UNSPECIFIED, LEFT EAR 02/06/2018 KEI TORRES, EL Workman Ot H92.02 OTALGIA, LEFT EAR 02/06/2018 PEYTON TORRES, BENIGNO Khalil Ot H66.90 OTITIS MEDIA, UNSPECIFIED, UNSPECIFIED E Procedures Code Description Performed By Performed On ORTHO ALYSON PISANO 05/16/2012 ORTHO ALYSON PISANO 06/20/2012 PHYSI PHYSICAL THERAPY, VIA LIZZIE 06/20/2012 60737 ROUTINE VENIPUNCTURE 08/07/2012 35639 XRAY LUMBAR SPINE 2 OR 3 VIEWS 08/07/2012 85171 CMP 08/07/2012 93439 URINE DRUG SCREEN (IN-HOUSE ) 08/07/2012 94067 TSH 08/07/2012 03744 CBC 08/07/2012 PHYSI PHYSICAL THERAPY, VIA LIZZIE 08/07/2012 31999 PSYCH DIAGNOSTIC EVALUATION 09/18/2012 54733 PSYTX PT&/FAMILY 45 MINUTES 09/18/2012 36974 URINE DRUG SCREEN (IN-HOUSE ) 10/09/2012 61258 URINE THC CON'F 10/19/2012 19488 PSYCH DIAG EVAL W/MED SRVCS 10/19/2012 53918 PSYTX PT&/FAMILY 30 MINUTES 10/19/2012 87366 PSYTX PT&/FAMILY 30 MINUTES 07/10/2013 75787 PSYTX PT&/FAMILY 45 MINUTES 08/02/2013 91046 ROUTINE VENIPUNCTURE 08/13/2013 16187 URINE DRUG SCREEN (IN-HOUSE ) 08/13/2013 5982488 GFR CALC (RESULT ONLY) 08/13/2013 97845 CMP 08/13/2013 30425 PSYTX PT&/FAMILY 45 MINUTES 08/22/2013 Results Test [...] Status Pt. Type Provider Facility Loc./Unit Complaint [id number] 09/08/2014 13:54:00 09/08/2014 23:59:59 CLS Outpatient BRAD REID MD [id number] 08/22/2014 13:39:00 08/22/2014 23:59:59 CLS Outpatient ERA DE JESUS DO [id number] 11/26/2013 09:50:00 11/26/2013 23:59:59 CLS Outpatient ERA DE JESUS DO [id number] 10/31/2013 15:25:00 10/31/2013 23:59:59 CLS Outpatient DEBBIE DOUGLAS APRN [id number] 10/31/2013 15:25:00 10/31/2013 23:59:59 CLS Outpatient DEBBIE DOUGLAS APRN [id number] 09/17/2013 15:42:00 09/17/2013 23:59:59 CLS Outpatient HAN CAABLLERO APRN [id number] 09/17/2013 15:42:00 09/17/2013 23:59:59 CLS Outpatient HAN CABALLERO APRN [id number] 09/13/2013 10:16:00 09/13/2013 23:59:59 CLS Outpatient ERA DE JESUS DO [id number] 08/21/2013 15:24:00 08/21/2013 23:59:59 CLS Outpatient TOMASA LSCS, JOSEE Duong [id number] 08/02/2013 16:57:00 08/02/2013 23:59:59 CLS Outpatient ERA DE JESUS DO Alejandra [id number] 07/29/2013 15:38:00 07/29/2013 23:59:59 CLS Outpatient ERA DE JESUS DO Alejandra [id number] 07/10/2013 11:00:00 07/10/2013 23:59:59 CLS Outpatient TOMASA LSCS, JOSEE Duong [id number] 12/04/2012 10:27:00 12/04/2012 23:59:59 CLS Outpatient GENOVEVA DDSJAISONEDILBERTO Schmidt [id number] 08/07/2012 12:55:00 08/07/2012 23:59:59 CLS Outpatient ERA DE JESUS DO Alejandra [id number] 07/11/2012 18:40:00 07/11/2012 23:59:59 CLS Outpatient JONNIE DE JESUS DODereck Roberts [id number] 06/20/2012 13:40:00 06/20/2012 23:59:59 CLS Outpatient [id number] 05/16/2012 14:37:00 05/16/2012 23:59:59 CLS Outpatient ERA DE JESUS DO Alejandra [id number] 02/28/2012 13:13:00 02/28/2012 23:59:59 CLS Outpatient BRISSA MARISCAL PHD [id number] 10/19/2012 10:23:00 Document Registration [id number] 10/03/2012 09:39:00 Document Registration [id number] 09/18/2012 09:39:00 Document Registration [id number] 08/03/2016 14:09:00 Document Registration [id number] 08/04/2016 06:08:00 Document Registration [id number] 02/05/2018 12:56:00 02/05/2018 14:35:00 DIS Outpatient Lawrence Booth [facility] [id number] 12/26/2017 09:26:00 12/26/2017 10:22:00 DIS Outpatient Lawrence Booth [id number] 11/24/2016 10:06:00 11/24/2016 10:50:00 DIS Outpatient Nathan Maher [id number] 08/08/2016 17:36:00 08/08/2016 18:01:00 DIS Outpatient [place], [facility] [place] [id number] 08/08/2016 17:42:02 Document Registration [id number] 12/22/2017 16:00:00 12/22/2017 23:59:59 CLS Outpatient BRAD REID MD [facility] [id number] 06/26/2017 13:20:00 Document Registration [id number] 02/04/2018 12:25:00 02/04/2018 14:23:00 DIS Outpatient PEYTON TORRES, BENIGNO Khalil [facility] ER EAR INFECTION [id number] 02/03/2018 21:42:00 02/03/2018 23:59:59 CLS Outpatient KEI TORRES, EL Workman [facility] ER LEFT EAR HURTING [id number] 01/27/2018 11:13:00 01/27/2018 12:09:00 DIS Emergency SEA DAVID [facility] ER EAR INFECTION [id number] 07/20/2017 06:55:00 07/20/2017 10:13:00 DIS Outpatient [facility] CHRONIC SEROUS OTITIS MEDIA [id number] 07/17/2017 11:58:00 07/17/2017 12:25:00 DIS Outpatient RAMIRO FRAZIER MD Via [facility] PREOP CHRONIC SEROUS OTITIS MEDIA [id number] 05/19/2017 11:50:00 05/19/2017 13:14:00 DIS Emergency HUGH YORK [facility] ER LT EAR PAIN [id number] 12/30/2016 13:30:00 01/04/2017 16:09:00 DIS Outpatient TAYLA GRACIA DENTAL HYGIENE TEACHER Via [facility] REHAB LOW BACK PAIN [id number] 08/07/2016 16:06:00 08/07/2016 16:57:00 DIS Emergency RYLEE BENNETT MD Via [facility] ER L HAND LAC [id number] 05/01/2016 17:49:00 05/01/2016 19:54:00 DIS Emergency TITO AREVALO MD Via [facility] ER L ANKLE INJ [id number] 06/22/2015 13:48:00 06/22/2015 15:53:00 DIS Emergency CELINE VALENCIA, ADRIANA Thompson [facility] ER SYNCOPAL EPISODE, GROIN PAIN [id number] 04/16/2015 10:26:00 04/16/2015 11:26:00 DIS Emergency TATE TORRES, EMI Harden [facility] ER RIGHT SHOULDER PAIN [id number] 08/30/2013 17:50:00 08/30/2013 21:57:00 DIS Emergency MICKEY TORRES, TITO Robles [facility] ER PASSED OUT; HEAD INJ [id number] 01/04/2018 10:21:00 Document Registration [id number] 12/30/2017 15:37:00 Document Registration [id number] 04/16/2015 10:26:00 Document Registration [id number] 04/16/2015 10:26:00 Document Registration [id number] 06/26/2012 08:20:00 Document Registration [id number] 05/13/2012 11:19:00 Document Registration [id number] 01/10/2012 10:51:00 Document Registration [id number] 06/29/2010 00:00:00 Document Registration [id number] 03/30/2010 14:44:00 Document Registration [id number] 03/27/2010 15:43:00 Document Registration
== END 2018-04-04 12:01 | disposition left against medical advice (07) ==
LOC: EDUNIT# 10:05 → ER 10:07
DX: M54.9 Dorsalgia, unspecified (principal)

== ENCOUNTER 2018-05-21 12:41 | Emergency (ER) | payer MEDICAID ==
--- NOTE | 2018-05-21 13:35 | NUR ---
CAME TO WAITING ROOM, ANNOUNCED PT'S NAME THREE TIMES, NO RESPONSE.
== END 2018-05-21 13:35 | disposition left against medical advice (07) ==
LOC: EDUNIT# 12:41 → ER 12:42
DX: H66.90 Otitis media, unspecified, unspecified ear (principal)

== ENCOUNTER 2018-06-05 18:02 | Emergency (ER) | payer MEDICAID ==
[~2018-06-05] VITALS: Ht 182.9 cm; Wt 104.3 kg
[2018-06-05] MEDS ORDERED: OFLO5DRO7 RIGHT EAR (18:48)
[2018-06-05] MEDS ORDERED: HYDR-4226 PO (18:48)
--- NOTE | 2018-06-05 18:48 | ED EENT ---
History of Present Illness General Chief Complaint: Ear Problems Stated Complaint: L EAR PAIN,LEAKING Nursing Triage Note: PT PRESENTS TO ED WITH COMPLAINTS OF L EAR PAIN SINCE 06/02/18. PT REPORTS HE HAS HAD CHRONIC EAR INFECTIONS X 1 YEAR AND TUBES PLACED LAST JUNE. Source: patient Exam Limitations: no limitations History of Present Illness Date Seen by Provider: Jun 05, 2018 Time Seen by Provider: 18:44 Initial Comments To ER with reports of left ear pain and drainage for the past 2-3 days. He states that he has troubles with this ear and does follow with Dr. Juarez. Timing/Duration: other (getting worse) Severity: moderate Location: ear (L) Prearrival Treatment: no prearrival treatment Associated Symptoms: denies symptoms Allergies and Home Medications Allergies Coded Allergies: No Known Drug Allergies (Unverified , 10/29/08) Home Medications Cefdinir 300 Mg Capsule, 300 MG PO BID Prescribed by: SEA DAVID on 01/27/18 1204 Ciprofloxacin HCl 5 Ml Drops, 3 DROPS OP BID 3 Drops Each Ear Prescribed by: ALEX CHANEY on 07/20/17 0958 Gabapentin 800 Mg Tablet, 800 MG PO QID, (Reported) Hydrocodone Bit/Acetaminophen 1 Tab Tab, 1 EACH PO Q6H PRN for PAIN-MODERATE Prescribed by: BENIGNO TODD on 12/30/17 1600 Hydrocodone Bit/Acetaminophen 1 Tab Tab, 1 EACH PO Q6H PRN for PAIN Prescribed by: SEA DAVID on 01/27/18 1204 Hydrocodone/Acetaminophen 1 Each Tablet, 1 EACH PO Q4H Prescribed by: ALEX CHANEY on 07/20/17 0958 Hydrocodone/Acetaminophen 1 Each Tablet, 1 EACH PO Q6H PRN for PAIN-MODERATE TO SEVERE Do not fill until antifungal eardrops yesterday by Dr [facility] are filled. Prescribed by: SOBIA MORALES on 01/04/18 1054 Patient Home Medication List Home Medication List Reviewed: Yes Review of Systems Review of Systems Constitutional: see HPI Eyes: No Symptoms Reported Ears: No Symptoms Reported Nose: no symptoms reported Mouth: no symptoms reported Throat: no symptoms reported Respiratory: no symptoms reported Cardiovascular: no symptoms reported Musculoskeletal: no symptoms reported Skin: no symptoms reported Past Bdkdjzi-Plaqjk-Aitwra Hx Patient Social History Alcohol Use: Denies Use Recreational Drug Use: No Drug of Choice: marijuana Smoking Status: Current Everyday Smoker Type Used: Cigarettes Recent Foreign Travel: No Contact w/Someone Who Travel: No Recent Infectious Disease Expo: No Recent Hopitalizations: No Physical Abuse: No Sexual Abuse: No Mistreated: No Fear: No Seasonal Allergies Seasonal Allergies: No Past Medical History Surgeries: Yes (right hand surgery fx repair, 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) Ear Surgery, Gallbladder Respiratory: No Cardiac: Yes Hypertension Neurological: No Seizure Disorder Reproductive Disorders: No Genitourinary: Yes Kidney Stones Gastrointestinal: No Musculoskeletal: Yes Arthritis, Chronic Back Pain Endocrine: No HEENT: Yes (Tubes in Ears) Chronic Ear Infection Cancer: No Psychosocial: No Anxiety, PTSD, Depression Integumentary: No Blood Disorders: No Family Medical History No Pertinent Family Hx Physical Exam Vital Signs Vital Signs - First Documented 06/05/18 18:21 Temp 98.5 Pulse 93 Resp 18 B/P (MAP) 108/61 (77) Pulse Ox 95 Height, Weight, BMI Height: 6'0" Weight: 230lbs. 2.0oz. 104.970076ha; 32.3 BMI Method:Stated General Appearance: WD/WN, no apparent distress Eyes: bilateral eye normal inspection, bilateral eye PERRL, bilateral eye EOMI Ears: left ear other (canal swelling and moist) Neck: non-tender, full range of motion Respiratory: no respiratory distress, no accessory muscle use Neurologic/Psychiatric: normal mood/affect, oriented x 3 Skin: normal color, warm/dry Progress/Results/Core Measures Results/Orders Vital Signs/I&O 06/05/18 18:21 Temp 98.5 Pulse 93 Resp 18 B/P (MAP) 108/61 (77) Pulse Ox 95 Blood Pressure Mean: 77 Departure Impression Primary Impression: Otitis externa Qualified Codes: H60.392 - Other infective otitis externa, left ear Disposition: 01 HOME, SELF-CARE Condition: Stable Departure-Patient Inst. Decision time for Depature: 18:46 Referrals: BRAD REID MD (PCP/Family) Primary Care Physician Patient Instructions: Outer Ear Infection (DC) Add. Discharge Instructions: 1. Call Dr. Juarez tomorrow to make an appointment to be seen for follow-up. Return to ER for any concerns. All discharge instructions reviewed with patient and/or family. Voiced understanding. Scripts Hydrocodone/Acetaminophen ([place] 5-325 Tablet) 1 Each Tablet 1 EACH PO Q6H PRN for PAIN-MODERATE MDD 10, #10 TAB Do not fill unless antibiotic ear drops are also filled Prov: SOBIA MORALES APRN 06/05/18 Ofloxacin (Floxin (Non-Formulary)) 5 Ml Drops 10 DROPS RIGHT EAR BID for 5 Days, #1 DROPS 1 Refill Prov: SOBIA MORALES APRN 06/05/18 Work/School Note: Work Release Form Date Seen in the Emergency Department: Jun 05, 2018 Return to Work: Jun 06, 2018 SOBIA MORALES APRN Jun 05, 2018 18:48
[2018-06-05 18:56] VITALS: BP 126/68
== END 2018-06-05 18:56 | disposition home or self-care (01) ==
LOC: EDUNIT# 18:02 → ER 18:03
DX: H60.92 Unspecified otitis externa, left ear (principal); I10 Essential (primary) hypertension; G40.909 Epilepsy, unspecified, not intractable, without status epilepticus; F41.9 Anxiety disorder, unspecified; F43.10 Post-traumatic stress disorder, unspecified; F32.9 Major depressive disorder, single episode, unspecified; F12.10 Cannabis abuse, uncomplicated; F17.210 Nicotine dependence, cigarettes, uncomplicated; Z98.890 Other specified postprocedural states; Z87.442 Personal history of urinary calculi
CPT/HCPCS: 99282

== ENCOUNTER 2018-06-24 12:10 | Emergency (ER) | payer MEDICAID ==
[~2018-06-24] VITALS: Ht 182.9 cm; Wt 113.4 kg
[~2018-06-24 12:10] MED LIST changes: +GABA800T10 PO; -GABA800T2 PO; +OFLO5DRO7 RIGHT EAR
--- OUTSIDE RECORDS SUMMARY | 2018-06-24 12:17 | XMS REPORT | Continuity of Care Document ---
Author Author [facility] Address Unknown Phone Unavailable Allergies Active Description Code Type Severity Reaction Onset Reported/Identified Relationship to Patient Clinical Status Yes NO KNOWN DRUG ALLERGIES NO KNOWN DRUG ALLERG UNKNOWN Yes NO KNOWN DRUG ALLERGIES UNKNOWN NO KNOWN DRUG ALLERG Yes No Known Drug Allergies [id number] Drug Allergy Mild N/A 10/29/2008 Yes buspirone [...] 1 GM (ROCEPHIN) GM 12/26/2017 12/26/2017 ONCE&1000 KETOROLAC VIAL INJ 60 MG/2CC (TORADOL VIAL) MG 04/04/2018 04/04/2018 [id number]&1255 Problems Date Dx Coded Attending Type Code [...] TOMAS DDS V58.69 MEDICATION HIGH RISK 01/31/2008 [facility], JOSEE R V58.69 MEDICATION HIGH RISK 01/31/2008 ERA DE JESUS DO K V58.69 MEDICATION HIGH RISK 01/31/2008 DE JESUS JONNIE VALENCIAA K V58.69 MEDICATION HIGH RISK 01/31/2008 [facility], JOSEE R V58.69 MEDICATION HIGH RISK 01/31/2008 ERA DE JESUS DO V58.69 MEDICATION HIGH RISK 01/31/2008 HAN CABALLERO APRN V58.69 MEDICATION HIGH RISK 01/31/2008 HAN CABALLERO APRN V58.69 MEDICATION HIGH RISK 01/31/2008 STELLADEBBIE OJEDA APRN V58.69 MEDICATION HIGH RISK 01/31/2008 JONNIE DE JESUS DOA K V58.69 MEDICATION HIGH RISK 01/31/2008 STELLA DEBBIE PARKER V58.69 MEDICATION HIGH RISK 01/31/2008 DAVEY LOU, BRISSA Harden V58.69 MEDICATION HIGH RISK 01/31/2008 ERA DE JESUS DO K V58.69 MEDICATION HIGH RISK 01/31/2008 JEANETTE TORRES, BRAD V58.69 MEDICATION HIGH RISK 02/27/2008 ERA DE JESUS DO K 848.9 SPRAIN/STRAIN OTHER UNSPEC SITE 02/27/2008 848.9 SPRAIN/STRAIN OTHER UNSPEC SITE 02/27/2008 ERA DE JESUS DO K 848.9 SPRAIN/STRAIN OTHER UNSPEC SITE 02/27/2008 ERA DE JESUS DO K 848.9 SPRAIN/STRAIN OTHER UNSPEC SITE 02/27/2008 848.9 SPRAIN/STRAIN OTHER UNSPEC SITE 02/27/2008 848.9 SPRAIN/STRAIN OTHER UNSPEC SITE 02/27/2008 848.9 SPRAIN/STRAIN OTHER UNSPEC SITE 02/27/2008 GENOVEVA DDS, BOB B 848.9 SPRAIN/STRAIN OTHER UNSPEC SITE 02/27/2008 [facility], JOSEE R 848.9 SPRAIN/STRAIN OTHER UNSPEC SITE 02/27/2008 ERA DE JESUS DO K 848.9 SPRAIN/STRAIN OTHER UNSPEC SITE 02/27/2008 ERA DE JESUS DO K 848.9 SPRAIN/STRAIN OTHER UNSPEC SITE 02/27/2008 [facility], JOSEE R 848.9 SPRAIN/STRAIN OTHER UNSPEC SITE 02/27/2008 ERA DE JESUS DO 848.9 SPRAIN/STRAIN OTHER UNSPEC SITE 02/27/2008 HAN CABALLERO APRN 848.9 SPRAIN/STRAIN OTHER UNSPEC SITE 02/27/2008 HAN CABALLERO APRN 848.9 SPRAIN/STRAIN OTHER UNSPEC SITE 02/27/2008 STELLARUSTY PARKER, DEBBIE 848.9 SPRAIN/STRAIN OTHER UNSPEC SITE 02/27/2008 ERA DE JESUS DO 848.9 SPRAIN/STRAIN OTHER UNSPEC SITE 02/27/2008 STELLA PSYCHIATRIC TECHNICIAN, DEBBIE 848.9 SPRAIN/STRAIN OTHER UNSPEC SITE 02/27/2008 DAVEY LOU, BRISSA Harden 848.9 SPRAIN/STRAIN OTHER UNSPEC SITE [...] 300.01 AN PANIC DIS W/O AGORA 06/25/2008 [facility], JOSEE Watters 296.80 MO BIPOLAR NOS 06/25/2008 [facility], JOSEE R 300.01 AN PANIC DIS W/O AGORA 06/25/2008 DE JESUS DO, ERA K 296.80 MO BIPOLAR NOS 06/25/2008 DE JESUS DO, ERA K 300.01 AN PANIC DIS W/O AGORA 06/25/2008 DE JESUS DO, ERA K 296.80 MO BIPOLAR NOS 06/25/2008 DE JESUS DO, ERA K 300.01 AN PANIC DIS W/O AGORA 06/25/2008 [facility], JOSEE R 296.80 MO BIPOLAR NOS 06/25/2008 [facility], JOSEE R 300.01 AN PANIC [...] 300.01 AN PANIC DIS W/O AGORA 06/25/2008 DEBBIE DOUGLAS APRN 296.80 MO BIPOLAR NOS 06/25/2008 STELLA PARKER DEBBIE 300.01 AN PANIC DIS W/O AGORA 06/25/2008 DE JESUS DO, ERA K 296.80 MO BIPOLAR NOS 06/25/2008 DE JESUS DOJONNIEA K 300.01 AN PANIC DIS W/O AGORA 06/25/2008 STELLARUSTY PARKER DEBBIE 296.80 MO BIPOLAR NOS 06/25/2008 STELLA KEITH DEBBIE 300.01 AN PANIC DIS W/O AGORA 06/25/2008 BRISSA MARISCAL PHD 296.80 MO BIPOLAR NOS 06/25/2008 BRISSA MARISCAL PHD 300.01 AN PANIC DIS W/O AGORA 06/25/2008 DE JESUS DO ERA K 296.80 MO BIPOLAR NOS 06/25/2008 DE JESUS DO, ERA K 300.01 AN PANIC DIS W/O AGORA 06/25/2008 BRAD REID MD 296.80 MO BIPOLAR NOS 06/25/2008 BRAD REID MD 300.01 AN PANIC DIS W/O AGORA 08/29/2008 DE JESUS DO ERA K 300.00 [...] IMPULSE CONTROL DISORDER NOS 08/29/2008 [facility] DDS, BOB B 300.00 AN ANXIETY UNSPEC 08/29/2008 [facility] DDS, BOB B 307.47 SI DYSSOMNIA NOS 08/29/2008 [facility] DDS, BOB B 312.30 I IMPULSE CONTROL DISORDER NOS 08/29/2008 [facility] 300[facility] AN ANXIETY UNSPEC 08/29/2008 [facility] 307.47 SI DYSSOMNIA NOS 08/29/2008 [facility] 312.30 I IMPULSE CONTROL DISORDER NOS 08/29/2008 JONNIE DE JESUS DOA K 300.00 AN ANXIETY UNSPEC 08/29/2008 ERA DE JESUS DO K 307.47 SI DYSSOMNIA NOS 08/29/2008 DE JESUS DO, ERA K 312.30 I IMPULSE CONTROL DISORDER NOS 08/29/2008 DE JESUS DO, ERA K 300.00 AN ANXIETY UNSPEC 08/29/2008 DE JESUS DO, ERA K 307.47 SI DYSSOMNIA NOS 08/29/2008 DE JESUS DO, ERA K 312.30 I IMPULSE CONTROL DISORDER NOS 08/29/2008 [facility], JOSEE R 300.00 AN ANXIETY UNSPEC 08/29/2008 [facility], JOSEE R 307.47 SI DYSSOMNIA NOS 08/29/2008 [facility], JOSEE R 312.30 I IMPULSE [...] DOUGLAS APRNETTE 307.47 SI DYSSOMNIA NOS 08/29/2008 STELLA PARKER DEBBIE 312.30 I IMPULSE CONTROL DISORDER NOS 08/29/2008 DE JESUS DO, ERA K 300.00 AN ANXIETY UNSPEC 08/29/2008 DE JESUS DO, ERA K 307.47 SI DYSSOMNIA NOS 08/29/2008 DE JESUS DO, ERA K 312.30 I IMPULSE CONTROL DISORDER NOS 08/29/2008 STELLARUSTY PARKER DEBBIE 300.00 AN ANXIETY UNSPEC 08/29/2008 STELLARUSTY PARKER DEBBIE 307.47 SI DYSSOMNIA NOS 08/29/2008 STELLA PARKER DEBBIE 312.30 I IMPULSE CONTROL DISORDER NOS 08/29/2008 DAVEY PHD, BRISSA A 300.00 AN ANXIETY UNSPEC 08/29/2008 [...] I IMPULSE CONTROL DISORDER NOS 09/18/2008 LIZA VALENCIA ERA K 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 I MIXED [...] COND 09/18/2008 V61.10 RL RELATION COUNS 09/18/2008 LIZA VALENCIA ERA K 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 I MIXED [...] ERA K 297.0 PARANOID STATE SIMPLE 09/18/2008 ERA DE JESUS DO K 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 09/18/2008 ERA DE JESUS DO K 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, JOSEE R V61.10 RL RELATION COUNS 09/18/2008 [...] ERA K V61.10 RL RELATION COUNS 09/18/2008 [facility], JOSEE R 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 09/18/2008 [facility], JOSEE R 297.0 PARANOID STATE SIMPLE 09/18/2008 [facility], JOSEE R 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 09/18/2008 [facility], JOSEE R 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 09/18/2008 [facility], JOSEE R 316 PF PSYCHIC FACTORS MED COND 09/18/2008 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 09/18/2008 STELLA PSYCHIATRIC TECHNICIAN, DEBBIE 316 PF PSYCHIC FACTORS MED COND 09/18/2008 STELLA PSYCHIATRIC TECHNICIAN, DEBBIE V61.10 RL RELATION COUNS 09/18/2008 DE [...] K V61.10 RL RELATION COUNS 09/18/2008 STELLA PSYCHIATRIC TECHNICIAN, DEBBIE 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 09/18/2008 STELLA PSYCHIATRIC TECHNICIAN, DEBBIE 297.0 PARANOID STATE SIMPLE 09/18/2008 STELLA PSYCHIATRIC TECHNICIAN, DEBBIE 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 09/18/2008 STELLA PSYCHIATRIC TECHNICIAN, DEBBIE 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 09/18/2008 STELLA PSYCHIATRIC TECHNICIAN, DEBBIE 316 PF PSYCHIC FACTORS MED COND 09/18/2008 STELLA PSYCHIATRIC TECHNICIAN, DEBBIE V61.10 RL RELATION COUNS 09/18/2008 DAVEY LOU, BRISSA Harden 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 09/18/2008 DAVEY LOU, BRISSA Harden 297.0 PARANOID STATE SIMPLE 09/18/2008 DAVEY LOU, BRISSA Harden 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 09/18/2008 DAVEY LOU, BRISSA Harden 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 09/18/2008 DAVEY PHD, BRISSA Harden 316 PF PSYCHIC FACTORS MED COND 09/18/2008 DAVEY LOU, BRISSA Harden V61.10 RL RELATION COUNS 09/18/2008 ERA DE JESUS DO 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 09/18/2008 ERA DE JESUS DO 297.0 PARANOID STATE SIMPLE 09/18/2008 ERA DE JESUS DO K 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 09/18/2008 ERA DE JESUS DO K 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 09/18/2008 LIZA VALENCIA ERA K 316 PF PSYCHIC FACTORS MED COND 09/18/2008 ERA DE JESUS DO K V61.10 RL RELATION COUNS 09/18/2008 BRAD REID MD 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 09/18/2008 BRAD REID MD 297.0 PARANOID STATE SIMPLE 09/18/2008 BRAD REID MD 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 09/18/2008 BRAD REID MD 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, JOSEE R 590.2 KIDNEY STONES 11/09/2008 DE JESUS DO, ERA K 590.2 KIDNEY STONES 11/09/2008 DE JESUS DO, ERA K 590.2 KIDNEY STONES 11/09/2008 [facility], JOSEE R 590.2 KIDNEY STONES 11/09/2008 DE JESUS DO, ERA K 590.2 KIDNEY STONES 11/09/2008 HAN CABALLERO APRN 590.2 KIDNEY STONES 11/09/2008 GARHAN SHERIDAN APRN 590.2 KIDNEY STONES 11/09/2008 STELLA PSYCHIATRIC TECHNICIAN, DEBBIE 590.2 KIDNEY STONES 11/09/2008 DE JESUS DO, ERA K 590.2 KIDNEY STONES 11/09/2008 STELLA PSYCHIATRIC TECHNICIAN, DEBBIE 590.2 KIDNEY STONES 11/09/2008 DAVEY PHD, [...] 07/26/2010 466.0 BRONCHITIS, ACUTE 07/26/2010 DE JESUS DO, [...] RESPIRATORY INFECTION 07/26/2010 466.0 BRONCHITIS, ACUTE 07/26/2010 [facility] DDS, BOB B 305.1 NONDEPENDENT TOBACCO USE DISORDER 07/26/2010 [facility] DDS, BOB B 465.9 UPPER RESPIRATORY INFECTION 07/26/2010 GEN[facility] DDS, BOB B 466.0 BRONCHITIS, ACUTE 07/26/2010 [facility], JOSEE R 305.1 NONDEPENDENT TOBACCO USE DISORDER 07/26/2010 [facility], JOSEE R 465.9 UPPER RESPIRATORY INFECTION 07/26/2010 [facility], JOSEE R 466.0 BRONCHITIS, ACUTE [...] DO, ERA K 466.0 BRONCHITIS, ACUTE 07/26/2010 [facility], JOSEE R 305.1 NONDEPENDENT TOBACCO USE DISORDER 07/26/2010 [facility], JOSEE R 465.9 UPPER RESPIRATORY INFECTION 07/26/2010 [facility], JOSEE R 466.0 BRONCHITIS, ACUTE [...] CABALLERO APRN 466.0 BRONCHITIS, ACUTE 07/26/2010 STELLA PSYCHIATRIC TECHNICIAN, DEBBIE 305.1 NONDEPENDENT TOBACCO USE DISORDER 07/26/2010 STELLA PSYCHIATRIC TECHNICIAN, DEBBIE 465.9 UPPER RESPIRATORY INFECTION 07/26/2010 STELLA PSYCHIATRIC TECHNICIAN, DEBBIE 466.0 BRONCHITIS, ACUTE 07/26/2010 DE JESUS DO, ERA K 305.1 NONDEPENDENT TOBACCO USE DISORDER 07/26/2010 DE JESUS DO, ERA K 465.9 UPPER RESPIRATORY INFECTION 07/26/2010 DE JESUS DO, ERA K 466.0 BRONCHITIS, ACUTE 07/26/2010 STELLA PSYCHIATRIC TECHNICIAN, DEBBIE 305.1 NONDEPENDENT TOBACCO USE DISORDER 07/26/2010 STELLA PSYCHIATRIC TECHNICIAN, DEBBIE 465.9 UPPER RESPIRATORY INFECTION 07/26/2010 STELLA PSYCHIATRIC TECHNICIAN, DEBBIE 466.0 BRONCHITIS, ACUTE 07/26/2010 DAVEY PHD, BRISSA A 305.1 NONDEPENDENT TOBACCO USE DISORDER 07/26/2010 DAVEY PHD, BRISSA A 465.9 UPPER RESPIRATORY INFECTION 07/26/2010 DAVEY PHD, BRISSA A 466.0 BRONCHITIS, ACUTE 07/26/2010 DE [...] pain, localized in the hip 09/20/2010 [facility], JOSEE R 401.1 ESSENTIAL HYPERTENSION BENIGN 09/20/2010 [facility], JOSEE R 719.45 joint pain, localized in the hip 09/20/2010 DE JESUS DO, ERA K 401.1 ESSENTIAL HYPERTENSION BENIGN 09/20/2010 DE JESUS DO, ERA K 719.45 joint pain, localized in the hip 09/20/2010 DE JESUS DO, ERA K 401.1 ESSENTIAL HYPERTENSION BENIGN 09/20/2010 DE JESUS DO, ERA K 719.45 joint pain, localized in the hip 09/20/2010 [facility], JOSEE R 401.1 ESSENTIAL HYPERTENSION BENIGN 09/20/2010 [facility], JOSEE R 719.45 joint pain, localized in [...] joint pain, localized in the hip 09/20/2010 DAVID DOUGLAS APRNETTE 401.1 ESSENTIAL HYPERTENSION BENIGN 09/20/2010 STELLA PARKER DEBBIE 719.45 joint pain, localized in the hip 09/20/2010 DE JESUS DO ERA K 401.1 ESSENTIAL HYPERTENSION BENIGN 09/20/2010 JONNIE DE JESUS DOA K 719.45 joint pain, localized in the hip 09/20/2010 DEBBIE DOUGLAS APRN 401.1 ESSENTIAL HYPERTENSION BENIGN 09/20/2010 DEBBIE DOUGLAS APRN 719.45 joint pain, localized in the hip 09/20/2010 DAVEY LOU, BRISSA Harden 401.1 ESSENTIAL HYPERTENSION BENIGN 09/20/2010 DAVEY LOU, BRISSA Harden 719.45 joint pain, localized in the hip 09/20/2010 JONNIE DE JESUS DOA K 401.1 ESSENTIAL HYPERTENSION BENIGN 09/20/2010 LIZA VALENCIA ERA K 719.45 joint pain, localized in the hip 09/20/2010 BRAD REID MD 401.1 ESSENTIAL HYPERTENSION BENIGN 09/20/2010 BRAD REID MD 719.45 joint pain, localized in the hip 09/30/2010 JONNIE DE JESUS DOA K 726.5 [...] 726.5 ENTHESOPATHY OF HIP REGION 09/30/2010 [facility], JOSEE R 726.5 ENTHESOPATHY OF HIP REGION 09/30/2010 LIZA VALENCIA ERA K 726.5 ENTHESOPATHY OF HIP REGION 09/30/2010 DE JESUS DO ERA K 726.5 ENTHESOPATHY OF HIP REGION 09/30/2010 [facility], JOSEE R 726.5 ENTHESOPATHY OF HIP REGION 09/30/2010 LIZA VALENCIA ERA K 726.5 ENTHESOPATHY OF HIP REGION 09/30/2010 HAN CABALLERO APRN 726.5 ENTHESOPATHY OF HIP REGION 09/30/2010 HAN CABALLERO APRN 726.5 ENTHESOPATHY OF HIP REGION 09/30/2010 DEBBIE DOUGLAS APRN 726.5 ENTHESOPATHY OF HIP REGION 09/30/2010 ERA DE JESUS DO K 726.5 ENTHESOPATHY OF HIP REGION 09/30/2010 DEBBIE DOUGLAS APRN 726.5 ENTHESOPATHY OF HIP REGION 09/30/2010 DAVEY LOU, BRISSA Harden 726.5 ENTHESOPATHY OF HIP REGION 09/30/2010 ERA DE JESUS DO K 726.5 ENTHESOPATHY OF HIP REGION 09/30/2010 BRAD REID MD 726.5 ENTHESOPATHY OF HIP REGION 01/10/2012 Ot 845.00 SPRAIN OF ANKLE NOS 01/10/2012 Ot 959.7 LOWER LEG INJURY NOS 01/10/2012 Ot E000.8 OTHER EXTERNAL CAUSE STATUS 01/10/2012 Ot E849.0 ACCIDENT IN HOME 01/10/2012 Ot E927.0 OVEREXERTION FROM SUDDEN STRENUOUS MOVEM 02/28/2012 LIZA VALENCIA ERA K 311 DEPRESSIVE DISORDER NOS 02/28/2012 311 DEPRESSIVE DISORDER NOS 02/28/2012 LIZA VALENCIA ERA K 311 DEPRESSIVE DISORDER NOS 02/28/2012 LIZA VALENCIA, ERA K 311 DEPRESSIVE DISORDER NOS 02/28/2012 311 DEPRESSIVE DISORDER NOS 02/28/2012 311 DEPRESSIVE DISORDER NOS 02/28/2012 311 DEPRESSIVE DISORDER NOS 02/28/2012 BOB TOMAS DDS 311 DEPRESSIVE DISORDER NOS 02/28/2012 [facility], JOSEE R 311 DEPRESSIVE DISORDER NOS 02/28/2012 LIZA VALENCIA ERA K 311 DEPRESSIVE DISORDER NOS 02/28/2012 LIZA VALENCIA ERA K 311 DEPRESSIVE DISORDER NOS 02/28/2012 [facility], JOSEE R 311 DEPRESSIVE DISORDER NOS 02/28/2012 LIZA VALENCIA ERA K 311 DEPRESSIVE DISORDER NOS 02/28/2012 HAN CABALLERO APRN 311 DEPRESSIVE DISORDER NOS 02/28/2012 HAN CABALLERO APRN 311 DEPRESSIVE DISORDER NOS 02/28/2012 DEBBIE DOUGLAS APRN 311 DEPRESSIVE DISORDER NOS 02/28/2012 JNONIE DE JESUS DOA K 311 DEPRESSIVE DISORDER NOS 02/28/2012 DEBBIE DOUGLAS APRN 311 DEPRESSIVE DISORDER NOS 02/28/2012 BRISSA MARISCAL PHD 311 DEPRESSIVE DISORDER NOS 02/28/2012 LIZA VALENCIA ERA K 311 DEPRESSIVE DISORDER NOS 02/28/2012 BRAD REID MD 311 DEPRESSIVE DISORDER NOS 05/13/2012 Ot 719.41 JOINT PAIN- SHLDER 05/13/2012 Ot 959.2 SHLDR/UPPER ARM INJ NOS 05/13/2012 Ot E000.8 OTHER EXTERNAL CAUSE STATUS 05/13/2012 Ot E927.0 OVEREXERTION FROM SUDDEN STRENUOUS MOVEM 05/16/2012 ERA DE JESUS DO K 726.12 BICIPITAL TENOSYNOVITIS 05/16/2012 726.12 BICIPITAL TENOSYNOVITIS 05/16/2012 ERA DE JESUS DO K 726.12 BICIPITAL TENOSYNOVITIS 05/16/2012 ERA DE JESUS DO K 726.12 BICIPITAL TENOSYNOVITIS 05/16/2012 726.12 BICIPITAL TENOSYNOVITIS 05/16/2012 726.12 BICIPITAL TENOSYNOVITIS 05/16/2012 726.12 BICIPITAL TENOSYNOVITIS 05/16/2012 GEN[facility] DDS, BOB B 726.12 BICIPITAL TENOSYNOVITIS 05/16/2012 [facility], JOSEE R 726.12 BICIPITAL TENOSYNOVITIS 05/16/2012 ERA DE JESUS DO K 726.12 BICIPITAL TENOSYNOVITIS 05/16/2012 JONNIE DE JESUS DOA K 726.12 BICIPITAL TENOSYNOVITIS 05/16/2012 [facility], JOSEE R 726.12 BICIPITAL TENOSYNOVITIS 05/16/2012 JONNIE DE JESUS DOA K 726.12 BICIPITAL TENOSYNOVITIS 05/16/2012 HAN CABALLERO APRN 726.12 BICIPITAL TENOSYNOVITIS 05/16/2012 HAN CABALLERO APRN 726.12 BICIPITAL TENOSYNOVITIS 05/16/2012 STELLA PARKER DEBBIE 726.12 BICIPITAL TENOSYNOVITIS 05/16/2012 ERA DE JESUS DO K 726.12 BICIPITAL TENOSYNOVITIS 05/16/2012 STELLA PARKER DEBBIE 726.12 BICIPITAL TENOSYNOVITIS 05/16/2012 ERA DE JESUS DO K 726.12 BICIPITAL TENOSYNOVITIS 05/16/2012 BRAD REID MD [...] PAIN IN JOINT INVOLVING SHOULDER REGION 06/20/2012 BOB TOMAS DDS 719.41 PAIN IN JOINT INVOLVING SHOULDER REGION 06/20/2012 JOSEE NELSON 719.41 PAIN IN JOINT INVOLVING SHOULDER REGION 06/20/2012 ERA DE JESUS DO 719.41 PAIN IN JOINT INVOLVING SHOULDER REGION 06/20/2012 ERA DE JESUS DO 719.41 PAIN IN JOINT INVOLVING SHOULDER REGION 06/20/2012 JOSEE NELSON 719.41 PAIN IN JOINT INVOLVING SHOULDER REGION [...] 08/07/2012 724.2 LUMBAGO/ LOW BACK PAIN 08/07/2012 BOB TOMAS DDS B 724.2 LUMBAGO/ LOW BACK PAIN 08/07/2012 [facility], JOSEE R 724.2 LUMBAGO/ LOW BACK PAIN 08/07/2012 ERA DE JESUS DO 724.2 LUMBAGO/ LOW BACK PAIN 08/07/2012 ERA DE JESUS DO 724.2 LUMBAGO/ LOW BACK PAIN 08/07/2012 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, JOSEE R 296.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 09/17/2012 [facility], JOSEE R 300.02 AN GEN ANXIETY 09/17/2012 ERA DE JESUS DO 296.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 09/17/2012 ERA DE JESUS DO 300.02 AN GEN ANXIETY 09/17/2012 ERA DE JESUS DO 296.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 09/17/2012 ERA DE JESUS DO 300.02 AN GEN ANXIETY 09/17/2012 [facility], JOSEE R 296.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 09/17/2012 [facility], JOSEE R 300.02 AN GEN [...] DEPRESSIVE 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 09/17/2012 DEBBIE DOUGLAS APRN 300.02 AN GEN ANXIETY 09/17/2012 ERA DE JESUS DO 296.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 09/17/2012 ERA DE JESUS DO 300.02 AN GEN ANXIETY 09/17/2012 DEBBIE DOUGLAS APRN 296.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 09/17/2012 DEBBIE DOUGLAS APRN 300.02 AN GEN ANXIETY 09/17/2012 ERA DE JESUS DO 296.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 09/17/2012 ERA DE JESUS DO 300.02 AN GEN ANXIETY 09/17/2012 BRAD REID MD 296.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 09/17/2012 BRAD REID MD 300.02 AN GEN ANXIETY 10/09/2012 309.81 AN PTSD 10/09/2012 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 10/09/2012 [facility] BOB YAP 309.81 AN PTSD 10/09/2012 [facility] BOB YAP 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 10/09/2012 [facility], JOSEE R 309.81 AN PTSD 10/09/2012 [facility], [place] R 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 10/09/2012 DE JESUS DO, ERA K 309.81 AN PTSD 10/09/2012 DE JESUS DO, ERA K 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 10/09/2012 DE JESUS DO, ERA K 309.81 AN PTSD 10/09/2012 DE JESUS DO, ERA K 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 10/09/2012 [facility], JOSEE R 309.81 AN PTSD 10/09/2012 [facility], [place] R 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 10/09/2012 DE JESUS DO, ERA K 309.81 AN PTSD 10/09/2012 DE JESUS DO, ERA K 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 10/09/2012 HAN CABALLERO APRN 309.81 AN PTSD 10/09/2012 HAN CABALLERO APRN 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 10/09/2012 HAN CABALLERO APRN D 309.81 AN PTSD 10/09/2012 HAN CABALLERO APRN 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 10/09/2012 [facility] TECHNICIAN, DEBBIE 309.81 AN PTSD 10/09/2012 STELLA PSYCHIATRIC TECHNICIAN, DEBBIE 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 10/09/2012 DE JESUS DO, ERA K 309.81 AN PTSD 10/09/2012 DE JESUS DO, ERA K 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 10/09/2012 STELLA PSYCHIATRIC TECHNICIAN, DEBBIE 309.81 AN PTSD 10/09/2012 STELLA PSYCHIATRIC TECHNICIAN, DEBBIE 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 10/09/2012 DE JESUS DO, ERA K 309.81 AN PTSD 10/09/2012 DE JESUS DO ERA K 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 10/09/2012 BRAD REID MD 309.81 AN PTSD 10/09/2012 BRAD REID MD 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 07/29/2013 DE JESUS DO ERA K 715.00 OSTEOARTHROSIS GENERALIZED INVOLVING UNSPECIFIED SITE 07/29/2013 DE JESUS DO ERA K V65.42 COUNSELING - SMOKING CESSATION 07/29/2013 DE JESUS DO, ERA K 715.00 OSTEOARTHROSIS GENERALIZED INVOLVING UNSPECIFIED SITE 07/29/2013 DE JESUS DO ERA K V65.42 COUNSELING - SMOKING CESSATION 07/29/2013 [facility], JOSEE R 715.00 OSTEOARTHROSIS GENERALIZED INVOLVING UNSPECIFIED SITE 07/29/2013 [facility], JOSEE R V65.42 COUNSELING - [...] SMOKING CESSATION 08/02/2013 ERA DE JESUS DO K 296.32 MO DEPRESSIVE RECURRENT MODERATE 08/02/2013 [facility], JOSEE R 296.32 MO DEPRESSIVE RECURRENT MODERATE 08/02/2013 JONNIE DE JESUS DOA K 296.32 MO DEPRESSIVE RECURRENT MODERATE 08/02/2013 HAN CABALLERO APRN 296.32 MO DEPRESSIVE RECURRENT MODERATE 08/02/2013 HAN CABALLERO APRN 296.32 MO DEPRESSIVE RECURRENT MODERATE 08/02/2013 DEBBIE DOUGLAS APRN 296.32 MO DEPRESSIVE RECURRENT MODERATE 08/02/2013 ERA DE JESUS DO K 296.32 MO DEPRESSIVE RECURRENT MODERATE 08/02/2013 DEBBIE DOUGLAS APRN 296.32 MO DEPRESSIVE RECURRENT MODERATE 08/02/2013 ERA DE JESUS DO 296.32 MO DEPRESSIVE RECURRENT MODERATE 08/02/2013 JEANETTE TORRES, BRAD 296.32 MO DEPRESSIVE RECURRENT MODERATE 08/30/2013 MICKEY TORRES, TITO Robles Ot 780.2 SYNCOPE AND COLLAPSE 08/30/2013 MICKEY TORRES, TITO Robles Ot 910.8 SUPERFIC INJ HEAD NEC 08/30/2013 MICKEY TORRES, TITO T Ot E000.8 OTHER EXTERNAL CAUSE STATUS 08/30/2013 MICKEY TORRES, TITO Robles Ot E849.0 ACCIDENT IN HOME 08/30/2013 MICKEY TORRES, TITO Robles Ot E888.9 FALL NOS 09/13/2013 ERA DE JESUS DO 780.2 SYNCOPE 09/13/2013 JONNIE DE JESUS DOA [...] 09/13/2013 DEBBIE DOUGLAS APRN 780.2 SYNCOPE 09/13/2013 STELLA PARKER DEBBIE 850.9 CONCUSSION UNSPECIFIED 09/13/2013 STELLA PSYCHIATRIC TECHNICIAN, DEBBIE E888.9 UNSPECIFIED ACCIDENTAL FALL 09/13/2013 ERA DE JESUS DO 780.2 SYNCOPE 09/13/2013 JONNIE DE JESUS DOA K 850.9 CONCUSSION UNSPECIFIED 09/13/2013 JONNIE DE JESUS DOA K E888.9 UNSPECIFIED ACCIDENTAL FALL 09/13/2013 STELLARUSTY PARKER DEBBIE 780.2 SYNCOPE 09/13/2013 STELLA PARKER DEBBIE 850.9 CONCUSSION UNSPECIFIED 09/13/2013 DEBBIE DOUGLAS APRN E888.9 UNSPECIFIED ACCIDENTAL FALL 09/13/2013 ERA DE JESUS DO 780.2 SYNCOPE 09/13/2013 ERA DE JESUS DO [...] OF LIGAMENTS OF CERVICAL SPINE, I 06/22/2015 BERGER DO, ADRIANA L Ot W18.30XA FALL ON SAME LEVEL, UNSPECIFIED, INITIAL 06/22/2015 BERGER DO, ADRIANA L Ot Y92.[address] IN [facility] NON-INSTITUT (PRIVATE 06/22/2015 BERGER DO, ADRIANA L Ot Y99.8 OTHER EXTERNAL CAUSE STATUS 06/30/2015 Ot 592.0 05/01/2016 MICKEY TORRES, TITO T Ot F17.210 NICOTINE DEPENDENCE, CIGARETTES, UNCOMPL 05/01/2016 [...] MD Ot Y92.[address] IN [facility] (PRIVATE 05/01/2016 TITO AREVALO MD Ot Y93.9 [...] MD Ot Y92.[address] IN [facility] NONINSTITUT (PRIVATE 05/03/2016 TITO AREVALO MD Ot Y93.9 [...] MD Ot Y92.[address] IN [facility] NON-[facility] (PRIVATE 05/07/2016 TITO AREVALO MD Ot Y93.9 ACTIVITY, UNSPECIFIED 05/07/2016 TITO AREVALO MD Ot Y99.8 OTHER EXTERNAL CAUSE STATUS 08/07/2016 RYLEE BENNETT MD Ot S61.412A LACERATION WITHOUT FOREIGN BODY OF LEFT 08/07/2016 RYLEE BENNETT MD Ot Z53.21 PROC/TRTMT NOT CRD OUT D/T PT LV BEF SEE 08/08/2016 Sobia Morales 882.0 OPEN WOUND OF HAND EXCEPT FINGERS ALONE, WITHOUT MENTION OF COMPLICATION 08/08/2016 Sobia Morales S61.412A LACERATION WITHOUT FOREIGN BODY OF LEFT HAND, INIT ENCNTR 11/24/2016 Sobia Morales 461.9 ACUTE SINUSITIS, UNSPECIFIED 11/24/2016 Sobia Morales J01.90 ACUTE SINUSITIS, UNSPECIFIED 12/13/2016 TAYLA GRACIA WARP YARN SORTER Ot M54.5 LOW BACK PAIN 12/15/2016 TAYLA GRACIA WARP YARN SORTER Ot M54.5 LOW BACK PAIN 12/15/2016 TAYLA GRACIA WARP YARN SORTER Ot M54.5 LOW BACK PAIN 12/19/2016 TAYLA GRACIA WARP YARN SORTER Ot M54.5 LOW BACK PAIN 12/30/2016 TAYLA GRACIA WARP YARN SORTER Ot M54.5 LOW BACK PAIN 01/04/2017 TAYLA GRACIA WARP YARN SORTER Ot M54.5 LOW BACK PAIN 05/19/2017 HUGH [...] 07/20/2017 RAMIRO FRAZIER MD Ot Z79.899 OTHER MUD TRUCKER (CURRENT) DRUG THERAPY 07/26/2017 RAMIRO FRAZIER MD Ot F17.210 NICOTINE DEPENDENCE, CIGARETTES, UNCOMPL 07/26/2017 RAMIRO FRAZIER MD Ot F43.10 POST-TRAUMATIC STRESS DISORDER, UNSPECIF 07/26/2017 RAMIRO FRAZIER MD Ot H65.23 CHRONIC SEROUS OTITIS MEDIA, BILATERAL 07/26/2017 RAMIRO FRAZIER MD Ot I10 ESSENTIAL (PRIMARY) HYPERTENSION 07/26/2017 RAMIRO FRAZIER MD Ot J34.89 OTHER SPECIFIED DISORDERS OF NOSE AND NA 07/26/2017 RAMIRO FRAZIER MD Ot Z79.899 OTHER GROUP HOME (CURRENT) DRUG THERAPY 07/28/2017 RAMIRO FRAZIER MD Ot F17.210 NICOTINE DEPENDENCE, CIGARETTES, UNCOMPL 07/28/2017 RAMIRO FRAZIER MD Ot F43.10 POST-TRAUMATIC STRESS DISORDER, UNSPECIF 07/28/2017 RAMIRO FRAZIER MD Ot H65.23 CHRONIC SEROUS OTITIS MEDIA, BILATERAL 07/28/2017 RAMIRO FRAZIER MD Ot I10 ESSENTIAL (PRIMARY) HYPERTENSION 07/28/2017 RAMIRO FRAZIER MD Ot J34.89 OTHER SPECIFIED DISORDERS OF NOSE AND NA 07/28/2017 RAMIRO FRAZIER MD Ot Z79.899 OTHER GROUP HOME (CURRENT) DRUG THERAPY 12/26/2017 Lawrence Booth A [...] DAVID Ot F12.10 CANNABIS ABUSE, UNCOMPLICATED 01/27/2018 SEA DAVID Ot F17.210 NICOTINE DEPENDENCE, CIGARETTES, UNCOMPL 01/27/2018 SEA DAVID Ot F32.9 MAJOR DEPRESSIVE DISORDER, SINGLE EPISOD 01/27/2018 SEA DAVID Ot F41.9 ANXIETY DISORDER, UNSPECIFIED 01/27/2018 BERNROMEO SEA Ot F43.10 POST-TRAUMATIC STRESS DISORDER, UNSPECIF 01/27/2018 BERNOT, SEA Ot G40.909 EPILEPSY, UNSP, NOT INTRACTABLE, WITHOUT 01/27/2018 BERNOT, SEA Ot H66.92 OTITIS MEDIA, UNSPECIFIED, LEFT EAR 01/27/2018 BERNOT, SEA Ot H92.02 OTALGIA, LEFT EAR 01/27/2018 BERNOT, SEA Ot I10 ESSENTIAL (PRIMARY) HYPERTENSION 01/27/2018 BERNOT, SEA Ot Z87.442 PERSONAL HISTORY OF URINARY CALCULI 01/30/2018 BERNOT, SEA Ot F12.10 CANNABIS ABUSE, UNCOMPLICATED 01/30/2018 BERNOT, SEA Ot F17.210 NICOTINE DEPENDENCE, CIGARETTES, UNCOMPL 01/30/2018 BERNOT SEA Ot F32.9 MAJOR DEPRESSIVE DISORDER, SINGLE EPISOD 01/30/2018 JOANN SEA Ot F41.9 ANXIETY DISORDER, UNSPECIFIED 01/30/2018 ISIDRA DAVIDIS Ot F43.10 POST-TRAUMATIC STRESS DISORDER, UNSPECIF 01/30/2018 BERNOT SEA Ot G40.909 EPILEPSY, UNSP, NOT INTRACTABLE, WITHOUT 01/30/2018 BERNOT, SEA Ot H66.92 OTITIS MEDIA, UNSPECIFIED, LEFT EAR 01/30/2018 BERNOT, SEA Ot H92.02 OTALGIA, LEFT EAR 01/30/2018 BERNOT, SEA Ot I10 ESSENTIAL (PRIMARY) HYPERTENSION 01/30/2018 DONOT, SEA Ot Z87.442 PERSONAL HISTORY OF URINARY CALCULI 02/02/2018 ISIDRA DAVIDIS Ot F12.10 CANNABIS ABUSE, UNCOMPLICATED 02/02/2018 BERNOT, SEA Ot F17.210 NICOTINE DEPENDENCE, CIGARETTES, UNCOMPL 02/02/2018 BERNOT SEA Ot F32.9 MAJOR DEPRESSIVE DISORDER, SINGLE EPISOD 02/02/2018 DONOT SEA Ot F41.9 ANXIETY DISORDER, UNSPECIFIED 02/02/2018 BERNOT SEA Ot F43.10 POST-TRAUMATIC STRESS DISORDER, UNSPECIF 02/02/2018 BERNOT, SEA Ot G40.909 EPILEPSY, UNSP, NOT INTRACTABLE, WITHOUT 02/02/2018 BERNOT, SEA Ot H66.92 OTITIS MEDIA, UNSPECIFIED, LEFT EAR 02/02/2018 SEA DAVID Ot H92.02 OTALGIA, LEFT EAR 02/02/2018 BERNISIDRA WALTERSIS Ot I10 ESSENTIAL (PRIMARY) HYPERTENSION 02/02/2018 SEA DAVID Ot Z87.442 PERSONAL HISTORY OF URINARY CALCULI 02/03/2018 KEI TORRES, EL Workman Ot H92.02 OTALGIA, LEFT EAR 02/04/2018 PEYTON TORRES, BENIGNO Khalil Ot H66.90 OTITIS MEDIA, UNSPECIFIED, UNSPECIFIED E 02/05/2018 Lawrence Booth 382.9 UNSPECIFIED OTITIS MEDIA 02/05/2018 Lawrence Booth H66.92 OTITIS MEDIA, UNSPECIFIED, LEFT EAR 02/06/2018 KEI TORRES, EL Workman Ot H92.02 OTALGIA, LEFT EAR 02/06/2018 PEYTON TORRES, BENIGNO Khalil Ot H66.90 OTITIS MEDIA, UNSPECIFIED, UNSPECIFIED E 04/04/2018 KEI TORRES, EL Workman Ot M54.9 DORSALGIA, UNSPECIFIED 04/04/2018 Quiana Wells A 724.4 THORACIC OR LUMBOSACRAL NEURITIS OR RADICULITIS, UNSPECIFIED 04/04/2018 Quiana Wells A M54.16 RADICULOPATHY, LUMBAR REGION 04/06/2018 KEI TORRES, EL J Ot M54.9 DORSALGIA, UNSPECIFIED 05/21/2018 SEA DAVID Ot H66.90 OTITIS MEDIA, UNSPECIFIED, UNSPECIFIED E 05/24/2018 SEA DAVID Ot H66.90 OTITIS MEDIA, UNSPECIFIED, UNSPECIFIED E 06/07/2018 SOBIA MORALES APRN Ot F12.10 CANNABIS ABUSE, UNCOMPLICATED 06/07/2018 SOBIA MORALES APRN Ot F17.210 NICOTINE DEPENDENCE, CIGARETTES, UNCOMPL 06/07/2018 SOBIA MORALES APRN Ot F32.9 MAJOR DEPRESSIVE DISORDER, SINGLE EPISOD 06/07/2018 SBOIA MORALES APRN Ot F41.9 ANXIETY DISORDER, UNSPECIFIED 06/07/2018 SOBIA MORALES APRN Ot F43.10 POST-TRAUMATIC STRESS DISORDER, UNSPECIF 06/07/2018 SOBIA MORALES APRN Ot G40.909 EPILEPSY, UNSP, NOT INTRACTABLE, WITHOUT 06/07/2018 MORALES, PETER J PSYCHIATRIC TECHNICIAN Ot H60.92 UNSPECIFIED OTITIS EXTERNA, LEFT EAR 06/07/2018 SOBIA MORALES PSYCHIATRIC TECHNICIAN Ot H92.02 OTALGIA, LEFT EAR 06/07/2018 SOBIA MORALES PSYCHIATRIC TECHNICIAN Ot I10 ESSENTIAL (PRIMARY) HYPERTENSION 06/07/2018 SOBIA MORALES APRN Ot Z87.442 PERSONAL HISTORY OF URINARY CALCULI 06/07/2018 SOBIA MORALES APRN Ot Z98.890 OTHER SPECIFIED POSTPROCEDURAL STATES Procedures Code Description Performed By Performed On ALYSON STRICKLAND 05/16/2012 ALYSON STRICKLAND 06/20/2012 PHYSI PHYSICAL THERAPY, VIA [facility]IE 06/20/2012 55118 ROUTINE VENIPUNCTURE 08/07/2012 03397 XRAY LUMBAR SPINE 2 OR 3 VIEWS 08/07/2012 94552 CMP 08/07/2012 47390 URINE DRUG SCREEN (IN-HOUSE ) 08/07/2012 53325 TSH 08/07/2012 48809 CBC 08/07/2012 PHYSI PHYSICAL THERAPY, [facility]IA [facility] 08/07/2012 06588 PSYCH DIAGNOSTIC EVALUATION 09/18/2012 71898 PSYTX PT&/FAMILY 45 MINUTES 09/18/2012 08076 URINE DRUG SCREEN (IN-HOUSE ) 10/09/2012 49723 URINE THC CON'F 10/19/2012 25978 PSYCH DIAG EVAL W/MED SRVCS 10/19/2012 53381 PSYTX PT&/FAMILY 30 MINUTES 10/19/2012 22549 PSYTX PT&/FAMILY 30 MINUTES 07/10/2013 52903 PSYTX PT&/FAMILY 45 MINUTES 08/02/2013 95658 ROUTINE VENIPUNCTURE 08/13/2013 62708 URINE DRUG SCREEN (IN-HOUSE ) 08/13/2013 7139315 GFR CALC (RESULT ONLY) 08/13/2013 52046 CMP 08/13/2013 25532 PSYTX PT&/FAMILY 45 MINUTES 08/22/2013 Results Test [...] Status Pt. Type Provider Facility Loc./Unit Complaint [id number] 09/08/2014 13:54:00 09/08/2014 23:59:59 CLS Outpatient BRAD REID MD [id number] 08/22/2014 13:39:00 08/22/2014 23:59:59 CLS Outpatient ERA DE JESUS DO [id number] 11/26/2013 09:50:00 11/26/2013 23:59:59 CLS Outpatient ERA DE JESUS DO [id number] 10/31/2013 15:25:00 10/31/2013 23:59:59 CLS Outpatient DEBBIE DOUGLAS APRN [id number] 10/31/2013 15:25:00 10/31/2013 23:59:59 CLS Outpatient DEBBIE DOUGLAS APRN [id number] 09/17/2013 15:42:00 09/17/2013 23:59:59 CLS Outpatient HAN CABALLERO APRN [id number] 09/17/2013 15:42:00 09/17/2013 23:59:59 CLS Outpatient HAN CABALLERO APRN [id number] 09/13/2013 10:16:00 09/13/2013 23:59:59 CLS Outpatient ERA DE JESUS DO [id number] 08/21/2013 15:24:00 08/21/2013 23:59:59 CLS Outpatient TOMASA LSCS, JOSEE Duong [id number] 08/02/2013 16:57:00 08/02/2013 23:59:59 CLS Outpatient ERA DE JESUS DO [id number] 07/29/2013 15:38:00 07/29/2013 23:59:59 CLS Outpatient ERA DE JESUS DO [id number] 07/10/2013 11:00:00 07/10/2013 23:59:59 CLS Outpatient TOMASA LSCS, JOSEE Duong [id number] 12/04/2012 10:27:00 12/04/2012 23:59:59 CLS Outpatient GENOVEVA DDSBOB [id number] 08/07/2012 12:55:00 08/07/2012 23:59:59 CLS Outpatient ERA DE JESUS DO Alejandra [id number] 07/11/2012 18:40:00 07/11/2012 23:59:59 CLS Outpatient ERA D EJESUS DO Alejandra [id number] 06/20/2012 13:40:00 06/20/2012 23:59:59 CLS Outpatient [id number] 05/16/2012 14:37:00 05/16/2012 23:59:59 CLS Outpatient ERA DE JESUS DO Alejandra [id number] 02/28/2012 13:13:00 02/28/2012 23:59:59 CLS Outpatient BRISSA MARISCAL PHD [id number] 10/19/2012 10:23:00 Document Registration [id number] 10/03/2012 09:39:00 Document Registration [id number] 09/18/2012 09:39:00 Document Registration [id number] 08/03/2016 14:09:00 Document Registration [id number] 08/04/2016 06:08:00 Document Registration [id number] 04/04/2018 12:33:00 04/04/2018 13:46:00 DIS Outpatient Quiana Wells [id number] 02/05/2018 12:56:00 02/05/2018 14:35:00 DIS Outpatient Lawrence Booth [facility] [id number] 12/26/2017 09:26:00 12/26/2017 10:22:00 DIS Outpatient Lawrence Booth [id number] 11/24/2016 10:06:00 11/24/2016 10:50:00 DIS Outpatient Sobia Morales [id number] 08/08/2016 17:36:00 08/08/2016 18:01:00 DIS Outpatient Sobia Morales [facility] [place] [id number] 08/08/2016 17:42:02 Document Registration [id number] 12/22/2017 16:00:00 12/22/2017 23:59:59 CLS Outpatient JEANETTE TORRES, [facility] [id number] 06/26/2017 13:20:00 Document Registration [id number] 06/05/2018 18:03:00 06/05/2018 18:56:00 DIS Outpatient SOBIA MORALES APRN [facility] ER L EAR PAIN,LEAKING [id number] 05/21/2018 12:42:00 05/21/2018 13:35:00 DIS Emergency SEA DAVID [facility] ER EAR INFECTION [id number] 04/04/2018 10:07:00 04/04/2018 12:01:00 DIS Emergency EL CHOUDHURY MD [facility] ER BACK PAIN [id number] 02/04/2018 12:25:00 02/04/2018 14:23:00 DIS Emergency PEYTON TORRES, BENIGNO Khalil [facility] ER EAR INFECTION [id number] 02/03/2018 21:42:00 02/03/2018 23:59:59 CLS Emergency EL CHOUDHURY MD [facility] ER LEFT EAR HURTING [id number] 01/27/2018 11:13:00 01/27/2018 12:09:00 DIS Emergency SEA DAVID [facility] ER EAR INFECTION [id number] 07/20/2017 06:55:00 07/20/2017 10:13:00 DIS Outpatient RAMIRO FRAZIER MD [facility] SDC CHRONIC SEROUS OTITIS MEDIA [id number] 07/17/2017 11:58:00 07/17/2017 12:25:00 DIS Outpatient RAMIRO FRAZIER MD [facility] PREOP CHRONIC SEROUS OTITIS MEDIA [id number] 05/19/2017 11:50:00 05/19/2017 13:14:00 DIS Emergency HUGH YORK [facility] ER LT EAR PAIN [id number] 12/30/2016 13:30:00 01/04/2017 16:09:00 DIS Outpatient TAYLA GRACIAP [facility] REHAB LOW BACK PAIN [id number] 08/07/2016 16:06:00 08/07/2016 16:57:00 DIS Emergency SABRINA TORRES, RYLEE Roberts [facility] ER L HAND LAC [id number] 05/01/2016 17:49:00 05/01/2016 19:54:00 DIS Emergency MICKEY TORRES, TITO Robles [facility] ER L ANKLE INJ [id number] 06/22/2015 13:48:00 06/22/2015 15:53:00 DIS Emergency ADRIANA BERGER DO [facility] ER SYNCOPAL EPISODE, GROIN PAIN [id number] 04/16/2015 10:26:00 04/16/2015 11:26:00 DIS Emergency EMI YBARRA MD [facility] ER RIGHT SHOULDER PAIN [id number] 08/30/2013 17:50:00 08/30/2013 21:57:00 DIS Emergency MICKEY TORRES, TITO Robles [facility] ER PASSED OUT; HEAD INJ [id number] 01/04/2018 10:21:00 Document Registration [id number] 12/30/2017 15:37:00 Document Registration [id number] 04/16/2015 10:26:00 Document Registration [id number] 04/16/2015 10:26:00 Document Registration [id number] 06/26/2012 08:20:00 Document Registration [id number] 05/13/2012 11:19:00 Document Registration [id number] 01/10/2012 10:51:00 Document Registration [id number] 06/29/2010 00:00:00 Document Registration [id number] 03/30/2010 14:44:00 Document Registration [id number] 03/27/2010 15:43:00 Document Registration
[2018-06-24] MEDS ORDERED: ACHD5005 PO (13:06)
[2018-06-24] MEDS ORDERED: CEFD300C3 PO (13:06)
--- NOTE | 2018-06-24 13:06 | ED EENT ---
History of Present Illness General Chief Complaint: Ear Problems Stated Complaint: REOCCURING L EAR INFECTION Nursing Triage Note: PT TO ED W/ C/O LT EAR PAIN, CHRONIC, WORSE TODAY. REPORTS WAS SEEN X2 WKS AGO FOR SAME C/O ET NOTED MILD IMPROVEMENT AT THAT TIME BUT REPORTS WORSE AGAIN TODAY. STATES CANNOT GET IN TO DR JUAREZ TIL JULY. NO OTHER C/O VOICED Source: patient Exam Limitations: no limitations History of Present Illness Date Seen by Provider: Jun 24, 2018 Time Seen by Provider: 13:03 Initial Comments 38-year-old male who presents to the emergency room with complaints of left ear pain and infection. He reports that he has chronic left ear infections but is worse today. He has been seen several times in this emergency room for similar issues. He does have an appointment with Dr. Juarez on August 01. He is also seen Dr. Juarez in the past. Location: ear (L) Associated Symptoms: denies symptoms Allergies and Home Medications Allergies Coded Allergies: No Known Drug Allergies (Unverified , 10/29/08) Home Medications Cefdinir 300 Mg Capsule, 300 MG PO BID Prescribed by: SEA DAVID on 01/27/18 1204 Cefdinir 300 Mg Capsule, 300 MG PO BID Prescribed by: SEA DAVID on 06/24/18 1306 Ciprofloxacin HCl 5 Ml Drops, 3 DROPS OP BID 3 Drops Each Ear Prescribed by: ALEX CHANEY on 07/20/17 0958 Gabapentin 800 Mg Tablet, 800 MG PO QID, (Reported) Hydrocodone Bit/Acetaminophen 1 Tab Tab, 1 EACH PO Q6H PRN for PAIN-MODERATE Prescribed by: BENIGNO TODD on 12/30/17 1600 Hydrocodone Bit/Acetaminophen 1 Tab Tab, 1 EACH PO Q6H PRN for PAIN Prescribed by: SEA DAVID on 01/27/18 1204 Hydrocodone Bit/Acetaminophen 1 Tab Tab, 1 EACH PO Q4-6HR PRN for PAIN-MODERATE Prescribed by: SEA DAVID on 06/24/18 1306 Hydrocodone/Acetaminophen 1 Each Tablet, 1 EACH PO Q4H Prescribed by: ALEX CHANEY on 07/20/17 0958 Hydrocodone/Acetaminophen 1 Each Tablet, 1 EACH PO Q6H PRN for PAIN-MODERATE TO SEVERE Do not fill until antifungal eardrops yesterday by Dr [facility] are filled. Prescribed by: SOBIA MORALES on 01/04/18 1054 Hydrocodone/Acetaminophen 1 Each Tablet, 1 EACH PO Q6H PRN for PAIN-MODERATE Do not fill unless antibiotic ear drops are also filled Prescribed by: SOBIA MORALES on 06/05/181847 Ofloxacin 5 Ml Drops, 10 DROPS RIGHT EAR BID Prescribed by: SOBIA MORALES on 06/05/181847 Patient Home Medication List Home Medication List Reviewed: Yes Review of Systems Review of Systems Constitutional: no symptoms reported, see HPI Ears: See HPI, Pain (left ear) All Other Systems Reviewed Negative Unless Noted: Yes Past Rftccfn-Mhliqo-Payads Hx Past Med/Social Hx: Reviewed Nursing Past Med/Soc Hx Patient Social History Alcohol Use: Denies Use Recreational Drug Use: Yes (MARIJUANA) Drug of Choice: marijuana Smoking Status: Current Everyday Smoker Type Used: Cigarettes Recent Foreign Travel: No Contact w/Someone Who Travel: No Recent Infectious Disease Expo: No Recent Hopitalizations: No Seasonal Allergies Seasonal Allergies: No Past Medical History Surgeries: Yes (right hand surgery fx repair, 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) Ear Surgery, Gallbladder Respiratory: No Cardiac: Yes Hypertension Neurological: No Seizure Disorder Reproductive Disorders: No Genitourinary: Yes Kidney Stones Gastrointestinal: No Musculoskeletal: Yes Arthritis, Chronic Back Pain Endocrine: No HEENT: Yes (Tubes in Ears) Chronic Ear Infection Cancer: No Psychosocial: No Anxiety, PTSD, Depression Integumentary: No Blood Disorders: No Family Medical History Reviewed Nursing Family Hx No Pertinent Family Hx Physical Exam Vital Signs Vital Signs - First Documented 06/24/18 12:46 Temp 96.1 Pulse 93 Resp 18 B/P (MAP) 137/86 (103) Pulse Ox 96 O2 Delivery Simple Mask Height, Weight, BMI Height: 6'0" Weight: 250lbs. 2.0oz. 113.171053wi; 32.3 BMI Method:Stated General Appearance: WD/WN, no apparent distress Ears: left ear TM red, left ear TM bulging Cardiovascular: normal peripheral pulses, regular rate, rhythm, no edema, no gallop, no JVD, no murmur Respiratory: chest non-tender, lungs clear, normal breath sounds, no respiratory distress, no accessory muscle use Neurologic/Psychiatric: alert, normal mood/affect, oriented x 3 Skin: normal color, warm/dry Progress/Results/Core Measures Results/Orders My Orders Orders - SEA DAVID Cefdinir Capsule (Omnicef Capsule) (06/24/18 13:15) Cefdinir Capsule (Omnicef Capsule) (06/24/18 13:12) Vital Signs/I&O Blood Pressure Mean: 103 Departure Impression Primary Impression: Otitis media Disposition: 01 HOME, SELF-CARE Condition: Stable/Unchanged Departure-Patient Inst. Decision time for Depature: 13:04 Referrals: BRAD REID MD (PCP/Family) Primary Care Physician Patient Instructions: Ear Infections (Otitis Media) (DC) Add. Discharge Instructions: Call first thing tomorrow morning to Dr. Juarez's office and see if he can get you in any sooner than middle july. Take medications as directed. Follow-up with your primary care provider as needed. Return back to the emergency room for worsening symptoms or concerns as needed. All discharge instructions reviewed with patient and/or family. Voiced understanding. Scripts Hydrocodone Bit/Acetaminophen (Hydrocodone/Acetaminophen 5/325mg Tablet) 1 Tab Tab 1 EACH PO Q4-6HR PRN for PAIN-MODERATE MDD 10, #10 TAB Prov: SEA DAVID 06/24/18 Cefdinir (Cefdinir) 300 Mg Capsule 300 MG PO BID for 10 Days, #20 CAP Prov: SEA DAVID 06/24/18 SEA DAVID Jun 24, 2018 13:06
[2018-06-24] MEDS ORDERED: CEFDINIR 300 MG (OMNICEF) CAP PO ONE ×2 (13:12→13:15)
[2018-06-24 13:18] VITALS: BP 103/77
== END 2018-06-24 13:18 | disposition home or self-care (01) ==
LOC: EDUNIT# 12:10 → ER 12:11
DX: H66.92 Otitis media, unspecified, left ear (principal); I10 Essential (primary) hypertension; G40.909 Epilepsy, unspecified, not intractable, without status epilepticus; F12.10 Cannabis abuse, uncomplicated; F41.9 Anxiety disorder, unspecified; F43.10 Post-traumatic stress disorder, unspecified; F32.9 Major depressive disorder, single episode, unspecified; F17.210 Nicotine dependence, cigarettes, uncomplicated; Z87.442 Personal history of urinary calculi
CPT/HCPCS: 99283

== ENCOUNTER 2018-07-01 16:26 | Emergency (ER) | payer MEDICAID ==
[~2018-07-01] VITALS: Ht 182.9 cm; Wt 99.8 kg
--- NOTE | 2018-07-01 16:47 | ED EENT ---
History of Present Illness General Stated Complaint: EARACHE Source: patient Exam Limitations: no limitations History of Present Illness Date Seen by Provider: Jul 01, 2018 Time Seen by Provider: 16:44 Initial Comments To ER once again with complaints of bilateral ear pain. Scheduled to see Dr. Juarez in July. States that he feels like he has a water balloon in each of his ears. He is currently taking antibiotic orally and antibiotic drops. Timing/Duration: other (chronic) Severity: moderate Location: ear (R), ear (L) Associated Symptoms: No cough Allergies and Home Medications Allergies Coded Allergies: No Known Drug Allergies (Unverified , 10/29/08) Home Medications Cefdinir 300 Mg Capsule, 300 MG PO BID Prescribed by: SEA DAVID on 01/27/18 1204 Cefdinir 300 Mg Capsule, 300 MG PO BID Prescribed by: SEA DAVID on 06/24/18 1306 Ciprofloxacin HCl 5 Ml Drops, 3 DROPS OP BID 3 Drops Each Ear Prescribed by: ALEX CHANEY on 07/20/17 0958 Gabapentin 800 Mg Tablet, 800 MG PO QID, (Reported) Hydrocodone Bit/Acetaminophen 1 Tab Tab, 1 EACH PO Q6H PRN for PAIN-MODERATE Prescribed by: BENIGNO TODD on 12/30/17 1600 Hydrocodone Bit/Acetaminophen 1 Tab Tab, 1 EACH PO Q6H PRN for PAIN Prescribed by: SEA DAVID on 01/27/18 1204 Hydrocodone Bit/Acetaminophen 1 Tab Tab, 1 EACH PO Q4-6HR PRN for PAIN-MODERATE Prescribed by: SEA DAVID on 06/24/18 1306 Hydrocodone/Acetaminophen 1 Each Tablet, 1 EACH PO Q4H Prescribed by: ALEX CHANEY on 07/20/17 0958 Hydrocodone/Acetaminophen 1 Each Tablet, 1 EACH PO Q6H PRN for PAIN-MODERATE TO SEVERE Do not fill until antifungal eardrops yesterday by [facility] are filled. Prescribed by: SOBIA MORALES on 01/04/18 1054 Hydrocodone/Acetaminophen 1 Each Tablet, 1 EACH PO Q6H PRN for PAIN-MODERATE Do not fill unless antibiotic ear drops are also filled Prescribed by: SOBIA MORALES on 06/05/18 184 Ofloxacin 5 Ml Drops, 10 DROPS RIGHT EAR BID Prescribed by: SOBIA MORALES on 06/05/181847 Patient Home Medication List Home Medication List Reviewed: Yes Review of Systems Review of Systems Constitutional: see HPI Eyes: No Symptoms Reported Ears: See HPI, Pain Nose: no symptoms reported Mouth: no symptoms reported Throat: no symptoms reported Respiratory: no symptoms reported Cardiovascular: no symptoms reported Past Ubjfttb-Ruqbxe-Tabdnb Hx Patient Social History Drug of Choice: marijuana Type Used: Cigarettes Recent Foreign Travel: No Contact w/Someone Who Travel: No Recent Hopitalizations: No Seasonal Allergies Seasonal Allergies: No Past Medical History Surgeries: Yes (right hand surgery fx repair, 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 2.0oz. 113.534950sz; 32.3 BMI Method:Stated General Appearance: WD/WN, no apparent distress Eyes: bilateral eye normal inspection, bilateral eye PERRL, bilateral eye EOMI Ears: bilateral ear auricle normal, bilateral ear canal normal, bilateral ear TM normal, bilateral ear other (both ear canals are dry without swelling or drainage, the tympanic membranes are minimally erythematous and overall appear much better than the last time I saw him in May, he was also seen here last week for the same.) Neck: non-tender, full range of motion Neurologic/Psychiatric: alert, normal mood/affect, oriented x 3 Skin: normal color, warm/dry Departure Impression Primary Impression: Chronic otalgia Disposition: 01 HOME, SELF-CARE Condition: Stable Departure-Patient Inst. Decision time for Depature: 16:46 Referrals: BRAD REID MD (PCP/Family) Primary Care Physician Patient Instructions: CHRONIC PAIN, Ear Infections (Otitis Media) Add. Discharge Instructions: . 1. Continue current medications. If stronger pain medication is needed You'll need to follow-up with primary care for any additional opiate medication prescriptions. SOBIA MORALES APRN Jul 01, 2018 16:47
[2018-07-01] MEDS ORDERED: DEXAMETHASONE 10 MG/ML (DECADRON) 1 ML VIAL IM ONE (17:00)
[2018-07-01] MEDS ORDERED: KETOROLAC 60 MG/2 ML VIAL IM ONE (17:00)
[2018-07-01 17:30] VITALS: BP 109/77
== END 2018-07-01 17:12 | disposition home or self-care (01) ==
LOC: EDUNIT# 16:26 → ER 16:27
DX: H92.03 Otalgia, bilateral (principal); G89.29 Other chronic pain; I10 Essential (primary) hypertension; G40.909 Epilepsy, unspecified, not intractable, without status epilepticus; F41.9 Anxiety disorder, unspecified; F43.10 Post-traumatic stress disorder, unspecified; F32.9 Major depressive disorder, single episode, unspecified; Z87.442 Personal history of urinary calculi; Z98.890 Other specified postprocedural states
CPT/HCPCS: 99284

== ENCOUNTER 2018-07-11 10:17 | Emergency (ER) | payer MEDICAID ==
[~2018-07-11] VITALS: Ht 182.9 cm; Wt 99.8 kg
--- OUTSIDE RECORDS SUMMARY | 2018-07-11 10:26 | XMS REPORT | Continuity of Care Document ---
Author Author [facility] Address Unknown Phone Unavailable Allergies Active Description Code Type Severity Reaction Onset Reported/Identified Relationship to Patient Clinical Status Yes NO KNOWN DRUG ALLERGIES NO KNOWN DRUG ALLERG UNKNOWN Yes NO KNOWN DRUG ALLERGIES UNKNOWN NO KNOWN DRUG ALLERG Yes No Known Drug Allergies [id number] Drug Allergy Mild N/A 10/29/2008 Yes buspirone [...] TOMAS DDS V58.69 MEDICATION HIGH RISK 01/31/2008 [facility], JOSEE R V58.69 MEDICATION HIGH RISK 01/31/2008 ERA DE JESUS DO K V58.69 MEDICATION HIGH RISK 01/31/2008 DE JESUS JONNIE VALENCIAA K V58.69 MEDICATION HIGH RISK 01/31/2008 [facility], JOSEE R V58.69 MEDICATION HIGH RISK [...] SPRAIN/STRAIN OTHER UNSPEC SITE 02/27/2008 [facility], JOSEE R 848.9 SPRAIN/STRAIN OTHER UNSPEC SITE 02/27/2008 ERA DE JESUS DO K 848.9 SPRAIN/STRAIN OTHER UNSPEC SITE 02/27/2008 ERA DE JESUS DO K 848.9 SPRAIN/STRAIN OTHER UNSPEC SITE 02/27/2008 [facility], JOSEE R 848.9 SPRAIN/STRAIN OTHER UNSPEC SITE 02/27/2008 ERA DE JESUS DO 848.9 SPRAIN/STRAIN OTHER UNSPEC SITE 02/27/2008 HAN CABALLERO APRN 848.9 SPRAIN/STRAIN OTHER UNSPEC SITE 02/27/2008 HAN CABALLERO APRN 848.9 SPRAIN/STRAIN OTHER UNSPEC SITE 02/27/2008 STELLARUSTY PARKER, DEBBIE 848.9 SPRAIN/STRAIN OTHER UNSPEC SITE 02/27/2008 ERA DE JESUS DO 848.9 SPRAIN/STRAIN OTHER UNSPEC SITE 02/27/2008 STELLA SLOT EDITOR, DEBBIE 848.9 SPRAIN/STRAIN OTHER UNSPEC SITE 02/27/2008 [...] AN PANIC DIS W/O AGORA 06/25/2008 [facility], JOSEE Watters 296.80 MO BIPOLAR NOS 06/25/2008 [facility], JOSEE R 300.01 AN PANIC DIS W/O AGORA 06/25/2008 DE JESUS DO, ERA K 296.80 MO BIPOLAR NOS 06/25/2008 DE JESUS DO, ERA K 300.01 AN PANIC DIS W/O AGORA 06/25/2008 DE JESUS DO, ERA K 296.80 MO BIPOLAR NOS 06/25/2008 DE JESUS DO, ERA K 300.01 AN PANIC DIS W/O AGORA 06/25/2008 [facility], JOSEE R 296.80 MO BIPOLAR NOS 06/25/2008 [facility], JOSEE R 300.01 AN PANIC DIS [...] 312.30 I IMPULSE CONTROL DISORDER NOS 08/29/2008 [facility] DDS, BOB B 300.00 AN ANXIETY UNSPEC 08/29/2008 [facility] DDS, BOB B 307.47 SI DYSSOMNIA NOS 08/29/2008 [facility] DDS, BOB B 312.30 I IMPULSE CONTROL DISORDER NOS [facility]/29/[facility] 300.[facility] AN ANXIETY UNSPEC 08/29/[facility] 307.47 SI DYSSOMNIA NOS 08/29/2008 [facility] 312.30 I IMPULSE CONTROL DISORDER NOS [...] IMPULSE CONTROL DISORDER NOS 08/29/2008 [facility], JOSEE R 300.00 AN ANXIETY UNSPEC 08/29/2008 [facility], JOSEE R 307.47 SI DYSSOMNIA NOS 08/29/2008 [facility], JOSEE R 312.30 I IMPULSE CONTROL [...] 316 PF PSYCHIC FACTORS MED COND 09/18/2008 [facility], JOSEE R V61.10 RL RELATION COUNS [...] V61.10 RL RELATION COUNS 09/18/2008 [facility], JOSEE R 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 09/18/2008 [facility], JOSEE R 297.0 PARANOID STATE SIMPLE 09/18/2008 [facility], JOSEE R 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 09/18/2008 [facility], JOSEE R 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 09/18/2008 [facility], JOSEE R 316 PF PSYCHIC FACTORS MED COND 09/18/2008 [facility], JOSEE R V61.10 RL RELATION COUNS [...] APRN V61.10 RL RELATION COUNS 09/18/2008 [employer]A [employer], DEBBIE 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 09/18/2008 STELLA SLOT EDITOR, DEBBIE 297.0 PARANOID STATE SIMPLE 09/18/2008 STELLA SL[employer] EDITOR, DEBBIE 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 09/18/2008 STELLA [employer] EDIT[employer], DEBBIE 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 09/18/2008 STELLA SLOT EDITOR, DEBBIE 316 PF PSYCHIC FACTORS MED COND 09/18/2008 STELLA SLOT EDITOR, DEBBIE V61.10 RL RELATION COUNS 09/18/2008 DE [...] K V61.10 RL RELATION COUNS 09/18/2008 STELLA SLOT EDITOR, DEBBIE 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 09/18/2008 STELLA SLOT EDITOR, DEBBIE 297.0 PARANOID STATE SIMPLE 09/18/2008 STELLA SLOT EDITOR, DEBBIE 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 09/18/2008 STELLA SLOT EDITOR, DEBBIE 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 09/18/2008 STELLA SLOT EDITOR, DEBBIE 316 PF PSYCHIC FACTORS MED COND 09/18/2008 STELLA SLOT EDITOR, DEBBIE V61.10 RL RELATION COUNS 09/18/2008 DAVEY [...] BOB TOMAS DDS 590.2 KIDNEY STONES 11/09/2008 [facility], JOSEE R 590.2 KIDNEY STONES 11/09/2008 DE JESUS DO, ERA K 590.2 KIDNEY STONES 11/09/2008 DE JESUS DO, ERA K 590.2 KIDNEY STONES 11/09/2008 [facility], JOSEE R 590.2 KIDNEY STONES 11/09/2008 DE JESUS DO, ERA K 590.2 KIDNEY STONES 11/09/2008 HAN CABALLERO APRN 590.2 KIDNEY STONES 11/09/2008 GARHAN SHERIDAN APRN 590.2 KIDNEY STONES 11/09/2008 STELLA SLOT EDITOR, DEBBIE 590.2 KIDNEY STONES 11/09/2008 DE JESUS DO, ERA K 590.2 KIDNEY STONES 11/09/2008 STELLA SLOT EDITOR, DEBBIE 590.2 KIDNEY STONES 11/09/2008 DAVEY PHD, BRISSA Hraden 590.2 KIDNEY STONES 11/09/2008 DE JESUS DO, ERA K 590.2 KIDNEY STONES 11/09/2008 JEANETTE TORRES, BRAD 590.2 KIDNEY STONES 03/27/2010 Ot 788.0 03/27/2010 Ot 789.09 03/27/2010 Ot V13.01 06/28/2010 Ot 592.0 07/26/2010 DE JESUS DO, ERA K 305.1 NONDEPENDENT TOBACCO USE DISORDER 07/26/2010 DE JESUS DO, ERA K 465.9 UPPER RESPIRATORY INFECTION 07/26/2010 DE JESSU DO, ERA K 466.0 BRONCHITIS, ACUTE 07/26/2010 [...] B 305.1 NONDEPENDENT TOBACCO USE DISORDER 07/26/2010 [facility] DDS, BOB B 465.9 UPPER RESPIRATORY INFECTION 07/26/2010 [facility] DDS, BOB B 466.0 BRONCHITIS, ACUTE 07/26/2010 [facility], JOSEE R 305.1 NONDEPENDENT TOBACCO USE DISORDER 07/26/2010 [facility], JOSEE R 465.9 UPPER RESPIRATORY INFECTION 07/26/2010 [facility], JOSEE R 466.0 BRONCHITIS, ACUTE 07/26/2010 [...] K 466.0 BRONCHITIS, ACUTE 07/26/2010 [facility], JOSEE R 305.1 NONDEPENDENT TOBACCO USE DISORDER 07/26/2010 [facility], JOSEE R 465.9 UPPER RESPIRATORY INFECTION 07/26/2010 [facility], JOSEE R 466.0 BRONCHITIS, ACUTE 07/26/2010 [...] CABALLERO APRN 466.0 BRONCHITIS, ACUTE 07/26/2010 STELLA SL[employer] EDIT[employer], DEBBIE 305.1 NONDEPENDENT TOBACCO USE DISORDER 07/26/2010 STELLA SLOT EDITOR, DEBBEI 465.9 UPPER RESPIRATORY INFECTION 07/26/2010 STELLA SLOT EDITOR, DEBBIE 466.0 BRONCHITIS, ACUTE 07/26/2010 DE JESUS DO, ERA K 305.1 NONDEPENDENT TOBACCO USE DISORDER 07/26/2010 DE JESUS DO, ERA K 465.9 UPPER RESPIRATORY INFECTION 07/26/2010 DE JESUS DO, ERA K 466.0 BRONCHITIS, ACUTE 07/26/2010 SETLLA SL[employer] EDIT[employer], DEBBIE 305.1 NONDEPENDENT TOBACCO USE DISORDER 07/26/2010 STELLA SLOT EDITOR, DEBBIE 465.9 UPPER RESPIRATORY INFECTION 07/26/2010 STELLA SLOT EDITOR, DEBBIE 466.0 BRONCHITIS, ACUTE 07/26/2010 DAVEY PHD, [...] joint pain, localized in the hip 09/20/2010 [facility], JOSEE R 401.1 ESSENTIAL HYPERTENSION BENIGN 09/20/2010 [facility], JOSEE R 719.45 joint pain, localized in the hip 09/20/2010 DE JESUS DO, ERA K 401.1 ESSENTIAL HYPERTENSION BENIGN 09/20/2010 DE JESUS DO, ERA K 719.45 joint pain, localized in the hip 09/20/2010 DE JESUS DO, ERA K 401.1 ESSENTIAL HYPERTENSION BENIGN 09/20/2010 DE JESUS DO, ERA K 719.45 joint pain, localized in the hip 09/20/2010 [facility], JOSEE R 401.1 ESSENTIAL HYPERTENSION BENIGN 09/20/2010 [facility], JOSEE R 719.45 joint pain, localized in [...] 726.5 ENTHESOPATHY OF HIP REGION 09/30/2010 [facility], JOSEE R 726.5 ENTHESOPATHY OF HIP REGION 09/30/2010 LIZA VALENCIA ERA K 726.5 ENTHESOPATHY OF HIP REGION 09/30/2010 DE JESUS DO ERA K 726.5 ENTHESOPATHY OF HIP REGION 09/30/2010 [facility], JOSEE R 726.5 ENTHESOPATHY OF [...] TOMAS DDS 311 DEPRESSIVE DISORDER NOS 02/28/2012 [facility], JOSEE R 311 DEPRESSIVE DISORDER NOS 02/28/2012 LIZA VALENCIA ERA K 311 DEPRESSIVE DISORDER NOS 02/28/2012 LIZA VALENCIA ERA K 311 DEPRESSIVE DISORDER NOS 02/28/2012 [facility], JOSEE R 311 DEPRESSIVE DISORDER NOS 02/28/2012 LIZA VALENCIA ERA K 311 DEPRESSIVE DISORDER NOS 02/28/2012 HAN CABALLERO APRN 311 DEPRESSIVE DISORDER NOS 02/28/2012 HAN CABALLERO APRN 311 DEPRESSIVE DISORDER NOS 02/28/2012 DEBBIE DOUGLAS APRN 311 DEPRESSIVE DISORDER NOS 02/28/2012 JONNIE DE [...] BOB B 726.12 BICIPITAL TENOSYNOVITIS 05/16/2012 [facility], JOSEE R 726.12 BICIPITAL TENOSYNOVITIS 05/16/2012 ERA DE JESUS DO K 726.12 BICIPITAL TENOSYNOVITIS 05/16/2012 JONNIE DE JESUS DOA K 726.12 BICIPITAL TENOSYNOVITIS 05/16/2012 [facility], JOSEE R 726.12 BICIPITAL TENOSYNOVITIS 05/16/2012 JONNIE [...] LUMBAGO/ LOW BACK PAIN 08/07/2012 [facility], JOSEE R 724.2 LUMBAGO/ LOW BACK [...] 300.02 AN GEN ANXIETY 09/17/2012 [facility], JOSEE R 296.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 09/17/2012 [facility], JOSEE R 300.02 AN GEN ANXIETY 09/17/2012 ERA DE JESUS DO 296.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 09/17/2012 ERA DE JESUS DO 300.02 AN GEN ANXIETY 09/17/2012 ERA DE JESUS DO 296.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 09/17/2012 ERA DE JESUS DO 300.02 AN GEN ANXIETY 09/17/2012 [facility], JOSEE R 296.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 09/17/2012 [facility], JOSEE R 300.02 AN GEN ANXIETY [...] AN PTSD 10/09/2012 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 10/09/2012 [facility] BOB YAP 309.81 AN PTSD 10/09/2012 [facility] BOB YAP 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 10/09/2012 [facility], JOSEE R 309.81 AN PTSD 10/09/2012 [facility], JOSEE R 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 10/09/2012 DE JESUS DO, ERA K 309.81 AN PTSD 10/09/2012 DE JESUS DO, ERA K 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 10/09/2012 DE JESUS DO, ERA K 309.81 AN PTSD 10/09/2012 DE JESUS DO, ERA K 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 10/09/2012 [facility], JOSEE R 309.81 AN PTSD 10/09/2012 [facility], JOSEE R 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 10/09/2012 DE JESUS DO, ERA K 309.81 AN PTSD 10/09/2012 DE JESUS DO, ERA K 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 10/09/2012 HAN CABALLERO APRN 309.81 AN PTSD 10/09/2012 HAN CABALLERO APRN 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 10/09/2012 HAN CABALLERO APRN D 309.81 AN PTSD 10/09/2012 HAN CABALLERO APRN 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 10/09/2012 [employer], DEBBIE 309.81 AN PTSD 10/09/2012 [employer], DEBBIE 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 10/09/2012 DE JESUS DO, ERA K 309.81 AN PTSD 10/09/2012 DE JESUS DO, ERA K 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 10/09/2012 STELLA [employer], DEBBIE 309.81 AN PTSD 10/09/2012 STELLA SL[employer] EDIT[employer], DEBBIE 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 10/09/2012 DE JESUS [...] COUNSELING - SMOKING CESSATION 07/29/2013 [facility], JOSEE R 715.00 OSTEOARTHROSIS GENERALIZED INVOLVING UNSPECIFIED SITE 07/29/2013 [facility], JOSEE R V65.42 COUNSELING - SMOKING [...] K 296.32 MO DEPRESSIVE RECURRENT MODERATE 08/02/2013 [facility], JOSEE R 296.32 MO DEPRESSIVE RECURRENT [...] PARKER DEBBIE 850.9 CONCUSSION UNSPECIFIED 09/13/2013 STELLA SLOT EDITOR, DEBBIE E888.9 UNSPECIFIED ACCIDENTAL FALL 09/13/2013 ERA [...] L Ot Y92.[address] [facility] NON-INST[facility] (PRIVATE 06/22/2015 BERGER DO, ADRIANA [...] AREVALO MD Ot Y92.[address] IN [facility] (PRIVATE 05/01/2016 TITO AREVALO MD Ot [...] MD Ot Y92.[address] IN [facility] NONINSTIT[facility] (PRIVATE 05/03/2016 TITO AREVALO MD Ot [...] MD Ot Y92.[address] IN [facility] NON-[facility] (PRIVATE 05/07/2016 TITO AREVALO MD Ot Y93.9 [...] J01.90 ACUTE SINUSITIS, UNSPECIFIED 12/13/2016 TAYLA GRACIA METALIZING MACHINE OPERATOR Ot M54.5 LOW BACK PAIN 12/15/2016 TAYLA GRACIA METALIZING MACHINE OPERATOR Ot M54.5 LOW BACK PAIN 12/15/2016 TAYLA GRACIA METALIZING MACHINE OPERATOR Ot M54.5 LOW BACK PAIN 12/19/2016 TAYLA GRACIA METALIZING MACHINE OPERATOR Ot M54.5 LOW BACK PAIN 12/30/2016 TAYLA GRACIA METALIZING MACHINE OPERATOR Ot M54.5 LOW BACK PAIN 01/04/2017 TAYLA GRACIA METALIZING MACHINE OPERATOR Ot M54.5 LOW BACK PAIN [...] 07/20/2017 RAMIRO FRAZIER MD Ot Z79.899 OTHER [facility] (CURRENT) DRUG THERAPY 07/26/2017 RAMIRO FRAZIER MD Ot F17.210 NICOTINE DEPENDENCE, CIGARETTES, UNCOMPL 07/26/2017 RAMIRO FRAZIER MD Ot F43.10 POST-TRAUMATIC STRESS DISORDER, UNSPECIF 07/26/2017 RAMIRO FRAZIER MD Ot H65.23 CHRONIC SEROUS OTITIS MEDIA, BILATERAL 07/26/2017 RAMIRO FRAZIER MD Ot I10 ESSENTIAL (PRIMARY) HYPERTENSION 07/26/2017 RAMIRO FRAZIER MD Ot J34.89 OTHER SPECIFIED DISORDERS OF NOSE AND NA 07/26/2017 RAMIRO FRAZIER MD Ot Z79.[address] MAINTAINER (CURRENT) DRUG THERAPY 07/28/2017 RAMIRO FRAZIER MD Ot F17.210 NICOTINE DEPENDENCE, CIGARETTES, UNCOMPL 07/28/2017 RAMIRO FRAZIER MD Ot F43.10 POST-TRAUMATIC STRESS DISORDER, UNSPECIF 07/28/2017 RAMIRO FRAZIER MD Ot H65.23 CHRONIC SEROUS OTITIS MEDIA, BILATERAL 07/28/2017 RAMIRO FRAZIER MD Ot I10 ESSENTIAL (PRIMARY) HYPERTENSION 07/28/2017 RAMIRO FRAZIER MD Ot J34.89 OTHER SPECIFIED DISORDERS OF NOSE AND NA 07/28/2017 RAMIRO FRAZIER MD Ot Z79.899 OTHER [facility] (CURRENT) DRUG THERAPY 12/26/2017 Lawrence Booth A [...] DAVID Ot H92.02 OTALGIA, LEFT EAR 02/02/2018 BERNROMEO SEA Ot I10 ESSENTIAL (PRIMARY) HYPERTENSION 02/02/2018 [...] Ot H66.90 OTITIS MEDIA, UNSPECIFIED, UNSPECIFIED E 06/05/2018 SOBIA MORALES APRN Ot F12.10 CANNABIS ABUSE, UNCOMPLICATED 06/05/2018 SOBIA MORALES APRN Ot F17.210 NICOTINE DEPENDENCE, CIGARETTES, UNCOMPL 06/05/2018 SOBIA MORALES APRN Ot F32.9 MAJOR DEPRESSIVE DISORDER, SINGLE EPISOD 06/05/2018 SOBIA MORALES APRN Ot F41.9 ANXIETY DISORDER, UNSPECIFIED 06/05/2018 SOBIA MORALES APRN Ot F43.10 POST-TRAUMATIC STRESS DISORDER, UNSPECIF 06/05/2018 SOBIA MORALES APRN Ot G40.909 EPILEPSY, UNSP, NOT INTRACTABLE, WITHOUT 06/05/2018 SOBIA MORALES APRN Ot H60.92 UNSPECIFIED OTITIS EXTERNA, LEFT EAR 06/05/2018 SOBIA MORALES APRN Ot H92.02 OTALGIA, LEFT EAR 06/05/2018 SOBIA MORALES APRN Ot I10 ESSENTIAL (PRIMARY) HYPERTENSION 06/05/2018 SOBIA MORALES APRN Ot Z87.442 PERSONAL HISTORY OF URINARY CALCULI 06/05/2018 SOBIA MORALES APRN Ot Z98.890 OTHER SPECIFIED POSTPROCEDURAL STATES 06/07/2018 SOBIA MORALES APRN Ot F12.10 CANNABIS ABUSE, UNCOMPLICATED 06/07/2018 SOBIA MORALES APRN Ot F17.210 NICOTINE DEPENDENCE, CIGARETTES, UNCOMPL 06/07/2018 SOBIA MORALES APRN Ot F32.9 MAJOR DEPRESSIVE DISORDER, SINGLE EPISOD 06/07/2018 SOBIA MORALES APRN Ot F41.9 ANXIETY DISORDER, UNSPECIFIED 06/07/2018 SOBIA MORALES APRN Ot F43.10 POST-TRAUMATIC STRESS DISORDER, UNSPECIF 06/07/2018 SOBIA MORALES APRN Ot G40.909 EPILEPSY, UNSP, NOT INTRACTABLE, WITHOUT 06/07/2018 SOBIA MORALES APRN Ot H60.92 UNSPECIFIED OTITIS EXTERNA, LEFT EAR 06/07/2018 SOBIA MORALES APRN Ot H92.02 OTALGIA, LEFT EAR 06/07/2018 SOBIA MORALES APRN Ot I10 ESSENTIAL (PRIMARY) HYPERTENSION 06/07/2018 SOBIA MORALES APRN Ot Z87.442 PERSONAL HISTORY OF URINARY CALCULI 06/07/2018 SOBIA MORALES APRN Ot Z98.890 OTHER SPECIFIED POSTPROCEDURAL STATES 06/26/2018 SEA DAVID Ot F12.10 CANNABIS ABUSE, UNCOMPLICATED 06/26/2018 SEA DAVID Ot F17.210 NICOTINE DEPENDENCE, CIGARETTES, UNCOMPL 06/26/2018 SEA DAVID Ot F32.9 MAJOR DEPRESSIVE DISORDER, SINGLE EPISOD 06/26/2018 SEA DAVID Ot F41.9 ANXIETY DISORDER, UNSPECIFIED 06/26/2018 SEA DAVID Ot F43.10 POST-TRAUMATIC STRESS DISORDER, UNSPECIF 06/26/2018 SEA DAVID Ot G40.909 EPILEPSY, UNSP, NOT INTRACTABLE, WITHOUT 06/26/2018 SEA DAVID Ot H66.92 OTITIS MEDIA, UNSPECIFIED, LEFT EAR 06/26/2018 SEA DAVID Ot H92.02 OTALGIA, LEFT EAR 06/26/2018 SEA DAVID Ot I10 ESSENTIAL (PRIMARY) HYPERTENSION 06/26/2018 SEA DAVID Ot Z87.442 PERSONAL HISTORY OF URINARY CALCULI 07/03/2018 SOBIA MORALES APRN Ot F32.9 MAJOR DEPRESSIVE DISORDER, SINGLE EPISOD 07/03/2018 SOBIA MORALES APRN Ot F41.9 ANXIETY DISORDER, UNSPECIFIED 07/03/2018 SOBIA MORALES APRN Ot F43.10 POST-TRAUMATIC STRESS DISORDER, UNSPECIF 07/03/2018 SOBIA MORALES APRN Ot G40.909 EPILEPSY, UNSP, NOT INTRACTABLE, WITHOUT 07/03/2018 SOBIA MORALES APRN Ot G89.29 OTHER CHRONIC PAIN 07/03/2018 SOBIA MORALES APRN Ot H92.03 OTALGIA, BILATERAL 07/03/2018 SOBIA MORALES APRN Ot I10 ESSENTIAL (PRIMARY) HYPERTENSION 07/03/2018 SOBIA MORALES APRN Ot Z87.442 PERSONAL HISTORY OF URINARY CALCULI 07/03/2018 SOBIA MORALES APRN Ot Z98.890 OTHER SPECIFIED POSTPROCEDURAL STATES Procedures Code Description Performed By Performed On [facility]ICK[facility] 05/16/2012 [facility] STRICKLAND 06/20/2012 [facility] 06/20/2012 61487 ROUTINE VENIPUNCTURE 08/07/2012 63868 XRAY LUMBAR SPINE 2 OR 3 VIEWS 08/07/2012 34457 CMP 08/07/2012 96747 URINE DRUG SCREEN (IN-HOUSE ) 08/07/2012 31664 TSH 08/07/2012 48380 CBC 08/07/2012 [facility] 08/07/2012 84008 PSYCH DIAGNOSTIC EVALUATION 09/18/2012 67805 PSYTX PT&/FAMILY 45 MINUTES 09/18/2012 58613 URINE DRUG SCREEN (IN-HOUSE ) 10/09/2012 14498 URINE THC CON'F 10/19/2012 36150 PSYCH DIAG EVAL W/MED SRVCS 10/19/2012 06234 PSYTX PT&/FAMILY 30 MINUTES 10/19/2012 43398 PSYTX PT&/FAMILY 30 MINUTES 07/10/2013 20869 PSYTX PT&/FAMILY 45 MINUTES 08/02/2013 43513 ROUTINE VENIPUNCTURE 08/13/2013 01996 URINE DRUG SCREEN (IN-HOUSE ) 08/13/2013 5298744 GFR CALC (RESULT ONLY) 08/13/2013 16465 CMP 08/13/2013 90013 PSYTX PT&/FAMILY 45 MINUTES 08/22/2013 Results Test [...] Status Pt. Type Provider Facility Loc./Unit Complaint [id number] 09/08/2014 13:54:00 09/08/2014 23:59:59 CLS Outpatient BRAD REID MD [id number] 08/22/2014 13:39:00 08/22/2014 23:59:59 CLS Outpatient ERA DE JESUS DO [id number] 11/26/2013 09:50:00 11/26/2013 23:59:59 CLS Outpatient ERA DE JESUS DO [id number] 10/31/2013 15:25:00 10/31/2013 23:59:59 CLS Outpatient DEBBIE DOUGLAS APRN [id number] 10/31/2013 15:25:00 10/31/2013 23:59:59 CLS Outpatient DEBBIE DOUGLAS APRN [id number] 09/17/2013 15:42:00 09/17/2013 23:59:59 CLS Outpatient HAN CABALLERO APRN Simran [id number] 09/17/2013 15:42:00 09/17/2013 23:59:59 CLS Outpatient HAN CABALLERO APRN Simran [id number] 09/13/2013 10:16:00 09/13/2013 23:59:59 CLS Outpatient DE JESUS DOERA [id number] 08/21/2013 15:24:00 08/21/2013 23:59:[id number] 16:57:00 08/02/2013 23:59:59 CLS Outpatient ERA DE JESUS DO [id number] 07/29/2013 15:38:00 07/29/2013 23:59:59 CLS Outpatient DE JESUS DOERA [id number] 07/10/2013 11:00:00 07/10/2013 23:59:59 [facility] [id number] 12/04/2012 10:27:00 12/04/2012 23:59:59 CLS Outpatient BOB TOMAS DDS [id number] 08/07/2012 12:55:00 08/07/2012 23:59:59 CLS Outpatient LIZA DOERA [id number] 07/11/2012 18:40:00 07/11/2012 23:59:59 CLS Outpatient LIZA DOERA [id number] 06/20/2012 13:40:00 06/20/2012 23:59:59 CLS Outpatient [id number] 05/16/2012 14:37:00 05/16/2012 23:59:59 CLS Outpatient DE JESUS DOERA [id number] 02/28/2012 13:13:00 02/28/2012 23:59:59 CLS Outpatient BRISSA MARISCAL PHD [id number] 10/19/2012 10:23:00 Document Registration [id number] 10/03/2012 09:39:00 Document Registration [id number] 09/18/2012 09:39:00 Document Registration [id number] 08/03/2016 14:09:00 Document Registration [id number] 08/04/2016 06:08:00 Document Registration [id number] 04/04/2018 12:33:00 04/04/2018 13:46:00 DIS Outpatient Quiana Wells [id number] 02/05/2018 12:56:00 02/05/2018 14:35:00 DIS Outpatient Leobardo [facility] ER [id number] 12/26/2017 09:26:00 12/26/2017 10:22:00 DIS Outpatient Leobardo Lawrence [id number] 11/24/2016 10:06:00 11/24/2016 10:50:00 DIS Outpatient Sobia Morales [id number] 08/08/2016 17:36:00 08/08/2016 18:01:00 DIS Outpatient [place] [facility] [place] [id number] 08/08/2016 17:42:02 Document Registration [id number] 12/22/2017 16:00:00 12/22/2017 23:59:59 CLS Outpatient JEANETTE TORRES, [facility] [id number] 06/26/2017 13:20:00 Document Registration [id number] 07/01/2018 16:27:00 07/01/2018 17:12:00 DIS Outpatient SOBIA MORALES APRN [facility] ER E[place]ACHE [id number] 06/24/2018 12:11:00 06/24/2018 13:18:00 DIS Outpatient SEA DAVID [facility] ER REOCCURING L EAR INFECTION [id number] 06/05/2018 18:03:00 06/05/2018 18:56:00 DIS Emergency SOBIA MORALES SLOT EDITOR [facility] ER L EAR PAIN,LEAKING [id number] 05/21/2018 12:42:00 05/21/2018 13:35:00 DIS Emergency SEA DAVID [facility] ER EAR INFECTION [id number] 04/04/2018 10:07:00 04/04/2018 12:01:00 DIS Emergency EL CHOUDHURY MD [facility] ER BACK PAIN [id number] 02/04/2018 12:25:00 02/04/2018 14:23:00 DIS Emergency PEYTON TORRES, BENIGNO Khalil [facility] ER EAR INFECTION [id number] 02/03/2018 21:42:00 02/03/2018 23:59:59 CLS Emergency KEI TORRES, EL Workman [facility] ER LEFT EAR HURTING [id number] 01/27/2018 11:13:00 01/27/2018 12:09:00 DIS Emergency SEA DAVID [facility] ER EAR INFECTION [id number] 07/20/2017 06:55:00 07/20/2017 10:13:00 DIS Outpatient RAMIRO FRAZIER MD [facility] CHRONIC SEROUS OTITIS MEDIA [id number] 07/17/2017 11:58:00 07/17/2017 12:25:00 DIS Outpatient RAMIRO FRAZIER MD [facility] PREOP CHRONIC SEROUS OTITIS MEDIA [id number] 05/19/2017 11:50:00 05/19/2017 13:14:00 DIS Emergency HUGH YORK [facility] ER LT EAR PAIN [id number] 12/30/2016 13:30:00 01/04/2017 16:09:00 DIS Outpatient TAYLA GRACIA METALIZING MACHINE OPERATOR [facility] REHAB LOW BACK PAIN [id number] 08/07/2016 16:06:00 08/07/2016 16:57:00 DIS Emergency RYLEE BENNETT MD [facility] ER L HAND LAC [id number] 05/01/2016 17:49:00 05/01/2016 19:54:00 DIS Emergency TITO AREVALO MD [facility] ER L ANKLE INJ [id number] 06/22/2015 13:48:00 06/22/2015 15:53:00 DIS Emergency ADRIANA BERGER DO [facility] ER SYNCOPAL EPISODE, GROIN PAIN [id number] 04/16/2015 10:26:00 04/16/2015 11:26:00 DIS Emergency EMI YBARRA MD [facility] ER RIGHT SHOULDER PAIN [id number] 08/30/2013 17:50:00 08/30/2013 21:57:00 DIS Emergency MICKEY TORRES, TITO Robles [facility] ER PASSED OUT; HEAD INJ [id number] 01/04/2018 10:21:00 Document Registration [id number] 12/30/2017 15:37:00 Document Registration [id number] 04/16/2015 10:26:00 Document Registration [id number] 04/16/2015 10:26:00 Document Registration [id number] 06/26/2012 08:20:00 Document Registration [id number] 05/13/2012 11:19:00 Document Registration [id number] 01/10/2012 10:51:00 Document Registration [id number] 06/29/2010 00:00:00 Document Registration [id number] 03/30/2010 14:44:00 Document Registration [id number] 03/27/2010 15:43:00 Document Registration
--- NOTE | 2018-07-11 10:37 | ED EENT ---
History of Present Illness General Stated Complaint: EAR INFECTION Source: patient Exam Limitations: no limitations History of Present Illness Date Seen by Provider: Jul 11, 2018 Time Seen by Provider: 10:23 Initial Comments Patient presents to ER by private conveyance with chief complaint of bilateral ear jaw tooth pain. No discharge from the ears. He's had ear infections on both ears with left worse than right as well as full pressure in his ears. He is a little bit of a runny nose. Some chills but no objective fever. He had ear tubes placed a year ago by Dr. Juarez, ear nose and throat surgeon secondary to fungal infection after swimming. He did not have problems with ear infections as a child. He is having some of his teeth hurting him as well as has history of cavities but is not followed up with a dentist. He's having no discharge from the mouth no sore throat or difficulty swallowing. No nausea. Allergies and Home Medications Allergies Coded Allergies: No Known Drug Allergies (Unverified , 10/29/08) Home Medications Cefdinir 300 Mg Capsule, 300 MG PO BID Prescribed by: SEA DAVID on 01/27/18 1204 Cefdinir 300 Mg Capsule, 300 MG PO BID Prescribed by: SEA DAVID on 06/24/18 1306 Ciprofloxacin HCl 5 Ml Drops, 3 DROPS OP BID 3 Drops Each Ear Prescribed by: ALEX CHANEY on 07/20/17 0958 Gabapentin 800 Mg Tablet, 800 MG PO QID, (Reported) Hydrocodone Bit/Acetaminophen 1 Tab Tab, 1 EACH PO Q6H PRN for PAIN-MODERATE Prescribed by: BENIGNO TODD on 12/30/17 1600 Hydrocodone Bit/Acetaminophen 1 Tab Tab, 1 EACH PO Q6H PRN for PAIN Prescribed by: SEA DAVID on 01/27/18 1204 Hydrocodone Bit/Acetaminophen 1 Tab Tab, 1 EACH PO Q4-6HR PRN for PAIN-MODERATE Prescribed by: SEA DAVID on 06/24/18 1306 Hydrocodone/Acetaminophen 1 Each Tablet, 1 EACH PO Q4H Prescribed by: ALEX CHANEY on 07/20/17 0958 Hydrocodone/Acetaminophen 1 Each Tablet, 1 EACH PO Q6H PRN for PAIN-MODERATE TO SEVERE Do not fill until antifungal eardrops yesterday by Dr [facility] are filled. Prescribed by: SOBIA MORALES on 01/04/18 1054 Hydrocodone/Acetaminophen 1 Each Tablet, 1 EACH PO Q6H PRN for PAIN-MODERATE Do not fill unless antibiotic ear drops are also filled Prescribed by: SOBIA MORALES on 06/05/181847 Ofloxacin 5 Ml Drops, 10 DROPS RIGHT EAR BID Prescribed by: SOBIA MORALES on 06/05/181847 Patient Home Medication List Home Medication List Reviewed: Yes Review of Systems Review of Systems Constitutional: chills; No fever Eyes: Denies Blindness, Denies Blurred Vision Ears: Denies Dizziness; Pain; Denies Bloody Discharge, Denies Clear Discharge, Denies Purulent Discharge Nose: congestion; denies epistaxis, denies pain Mouth: denies clots; pain (bilateral upper and lower teeth various); denies purulent discharge, denies serosanguinous discharge Throat: denies pain, denies swelling Respiratory: No cough, No short of breath Past [id number] Hx Patient Social History Alcohol Use: Denies Use Recreational Drug Use: Yes Drug of Choice: marijuana Smoking Status: Current Everyday Smoker Type Used: Cigarettes (1 ppd) Recent Foreign Travel: No Contact w/Someone Who Travel: No Recent Hopitalizations: No Seasonal Allergies Seasonal Allergies: No Past Medical History Surgeries: Yes (right hand surgery fx repair, 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 2.0oz. [id number]; 32.3 BMI Method:Stated General Appearance: WD/WN, mild distress Eyes: bilateral eye normal inspection, bilateral eye PERRL, bilateral eye EOMI Ears: bilateral ear auricle normal, bilateral ear canal normal, bilateral ear tenderness, bilateral ear TM dull, bilateral ear other (no loss of landmarks on the TMs but there is mucoid effusion bilaterally. The right TM still has a myringotomy tube present) Nose: normal inspection, discharge (clear mucoid) Mouth/Throat: other (extensive dental cavities) Neck: non-tender, normal inspection Cardiovascular: normal peripheral pulses, regular rate, rhythm Respiratory: no respiratory distress, no accessory muscle use Progress/Results/Core Measures Progress Progress Note : Time: 10:34 Progress Note Ears do not appear to be acutely infected. He does have a mucoid effusion so we' ll put him on Flonase. Out like to avoid steroids systemically since he just got off a course of cefdinir we don't prompt another external ear fungal infection. We will have him follow-up with the ENT but we have also encouraged him to follow up with a dentist. We'll give him some viscous lidocaine for his tooth pain. We'll give him some hydrocodone for breakthrough pain. He's taking ibuprofen and encourage him to continue that. Finally we'll put him on amoxicillin 3 times a day as most of his pain seemed to be more in his teeth then on examination of his ears. Departure Impression Primary Impression: Dental caries Additional Impression: Subacute otitis media with effusion Disposition: 01 HOME, SELF-CARE Condition: Stable Departure-Patient Inst. Decision time for Depature: 10:36 Referrals: RAMIRO JUAREZ MD, DAVID F MD (PCP/Family) Primary Care Physician Patient Instructions: Dental Pain (DC), Serous Otitis Media (DC) Add. Discharge Instructions: Warm moist heat to the ear may help. Use the viscous lidocaine one pea sized amount placed over the tooth that is giving you the most pain every few hours as needed. Use the ibuprofen 800 mg every 8 hours and for breakthrough pain you can use one tablet of hydrocodone every 6 hours as needed. retail supervisor the amoxicillin and take one capsule 3 times a day to help reduce the inflammation and pain in your teeth. Make a follow-up appointment with a dentist as well as with the ear nose and throat surgeon to discuss your issues. retail supervisor some Flonase/fluticasone nasal spray and apply 1 spray to each nostril twice a day for the next 2 weeks to help open up your middle ear so they can drain better. Scripts Hydrocodone Bit/Acetaminophen (Hydrocodone/Acetaminophen 5/325mg Tablet) 1 Tab Tab 1-2 EACH PO Q6H for PAIN-MODERATE MDD 10 for 5 Days, #15 TAB 0 Refills Prov: EL CHOUDHURY 07/11/18 Amoxicillin (Amoxicillin) 500 Mg Capsule 500 MG PO TID for 7 Days, #21 CAP 0 Refills Prov: EL CHOUDHURY 07/11/18 Fluticasone Propionate (Flonase Allergy Relief) 9.9 Ml [place].susp 2 SPRAY NS DAILY for 14 Days, #1 EACH 0 Refills 2 SPRAYS PER NOSTRIL DAILY X 2 DAYS THEN 1 SPRAY DAILY Prov: EL CHOUDHURY 07/11/18 EL CHOUDHURY Jul 11, 2018 10:37
[2018-07-11] MEDS ORDERED: AMOX500C2 PO (10:41)
[2018-07-11] MEDS ORDERED: FLUT9.9S NS (10:41)
[2018-07-11] MEDS ORDERED: ACHD5005 PO (10:42)
[2018-07-11 10:50] VITALS: BP 130/98
== END 2018-07-11 10:50 | disposition home or self-care (01) ==
LOC: EDUNIT# 10:17 → ER 10:18
DX: K02.9 Dental caries, unspecified (principal); H65.93 Unspecified nonsuppurative otitis media, bilateral; I10 Essential (primary) hypertension; G40.909 Epilepsy, unspecified, not intractable, without status epilepticus; F41.9 Anxiety disorder, unspecified; F43.10 Post-traumatic stress disorder, unspecified; F32.9 Major depressive disorder, single episode, unspecified; F17.210 Nicotine dependence, cigarettes, uncomplicated; F12.10 Cannabis abuse, uncomplicated; Z98.890 Other specified postprocedural states; Z87.442 Personal history of urinary calculi; Z96.22 Myringotomy tube(s) status
CPT/HCPCS: 99282

== ENCOUNTER 2018-07-31 11:18 | Emergency (ER) | payer MEDICAID ==
[~2018-07-31] VITALS: Ht 182.9 cm; Wt 99.8 kg
[~2018-07-31 11:18] MED LIST changes: +FLUT9.9S NS
--- OUTSIDE RECORDS SUMMARY | 2018-07-31 12:45 | XMS REPORT | Continuity of Care Document ---
Author Author [facility] Address Unknown Phone Unavailable Allergies Active Description Code Type Severity Reaction Onset Reported/Identified Relationship to Patient Clinical Status Yes NO KNOWN DRUG ALLERGIES NO KNOWN DRUG ALLERG UNKNOWN Yes NO KNOWN DRUG ALLERGIES UNKNOWN NO KNOWN DRUG ALLERG Yes No Known Drug Allergies [id number] Drug Allergy Mild N/A 10/29/2008 Yes buspirone [...] 01/31/2008 V58.69 MEDICATION HIGH RISK 01/31/2008 BOB TOMSA DDS V58.69 MEDICATION HIGH RISK 01/31/2008 [facility], JOSEE R V58.69 MEDICATION HIGH RISK 01/31/2008 ERA DE JESUS DO K V58.69 MEDICATION HIGH RISK 01/31/2008 DE JESUS JONNIE VALENCIAA K V58.69 MEDICATION HIGH RISK 01/31/2008 [facility], JOSEE R V58.69 MEDICATION HIGH RISK 01/31/2008 ERA DE JESUS DO V58.69 MEDICATION HIGH RISK 01/31/2008 HAN CABALLERO APRN V58.69 MEDICATION HIGH RISK 01/31/2008 HAN CABALLERO APRN V58.69 MEDICATION HIGH RISK 01/31/2008 STELLADEBBIE OJEDA APRN V58.69 MEDICATION HIGH RISK 01/31/2008 JONNIE DE JESUS DOA K V58.69 MEDICATION HIGH RISK 01/31/2008 STELAL DEBBIE PARKER V58.69 MEDICATION HIGH RISK 01/31/2008 [...] B 848.9 SPRAIN/STRAIN OTHER UNSPEC SITE 02/27/2008 [facility], JOSEE R 848.9 SPRAIN/STRAIN OTHER UNSPEC SITE 02/27/2008 ERA DE JESUS DO K 848.9 SPRAIN/STRAIN OTHER UNSPEC SITE 02/27/2008 ERA DE JESUS DO K 848.9 SPRAIN/STRAIN OTHER UNSPEC SITE 02/27/2008 [facility], JOSEE R 848.9 SPRAIN/STRAIN OTHER UNSPEC SITE 02/27/2008 ERA DE JESUS DO 848.9 SPRAIN/STRAIN OTHER UNSPEC SITE 02/27/2008 HAN CABALLERO APRN 848.9 SPRAIN/STRAIN OTHER UNSPEC SITE 02/27/2008 HAN CABALLERO APRN 848.9 SPRAIN/STRAIN OTHER UNSPEC SITE 02/27/2008 STELLARUSTY PARKER, DEBBIE 848.9 SPRAIN/STRAIN OTHER UNSPEC SITE 02/27/2008 ERA DE JESUS DO 848.9 SPRAIN/STRAIN OTHER UNSPEC SITE 02/27/2008 STELLA LIEUTENANT SHIFT SUPERVISOR, DEBBIE 848.9 SPRAIN/STRAIN OTHER UNSPEC SITE 02/27/2008 [...] AN PANIC DIS W/O AGORA 06/25/2008 [facility] JOSEE Watters 296.80 MO BIPOLAR NOS 06/25/2008 [facility], JOSEE R 300.01 AN PANIC DIS W/O AGORA 06/25/2008 DE JESUS DO, ERA K 296.80 MO BIPOLAR NOS 06/25/2008 DE JESUS DO, ERA K 300.01 AN PANIC DIS W/O AGORA 06/25/2008 DE JESUS DO, ERA K 296.80 MO BIPOLAR NOS 06/25/2008 DE JESUS DO, ERA K 300.01 AN PANIC DIS W/O AGORA 06/25/2008 [facility], JOSEE R 296.80 MO BIPOLAR NOS 06/25/2008 [facility], JOSEE R 300.01 AN PANIC [...] 312.30 I IMPULSE CONTROL DISORDER NOS 08/29/2008 ON LICENSE OF [facility] DDS, BOB B 300.00 AN ANXIETY UNSPEC 08/29/2008 ON LICENSE OF [facility] DDS, BOB B 307.47 SI DYSSOMNIA NOS 08/29/2008 ON LICENSE OF [facility] DDS, BOB B 312.30 I IMPULSE CONTROL DISORDER NOS 08/29/[facility] 300.00 AN ANXIETY UNSPEC 08/29/2008 [facility] 307.47 SI DYSSOMNIA NOS 08/29/2008 [facility] 312.30 I IMPULSE CONTROL DISORDER [...] 312.30 I IMPULSE CONTROL DISORDER NOS 08/29/2008 [facility], JOSEE R 300.00 AN ANXIETY UNSPEC 08/29/2008 [facility], JOSEE R 307.47 SI DYSSOMNIA NOS 08/29/2008 [facility], JOSEE R 312.30 I IMPULSE [...] 300.00 AN ANXIETY UNSPEC 08/29/2008 LIZA VALENCIA EAR K 307.47 SI DYSSOMNIA NOS 08/29/2008 LIZA [...] 316 PF PSYCHIC FACTORS MED COND 09/18/2008 [facility], JOSEE R V61.10 RL RELATION [...] ERA K V61.10 RL RELATION COUNS 09/18/2008 [facility], JOSEE R 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 09/18/2008 [facility], JOSEE R 297.0 PARANOID STATE SIMPLE 09/18/2008 [facility], JOSEE R 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 09/18/2008 [facility], JOSEE R 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 09/18/2008 [facility], JOSEE R 316 PF PSYCHIC FACTORS MED COND 09/18/2008 [facility], JOSEE R V61.10 RL RELATION [...] APRN V61.10 RL RELATION COUNS 09/18/2008 STELLA LIEUTENANT SHIFT SUPERVISOR, DEBBIE 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 09/18/2008 STELLA LIEUTENANT SHIFT SUPERVISOR, DEBBIE 297.0 PARANOID STATE SIMPLE 09/18/2008 STELLA LIEUTENANT SHIFT SUPERVISOR, DEBBIE 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 09/18/2008 STELLA LIEUTENANT SHIFT SUPERVISOR, DEBBIE 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 09/18/2008 STELLA LIEUTENANT SHIFT SUPERVISOR, DEBBIE 316 PF PSYCHIC FACTORS MED COND 09/18/2008 STELLA LIEUTENANT SHIFT SUPERVISOR, DEBBIE V61.10 RL RELATION COUNS 09/18/2008 DE [...] K V61.10 RL RELATION COUNS 09/18/2008 STELLA LIEUTENANT SHIFT SUPERVISOR, DEBBIE 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 09/18/2008 STELLA LIEUTENANT SHIFT SUPERVISOR, DEBBIE 297.0 PARANOID STATE SIMPLE 09/18/2008 STELLA LIEUTENANT SHIFT SUPERVISOR, DEBBIE 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 09/18/2008 STELLA LIEUTENANT SHIFT SUPERVISOR, DEBBIE 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 09/18/2008 STELLA LIEUTENANT SHIFT SUPERVISOR, DEBBIE 316 PF PSYCHIC FACTORS MED COND 09/18/2008 STELLA LIEUTENANT SHIFT SUPERVISOR, DEBBIE V61.10 RL RELATION COUNS 09/18/2008 DAVEY [...] BOB TOMAS DDS 590.2 KIDNEY STONES 11/09/2008 [facility], JOSEE R 590.2 KIDNEY STONES 11/09/2008 DE JESUS DO, ERA K 590.2 KIDNEY STONES 11/09/2008 DE JESUS DO, ERA K 590.2 KIDNEY STONES 11/09/2008 [facility], JOSEE R 590.2 KIDNEY STONES 11/09/2008 DE JESUS DO, ERA K 590.2 KIDNEY STONES 11/09/2008 HAN CABALLERO APRN 590.2 KIDNEY STONES 11/09/2008 GARHAN SHERIDAN APRN 590.2 KIDNEY STONES 11/09/2008 STELLA LIEUTENANT SHIFT SUPERVISOR, DEBBIE 590.2 KIDNEY STONES 11/09/2008 DE JESUS DO, ERA K 590.2 KIDNEY STONES 11/09/2008 STELLA LIEUTENANT SHIFT SUPERVISOR, DEBBIE 590.2 KIDNEY STONES 11/09/2008 DAVEY PHD, [...] B 305.1 NONDEPENDENT TOBACCO USE DISORDER 07/26/2010 ON LICENSE OF [facility] DDS, BOB B 465.9 UPPER RESPIRATORY INFECTION 07/26/2010 [facility] DDS, BOB B 466.0 BRONCHITIS, ACUTE 07/26/2010 [facility], JOSEE R 305.1 NONDEPENDENT TOBACCO USE DISORDER 07/26/2010 [facility], JOSEE R 465.9 UPPER RESPIRATORY INFECTION 07/26/2010 [facility], JOSEE R 466.0 BRONCHITIS, ACUTE [...] DO, ERA K 466.0 BRONCHITIS, ACUTE 07/26/2010 [facility], JOSEE R 305.1 NONDEPENDENT TOBACCO USE DISORDER 07/26/2010 [facility], JOSEE R 465.9 UPPER RESPIRATORY INFECTION 07/26/2010 [facility], JOSEE R 466.0 BRONCHITIS, ACUTE [...] CABALLERO APRN 466.0 BRONCHITIS, ACUTE 07/26/2010 STELLA LIEUTENANT SHIFT SUPERVISOR, DEBBIE 305.1 NONDEPENDENT TOBACCO USE DISORDER 07/26/2010 STELLA LIEUTENANT SHIFT SUPERVISOR, DEBBIE 465.9 UPPER RESPIRATORY INFECTION 07/26/2010 STELLA LIEUTENANT SHIFT SUPERVISOR, DEBBIE 466.0 BRONCHITIS, ACUTE 07/26/2010 DE JESUS DO, REA K 305.1 NONDEPENDENT TOBACCO USE DISORDER 07/26/2010 DE JESUS DO, ERA K 465.9 UPPER RESPIRATORY INFECTION 07/26/2010 DE JESUS DO, ERA K 466.0 BRONCHITIS, ACUTE 07/26/2010 STELLA LIEUTENANT SHIFT SUPERVISOR, DEBBIE 305.1 NONDEPENDENT TOBACCO USE DISORDER 07/26/2010 STELLA LIEUTENANT SHIFT SUPERVISOR, DEBBIE 465.9 UPPER RESPIRATORY INFECTION 07/26/2010 STELLA LIEUTENANT SHIFT SUPERVISOR, DEBBIE 466.0 BRONCHITIS, ACUTE 07/26/2010 DAVEY PHD, [...] joint pain, localized in the hip 09/20/2010 [facility], JOSEE R 401.1 ESSENTIAL HYPERTENSION BENIGN 09/20/2010 [facility], JOSEE R 719.45 joint pain, localized in the hip 09/20/2010 DE JESUS DO, ERA K 401.1 ESSENTIAL HYPERTENSION BENIGN 09/20/2010 DE JESUS DO, ERA K 719.45 joint pain, localized in the hip 09/20/2010 ED JESUS DO, ERA K 401.1 ESSENTIAL HYPERTENSION BENIGN 09/20/2010 DE JESUS DO, ERA K 719.45 joint pain, localized in the hip 09/20/2010 [facility], JOSEE R 401.1 ESSENTIAL HYPERTENSION BENIGN 09/20/2010 [facility], JOSEE R 719.45 joint pain, [...] 726.5 ENTHESOPATHY OF HIP REGION 09/30/2010 [facility], JOSEE R 726.5 ENTHESOPATHY OF HIP REGION 09/30/2010 LIZA VALENCIA ERA K 726.5 ENTHESOPATHY OF HIP REGION 09/30/2010 D EJESUS DO ERA K 726.5 ENTHESOPATHY OF HIP REGION 09/30/2010 [facility], JOSEE R 726.5 ENTHESOPATHY OF HIP [...] TOMAS DDS 311 DEPRESSIVE DISORDER NOS 02/28/2012 [facility], JOSEE R 311 DEPRESSIVE DISORDER NOS 02/28/2012 LIZA VALENCIA ERA K 311 DEPRESSIVE DISORDER NOS 02/28/2012 LIZA VALENCIA ERA K 311 DEPRESSIVE DISORDER NOS 02/28/2012 [facility], JOSEE R 311 DEPRESSIVE DISORDER [...] BOB B 726.12 BICIPITAL TENOSYNOVITIS 05/16/2012 [facility], JOSEE R 726.12 BICIPITAL TENOSYNOVITIS 05/16/2012 ERA DE JESUS DO K 726.12 BICIPITAL TENOSYNOVITIS 05/16/2012 JONNIE DE JESUS DOA K 726.12 BICIPITAL TENOSYNOVITIS 05/16/2012 [facility], JOSEE R 726.12 BICIPITAL TENOSYNOVITIS 05/16/2012 [...] DO 724.2 LUMBAGO/ LOW BACK PAIN 08/07/2012 [facility], JOSEE R 724.2 LUMBAGO/ LOW [...] BOB B 300.02 AN GEN ANXIETY 09/17/2012 [facility], JOSEE R 296.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 09/17/2012 [facility], JOSEE R 300.02 AN GEN ANXIETY 09/17/2012 ERA DE JESUS DO 296.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 09/17/2012 ERA DE JESUS DO 300.02 AN GEN ANXIETY 09/17/2012 ERA DE JESUS DO 296.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 09/17/2012 ERA DE JESUS DO 300.02 AN GEN ANXIETY 09/17/2012 [facility], JOSEE R 296.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 09/17/2012 [facility], JOSEE R 300.02 AN GEN [...] AN PTSD 10/09/2012 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 10/09/2012 ON LICENSE OF [facility] BOB YAP 309.81 AN PTSD 10/09/2012 ON LICENSE OF [facility] BOB YAP 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 10/09/2012 [facility], JOSEE R 309.81 AN PTSD 10/09/2012 [facility], JOSEE R 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 10/09/2012 DE JESUS DO, ERA K 309.81 AN PTSD 10/09/2012 DE JESUS DO, ERA K 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 10/09/2012 DE JESUS DO, ERA K 309.81 AN PTSD 10/09/2012 DE JESUS DO, ERA K 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 10/09/2012 [facility], JOSEE R 309.81 AN PTSD 10/09/2012 [facility], JOSEE R 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 10/09/2012 DE JESUS DO, ERA K 309.81 AN PTSD 10/09/2012 DE JESUS DO, ERA K 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 10/09/2012 HAN CABALLERO APRN 309.81 AN PTSD 10/09/2012 HAN CABALLERO APRN 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 10/09/2012 HAN CABALLERO APRN D 309.81 AN PTSD 10/09/2012 HAN CABALLERO APRN 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 10/09/2012 STELLA LIEUTENANT SHIFT SUPERVISOR, DEBBIE 309.81 AN PTSD 10/09/2012 STELLA [employer]IEUTENANT SHIFT SUPERVISOR, DEBBIE 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 10/09/2012 DE JESUS DO, ERA K 309.81 AN PTSD 10/09/2012 DE JESUS DO, ERA K 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 10/09/2012 STELLA LIEUTENANT SHIFT SUPERVISOR, DEBBIE 309.81 AN PTSD 10/09/2012 STELLA LIEUTENANT SHIFT SUPERVISOR, DEBBIE 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 10/09/2012 DE JESUS [...] K V65.42 COUNSELING - SMOKING CESSATION 07/29/2013 [facility], JOSEE R 715.00 OSTEOARTHROSIS GENERALIZED INVOLVING UNSPECIFIED SITE 07/29/2013 [facility], JOSEE R V65.42 COUNSELING - [...] K 296.32 MO DEPRESSIVE RECURRENT MODERATE 08/02/2013 [facility], JOSEE R 296.32 MO DEPRESSIVE [...] PARKER DEBBIE 850.9 CONCUSSION UNSPECIFIED 09/13/2013 STELLA LIEUTENANT SHIFT SUPERVISOR, DEBBIE E888.9 UNSPECIFIED ACCIDENTAL FALL 09/13/2013 ERA [...] ADRIANA L Ot Y92.[address] IN [facility] NON-[facility] (PRIVATE 06/22/2015 BERGER DO, [...] AREVALO MD Ot Y92.[address] IN [facility] (PRIVATE 05/01/2016 TITO AREVALO MD Ot Y93.9 [...] AREVALO MD Ot Y92.[address] IN [facility] NON[facility] (PRIVATE 05/03/2016 TITO AREVALO [...] AREVALO MD Ot Y92.[address] IN [facility] NON-[facility] (PRIVATE 05/07/2016 TIOT AREVALO MD Ot Y93.9 ACTIVITY, UNSPECIFIED 05/07/2016 [...] J01.90 ACUTE SINUSITIS, UNSPECIFIED 12/13/2016 TAYLA GRACIA COMMUNICATION TECHNICIAN Ot M54.5 LOW BACK PAIN 12/15/2016 TAYLA GRACIA COMMUNICATION TECHNICIAN Ot M54.5 LOW BACK PAIN 12/15/2016 TAYLA GRACIA COMMUNICATION TECHNICIAN Ot M54.5 LOW BACK PAIN 12/19/2016 TAYLA GRACIA COMMUNICATION TECHNICIAN Ot M54.5 LOW BACK PAIN 12/30/2016 TAYLA GRACIA COMMUNICATION TECHNICIAN Ot M54.5 LOW BACK PAIN 01/04/2017 TAYLA GRACIA COMMUNICATION TECHNICIAN Ot M54.5 LOW BACK PAIN 05/19/2017 HU[facility] [...] 07/20/2017 RAMIRO FRAZIER MD Ot Z79.899 OTHER GROUP HOME (CURRENT) DRUG THERAPY 07/26/2017 RAMIRO FRAZIER MD Ot F17.210 NICOTINE DEPENDENCE, CIGARETTES, UNCOMPL 07/26/2017 RAMIRO FRAZIER MD Ot F43.10 POST-TRAUMATIC STRESS DISORDER, UNSPECIF 07/26/2017 RAMIRO FRAZIER MD Ot H65.23 CHRONIC SEROUS OTITIS MEDIA, BILATERAL 07/26/2017 RAMIRO FRAZIER MD Ot I10 ESSENTIAL (PRIMARY) HYPERTENSION 07/26/2017 RAMIRO FRAZIER MD Ot J34.89 OTHER SPECIFIED DISORDERS OF NOSE AND NA 07/26/2017 RAMIRO FRAZIER MD Ot Z79.899 OTHER CHOCOLATE MOLDER (CURRENT) DRUG THERAPY 07/28/2017 RAMIRO FRAZIER MD [...] APRN Ot Z98.890 OTHER SPECIFIED POSTPROCEDURAL STATES 07/13/2018 EL CHOUDHURY MD Ot F12.10 CANNABIS ABUSE, UNCOMPLICATED 07/13/2018 EL CHOUDHURY MD Ot F17.210 NICOTINE DEPENDENCE, CIGARETTES, UNCOMPL 07/13/2018 EL CHOUDHURY MD Ot F32.9 MAJOR DEPRESSIVE DISORDER, SINGLE EPISOD 07/13/2018 EL CHOUDHURY MD Ot F41.9 ANXIETY DISORDER, UNSPECIFIED 07/13/2018 EL CHOUDHURY MD Ot F43.10 POST-TRAUMATIC STRESS DISORDER, UNSPECIF 07/13/2018 EL CHOUDHURY MD Ot G40.909 EPILEPSY, UNSP, NOT INTRACTABLE, WITHOUT 07/13/2018 EL CHOUDHURY MD Ot H65.93 UNSPECIFIED NONSUPPURATIVE OTITIS MEDIA, 07/13/2018 EL CHOUDHURY MD Ot I10 ESSENTIAL (PRIMARY) HYPERTENSION 07/13/2018 EL CHOUDHURY MD Ot K02.9 DENTAL CARIES, UNSPECIFIED 07/13/2018 EL CHOUDHURY MD Ot R68.84 JAW PAIN 07/13/2018 EL CHOUDHURY MD Ot Z87.442 PERSONAL HISTORY OF URINARY CALCULI 07/13/2018 EL CHOUDHURY MD Ot Z96.22 MYRINGOTOMY TUBE(S) STATUS 07/13/2018 EL CHOUDHURY MD Ot Z98.890 OTHER SPECIFIED POSTPROCEDURAL STATES 07/14/2018 EL CHOUDHURY MD Ot F12.10 CANNABIS ABUSE, UNCOMPLICATED 07/14/2018 EL CHOUDHURY MD Ot F17.210 NICOTINE DEPENDENCE, CIGARETTES, UNCOMPL 07/14/2018 EL CHOUDHURY MD Ot F32.9 MAJOR DEPRESSIVE DISORDER, SINGLE EPISOD 07/14/2018 EL CHOUDHURY MD Ot F41.9 ANXIETY DISORDER, UNSPECIFIED 07/14/2018 EL CHOUDHURY MD Ot F43.10 POST-TRAUMATIC STRESS DISORDER, UNSPECIF 07/14/2018 EL CHOUDHURY MD Ot G40.909 EPILEPSY, UNSP, NOT INTRACTABLE, WITHOUT 07/14/2018 EL CHOUDHURY MD Ot H65.93 UNSPECIFIED NONSUPPURATIVE OTITIS MEDIA, 07/14/2018 EL CHOUDHURY MD Ot I10 ESSENTIAL (PRIMARY) HYPERTENSION 07/14/2018 EL CHOUDHURY MD Ot K02.9 DENTAL CARIES, UNSPECIFIED 07/14/2018 EL CHOUDHURY MD Ot R68.84 JAW PAIN 07/14/2018 EL CHOUDHURY MD Ot Z87.442 PERSONAL HISTORY OF URINARY CALCULI 07/14/2018 EL CHOUDHURY MD Ot Z96.22 MYRINGOTOMY TUBE(S) STATUS 07/14/2018 EL CHOUDHURY MD Ot Z98.890 OTHER SPECIFIED POSTPROCEDURAL STATES Procedures Code Description Performed By Performed On ALYSON STRICKLAND 05/16/2012 ALYSON STRICKLAND 06/20/2012 [facility], VIA LIZZIE 06/20/2012 00794 ROUTINE VENIPUNCTURE 08/07/2012 91260 XRAY LUMBAR SPINE 2 OR 3 VIEWS 08/07/2012 73364 CMP 08/07/2012 27008 URINE DRUG SCREEN (IN-HOUSE ) 08/07/2012 16644 TSH 08/07/2012 21677 CBC 08/07/2012 [facility], VIA LIZZIE 08/07/2012 44021 PSYCH DIAGNOSTIC EVALUATION 09/18/2012 12593 PSYTX PT&/FAMILY 45 MINUTES 09/18/2012 41475 URINE DRUG SCREEN (IN-HOUSE ) 10/09/2012 06910 URINE THC CON'F 10/19/2012 89415 PSYCH DIAG EVAL W/MED SRVCS 10/19/2012 34629 PSYTX PT&/FAMILY 30 MINUTES 10/19/2012 58764 PSYTX PT&/FAMILY 30 MINUTES 07/10/2013 91764 PSYTX PT&/FAMILY 45 MINUTES 08/02/2013 27061 ROUTINE VENIPUNCTURE 08/13/2013 88384 URINE DRUG SCREEN (IN-HOUSE ) 08/13/2013 2488922 GFR CALC (RESULT ONLY) 08/13/2013 56701 CMP 08/13/2013 85607 PSYTX PT&/FAMILY 45 MINUTES 08/22/2013 Results Test [...] Status Pt. Type Provider Facility Loc./Unit Complaint [id number] 09/08/2014 13:54:00 09/08/2014 23:59:59 CLS Outpatient BRAD REID MD [id number] 08/22/2014 13:39:00 08/22/2014 23:59:59 CLS Outpatient ERA DE JESUS DO [id number] 11/26/2013 09:50:00 11/26/2013 23:59:59 CLS Outpatient ERA DE JESUS DO [id number] 10/31/2013 15:25:00 10/31/2013 23:59:59 CLS Outpatient DEBBIE DOUGLAS APRN [id number] 10/31/2013 15:25:00 10/31/2013 23:59:59 CLS Outpatient DEBBIE DOUGLAS APRN [id number] 09/17/2013 15:42:00 09/17/2013 23:59:59 CLS Outpatient HAN CABALLERO APRN [id number] 09/17/2013 15:42:00 09/17/2013 23:59:59 CLS Outpatient HAN CABALLERO APRN [id number] 09/13/2013 10:16:00 09/13/2013 23:59:59 CLS Outpatient ERA DE JESUS DO [id number] 08/21/2013 15:24:00 08/21/2013 23:59:59 CLS Outpatient JOSEE NELSON [id number] 08/02/2013 16:57:00 08/02/2013 23:59:59 CLS Outpatient ERA DE JESUS DO [id number] 07/29/2013 15:38:00 07/29/2013 23:59:59 CLS Outpatient ERA DE JESUS DO [id number] 07/10/2013 11:00:00 07/10/2013 23:59:59 CLS Outpatient TOMASA LSJOSEE ABURTO [id number] 12/04/2012 10:27:00 12/04/2012 23:59:59 CLS Outpatient BOB TOMAS DDS [id number] 08/07/2012 12:55:00 08/07/2012 23:59:59 CLS Outpatient ERA DE JESUS DO [id number] 07/11/2012 18:40:00 07/11/2012 23:59:59 CLS Outpatient ERA DE JESUS DO [id number] 06/20/2012 13:40:00 06/20/2012 23:59:59 CLS Outpatient [id number] 05/16/2012 14:37:00 05/16/2012 23:59:59 CLS Outpatient ERA DE JESUS DO [id number] 02/28/2012 13:13:00 02/28/2012 23:59:59 CLS Outpatient DAVEY LOU BRISSA Dereck [id number] 10/19/2012 10:23:00 Document Registration [id number] 10/03/2012 09:39:00 Document Registration [id number] 09/18/2012 09:39:00 Document Registration [id number] 08/03/2016 14:09:00 Document Registration [id number] 08/04/2016 06:08:00 Document Registration [id number] 04/04/2018 12:33:00 04/04/2018 13:46:00 DIS Outpatient PriscillaQuiana [id number] 02/05/2018 12:56:00 02/05/2018 14:35:00 [id number] 12/26/2017 09:26:00 12/26/2017 10:22:00 DIS Outpatient Leobardo [place] [id number] 11/24/2016 10:06:00 11/24/2016 10:50:00 DIS Outpatient Sobia Morales [id number] 08/08/2016 17:36:00 08/08/2016 18:01:00 DIS Outpatient Nika [facility] [place] [id number] 08/08/2016 17:42:02 Document Registration [id number] 07/23/2018 11:40:00 07/23/2018 23:59:59 CLS [facility] [id number] 06/26/2017 13:20:00 Document Registration [id number] 07/11/2018 10:18:00 07/11/2018 10:50:00 DIS Outpatient EL CHOUDHURY MD [facility] ER EAR INFECTION [id number] 07/01/2018 16:27:00 07/01/2018 17:12:00 DIS Outpatient SOBIA MORALES APRN [facility] ER EARACHE [id number] 06/24/2018 12:11:00 06/24/2018 13:18:00 DIS Outpatient SEA DAVID [facility] ER REOCCURING L EAR INFECTION [id number] 06/05/2018 18:03:00 06/05/2018 18:56:00 DIS Emergency SOBIA MORALES APRN [facility] ER L EAR PAIN,LEAKING [id number] 05/21/2018 12:42:00 05/21/2018 13:35:00 DIS Emergency SEA DAVID [facility] ER EAR INFECTION [id number] 04/04/2018 10:07:00 04/04/2018 12:01:00 DIS Emergency EL CHOUDHURY MD [facility] ER BACK PAIN [id number] 02/04/2018 12:25:00 02/04/2018 14:23:00 DIS Emergency BENIGNO TODD MD [facility] ER EAR INFECTION [id number] 02/03/2018 21:42:00 02/03/2018 23:59:59 CLS Emergency EL CHOUDHURY MD [facility] ER LEFT EAR HURTING [id number] 01/27/2018 11:13:00 01/27/2018 12:09:00 DIS Emergency SEA DAVID [facility] ER EAR INFECTION [id number] 07/20/2017 06:55:00 07/20/2017 10:13:00 DIS Outpatient RAMIRO FRAZIER MD [facility] CHRONIC SEROUS OTITIS MEDIA [id number] 07/17/2017 11:58:00 07/17/2017 12:25:00 DIS Outpatient RAMIRO FRAZIER MD [facility] PREOP CHRONIC SEROUS OTITIS MEDIA [id number] 05/19/2017 11:50:00 05/19/2017 13:14:00 DIS Emergency HUGH YORK [facility] ER LT EAR PAIN [id number] 12/30/2016 13:30:00 01/04/2017 16:09:00 DIS Outpatient TAYLA GRACIA [facility] REHAB LOW BACK PAIN [id number] 08/07/2016 16:06:00 08/07/2016 16:57:00 DIS Emergency ODGERS MD, RYLEE Roberts [facility] ER L HAND LAC [id number] 05/01/2016 17:49:00 05/01/2016 19:54:00 DIS Emergency MICKEY TORRES, TITO Robles [facility] ER L ANKLE INJ [id number] 06/22/2015 13:48:00 06/22/2015 15:53:00 DIS Emergency CELINE DO, ADRIANA L [facility] ER SYNCOPAL EPISODE, GROIN PAIN [id number] 04/16/2015 10:26:00 04/16/2015 11:26:00 DIS Emergency TATE TORRES, EMI Harden [facility] ER RIGHT SHOULDER PAIN [id number] 08/30/2013 17:50:00 08/30/2013 21:57:00 DIS Emergency MICKEY TORRES, TITO Robles [facility] PASSED OUT; HEAD INJ [id number] 01/04/2018 10:21:00 Document Registration [id number] 12/30/2017 15:37:00 Document Registration [id number] 04/16/2015 10:26:00 Document Registration [id number] 04/16/2015 10:26:00 Document Registration [id number] 06/26/2012 08:20:00 Document Registration [id number] 05/13/2012 11:19:00 Document Registration [id number] 01/10/2012 10:51:00 Document Registration [id number] 06/29/2010 00:00:00 Document Registration [id number] 03/30/2010 14:44:00 Document Registration [id number] 03/27/2010 15:43:00 Document Registration
[2018-07-31] MEDS ORDERED: LIDOCAINE 1% INJ 20 ML 20 ML VIAL INJ ONE (13:15)
[2018-07-31] MEDS ORDERED: cefTRIAXone 1,000 MG/2.86 ml vial (IM ONLY) IM SCH (13:15)
[2018-07-31] MEDS ORDERED: HYDROcodone/APAP 5 MG/325 MG (LORTAB) TAB PO ONE (13:15)
[2018-07-31] MEDS ORDERED: ACHD5005 PO (13:18)
[2018-07-31] MEDS ORDERED: AMOX-358 PO (13:18)
--- NOTE | 2018-07-31 13:18 | ED EENT ---
History of Present Illness General Chief Complaint: Ear Problems Stated Complaint: EAR ACHE Nursing Triage Note: Pt c/o bilat ear pain, worse on left. Pt has appt to see Dr. Juarez tomorrow Source: patient Exam Limitations: no limitations History of Present Illness Date Seen by Provider: Jul 31, 2018 Time Seen by Provider: 13:16 Allergies and Home Medications Allergies Coded Allergies: No Known Drug Allergies (Unverified , 10/29/08) Home Medications Amoxicillin 500 Mg Capsule, 500 MG PO TID Prescribed by: EL CHOUDHURY on 07/11/18 1041 Cefdinir 300 Mg Capsule, 300 MG PO BID Prescribed by: SEA DAVID on 01/27/18 1204 Cefdinir 300 Mg Capsule, 300 MG PO BID Prescribed by: SEA DAVID on 06/24/18 1306 Ciprofloxacin HCl 5 Ml Drops, 3 DROPS OP BID 3 Drops Each Ear Prescribed by: ALEX CHANEY on 07/20/17 0958 Fluticasone Propionate 9.9 Ml Gaston.susp, 2 SPRAY NS DAILY 2 SPRAYS PER NOSTRIL DAILY X 2 DAYS THEN 1 SPRAY DAILY Prescribed by: EL CHOUDHURY on 07/11/18 1041 Gabapentin 800 Mg Tablet, 800 MG PO QID, (Reported) Hydrocodone Bit/Acetaminophen 1 Tab Tab, 1 EACH PO Q6H PRN for PAIN-MODERATE Prescribed by: BENIGNO TODD on 12/30/17 1600 Hydrocodone Bit/Acetaminophen 1 Tab Tab, 1 EACH PO Q6H PRN for PAIN Prescribed by: SEA DAVID on 01/27/18 1204 Hydrocodone Bit/Acetaminophen 1 Tab Tab, 1 EACH PO Q4-6HR PRN for PAIN-MODERATE Prescribed by: SEA DAVID on 06/24/18 1306 Hydrocodone Bit/Acetaminophen 1 Tab Tab, 1-2 EACH PO Q6H Prescribed by: EL CHOUDHURY on 07/11/18 1042 Hydrocodone/Acetaminophen 1 Each Tablet, 1 EACH PO Q4H Prescribed by: ALEX CHANEY on 07/20/17 0958 Hydrocodone/Acetaminophen 1 Each Tablet, 1 EACH PO Q6H PRN for PAIN-MODERATE TO SEVERE Do not fill until antifungal eardrops yesterday by Dr [facility] are filled. Prescribed by: SOBIA MORALES on 01/04/18 1054 Hydrocodone/Acetaminophen 1 Each Tablet, 1 EACH PO Q6H PRN for PAIN-MODERATE Do not fill unless antibiotic ear drops are also filled Prescribed by: SOBIA MORALES on 06/05/181847 Ofloxacin 5 Ml Drops, 10 DROPS RIGHT EAR BID Prescribed by: SOBIA MORALES on 06/05/181847 Past Ojuyjjg-Bbtjyl-Bvvzam Hx Patient Social History Drug of Choice: marijuana Type Used: Cigarettes 2nd Hand Smoke Exposure: Yes Recent Foreign Travel: No Contact w/Someone Who Travel: No Recent Infectious Disease Expo: No Recent Hopitalizations: No Seasonal Allergies Seasonal Allergies: No Past Medical History Surgeries: Yes (right hand surgery fx repair, 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) Ear Surgery, Gallbladder Respiratory: No Cardiac: Yes Hypertension Neurological: No Seizure Disorder Reproductive Disorders: No Genitourinary: Yes Kidney Stones Gastrointestinal: No Musculoskeletal: Yes Arthritis, Chronic Back Pain Endocrine: No HEENT: Yes (Tubes in Ears) Chronic Ear Infection Cancer: No Psychosocial: No Anxiety, PTSD, Depression Integumentary: No Blood Disorders: No Family Medical History No Pertinent Family Hx Physical Exam Vital Signs Vital Signs - First Documented 07/31/18 11:45 Temp 96.8 Pulse 93 Resp 18 B/P (MAP) 153/92 (112) Pulse Ox 97 O2 Delivery Room Air Height, Weight, BMI Height: 6'0" Weight: 220lbs. 2.0oz. 99.044972cc; 32.3 BMI Method:Stated Progress/Results/Core Measures Results/Orders My Orders Orders - SEA DAVID Hydrocodone/Apap 5/325 Tablet (Lortab 5 (07/31/18 13:15) Ceftriaxone For Im Use (Rocephin For Im (07/31/18 13:15) Lidocaine 1% Inj 20 Ml (Xylocaine 1% Inj (07/31/18 13:15) Vital Signs/I&O 07/31/18 11:45 Temp 96.8 Pulse 93 Resp 18 B/P (MAP) 153/92 (112) Pulse Ox 97 O2 Delivery Room Air Blood Pressure Mean: 112 Departure Impression Primary Impression: Left otitis media Disposition: 01 HOME, SELF-CARE Condition: Stable/Unchanged Departure-Patient Inst. Decision time for Depature: 13:16 Referrals: RAMIRO JUAREZ MD, DAVID F MD (PCP/Family) Primary Care Physician Patient Instructions: Ear Infections (Otitis Media) (DC) Add. Discharge Instructions: Keep your appointment with Dr. Juarez tomorrow as scheduled. Take medications as directed. Return back to the emergency room for worsening symptoms or concerns as needed. All discharge instructions reviewed with patient and/or family. Voiced understanding. Scripts Amoxicillin/Potassium Clav (Augmentin 875-125 Tablet) 1 Each Tablet 1 EACH PO BID for 10 Days, #20 TAB Prov: SEA DAVID 07/31/18 Hydrocodone Bit/Acetaminophen (Hydrocodone/Acetaminophen 5/325mg Tablet) 1 Tab Tab 1 EACH PO Q4-6HR PRN for PAIN-MODERATE MDD 10, #8 TAB Prov: SEA DAVID 07/31/18 SEA DAVID Jul 31, 2018 13:18
[2018-07-31 13:53] VITALS: BP 138/72
== END 2018-07-31 13:52 | disposition home or self-care (01) ==
LOC: EDUNIT# 11:18 → ER 11:19
DX: H66.92 Otitis media, unspecified, left ear (principal); I10 Essential (primary) hypertension; F41.9 Anxiety disorder, unspecified; F43.10 Post-traumatic stress disorder, unspecified; F32.9 Major depressive disorder, single episode, unspecified; G40.909 Epilepsy, unspecified, not intractable, without status epilepticus; Z87.442 Personal history of urinary calculi; Z96.22 Myringotomy tube(s) status; Z79.51 Long term (current) use of inhaled steroids; Z77.22 Contact with and (suspected) exposure to environmental tobacco smoke (acute) (chronic); Z98.890 Other specified postprocedural states
CPT/HCPCS: 99284

== ENCOUNTER → 2018-08-09 | Outpatient (CLI) | payer MEDICAID ==
[~2018-08-09] MED LIST changes: +AMOX-358 PO; +GADOBUTROL 10 MMOL/10 ML (GADAVIST) VIAL IV ONE
--- NOTE | 2018-08-09 11:16 | Diagnostic Imaging Report ---
CLINICAL INDICATION: Patient with headaches, many ear infections mostly left ear. EXAM: MRI of the brain/ IACs performed without and with 10 cc of Gadavist IV contrast. Sequences include sagittal T1 localizer, axial T2, axial flair, axial T1, axial gradient echo, DWI, ADC map, coronal T1 thin, axial T2 3D FIESTA, axial T1 post contrast whole brain, coronal T1 fat-sat post IV contrast whole brain, sagittal T1 post IV contrast whole brain, and coronal T1 post IV contrast thin. COMPARISONS: Head CT without contrast dated 02/20/2016. FINDINGS: TEMPORAL BONE STRUCTURES: There are large amounts of fluid in the left mastoid air cells and also fluid appearing in the left middle ear. The right mastoid air cells are clear. Otherwise, the remainder of the temporal bone structures are unremarkable. The internal auditory canal, otic capsule, middle ear, and temporal bone structures have normal anatomic appearance and are unremarkable. The visualized nerves VII and VIII within the IACs bilaterally and cisternal portions have normal appearance. CISTERNAL STRUCTURES: There is no cisternal mass seen. The remainder of the visualized cranial nerves in the basal cistern regions are unremarkable. BRAIN PARENCHYMA: Unremarkable with normal hand/ white matter distinction. There is no significant architectural distortion, midline shift, or herniation. There is no abnormal IV contrast enhancement or diffusion restriction signal changes. VENTRICLES: Unremarkable with no hydrocephalus. VISUALIZED INTRACRANIAL VESSELS: Unremarkable as visualized. SKULL/ ORBITS: Unremarkable. VISUALIZED PARANASAL SINUSES: There is minimal mucosal thickening involving both maxillary sinuses and ethmoid sinus. IMPRESSION: 1: There are large amounts of fluid in the left mastoid air cells and fluid in the left middle ear which may be related to otomastoiditis. The right mastoid air cells are clear. 2: Otherwise, unremarkable MRI of the internal auditory canals, temporal bone structures, and basal cisterns. 3: Unremarkable MRI of the brain. 4: There is minimal paranasal sinus disease. Dictated by: Dictated on workstation # [id number]
== END ==
LOC: RAD 08:28
PROVIDERS: ATTEND Otolaryngology Otolaryngology/Facial Plastic Surgery
DX: H66.90 Otitis media, unspecified, unspecified ear (principal); R51 Headache
CPT/HCPCS: 70553

== ENCOUNTER 2018-08-14 06:31 | Outpatient (CLI) | payer MEDICAID ==
[~2018-08-14] VITALS: Ht 182.9 cm; Wt 99.8 kg
[~2018-08-14 06:31] MED LIST changes: -GADOBUTROL 10 MMOL/10 ML (GADAVIST) VIAL IV ONE
[2018-08-14] MEDS ORDERED: AMIT25TA9 PO (12:41)
[2018-08-14] MEDS ORDERED: BUPR200T2 PO (12:41)
== END 2018-08-14 12:47 | disposition home or self-care (01) ==
LOC: PREOP 06:31
PROVIDERS: ATTEND Otolaryngology Otolaryngology/Facial Plastic Surgery
DX: Z01.818 Encounter for other preprocedural examination (principal)

== ENCOUNTER 2018-08-16 06:21 | Day surgery (SDC) | payer MEDICAID ==
[~2018-08-16] VITALS: Ht 182.9 cm; Wt 99.8 kg
[~2018-08-16 06:21] MED LIST changes: +AMIT25TA9 PO; +BUPR200T2 PO
--- NOTE | 2018-08-16 06:56 | Progress Note-Pre Operative ---
Pre-Operative Progress Note H&P Reviewed The H&P was reviewed, patient examined and no changes noted. Date Seen by Provider: Aug 16, 2018 Time Seen by Provider: 06:30 Date H&P Reviewed: Aug 16, 2018 Time H&P Reviewed: 06:30 Pre-Operative Diagnosis: Left GILLES with Left EAr Pain RAMIRO FRAZIER MD Aug 16, 2018 06:56
[2018-08-16 07:00] VITALS: BP 127/77
[2018-08-16] MEDS ORDERED: LACTATED RINGERS 1,000 ML IV PRN (07:13)
[2018-08-16 07:30] LABS: BASOPHILS % (AUTO) 0 % (0-10); EOSINOPHILS # (AUTO) 0.1 10^3/uL (0.0-0.3); EOSINOPHILS % (AUTO) 1 % (0-10); HEMATOCRIT 40 % (40-54); LYMPHOCYTES # (AUTO) 2.9 X 10^3 (1.0-4.0); LYMPHOCYTES % (AUTO) 30 % (12-44); MEAN CORPUSCULAR HEMOGLOBIN 31 PG (25-34); MEAN CORPUSCULAR HGB CONC 35 G/DL (32-36); MEAN CORPUSCULAR VOLUME 89 FL (80-99); MEAN PLATELET VOLUME 10.4 FL (7.4-10.4); MONOCYTES # (AUTO) 0.9 X 10^3 (0.0-1.0); MONOCYTES % (AUTO) 9 % (0-12); NEUTROPHILS # (AUTO) 5.7 X 10^3 (1.8-7.8); NEUTROPHILS % (AUTO) 59 % (42-75); PLATELET COUNT 231 10^3/uL (130-400); RED CELL DISTRIBUTION WIDTH 13.3 % (10.0-14.5); WHITE BLOOD COUNT 9.7 10^3/uL (4.3-11.0)
[2018-08-16] MEDS ORDERED: SEVOFLURANE (ULTANE) 15 ML INHAL SOLN ONE (07:40)
[2018-08-16] MEDS ORDERED: ONDANSETRON 4 MG/2 ML (SDV) Z0FRAN ONE (07:40)
[2018-08-16] MEDS ORDERED: LIDOCAINE PF 2% 5 ML (XYLOCAINE) VIAL ONE (07:40)
[2018-08-16] MEDS ORDERED: MIDAZOLAM 2 MG/2 ML (VERSED) VIAL ONE (07:40)
[2018-08-16] MEDS ORDERED: proPOfol 200 MG/20 ML (DIPRIVAN) VIAL IV ONE ×2 (07:40→08:16)
[2018-08-16 07:42] LABS: BUN/CREATININE RATIO 13; CALCIUM 9.7 MG/DL (8.5-10.1); CARBON DIOXIDE 23 MMOL/L (21-32); CHLORIDE 104 MMOL/L (98-107); CREATININE SERUM 0.85 MG/DL (0.60-1.30); GFR ESTIMATED > 60; GLUCOSE 93 MG/DL (70-105); POTASSIUM 3.9 MMOL/L (3.6-5.0); SODIUM 136 MMOL/L (135-145)
--- NOTE | 2018-08-16 08:17 | Progress Note-Post Operative ---
Post-Operative Progess Note Surgeon (s)/Sash Finisher (s) Surgeon RAMIRO FRAZIER MD Sash Finisher n/a Pre-Operative Diagnosis Left GILLES with Left EAr Pain Post-Operative Diagnosis same Post-Op Procedure Note Date of Procedure: Aug 16, 2018 Name of Procedure Performed: Left T-Tube Description & Findings Description and Findings: n/a Anesthesia Type lma Estimated Blood Loss minimal Packing none. Specimen(s) collected/removed none RAMIRO FRAZIER MD Aug 16, 2018 08:17
[2018-08-16] MEDS ORDERED: APAP 325 MG/10.15 ML LIQ (TYLENOL) UDC PO PRN (08:30)
[2018-08-16] MEDS ORDERED: OFLO5DRO7 EACH EAR (08:33)
[2018-08-16 09:05] VITALS: BP 108/72
[2018-08-16] MEDS ORDERED: ACETAMINOPHEN 500 MG TAB (TYLENOL) ONE (09:10)
[2018-08-16] MEDS ORDERED: ACETAMINOPHEN 500 MG TAB (TYLENOL) PO ONE (09:30)
[2018-08-16 09:35] VITALS: BP 108/72
--- NOTE | 2018-08-16 14:30 | Anesthesia-General Post-Op ---
General Patient Condition Mental Status/LOC: Same as Preop Cardiovascular: Satisfactory Nausea/Vomiting: Absent Respiratory: Satisfactory Pain: Controlled Complications: Absent Post Op Complications Complications None Follow Up Care/Instructions Patient Instructions None needed. Anesthesia/Patient Condition Patient Condition Patient was seen after the procedure and he was doing well, no complaints, stable vital signs, no apparent adverse anesthesia problems. DULCE LOPEZ DO Aug 16, 2018 14:30
== END 2018-08-16 09:40 | disposition home or self-care (01) ==
LOC: SDC 06:21
PROVIDERS: ATTEND Otolaryngology Otolaryngology/Facial Plastic Surgery
DX: H65.22 Chronic serous otitis media, left ear (principal); I10 Essential (primary) hypertension; F17.210 Nicotine dependence, cigarettes, uncomplicated; R56.9 Unspecified convulsions; F43.10 Post-traumatic stress disorder, unspecified; Z79.899 Other long term (current) drug therapy
CPT/HCPCS: 36415; 80048; 85025; 87081

== ENCOUNTER 2019-03-19 10:48 | Emergency (ER) | payer SELFPAY ==
[~2019-03-19] VITALS: Ht 182.2 cm; Wt 105.5 kg
[~2019-03-19 10:48] MED LIST changes: +OFLO5DRO7 EACH EAR
--- NOTE | 2019-03-19 10:51 | NUR ---
REGISTRATION REPORTS PT HAS WENT TO CAR TO GET BELONGINGS.
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
[2019-03-19] MEDS ORDERED: ACHD5005 PO (11:37)
[2019-03-19] MEDS ORDERED: CYCL10TA9 PO (11:37)
[2019-03-19] MEDS ORDERED: PRD50T PO (11:37)
[2019-03-19 11:41] VITALS: BP 156/95
== END 2019-03-19 11:41 | disposition home or self-care (01) ==
LOC: EDUNIT# 10:48 → ER 10:49
DX: M54.41 Lumbago with sciatica, right side (principal); I10 Essential (primary) hypertension; G40.909 Epilepsy, unspecified, not intractable, without status epilepticus; F41.9 Anxiety disorder, unspecified; F43.10 Post-traumatic stress disorder, unspecified; F32.9 Major depressive disorder, single episode, unspecified; F17.210 Nicotine dependence, cigarettes, uncomplicated; Z87.442 Personal history of urinary calculi; V49.88XA Car occupant (driver) (passenger) injured in other specified transport accidents, initial encounter
CPT/HCPCS: 99282

== ENCOUNTER 2019-03-28 08:57 | Emergency (ER) | payer SELFPAY ==
[~2019-03-28] VITALS: Ht 182.8 cm; Wt 106.0 kg
[~2019-03-28 08:57] MED LIST changes: +PRD50T PO
--- NOTE | 2019-03-28 10:08 | ED EENT ---
History of Present Illness General Chief Complaint: Ear Problems Stated Complaint: EAR INFECTION Nursing Triage Note: AMB TO ROOM REPORTS ONSET OF L EAR ACHE LAST NIGHT HAS HAD TUBES IN EAR 'S IN PAST. History of Present Illness Date Seen by Provider: Mar 28, 2019 Time Seen by Provider: 09:45 Initial Comments 39-year-old male presents with left ear pain. Patient reports that he has tubes in the ears. The sees Dr. Juarez but has not seen him for about 6 months. He reports that he started getting a left earache last night. That is gotten worse. He also reports a cough, some congestion and upper respiratory symptoms. Patient is concerned that he possibly has an ear infection. No reports of fevers or chills. Allergies and Home Medications Allergies Coded Allergies: No Known Drug Allergies (Unverified , 10/29/08) Home Medications Amitriptyline HCl 25 Mg Tablet, 25 MG PO HS, (Reported) Bupropion HCl 200 Mg Tablet.er, 200 MG PO DAILY, (Reported) Cyclobenzaprine HCl 10 Mg Tablet, 10 MG PO Q8H PRN for SPASMS Prescribed by: SEA DAVID on 03/19/19 1137 Gabapentin 800 Mg Tablet, 800 MG PO QID, (Reported) Hydrocodone Bit/Acetaminophen 1 Tab Tab, 1-2 EACH PO Q6H PRN for PAIN-MODERATE Prescribed by: SEA DAVID on 03/19/19 1137 Ofloxacin 5 Ml Drops, 3 DROPS EACH EAR BID Prescribed by: SERA MAYFIELD on 08/16/18 0833 Prednisone 50 Mg Tab, 50 MG PO DAILY Prescribed by: SEA DAVID on 03/19/19 1137 Patient Home Medication List Home Medication List Reviewed: Yes Review of Systems Review of Systems Constitutional: No chills, No fever; malaise Eyes: No Symptoms Reported Ears: See HPI, Pain Nose: congestion Throat: denies pain Respiratory: cough Gastrointestinal: No abdominal pain, No diarrhea, No nausea, No vomiting Skin: no symptoms reported Past Yfanskm-Uhpwvn-Qgyyhi Hx Past Med/Social Hx: Reviewed Nursing Past Med/Soc Hx Patient Social History Alcohol Use: Denies Use Recreational Drug Use: No Drug of Choice: marijuana Smoking Status: Current Everyday Smoker Type Used: Cigarettes 2nd Hand Smoke Exposure: Yes Recent Foreign Travel: No Contact w/Someone Who Travel: No Recent Infectious Disease Expo: No Recent Hopitalizations: No Seasonal Allergies Seasonal Allergies: No Past Medical History Surgeries: Yes (right hand surgery fx repair, 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) Ear Surgery, Gallbladder Respiratory: No Cardiac: Yes Hypertension Neurological: Yes (last seizure 2016) Seizure Disorder Reproductive Disorders: No Genitourinary: Yes Kidney Stones Gastrointestinal: No Musculoskeletal: Yes Arthritis, Chronic Back Pain Endocrine: No HEENT: Yes (Tubes in Ears) Chronic Ear Infection Cancer: No Psychosocial: No Anxiety, PTSD, Depression Integumentary: No Blood Disorders: No Family Medical History No Pertinent Family Hx Physical Exam Vital Signs Vital Signs - First Documented 03/28/19 09:51 Pulse 100 Resp 18 B/P (MAP) 142/96 (111) Pulse Ox 98 Height, Weight, BMI Height: 6'0.00" Weight: 220lbs. 0.0oz. 99.930982od; 31.00 BMI Method:Stated General Appearance: WD/WN, no apparent distress Ears: right ear TM normal; left ear other (patient with tympanic tube in place with no drainage or fluid noted); bilateral ear auricle normal, bilateral ear canal normal Neck: non-tender, full range of motion, supple Cardiovascular: normal peripheral pulses, regular rate, rhythm Respiratory: lungs clear, normal breath sounds Gastrointestinal: non tender, soft Neurologic/Psychiatric: alert, normal mood/affect, oriented x 3 Skin: normal color, warm/dry Progress/Results/Core Measures Results/Orders Vital Signs/I&O 03/28/19 09:51 Pulse 100 Resp 18 B/P (MAP) 142/96 (111) Pulse Ox 98 Blood Pressure Mean: 111 POS Progress Progress Note : Time: 10:06 Progress Note Patient wasn't clear tympanic to with no purulent drainage or other drainage. Discussed with patient that he likely has a viral upper respiratory infection. He does have quite a bit congestion. I recommend he may try some Benadryl, Neyda or Zyrtec. Also recommended a follow-up with Dr. Juarez who cares for his TM tube within the week. Patient will be discharged home in stable condition. Departure Impression Primary Impression: Viral URI with cough Additional Impression: Left ear pain Disposition: 01 HOME, SELF-CARE Condition: Stable Departure-Patient Inst. Referrals: BRAD REID MD (PCP/Family) Primary Care Physician Patient Instructions: Eustachian Tube Problems (DC), Viral Upper Respiratory Infection, Adult (DC) Add. Discharge Instructions: Follow-up with Dr. Juarez within 5-7 days All discharge instructions reviewed with patient and/or family. Voiced understanding. ADRIANA BERGER DO Mar 28, 2019 10:08 POS
[2019-03-28 10:12] VITALS: BP 142/96
== END 2019-03-28 10:12 | disposition home or self-care (01) ==
LOC: EDUNIT# 08:57 → ER 08:58
DX: J06.9 Acute upper respiratory infection, unspecified (principal); H92.02 Otalgia, left ear; I10 Essential (primary) hypertension; G40.909 Epilepsy, unspecified, not intractable, without status epilepticus; F41.9 Anxiety disorder, unspecified; F43.10 Post-traumatic stress disorder, unspecified; F32.9 Major depressive disorder, single episode, unspecified; F17.210 Nicotine dependence, cigarettes, uncomplicated; Z87.442 Personal history of urinary calculi
CPT/HCPCS: 99282

== ENCOUNTER 2019-04-05 11:35 | Emergency (ER) | payer SELFPAY ==
[~2019-04-05] VITALS: Ht 182.8 cm; Wt 108.7 kg
--- NOTE | 2019-04-05 12:30 | ED EENT ---
History of Present Illness General Chief Complaint: Ear Problems Stated Complaint: EAR INFECTION Source: patient Exam Limitations: no limitations History of Present Illness Date Seen by Provider: Apr 05, 2019 Time Seen by Provider: 12:09 Initial Comments Patient resents to ER by private conveyance with chief complaint pain worsening over the past 2 days left ear. He has a history of chronic ear infections. He been using Tylenol and ibuprofen with mild to moderate success. He follows with Dr. Juarez and Dr. Melo. He has not made an appointment to follow-up with the ENT. In July of this year he had tubes placed the second time. He denies any fevers chills nausea vomiting diarrhea. Allergies and Home Medications Allergies Coded Allergies: No Known Drug Allergies (Unverified , 10/29/08) Home Medications Amitriptyline HCl 25 Mg Tablet, 25 MG PO HS, (Reported) Bupropion HCl 200 Mg Tablet.er, 200 MG PO DAILY, (Reported) Cyclobenzaprine HCl 10 Mg Tablet, 10 MG PO Q8H PRN for SPASMS Prescribed by: SEA DAVID on 03/19/19 1137 Gabapentin 800 Mg Tablet, 800 MG PO QID, (Reported) Hydrocodone Bit/Acetaminophen 1 Tab Tab, 1-2 EACH PO Q6H PRN for PAIN-MODERATE Prescribed by: SEA DAVID on 03/19/19 1137 Ofloxacin 5 Ml Drops, 3 DROPS EACH EAR BID Prescribed by: SERA MAYFIELD on 08/16/18 0833 Prednisone 50 Mg Tab, 50 MG PO DAILY Prescribed by: SEA DAVID on 03/19/19 1137 Patient Home Medication List Home Medication List Reviewed: Yes Review of Systems Review of Systems Constitutional: No chills, No diaphoresis Eyes: Denies Blindness, Denies Blurred Vision Ears: See HPI, Pain; Denies Bloody Discharge, Denies Clear Discharge, Denies Purulent Discharge Nose: denies clots, denies congestion Mouth: denies clots, denies pain Throat: denies pain, denies swelling Respiratory: No cough, No short of breath Past Zrbozro-Waaboo-Vqqqwa Hx Patient Social History Alcohol Use: Denies Use Recreational Drug Use: Yes Drug of Choice: marijuana Smoking Status: Current Everyday Smoker Type Used: Cigarettes 2nd Hand Smoke Exposure: Yes Recent Hopitalizations: No Seasonal Allergies Seasonal Allergies: No Past Medical History Surgeries: Yes (right hand surgery fx repair, 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 0.0oz. 99.205868tr; 31.00 BMI Method:Stated General Appearance: WD/WN, mild distress Eyes: bilateral eye normal inspection, bilateral eye PERRL, bilateral eye EOMI Ears: right ear canal normal, right ear TM normal; left ear TM dull, left ear TM bulging (white opacified effusion); bilateral ear auricle normal Nose: normal inspection; No discharge Mouth/Throat: normal mouth inspection, pharynx normal Neck: full range of motion, supple, normal inspection Cardiovascular: normal peripheral pulses, regular rate, rhythm Progress/Results/Core Measures Progress Progress Note : Time: 12:29 Progress Note Zipsor for pain. Flonase to help with eustachian congestion. Augmentin 10 days and follow-up with Dr. Juarez. Departure Impression Primary Impression: Acute otitis media, left Disposition: 01 HOME, SELF-CARE Condition: Stable Departure-Patient Inst. Decision time for Depature: 12:30 Referrals: RAMIRO JUAREZ MD, DAVID F MD (PCP/Family) Primary Care Physician Patient Instructions: Ear Infections (Otitis Media) (DC) Add. Discharge Instructions: If you are known to Dr. Juarez then you can call his clinic directly and request follow-up appointment. Start taking the Augmentin one tablet twice daily with food for the next 10 days. Flonase 1 puff each nostril twice a day for the next 1-2 weeks to help drain your ears. Drink plenty of fluids to stay hydrated. Tylenol 1000 mg every 8 hours as needed for pain. Do not take ibuprofen approximately etc. while you are using Zipsor. Zipsor one tablet up to 3 times daily 25 mg as needed for breakthrough pain. Warm compresses applied directly over the ear can be helpful. All discharge instructions reviewed with patient and/or family. Voiced understanding. Scripts Diclofenac Potassium (Zipsor) 25 Mg Capsule 25 MG PO Q8H PRN for PAIN-BREAKTHROUGH, #20 CAP 0 Refills Prov: EL CHOUDHURY 04/05/19 Amoxicillin/Potassium Clav (Augmentin 875-125 Tablet) 1 Each Tablet 1 EACH PO BID for 10 Days, #20 TAB 0 Refills Prov: EL CHOUDHURY 04/05/19 Work/School Note: Work Release Form Date Seen in the Emergency Department: Apr 05, 2019 Return to Work: Apr 06, 2019 Restrictions: No Restrictions EL CHOUDHURY Apr 05, 2019 12:30 POS
[2019-04-05] MEDS ORDERED: DICL25CA4 PO (12:32)
[2019-04-05] MEDS ORDERED: AMOX-358 PO (12:32)
[2019-04-05 12:39] VITALS: BP 156/98
== END 2019-04-05 12:39 | disposition home or self-care (01) ==
LOC: EDUNIT# 11:35 → ER 11:36
DX: H66.92 Otitis media, unspecified, left ear (principal); I10 Essential (primary) hypertension; G40.909 Epilepsy, unspecified, not intractable, without status epilepticus; F41.9 Anxiety disorder, unspecified; F43.10 Post-traumatic stress disorder, unspecified; F32.9 Major depressive disorder, single episode, unspecified; F17.210 Nicotine dependence, cigarettes, uncomplicated; Z87.442 Personal history of urinary calculi; Z96.22 Myringotomy tube(s) status
CPT/HCPCS: 99282

== ENCOUNTER 2019-07-30 10:52 | Emergency (ER) | payer SELFPAY ==
[~2019-07-30] VITALS: Ht 182 cm; Wt 110.0 kg
[~2019-07-30 10:52] MED LIST changes: +ACHYD1T PO; +DICL25CA4 PO; -HYDR-3812 PO; -HYDR-3820 PO; -LISI1TAB10; +LISI1TAB26; +OFLO5DRO33 EACH EAR; +OFLO5DRO33 RIGHT EAR; -OFLO5DRO7 EACH EAR; -OFLO5DRO7 RIGHT EAR
[2019-07-30] MEDS ORDERED: AMOX-358 PO (11:20)
--- NOTE | 2019-07-30 11:20 | ED EENT ---
History of Present Illness General Stated Complaint: BILAT EAR PAIN Source: patient Exam Limitations: no limitations History of Present Illness Date Seen by Provider: Jul 30, 2019 Time Seen by Provider: 11:18 Initial Comments Review of reports of bilateral ear pain, this began a few days ago, has had some drainage through the left have an ostomy 2. Fever up to 101 at home, Timing/Duration: abrupt Severity: moderate Location: mouth Associated Symptoms: cough Allergies and Home Medications Allergies Coded Allergies: No Known Drug Allergies (Unverified , 10/29/08) Home Medications Amitriptyline HCl 25 Mg Tablet, 25 MG PO HS, (Reported) Amoxicillin/Potassium Clav 1 Each Tablet, 1 EACH PO BID Prescribed by: EL CHOUDHURY on 04/05/19 1232 Bupropion HCl 200 Mg Tablet.er, 200 MG PO DAILY, (Reported) Cyclobenzaprine HCl 10 Mg Tablet, 10 MG PO Q8H PRN for SPASMS Prescribed by: SEA DAVID on 03/19/19 1137 Diclofenac Potassium 25 Mg Capsule, 25 MG PO Q8H PRN for PAIN-BREAKTHROUGH Prescribed by: LE CHOUDHURY on 04/05/19 1232 Gabapentin 800 Mg Tablet, 800 MG PO QID, (Reported) Hydrocodone Bit/Acetaminophen 1 Tab Tab, 1-2 EACH PO Q6H PRN for PAIN-MODERATE Prescribed by: SEA DAVID on 03/19/19 1137 Ofloxacin 5 Ml Drops, 3 DROPS EACH EAR BID Prescribed by: SERA MAYFIELD on 08/16/18 0833 Prednisone 50 Mg Tab, 50 MG PO DAILY Prescribed by: SEA DAVID on 03/19/19 1137 Patient Home Medication List Home Medication List Reviewed: Yes Review of Systems Review of Systems Constitutional: see HPI Eyes: See HPI Ears: See HPI, Pain Nose: no symptoms reported Mouth: no symptoms reported Throat: no symptoms reported Respiratory: no symptoms reported Cardiovascular: no symptoms reported Musculoskeletal: no symptoms reported Skin: no symptoms reported Neurological: No Symptoms Reported Hematologic/Lymphatic: No Symptoms Reported Immunological/Allergic: no symptoms reported Past Gshmwae-Azamcd-Lnqpzw Hx Patient Social History Drug of Choice: marijuana Type Used: Cigarettes 2nd Hand Smoke Exposure: Yes Recent Foreign Travel: No Contact w/Someone Who Travel: No Recent Hopitalizations: No Seasonal Allergies Seasonal Allergies: No Past Medical History Surgeries: Yes (right hand surgery fx repair, 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 0.0oz. 99.382553cz; 32.00 BMI Method:Stated General Appearance: WD/WN, no apparent distress Eyes: bilateral eye normal inspection, bilateral eye PERRL, bilateral eye EOMI Ears: left ear other (tympanostomy tube on the left is visualized, on the right is not visualized, bilateral TM scarred without obvious bulging or erythema); bilateral ear auricle normal, bilateral ear canal normal Neck: non-tender, full range of motion Respiratory: no respiratory distress, no accessory muscle use Neurologic/Psychiatric: alert, normal mood/affect, oriented x 3 Skin: normal color, warm/dry Departure Impression Primary Impression: Chronic otitis media Qualified Codes: H66.3X3 - Other chronic suppurative otitis media, bilateral Disposition: HOME, SELF-CARE Condition: Stable Departure-Patient Inst. Decision time for Depature: 11:19 Referrals: RAMIRO JUAREZ MD, DAVID F MD (PCP/Family) Primary Care Physician Patient Instructions: Ear Infections (Otitis Media) Add. Discharge Instructions: 1. Follow-up with Dr. Juarez. Call his office today to make an appointment to be seen 2. Antibiotics as directed 3. Scripts Amoxicillin/Potassium Clav (Augmentin 875-125 Tablet) 1 Each Tablet 1 EACH PO BID, #14 TAB 0 Refills Prov: SOBIA MORALES APRN 07/30/19 SOBIA MORALES APRN Jul 30, 2019 11:20
[2019-07-30 11:29] VITALS: BP 133/86
--- OUTSIDE RECORDS SUMMARY | 2019-08-01 13:10 | XMS REPORT ---
Author Author Mahin Alaniz Doctor Organization [facility] Address Unknown Phone Unavailable Care Team Providers Care Director Of Construction Name Role Phone Migration, Doctor Unavailable Unavailable PROBLEMS Type Condition ICD9-CM Code ERK07-OL Code Onset Dates Condition S tatus SNOMED Code Problem Neuropathy G62.9 Active 998007635 Problem Elevated liver enzymes R74.8 Active 409058012 Problem Chronic pain G89.29 Active 5973831 1 Problem Depressed F32.9 Active 24074043 Problem Post traumatic stress disorder (PTSD) F43.10 Active 43752967 Problem Nicotine dependence F17.200 Active 21731332 Problem Syncopal episodes R55 Active 27 1650542 Problem Dysthymia F34.1 Active 80659835 Problem HTN (hypertension) I10 Active 3 9609082 Problem Adjustment disorder with depressed mood F43.21 Active 81089934 Problem Kidney stones N20.0 Active 701982 07 Problem Neck muscle strain, initial encounter S16.1XXA Active 526318253 Problem Low back pain M54.5 Active 889779 009 ALLERGIES No Information ENCOUNTERS Encounter Location Date Diagnosis [place] [address] [address] Mar, [place] [address] [address] Dec, HTN (hypertension) I10 ; Neuropathy G62. 9 ; Dysthymia F34.1 ; Sebaceous cyst L72.3 and Left ear pain H92.02 [place] [address] [address] Dec, Neuropathy G62.9 [place] [address] [address] Jul, Left ear pain H92.02 ; Neuropathy G62.9 and Nicotine dependence F17.200 [place] [address] [address] Dec, Cervical radiculopathy M54.12 [place] [address] [address] Dec, Cervical radiculopathy M54.12 and HTN (h ypertension) I10 [place] [address] [address] Jul, HTN (hypertension) I10 ; Neuropathy G62. 9 and Depressed F32.9 [place] [address] [address] [place] [id number] Jun, Myalgia M79.1 ; Abnormal LFTs R94.5 ; Ne uropathy G62.9 ; Low back pain M54.5 and Adjustment disorder with depressed mood F43.21 [place] [address] [address] May, [facility] [place] [address] [address] May, Other acute nonsuppurative o titis media of left ear, recurrence not specified H65.192 and Acute otitis externa of left ear, unspecified type H60.502 [facility] [place] [address] [address] Nov, Acute otitis externa of left ear, unspecified type H60.502 [place] [address] [address] Oct, HTN (hypertension) I10 ; Neuropathy G62. 9 ; Chronic pain G89.29 ; Low back pain M54.5 ; Neck muscle strain, initial encounter S16.1XXA ; Depressed F32.9 and Adjustment disorder with depressed mood F43.21 [place] [address] [address] Oct, [place] [address] [address] Oct, Depressed F32.9 [place] [address] [place] [id number] Aug, Chronic pain G89.29 [place] [address] [address] Aug, Chronic pain G89.29 [place] [address] [address] Aug, Chronic pain G89.29 [place] [address] [address] Jul, HTN (hypertension) I10 ; Chronic pain G8 9.29 ; Depressed F32.9 ; Post traumatic stress disorder (PTSD) F43.10 and Right elbow pain M25.521 [place] [address] [address] 14 Jul, 2016 HTN (hypertension) I10 ; Neuropathy G62. 9 ; Adjustment disorder with depressed mood F43.21 ; Chronic pain G89.29 ; Kidney stones N20.0 and Screening cholesterol level Z13.220 [place] [address] [address] Jul, Adjustment disorder with depressed mood F43.21 ; Post traumatic stress disorder (PTSD) F43.10 ; Depressed F32.9 and Chronic pain G89.29 [place] [address] [address] Jul, Depressed F32.9 ; Chronic pain G89.29 ; Neuropathy G62.9 ; Adjustment disorder with depressed mood F43.21 and Post traumatic stress disorder (PTSD) F43.10 [place] [address] [address] Jul, [place] [address] [address] Jul, [place] [address] [address] 04 Jun, 2015 HTN (hypertension) I10 ; Syncopal episod es R55 ; Depressed F32.9 and Chronic pain G89.29 [place] [address] [address] May, [facility] [address] [address] May, [facility] [address] [address] Mar, [facility] [address] [address] Feb, HTN (hypertension) I10 ; Leg pain M79.60 6 and Neuropathy G62.9 [facility] [address] [address] 10 Jan, 2015 Major depressive disorder, recurrent epi sode, severe, without mention of psychotic behavior 296.33 ; Generalized anxiety disorder 300.02 and Posttraumatic stress disorder 309.81 [facility] [address] [address] 10 Jan, 2015 Acute bronchitis 466.0 and Back pain 724 .5 [facility] [address] [address] Oct, [facility] [address] [address] 14 Aug, 2014 [facility] [address] [address] Aug, [facility] [address] [address] Jul, [facility] [address] [address] Jul, [facility] [address] [address] Dec, [facility] [address] [address] Dec, [facility] [address] [address] Nov, [facility] [address] [address] Nov, [facility] [address] [facility] [id number] [place] [address] Oct, [facility] [address] [id number] [place] [address] Oct, [facility] [address] [id number] [place] [address] September, [facility] [address] [id number] [place] [address] September, [facility] [address] [facility] [id number] [place] [address] Aug, [facility] [address] [id number] [place] [address] Aug, [facility] [address] [id number] [place] [address] Aug, [facility] [address] [id number] [place] [address] Aug, [facility] [address] [id number] [place] [address] Aug, [facility] [address] [id number] [place] [address] Aug, [facility] [address] [id number] [place] [address] Aug, [facility] [address] [id number] [place] [address] Aug, [facility] [address] [id number] [place] [address] Jul, [facility] [address] [id number] [place] [address] Jul, [facility] [address] [id number] [place] [address] Jul, [facility] [address] [id number] [place] [address] Jul, [facility] [address] [id number] [place] [address] 14 Jul, 2013 [facility] [address] [facility] [id number] [place] [address] 14 Jul, 2013 [facility] [address] [facility] [id number] [place] [address] 14 Jul, 2013 [facility] [address] [id number] [place] [address] 14 Jul, 2013 [facility] [address] [id number] [place] [address] 10 Jul, 2013 [facility] [address] [facility] [id number] [place] [address] 10 Jul, 2013 [facility] [address] [id number] [place] [address] 19 Jun, 2013 [facility] [address] [id number] [place] [address] 19 Jun, 2013 [facility] [address] [id number] [place] [address] Jun, [facility] [address] [id number] [place] [address] Jun, [facility] [address] [id number] [place] [address] Jan, [facility] [address] [id number] [place] [address] Dec, [facility] [address] [id number] [place] [address] Nov, [facility] [address] [facility] [id number] [place] [address] Oct, [facility] [address] [id number] [place] [address] September, [facility] [address] [id number] [place] [address] September, [facility] [address] [id number] [place] [address] September, [facility] [address] [id number] [place] [address] September, [facility] [address] [id number] [place] [address] Aug, [facility] [address] [id number] [place] [address] Aug, [facility] [address] [id number] [place] [address] Jul, [facility] [address] [id number] [place] [address] Jul, [facility] [address] [id number] [place] [address] Jun, [facility] [address] [id number] [place] [address] Jun, [facility] [address] [id number] [place] [address] Jun, [facility] [address] [id number] [place] [address] May, [facility] [address] [id number] [place] [address] May, [facility] [address] [id number] [place] [address] Apr, [facility] [address] [id number] [place] [address] Apr, [facility] [address] [id number] [place] [address] Mar, [facility] [address] [id number] [place] [address] Mar, [facility] [address] [id number] [place] [address] Mar, [facility] [address] [id number] [place] [address] Mar, [facility] [address] [id number] [place] [address] Feb, [facility] [address] [facility] [id number] [place] [address] Mar, [facility] [address] [facility] [id number] [place] [address] Feb, IMMUNIZATIONS No Known Immunizations SOCIAL HISTORY Never Assessed REASON FOR VISIT PLAN OF CARE VITAL SIGNS Height 72 in 2013-07-29 Weight 215.1 lbs 2013-07-29 Temperature 98.6 degrees Fahrenheit 2013-07-29 Heart Rate 92 bpm 2013-07-29 Respiratory Rate 22 2013-07-29 Blood pressure systolic 166 mmHg 2013-07-29 Blood pressure diastolic 100 mmHg 2013-07-29 MEDICATIONS Unknown Medications RESULTS No Results PROCEDURES No Known procedures INSTRUCTIONS MEDICATIONS ADMINISTERED No Known Medications MEDICAL (GENERAL) HISTORY Type Description Date Medical History hypertension Medical History chronic back pain Medical History PTSD Medical History depression and anxiety Surgical History cholecystectomy Surgical History kidney surgery Surgical History right hand Surgical History tubes in both ears and tumor from the [facility] 07/2017 Hospitalization History surgeries
--- OUTSIDE RECORDS SUMMARY | 2019-08-01 13:10 | XMS REPORT ---
Author Author Mahin Alaniz Doctor Organization [facility] Address Unknown Phone Unavailable Care Team Providers Care Director Of Gift Planning Name Role Phone Migration, Doctor Unavailable Unavailable PROBLEMS Type Condition ICD9-CM Code XDL57-NP Code Onset Dates Condition S tatus SNOMED Code Problem Neuropathy G62.9 Active 077349021 Problem Elevated liver enzymes R74.8 Active 617367882 Problem Chronic pain G89.29 Active 4875432 1 Problem Depressed F32.9 Active 50059488 Problem Post traumatic stress disorder (PTSD) F43.10 Active 11342188 Problem Nicotine dependence F17.200 Active 25107325 Problem Syncopal episodes R55 Active 27 6230728 Problem Dysthymia F34.1 Active 33379199 Problem HTN (hypertension) I10 Active 3 8944158 Problem Adjustment disorder with depressed mood F43.21 Active 08149037 Problem Kidney stones N20.0 Active 062298 07 Problem Neck muscle strain, initial encounter S16.1XXA Active 353497924 Problem Low back pain M54.5 Active 985801 009 ALLERGIES No Information ENCOUNTERS Encounter Location Date Diagnosis [place] [address] [address] Mar, [place] [address] [address] Dec, HTN (hypertension) I10 ; Neuropathy G62. 9 ; Dysthymia F34.1 ; Sebaceous cyst L72.3 and Left ear pain H92.02 [place] [address] [address] Dec, Neuropathy G62.9 [place] [address] [address] Jul, Left ear pain H92.02 ; Neuropathy G62.9 and Nicotine dependence F17.200 [place] [address] [address] Dec, Cervical radiculopathy M54.12 [place] [address] [address] Dec, Cervical radiculopathy M54.12 and HTN (h ypertension) I10 [place] [address] [address] Jul, HTN (hypertension) I10 ; Neuropathy G62. 9 and Depressed F32.9 [place] [address] [address] [place] [id number] Jun, Myalgia M79.1 ; Abnormal LFTs R94.5 ; Ne uropathy G62.9 ; Low back pain M54.5 and Adjustment disorder with depressed mood F43.21 [place] [address] [address] May, [facility] [place] [address] [address] May, Other acute nonsuppurative o titis media of left ear, recurrence not specified H65.192 and Acute otitis externa of left ear, unspecified type H60.502 [facility] [place] [address] [address] Nov, Acute otitis externa of left ear, unspecified type H60.502 [place] [address] [address] Oct, HTN (hypertension) I10 ; Neuropathy G62. 9 ; Chronic pain G89.29 ; Low back pain M54.5 ; Neck muscle strain, initial encounter S16.1XXA ; Depressed F32.9 and Adjustment disorder with depressed mood F43.21 [place] [address] [address] Oct, [place] [address] [address] Oct, Depressed F32.9 [place] [address] [address] [place] [id number] Aug, Chronic pain G89.29 [place] [address] [address] Aug, Chronic pain G89.29 [place] [address] [address] Aug, Chronic pain G89.29 [place] [address] [address] Jul, HTN (hypertension) I10 ; Chronic pain G8 9.29 ; Depressed F32.9 ; Post traumatic stress disorder (PTSD) F43.10 and Right elbow pain M25.521 [place] [address] [address] 14 Jul, 2016 HTN (hypertension) I10 ; Neuropathy G62. 9 ; Adjustment disorder with depressed mood F43.21 ; Chronic pain G89.29 ; Kidney stones N20.0 and Screening cholesterol level Z13.220 [place] [address] [address] Jul, Adjustment disorder with depressed mood F43.21 ; Post traumatic stress disorder (PTSD) F43.10 ; Depressed F32.9 and Chronic pain G89.29 [place] [address] [address] Jul, Depressed F32.9 ; Chronic pain G89.29 ; Neuropathy G62.9 ; Adjustment disorder with depressed mood F43.21 and Post traumatic stress disorder (PTSD) F43.10 [place] [address] [address] Jul, [place] [address] [address] Jul, [place] [address] [address] 04 Jun, 2015 HTN (hypertension) I10 ; Syncopal episod es R55 ; Depressed F32.9 and Chronic pain G89.29 [place] [address] [address] May, [facility] [address] [address] May, [facility] [address] [address] Mar, [facility] [address] [address] Feb, HTN (hypertension) I10 ; Leg pain M79.60 6 and Neuropathy G62.9 [facility] [address] [address] 10 Jan, 2015 Major depressive disorder, recurrent epi sode, severe, without mention of psychotic behavior 296.33 ; Generalized anxiety disorder 300.02 and Posttraumatic stress disorder 309.81 [facility] [address] [address] 10 Jan, 2015 Acute bronchitis 466.0 and Back pain 724 .5 [facility] [address] [address] Oct, [facility] [address] [address] 14 Aug, 2014 [facility] [address] [address] Aug, [facility] [address] [address] Jul, [facility] [address] [address] Jul, [facility] [address] [address] Dec, [facility] [address] [address] Dec, [facility] [address] [address] Nov, [facility] [address] [address] Nov, [facility] [address] [facility] [id number] [place] [address] Oct, [facility] [address] [id number] [place] [address] Oct, [facility] [address] [id number] [place] [address] September, [facility] [address] [id number] [place] [address] September, [facility] [address] [facility] [id number] [place] [address] Aug, [facility] [address] [id number] [place] [address] Aug, [facility] [address] [id number] [place] [address] Aug, [facility] [address] [id number] [place] [address] Aug, [facility] [address] [id number] [place] [address] Aug, [facility] [address] [id number] [place] [address] Aug, [facility] [address] [id number] [place] [address] Aug, [facility] [address] [id number] [place] [address] Aug, [facility] [address] [id number] [place] [address] Jul, [facility] [address] [id number] [place] [address] Jul, [facility] [address] [id number] [place] [address] Jul, [facility] [address] [id number] [place] [address] Jul, [facility] [address] [id number] [place] [address] 14 Jul, 2013 [facility] [address] [facility] [id number] [place] [address] 14 Jul, 2013 [facility] [address] [facility] [id number] [place] [address] 14 Jul, 2013 [facility] [address] [id number] [place] [address] 14 Jul, 2013 [facility] [address] [id number] [place] [address] 10 Jul, 2013 [facility] [address] [facility] [id number] [place] [address] 10 Jul, 2013 [facility] [address] [id number] [place] [address] 19 Jun, 2013 [facility] [address] [id number] [place] [address] 19 Jun, 2013 [facility] [address] [id number] [place] [address] Jun, [facility] [address] [id number] [place] [address] Jun, [facility] [address] [id number] [place] [address] Jan, [facility] [address] [id number] [place] [address] Dec, [facility] [address] [id number] [place] [address] Nov, [facility] [address] [facility] [id number] [place] [address] Oct, [facility] [address] [id number] [place] [address] September, [facility] [address] [id number] [place] [address] September, [facility] [address] [id number] [place] [address] September, [facility] [address] [id number] [place] [address] September, [facility] [address] [id number] [place] [address] Aug, [facility] [address] [id number] [place] [address] Aug, [facility] [address] [id number] [place] [address] Jul, [facility] [address] [id number] [place] [address] Jul, [facility] [address] [id number] [place] [address] Jun, [facility] [address] [id number] [place] [address] Jun, [facility] [address] [id number] [place] [address] Jun, [facility] [address] [id number] [place] [address] May, [facility] [address] [id number] [place] [address] May, [facility] [address] [id number] [place] [address] Apr, [facility] [address] [id number] [place] [address] Apr, [facility] [address] [id number] [place] [address] Mar, [facility] [address] [id number] [place] [address] Mar, [facility] [address] [id number] [place] [address] Mar, [facility] [address] [id number] [place] [address] Mar, [facility] [address] [id number] [place] [address] Feb, [facility] [address] [facility] [id number] [place] [address] Mar, [facility] [address] [facility] [id number] [place] [address] Feb, IMMUNIZATIONS No Known Immunizations SOCIAL HISTORY Never Assessed REASON FOR VISIT PLAN OF CARE VITAL SIGNS Weight 210.38 lbs 2013-08-13 Temperature 98 degrees Fahrenheit 2013-08-13 Heart Rate 88 bpm 2013-08-13 Respiratory Rate 24 2013-08-13 Blood pressure systolic 136 mmHg 2013-08-13 Blood pressure diastolic 100 mmHg 2013-08-13 MEDICATIONS Unknown Medications RESULTS No Results PROCEDURES Procedure Date Ordered Result Body Site DRUG SCREEN, QUALITATE/MULTI August 13, 2013 COMPREHEN METABOLIC PANEL August 13, 2013 VENIPUNCT, ROUTINE* August 13, 2013 INSTRUCTIONS MEDICATIONS ADMINISTERED No Known Medications MEDICAL (GENERAL) HISTORY Type Description Date Medical History hypertension Medical History chronic back pain Medical History PTSD Medical History depression and anxiety Surgical History cholecystectomy Surgical History kidney surgery Surgical History right hand Surgical History tubes in both ears and tumor from the [facility] 07/2017 Hospitalization History surgeries
--- OUTSIDE RECORDS SUMMARY | 2019-08-01 13:11 | XMS REPORT ---
Author Author Mahin Alaniz Doctor Organization [facility] Address Unknown Phone Unavailable Care Team Providers Care Footwear Sales Representative Name Role Phone Migration, Doctor Unavailable Unavailable PROBLEMS Type Condition ICD9-CM Code [id number] Code Onset Dates Condition S tatus SNOMED Code Problem Neuropathy G62.9 Active 952915603 Problem Elevated liver enzymes R74.8 Active 907212860 Problem Chronic pain G89.29 Active 1539971 1 Problem Depressed F32.9 Active 85116653 Problem Post traumatic stress disorder (PTSD) F43.10 Active 02187804 Problem Nicotine dependence F17.200 Active 24607377 Problem Syncopal episodes R55 Active 27 1941492 Problem Dysthymia F34.1 Active 82051853 Problem HTN (hypertension) I10 Active 3 2672854 Problem Adjustment disorder with depressed mood F43.21 Active 15341889 Problem Kidney stones N20.0 Active 639859 07 Problem Neck muscle strain, initial encounter S16.1XXA Active 780553927 Problem Low back pain M54.5 Active 793681 009 ALLERGIES No Information ENCOUNTERS Encounter Location Date Diagnosis [place] [address] [address] Mar, [place] [address] [address] Dec, HTN (hypertension) I10 ; Neuropathy G62. 9 ; Dysthymia F34.1 ; Sebaceous cyst L72.3 and Left ear pain H92.02 [place] [address] [address] Dec, Neuropathy G62.9 [place] [address] [address] Jul, Left ear pain H92.02 ; Neuropathy G62.9 and Nicotine dependence F17.200 [place] [address] [address] Dec, Cervical radiculopathy M54.12 [place] [address] [address] Dec, Cervical radiculopathy M54.12 and HTN (h ypertension) I10 [place] [address] [address] Jul, HTN (hypertension) I10 ; Neuropathy G62. 9 and Depressed F32.9 [place] [address] [address] [place] [id number] Jun, Myalgia M79.1 ; Abnormal LFTs R94.5 ; Ne uropathy G62.9 ; Low back pain M54.5 and Adjustment disorder with depressed mood F43.21 [place] [address] [address] May, [facility] [place] [address] [address] May, Other acute nonsuppurative o titis media of left ear, recurrence not specified H65.192 and Acute otitis externa of left ear, unspecified type H60.502 [facility] [place] [address] [address] Nov, Acute otitis externa of left ear, unspecified type H60.502 [place] [address] [address] Oct, HTN (hypertension) I10 ; Neuropathy G62. 9 ; Chronic pain G89.29 ; Low back pain M54.5 ; Neck muscle strain, initial encounter S16.1XXA ; Depressed F32.9 and Adjustment disorder with depressed mood F43.21 [place] [address] [address] Oct, [place] [address] [address] Oct, Depressed F32.9 [place] [address] [place] [id number] Aug, Chronic pain G89.29 [place] [address] [address] Aug, Chronic pain G89.29 [place] [address] [address] Aug, Chronic pain G89.29 [place] [address] [address] Jul, HTN (hypertension) I10 ; Chronic pain G8 9.29 ; Depressed F32.9 ; Post traumatic stress disorder (PTSD) F43.10 and Right elbow pain M25.521 [place] [address] [address] 14 Jul, 2016 HTN (hypertension) I10 ; Neuropathy G62. 9 ; Adjustment disorder with depressed mood F43.21 ; Chronic pain G89.29 ; Kidney stones N20.0 and Screening cholesterol level Z13.220 [place] [address] [address] Jul, Adjustment disorder with depressed mood F43.21 ; Post traumatic stress disorder (PTSD) F43.10 ; Depressed F32.9 and Chronic pain G89.29 [place] [address] [address] Jul, Depressed F32.9 ; Chronic pain G89.29 ; Neuropathy G62.9 ; Adjustment disorder with depressed mood F43.21 and Post traumatic stress disorder (PTSD) F43.10 [place] [address] [address] Jul, [place] [address] [address] Jul, [place] [address] [address] 04 Jun, 2015 HTN (hypertension) I10 ; Syncopal episod es R55 ; Depressed F32.9 and Chronic pain G89.29 [place] [address] [address] May, [facility] [address] [address] May, [facility] [address] [address] Mar, [facility] [address] [address] Feb, HTN (hypertension) I10 ; Leg pain M79.60 6 and Neuropathy G62.9 [facility] [address] [address] 10 Jan, 2015 Major depressive disorder, recurrent epi sode, severe, without mention of psychotic behavior 296.33 ; Generalized anxiety disorder 300.02 and Posttraumatic stress disorder 309.81 [facility] [address] [address] 10 Jan, 2015 Acute bronchitis 466.0 and Back pain 724 .5 [facility] [address] [address] Oct, [facility] [address] [address] 14 Aug, 2014 [facility] [address] [address] Aug, [facility] [address] [address] Jul, [facility] [address] [address] Jul, [facility] [address] [address] Dec, [facility] [address] [address] Dec, [facility] [address] [address] Nov, [facility] [address] [address] Nov, [facility] [address] [facility] [id number] [place] [address] Oct, [facility] [address] [id number] [place] [address] Oct, [facility] [address] [id number] [place] [address] September, [facility] [address] [id number] [place] [address] September, [facility] [address] [facility] [id number] [place] [address] Aug, [facility] [address] [id number] [place] [address] Aug, [facility] [address] [id number] [place] [address] Aug, [facility] [address] [id number] [place] [address] Aug, [facility] [address] [id number] [place] [address] Aug, [facility] [address] [id number] [place] [address] Aug, [facility] [address] [id number] [place] [address] Aug, [facility] [address] [id number] [place] [address] Aug, [facility] [address] [id number] [place] [address] Jul, [facility] [address] [id number] [place] [address] Jul, [facility] [address] [id number] [place] [address] Jul, [facility] [address] [id number] [place] [address] Jul, [facility] [address] [id number] [place] [address] 14 Jul, 2013 [facility] [address] [facility] [id number] [place] [address] 14 Jul, 2013 [facility] [address] [facility] [id number] [place] [address] 14 Jul, 2013 [facility] [address] [id number] [place] [address] 14 Jul, 2013 [facility] [address] [id number] [place] [address] 10 Jul, 2013 [facility] [address] [facility] [id number] [place] [address] 10 Jul, 2013 [facility] [address] [id number] [place] [address] 19 Jun, 2013 [facility] [address] [id number] [place] [address] 19 Jun, 2013 [facility] [address] [id number] [place] [address] Jun, [facility] [address] [id number] [place] [address] Jun, [facility] [address] [id number] [place] [address] Jan, [facility] [address] [id number] [place] [address] Dec, [facility] [address] [id number] [place] [address] Nov, [facility] [address] [facility] [id number] [place] [address] Oct, [facility] [address] [id number] [place] [address] September, [facility] [address] [id number] [place] [address] September, [facility] [address] [id number] [place] [address] September, [facility] [address] [id number] [place] [address] September, [facility] [address] [id number] [place] [address] Aug, [facility] [address] [id number] [place] [address] Aug, [facility] [address] [id number] [place] [address] Jul, [facility] [address] [id number] [place] [address] Jul, [facility] [address] [id number] [place] [address] Jun, [facility] [address] [id number] [place] [address] Jun, [facility] [address] [id number] [place] [address] Jun, [facility] [address] [id number] [place] [address] May, [facility] [address] [id number] [place] [address] May, [facility] [address] [id number] [place] [address] Apr, [facility] [address] [id number] [place] [address] Apr, [facility] [address] [id number] [place] [address] Mar, [facility] [address] [id number] [place] [address] Mar, [facility] [address] [id number] [place] [address] Mar, [facility] [address] [id number] [place] [address] Mar, [facility] [address] [id number] [place] [address] Feb, [facility] [address] [facility] [id number] [place] [address] Mar, [facility] [address] [facility] [id number] [place] [address] Feb, IMMUNIZATIONS No Known Immunizations SOCIAL HISTORY Never Assessed REASON FOR VISIT PLAN OF CARE VITAL SIGNS Height 72 in 2013-09-13 Weight 206.6 lbs 2013-09-13 Temperature 97.6 degrees Fahrenheit 2013-09-13 Heart Rate 78 bpm 2013-09-13 Respiratory Rate 20 2013-09-13 Blood pressure systolic 122 mmHg 2013-09-13 Blood pressure diastolic 78 mmHg 2013-09-13 MEDICATIONS Unknown Medications RESULTS No Results PROCEDURES No Known procedures INSTRUCTIONS MEDICATIONS ADMINISTERED No Known Medications MEDICAL (GENERAL) HISTORY Type Description Date Medical History hypertension Medical History chronic back pain Medical History PTSD Medical History depression and anxiety Surgical History cholecystectomy Surgical History kidney surgery Surgical History right hand Surgical History tubes in both ears and tumor from the [facility] 07/2017 Hospitalization History surgeries
--- OUTSIDE RECORDS SUMMARY | 2019-08-01 13:11 | XMS REPORT ---
Author Author Mahin RANDOLPH Organization [facility] Address [address] [place] [address] Care Team Providers Care Pool Hall Inspector Name Role Phone JOSEE RANDOLPH Unavailable PROBLEMS Type Condition ICD9-CM Code [id number] Code Onset Dates Condition S tatus SNOMED Code Problem Neuropathy G62.9 Active 392383670 Problem Elevated liver enzymes R74.8 Active 331576926 Problem Chronic pain G89.29 Active 6318330 1 Problem Depressed F32.9 Active 07296903 Problem Post traumatic stress disorder (PTSD) F43.10 Active 21661565 Problem Nicotine dependence F17.200 Active 74202326 Problem Syncopal episodes R55 Active 27 5019667 Problem Dysthymia F34.1 Active 74612223 Problem HTN (hypertension) I10 Active 3 9888113 Problem Adjustment disorder with depressed mood F43.21 Active 21166767 Problem Kidney stones N20.0 Active 348844 07 Problem Neck muscle strain, initial encounter S16.1XXA Active 156128151 Problem Low back pain M54.5 Active 277429 009 ALLERGIES No Information ENCOUNTERS Encounter Location Date Diagnosis [place] [address] [address] Mar, [facility] [address] [address] Dec, HTN (hypertension) I10 ; Neuropathy G62. 9 ; Dysthymia F34.1 ; Sebaceous cyst L72.3 and Left ear pain H92.02 [facility] [address] [address] Dec, Neuropathy G62.9 [facility] [address] [address] Jul, Left ear pain H92.02 ; Neuropathy G62.9 and Nicotine dependence F17.200 [place] [address] [address] 14 Dec, 2017 Cervical radiculopathy M54.12 [place] [address] [address] Dec, Cervical radiculopathy M54.12 and HTN (h ypertension) I10 [address] [address] Jul, HTN (hypertension) I10 ; Neuropathy G62. 9 and Depressed F32.[address] [address] Jun, Myalgia M79.1 ; Abnormal LFTs R94.5 ; Ne uropathy G62.9 ; Low back pain M54.5 and Adjustment disorder with depressed mood F43.[address] [address] May, [facility] [place] [address] [address] May, Other acute nonsuppurative o titis media of left ear, recurrence not specified H65.192 and Acute otitis externa of left ear, unspecified type H60.502 [facility] [place] [address] [address] Nov, Acute otitis externa of left ear, unspecified type H60.[address] [address] Oct, HTN (hypertension) I10 ; Neuropathy G62. 9 ; Chronic pain G89.29 ; Low back pain M54.5 ; Neck muscle strain, initial encounter S16.1XXA ; Depressed F32.9 and Adjustment disorder with depressed mood F43.21 [place] [address] [address] Oct, [address] [address] Oct, Depressed F32.9 [place] [address] [address] Aug, Chronic pain G89.29 [place] [address] [address] Aug, Chronic pain G89.29 [place] [address] [address] Aug, Chronic pain G89.29 [place] [address] [address] Jul, HTN (hypertension) I10 ; Chronic pain G8 9.29 ; Depressed F32.9 ; Post traumatic stress disorder (PTSD) F43.10 and Right elbow pain M25.521 [place] [address] [address] 14 Jul, 2016 HTN (hypertension) I10 ; Neuropathy G62. 9 ; Adjustment disorder with depressed mood F43.21 ; Chronic pain G89.29 ; Kidney stones N20.0 and Screening cholesterol level Z13.220 [place] [address] [address] Jul, Adjustment disorder with depressed mood F43.21 ; Post traumatic stress disorder (PTSD) F43.10 ; Depressed F32.9 and Chronic pain G89.29 [place] [address] [address] Jul, Depressed F32.9 ; Chronic pain G89.29 ; Neuropathy G62.9 ; Adjustment disorder with depressed mood F43.21 and Post traumatic stress disorder (PTSD) F43.10 [place] [address] [address] Jul, [place] [address] [address] Jul, [place] [address] [address] 04 Jun, 2015 HTN (hypertension) I10 ; Syncopal episod es R55 ; Depressed F32.9 and Chronic pain G89.29 [facility] [address] [address] May, [facility] [address] [address] May, [facility] [address] [address] Mar, [facility] [address] [address] Feb, HTN (hypertension) I10 ; Leg pain M79.60 6 and Neuropathy G62.9 [facility] [address] [address] 10 Jan, 2015 Major depressive disorder, recurrent epi sode, severe, without mention of psychotic behavior 296.33 ; Generalized anxiety disorder 300.02 and Posttraumatic stress disorder 309.81 [facility] [address] [address] 10 Jan, 2015 Acute bronchitis 466.0 and Back pain 724 .5 [facility] [address] [address] Oct, [facility] [address] [address] 14 Aug, 2014 [facility] [address] [address] Aug, [facility] [address] [address] Jul, [facility] [address] [address] Jul, [facility] [address] [address] Dec, [facility] [address] [address] Dec, [facility] [address] [address] Nov, [facility] [address] [id number] [place] [address] Nov, [facility] [address] [id number] [place] [address] Oct, [facility] [address] [id number] [place] [address] Oct, [facility] [address] [id number] [place] [address] September, [facility] [address] [id number] [place] [address] September, [facility] [address] [id number] [place] [address] Aug, [facility] [address] [id number] [place] [address] Aug, [facility] [address] [id number] [place] [address] Aug, [facility] [address] [id number] [place] [address] Aug, [facility] [address] [id number] [place] [address] Aug, [facility] [address] [id number] [place] [address] Aug, [facility] [address] [id number] [place] [address] Aug, [facility] [address] [id number] [place] [address] Aug, [facility] [address] [id number] [place] [address] Jul, [facility] [address] [id number] [place] [address] Jul, [facility] [address] [id number] [place] [address] Jul, [facility] [address] [id number] [place] [address] 18 Jul, 2013 [facility] [address] [id number] [place] [address] 14 Jul, 2013 [facility] [address] [id number] [facility] [place] [address] 14 Jul, 2013 [facility] [address] [id number] [place] [address] 14 Jul, 2013 [facility] [address] [id number] [place] [address] 14 Jul, 2013 [facility] [address] [facility] [id number] [place] [address] 10 Jul, 2013 [facility] [address] [id number] [place] [address] 10 Jul, 2013 [facility] [address] [id number] [place] [address] 19 Jun, 2013 [facility] [address] [id number] [place] [address] Jun, [facility] [address] [id number] [place] [address] Jun, [facility] [address] [id number] [place] [address] Jun, [facility] [address] [id number] [place] [address] Jan, [facility] [address] [id number] [place] [address] Dec, [facility] [address] [id number] [place] [address] Nov, [facility] [address] [id number] [place] [address] Oct, [facility] [address] [id number] [place] [address] September, [facility] [address] [id number] [place] [address] September, [facility] [address] [id number] [place] [address] 15 Sep, 2012 [facility] [address] [id number] [place] [address] September, [facility] [address] [id number] [place] [address] Aug, [facility] [address] [id number] [place] [address] Aug, [facility] [address] [id number] [place] [address] Jul, [facility] [address] [id number] [place] [address] Jul, [facility] [address] [id number] [place] [address] Jun, [facility] [address] [id number] [place] [address] Jun, [facility] [address] [id number] [place] [address] Jun, [facility] [address] [id number] [place] [address] May, [facility] [address] [id number] [place] [address] May, [facility] [address] [id number] [place] [address] Apr, [facility] [address] [id number] [place] [address] Apr, [facility] [address] [id number] [place] [address] Mar, [facility] [address] [place] [id number] [place] [address] Mar, [facility] [address] [id number] [place] [address] Mar, [facility] [address] [place] [id number] [place] [address] Mar, [facility] [address] [facility] [id number] [place] [address] Feb, [facility] [address] [id number] [place] [address] Mar, [facility] [address] [id number] [place] [address] 15 Feb, 2008 IMMUNIZATIONS No Known Immunizations SOCIAL HISTORY Never Assessed REASON FOR VISIT PLAN OF CARE VITAL SIGNS MEDICATIONS Unknown Medications RESULTS No Results PROCEDURES Procedure Date Ordered Result Body Site PSYTX PT&/FAMILY 45 MINUTES August 21, 2013 INSTRUCTIONS MEDICATIONS ADMINISTERED No Known Medications MEDICAL (GENERAL) HISTORY Type Description Date Medical History hypertension Medical History chronic back pain Medical History PTSD Medical History depression and anxiety Surgical History cholecystectomy Surgical History kidney surgery Surgical History right hand Surgical History tubes in both ears and tumor from the [facility] 07/2017 Hospitalization History surgeries
--- OUTSIDE RECORDS SUMMARY | 2019-08-01 13:11 | XMS REPORT ---
Author Author Mahin Alaniz Doctor Organization [facility] Address Unknown Phone Unavailable Care Team Providers Care Mine Manager Name Role Phone Migration, Doctor Unavailable Unavailable PROBLEMS Type Condition ICD9-CM Code RYN28-JK Code Onset Dates Condition S tatus SNOMED Code Problem Neuropathy G62.9 Active 004341722 Problem Elevated liver enzymes R74.8 Active 503458801 Problem Chronic pain G89.29 Active 4609747 1 Problem Depressed F32.9 Active 74381036 Problem Post traumatic stress disorder (PTSD) F43.10 Active 10391888 Problem Nicotine dependence F17.200 Active 21339363 Problem Syncopal episodes R55 Active 27 8337861 Problem Dysthymia F34.1 Active 91215309 Problem HTN (hypertension) I10 Active 3 2683729 Problem Adjustment disorder with depressed mood F43.21 Active 16113139 Problem Kidney stones N20.0 Active 262003 07 Problem Neck muscle strain, initial encounter S16.1XXA Active 297235738 Problem Low back pain M54.5 Active 637608 009 ALLERGIES No Information ENCOUNTERS Encounter Location Date Diagnosis [place] [address] [address] Mar, [place] [address] [address] Dec, HTN (hypertension) I10 ; Neuropathy G62. 9 ; Dysthymia F34.1 ; Sebaceous cyst L72.3 and Left ear pain H92.02 [place] [address] [address] Dec, Neuropathy G62.9 [place] [address] [address] Jul, Left ear pain H92.02 ; Neuropathy G62.9 and Nicotine dependence F17.200 [place] [address] [address] Dec, Cervical radiculopathy M54.12 [place] [address] [address] Dec, Cervical radiculopathy M54.12 and HTN (h ypertension) I10 [place] [address] [address] Jul, HTN (hypertension) I10 ; Neuropathy G62. 9 and Depressed F32.9 [place] [address] [place] [id number] Jun, Myalgia M79.1 ; Abnormal LFTs R94.5 ; Ne uropathy G62.9 ; Low back pain M54.5 and Adjustment disorder with depressed mood F43.21 [place] [address] [address] May, [facility] [place] [address] [address] May, Other acute nonsuppurative o titis media of left ear, recurrence not specified H65.192 and Acute otitis externa of left ear, unspecified type H60.502 [facility] [place] [address] [address] Nov, Acute otitis externa of left ear, unspecified type H60.502 [place] [address] [address] Oct, HTN (hypertension) I10 ; Neuropathy G62. 9 ; Chronic pain G89.29 ; Low back pain M54.5 ; Neck muscle strain, initial encounter S16.1XXA ; Depressed F32.9 and Adjustment disorder with depressed mood F43.21 [place] [address] [address] Oct, [place] [address] [address] Oct, Depressed F32.9 [place] [address] [place] [id number] Aug, Chronic pain G89.29 [place] [address] [address] Aug, Chronic pain G89.29 [place] [address] [address] Aug, Chronic pain G89.29 [place] [address] [address] Jul, HTN (hypertension) I10 ; Chronic pain G8 9.29 ; Depressed F32.9 ; Post traumatic stress disorder (PTSD) F43.10 and Right elbow pain M25.521 [place] [address] [address] 14 Jul, 2016 HTN (hypertension) I10 ; Neuropathy G62. 9 ; Adjustment disorder with depressed mood F43.21 ; Chronic pain G89.29 ; Kidney stones N20.0 and Screening cholesterol level Z13.220 [place] [address] [address] Jul, Adjustment disorder with depressed mood F43.21 ; Post traumatic stress disorder (PTSD) F43.10 ; Depressed F32.9 and Chronic pain G89.29 [place] [address] [address] Jul, Depressed F32.9 ; Chronic pain G89.29 ; Neuropathy G62.9 ; Adjustment disorder with depressed mood F43.21 and Post traumatic stress disorder (PTSD) F43.10 [place] [address] [address] Jul, [place] [address] [address] Jul, [place] [address] [address] 04 Jun, 2015 HTN (hypertension) I10 ; Syncopal episod es R55 ; Depressed F32.9 and Chronic pain G89.29 [place] [address] [address] May, [facility] [address] [address] May, [facility] [address] [address] Mar, [facility] [address] [address] Feb, HTN (hypertension) I10 ; Leg pain M79.60 6 and Neuropathy G62.9 [facility] [address] [address] 10 Jan, 2015 Major depressive disorder, recurrent epi sode, severe, without mention of psychotic behavior 296.33 ; Generalized anxiety disorder 300.02 and Posttraumatic stress disorder 309.81 [facility] [address] [address] 10 Jan, 2015 Acute bronchitis 466.0 and Back pain 724 .5 [facility] [address] [address] Oct, [facility] [address] [address] 14 Aug, 2014 [facility] [address] [address] Aug, [facility] [address] [address] Jul, [facility] [address] [address] Jul, [facility] [address] [address] Dec, [facility] [address] [address] Dec, [facility] [address] [address] Nov, [facility] [address] [address] Nov, [facility] [address] [facility] [id number] [place] [address] Oct, [facility] [address] [id number] [place] [address] Oct, [facility] [address] [id number] [place] [address] September, [facility] [address] [id number] [place] [address] September, [facility] [address] [facility] [id number] [place] [address] Aug, [facility] [address] [id number] [place] [address] Aug, [facility] [address] [id number] [place] [address] Aug, [facility] [address] [id number] [place] [address] Aug, [facility] [address] [id number] [place] [address] Aug, [facility] [address] [id number] [place] [address] Aug, [facility] [address] [id number] [place] [address] Aug, [facility] [address] [id number] [place] [address] Aug, [facility] [address] [id number] [place] [address] Jul, [facility] [address] [id number] [place] [address] Jul, [facility] [address] [id number] [place] [address] Jul, [facility] [address] [id number] [place] [address] Jul, [facility] [address] [id number] [place] [address] 14 Jul, 2013 [facility] [address] [facility] [id number] [place] [address] 14 Jul, 2013 [facility] [address] [facility] [id number] [place] [address] 14 Jul, 2013 [facility] [address] [id number] [place] [address] 14 Jul, 2013 [facility] [address] [id number] [place] [address] 10 Jul, 2013 [facility] [address] [facility] [id number] [place] [address] 10 Jul, 2013 [facility] [address] [id number] [place] [address] 19 Jun, 2013 [facility] [address] [id number] [place] [address] 19 Jun, 2013 [facility] [address] [id number] [place] [address] Jun, [facility] [address] [id number] [place] [address] Jun, [facility] [address] [id number] [place] [address] Jan, [facility] [address] [id number] [place] [address] Dec, [facility] [address] [id number] [place] [address] Nov, [facility] [address] [facility] [id number] [place] [address] Oct, [facility] [address] [id number] [place] [address] September, [facility] [address] [id number] [place] [address] September, [facility] [address] [id number] [place] [address] September, [facility] [address] [id number] [place] [address] September, [facility] [address] [id number] [place] [address] Aug, [facility] [address] [id number] [place] [address] Aug, [facility] [address] [id number] [place] [address] Jul, [facility] [address] [id number] [place] [address] Jul, [facility] [address] [id number] [place] [address] Jun, [facility] [address] [id number] [place] [address] Jun, [facility] [address] [id number] [place] [address] Jun, [facility] [address] [id number] [place] [address] May, [facility] [address] [id number] [place] [address] May, [facility] [address] [id number] [place] [address] Apr, [facility] [address] [id number] [place] [address] Apr, [facility] [address] [id number] [place] [address] Mar, [facility] [address] [id number] [place] [address] Mar, [facility] [address] [id number] [place] [address] Mar, [facility] [address] [id number] [place] [address] Mar, [facility] [address] [id number] [place] [address] Feb, [facility] [address] [facility] [id number] [place] [address] Mar, [facility] [address] [facility] [id number] [place] [address] Feb, IMMUNIZATIONS No Known Immunizations SOCIAL HISTORY Never Assessed REASON FOR VISIT PLAN OF CARE VITAL SIGNS Height 72 in 2013-11-26 Weight 203 lbs 2013-11-26 Temperature 98.2 degrees Fahrenheit 2013-11-26 Heart Rate 92 bpm 2013-11-26 Respiratory Rate 16 2013-11-26 Blood pressure systolic 140 mmHg 2013-11-26 Blood pressure diastolic 82 mmHg 2013-11-26 MEDICATIONS Unknown Medications RESULTS No Results PROCEDURES No Known procedures INSTRUCTIONS MEDICATIONS ADMINISTERED No Known Medications MEDICAL (GENERAL) HISTORY Type Description Date Medical History hypertension Medical History chronic back pain Medical History PTSD Medical History depression and anxiety Surgical History cholecystectomy Surgical History kidney surgery Surgical History right hand Surgical History tubes in both ears and tumor from [facility] 07/2017 Hospitalization History surgeries
--- OUTSIDE RECORDS SUMMARY | 2019-08-01 13:11 | XMS REPORT ---
Author Author Mahin RANDOLPH Organization [facility] Address [address] [place] [address] Care Team Providers Care Tank Wagon Operator Name Role Phone JOSEE RANDOLPH Unavailable PROBLEMS Type Condition ICD9-CM Code LPU22-XT Code Onset Dates Condition S tatus SNOMED Code Problem Neuropathy G62.9 Active 337933678 Problem Elevated liver enzymes R74.8 Active 890583923 Problem Chronic pain G89.29 Active 3782146 1 Problem Depressed F32.9 Active 16661487 Problem Post traumatic stress disorder (PTSD) F43.10 Active 12224999 Problem Nicotine dependence F17.200 Active 78284206 Problem Syncopal episodes R55 Active 27 5792513 Problem Dysthymia F34.1 Active 52378865 Problem HTN (hypertension) I10 Active 3 8429994 Problem Adjustment disorder with depressed mood F43.21 Active 21000842 Problem Kidney stones N20.0 Active 111951 07 Problem Neck muscle strain, initial encounter S16.1XXA Active 010052015 Problem Low back pain M54.5 Active 838690 009 ALLERGIES No Information ENCOUNTERS Encounter Location Date Diagnosis [place] [id number] [address] Mar, [facility] [address] [address] Dec, HTN (hypertension) I10 ; Neuropathy G62. 9 ; Dysthymia F34.1 ; Sebaceous cyst L72.3 and Left ear pain H92.02 [facility] [address] [address] Dec, Neuropathy G62.9 [facility] [address] [address] Jul, Left ear pain H92.02 ; Neuropathy G62.9 and Nicotine dependence F17.200 [place] [address] [address] 14 Dec, 2017 Cervical radiculopathy M54.12 [place] [address] [address] Dec, Cervical radiculopathy M54.12 and HTN (h ypertension) I10 [address] [address] Jul, HTN (hypertension) I10 ; Neuropathy G62. 9 and Depressed F32.[address] [address] Jun, Myalgia M79.1 ; Abnormal LFTs R94.5 ; Ne uropathy G62.9 ; Low back pain M54.5 and Adjustment disorder with depressed mood F43.[address] [address] May, [facility] [place] [address] [address] May, Other acute nonsuppurative o titis media of left ear, recurrence not specified H65.192 and Acute otitis externa of left ear, unspecified type H60.502 [facility] [place] [address] [address] Nov, Acute otitis externa of left ear, unspecified type H60.[address] [address] Oct, HTN (hypertension) I10 ; Neuropathy G62. 9 ; Chronic pain G89.29 ; Low back pain M54.5 ; Neck muscle strain, initial encounter S16.1XXA ; Depressed F32.9 and Adjustment disorder with depressed mood F43.21 [place] [address] [address] Oct, [address] [address] Oct, Depressed F32.9 [place] [address] [address] Aug, Chronic pain G89.29 [place] [address] [address] Aug, Chronic pain G89.29 [place] [address] [address] Aug, Chronic pain G89.29 [place] [address] [address] Jul, HTN (hypertension) I10 ; Chronic pain G8 9.29 ; Depressed F32.9 ; Post traumatic stress disorder (PTSD) F43.10 and Right elbow pain M25.521 [place] [address] [address] 14 Jul, 2016 HTN (hypertension) I10 ; Neuropathy G62. 9 ; Adjustment disorder with depressed mood F43.21 ; Chronic pain G89.29 ; Kidney stones N20.0 and Screening cholesterol level Z13.220 [place] [address] [address] Jul, Adjustment disorder with depressed mood F43.21 ; Post traumatic stress disorder (PTSD) F43.10 ; Depressed F32.9 and Chronic pain G89.29 [place] [address] [address] Jul, Depressed F32.9 ; Chronic pain G89.29 ; Neuropathy G62.9 ; Adjustment disorder with depressed mood F43.21 and Post traumatic stress disorder (PTSD) F43.10 [place] [address] [address] Jul, [place] [address] [address] Jul, [place] [address] [address] 04 Jun, 2015 HTN (hypertension) I10 ; Syncopal episod es R55 ; Depressed F32.9 and Chronic pain G89.29 [facility] [address] [address] May, [facility] [address] [address] May, [facility] [address] [address] Mar, [facility] [address] [address] Feb, HTN (hypertension) I10 ; Leg pain M79.[address] [facility] [address] [address] 10 Jan, 2015 Major depressive disorder, recurrent epi sode, severe, without mention of psychotic behavior 296.33 ; Generalized anxiety disorder 300.02 and Posttraumatic stress disorder 309.81 [facility] [address] [address] 10 Jan, 2015 Acute bronchitis 466.0 and Back pain [address] [facility] [address] [address] Oct, [facility] [address] [address] 14 Aug, 2014 [facility] [address] [address] Aug, [facility] [address] [address] Jul, [facility] [address] [address] Jul, [facility] [address] [address] Dec, [facility] [address] [address] Dec, [facility] [address] [address] Nov, [facility] [address] [id number] [place] [address] Nov, [facility] [address] [id number] [place] [address] Oct, [facility] [address] [id number] [place] [address] Oct, [facility] [address] [id number] [place] [address] September, [facility] [address] [id number] [place] [address] September, [facility] [address] [id number] [place] [address] Aug, [facility] [address] [id number] [place] [address] Aug, [facility] [address] [id number] [place] [address] Aug, [facility] [address] [id number] [place] [address] Aug, [facility] [address] [id number] [place] [address] Aug, [facility] [address] [id number] [place] [address] Aug, [facility] [address] [id number] [place] [address] Aug, [facility] [address] [id number] [place] [address] Aug, [facility] [address] [id number] [place] [address] Jul, [facility] [address] [id number] [place] [address] Jul, [facility] [address] [id number] [place] [address] Jul, [facility] [address] [id number] [place] [address] Jul, 2013 [facility] [address] [id number] [place] [address] 14 Jul, 2013 [facility] [address] [id number] [facility] [address] 14 Jul, 2013 [facility] [address] [id number] [place] [address] 14 Jul, 2013 [facility] [address] [id number] [place] [address] 14 Jul, 2013 [facility] [address] [facility] [id number] [place] [address] 10 Jul, 2013 [facility] [address] [id number] [place] [address] 10 Jul, 2013 [facility] [address] [id number] [place] [address] 19 Jun, 2013 [facility] [address] [id number] [place] [address] Jun, [facility] [address] [id number] [place] [address] Jun, [facility] [address] [id number] [place] [address] Jun, [facility] [address] [id number] [place] [address] Jan, [facility] [address] [id number] [place] [address] Dec, [facility] [address] [id number] [place] [address] Nov, [facility] [address] [id number] [place] [address] Oct, [facility] [address] [id number] [place] [address] September, [facility] [address] [id number] [place] [address] September, [facility] [address] [id number] [place] [address] 15 Sep, 2012 [facility] [address] [id number] [place] [address] September, [facility] [address] [id number] [place] [address] Aug, [facility] [address] [id number] [place] [address] Aug, [facility] [address] [id number] [place] [address] Jul, [facility] [address] [id number] [place] [address] Jul, [facility] [address] [id number] [place] [address] Jun, [facility] [address] [id number] [place] [address] Jun, [facility] [address] [id number] [place] [address] Jun, [facility] [address] [id number] [place] [address] May, [facility] [address] [id number] [place] [address] May, [facility] [address] [id number] [place] [address] Apr, [facility] [address] [id number] [place] [address] Apr, [facility] [address] [id number] [place] [address] Mar, [facility] [address] [place] [id number] [place] [address] Mar, [facility] [address] [id number] [place] [address] Mar, [facility] [address] [place] [id number] [place] [address] Mar, [facility] [address] [facility] [id number] [place] [address] Feb, [facility] [address] [id number] [place] [address] Mar, [facility] [address] [id number] [place] [address] Feb, IMMUNIZATIONS No Known Immunizations SOCIAL HISTORY [...] in both ears and tumor from the [facility] 07/2017 Hospitalization History surgeries
--- OUTSIDE RECORDS SUMMARY | 2019-08-01 13:13 | XMS REPORT | Continuity of Care Document ---
Author Organization Unknown Address Unknown Phone Unavailable Allergies Active Description Code Type Severity Reaction Onset Reported/Identified Relationship to Patient Clinical Status Yes NO KNOWN DRUG ALLERGIES NO KNOWN DRUG ALLERG UNKNOWN Yes NO KNOWN DRUG ALLERGIES UNKNOWN NO KNOWN DRUG ALLERG Yes NO KNOWN DRUG ALLERGIES UNKNOWN UNKNOWN Yes No Known Drug Allergies [id number] Drug Allergy Mild N/A 10/29/2008 Yes buspirone 7.5 mg tablet Drug Allergy N/A N/A 08/13/2013 Yes amphetamine Drug Allergy N/A N/A 09/02/2013 Yes Benzodiazepines Drug Allergy N/A N/A 09/02/2013 Yes hydrocodone Drug Allergy N/A N/A 09/02/2013 Medications Medication Packaging Start Date St op Date Route Dosage Sig AMOX-CLAV 500/125 TAB 500 MG-125MG (AUGMEN TIN) TAB 08/08/2016 08/08/2016 ONCE&1741 KETOROLAC VIAL INJ 60 MG/2CC (TORADOL VIAL ) MG 11/24/2016 11/24/2016 ONCE&1021 DEXAMETHASONE VIAL INJ 10 MG/CC (DECADRON VIAL) MG 11/24/2016 11/24/2016 ONCE&1021 CEFTRIAXONE INJ 1 GM (ROCEPHIN) GM 12/26/2017 12/26/2017 ONCE&1000 KETOROLAC VIAL INJ 60 MG/2CC (TORADOL VIAL ) MG 04/04/2018 04/04/2018 ONCE&1255 FENTANYL INJ 100 MCG/2CC VIAL MCG 03/08/2019 03/08/2019 ONCE&1347 PROMETHAZINE VIAL INJ 25 MG/CC (PHENERGAN VIAL) MG 03/08/2019 03/08/2019 ONCE&1347 Problems Date Dx Coded Attending Type Code Diagnosis Diagnosed By 01/31/2008 ERA DE JESUS DO V58.69 MEDICATION HIGH RISK 01/31/2008 V58.69 MED ICATION HIGH RISK 01/31/2008 ERA DE JESUS DO V58.69 MEDICATION HIGH RISK 01/31/2008 ERA DE JESUS DO V58.69 MEDICATION HIGH RISK 01/31/2008 V58.69 MED ICATION HIGH RISK 01/31/2008 V58.69 MED ICATION HIGH RISK 01/31/2008 V58.69 MED ICATION HIGH RISK 01/31/2008 BOB TOMAS DDS V58 .69 MEDICATION HIGH RISK 01/31/2008 [facility], JOSEE R V58.69 MEDICATION HIGH RISK 01/31/2008 ERA DE JESUS DO V58.69 MEDICATION HIGH RISK 01/31/2008 ERA DE JESUS DO V58.69 MEDICATION HIGH RISK 01/31/2008 [facility], JOSEE R V58.69 MEDICATION HIGH RISK 01/31/2008 JONNIE DE JESUS DOA K V58.69 MEDICATION HIGH RISK 01/31/2008 HAN CABALLERO APRN V58.69 MEDICATION HIGH RISK 01/31/2008 HAN CABALLERO APRN V58.69 MEDICATION HIGH RISK 01/31/2008 STELLADEBBIE OJEDA APRN V58 .69 MEDICATION HIGH RISK 01/31/2008 ERA DE JESUS DO V58.69 MEDICATION HIGH RISK 01/31/2008 STELLA KEITH DEBBIE V58 .69 MEDICATION HIGH RISK 01/31/2008 DAVEY PHD, BRISSA Harden V58.69 MEDICATION HIGH RISK 01/31/2008 ERA DE JESUS DO K V58.69 MEDICATION HIGH RISK 01/31/2008 JEANETTE TORRES, BRAD V58.6 9 MEDICATION HIGH RISK 02/27/2008 ERA DE JESUS DO 848.9 SPRAIN/STRAIN OTHER UNSPEC SITE 02/27/2008 848.9 SPRA IN/STRAIN OTHER UNSPEC SITE 02/27/2008 ERA DE JESUS DO 848.9 SPRAIN/STRAIN OTHER UNSPEC SITE 02/27/2008 ERA DE JESUS DO 848.9 SPRAIN/STRAIN OTHER UNSPEC SITE 02/27/2008 848.9 SPRA IN/STRAIN OTHER UNSPEC SITE 02/27/2008 848.9 SPRA IN/STRAIN OTHER UNSPEC SITE 02/27/2008 848.9 SPRA IN/STRAIN OTHER UNSPEC SITE 02/27/2008 BOB TOMAS DDS 848 .9 SPRAIN/STRAIN OTHER UNSPEC SITE 02/27/2008 [facility], JOSEE R 848.9 SPRAIN/STRAIN OTHER UNSPEC SITE 02/27/2008 ERA DE JESUS DO 848.9 SPRAIN/STRAIN OTHER UNSPEC SITE 02/27/2008 ERA DE JESUS DO 848.9 SPRAIN/STRAIN OTHER UNSPEC SITE 02/27/2008 TOMASA [facility], JOSEE Watters 848.9 SPRAIN/STRAIN OTHER UNSPEC SITE 02/27/2008 ERA DE JESUS DO 848.9 SPRAIN/STRAIN OTHER UNSPEC SITE 02/27/2008 HAN CABALLERO APRN 848.9 SPRAIN/STRAIN OTHER UNSPEC SITE 02/27/2008 HAN CABALLERO APRN 848.9 SPRAIN/STRAIN OTHER UNSPEC SITE 02/27/2008 STELLA POLISHER SAND, DEBBIE 848 .9 SPRAIN/STRAIN OTHER UNSPEC SITE 02/27/2008 ERA DE JESUS DO 848.9 SPRAIN/STRAIN OTHER UNSPEC SITE 02/27/2008 STELLA POLISHER SANDDEBBIE Zuniga 848 .9 SPRAIN/STRAIN OTHER UNSPEC SITE 02/27/2008 DAVEY LOU, [...] 300.01 AN PANIC DIS W/O AGORA 06/25/2008 [facility] DDS, BOB B 296 .80 MO BIPOLAR NOS 06/25/2008 [facility] DDS, BOB B 300 .01 AN PANIC DIS W/O AGORA 06/25/2008 [facility], JOSEE R 296.80 MO BIPOLAR NOS 06/25/2008 [facility], JOSEE R 300.01 AN PANIC DIS W/O AGORA 06/25/2008 DE JESUS DO, ERA K 296.80 MO BIPOLAR NOS 06/25/2008 DE JESUS DO, ERA K 300.01 AN PANIC DIS W/O AGORA 06/25/2008 DE JESUS DO, ERA K 296.80 MO BIPOLAR NOS 06/25/2008 DE JESUS DO, ERA K 300.01 AN PANIC DIS W/O AGORA 06/25/2008 [facility], JOSEE R 296.80 MO BIPOLAR NOS 06/25/2008 [facility], JOSEE R 300.01 AN PANIC DIS [...] AN PANIC DIS W/O AGORA 06/25/2008 STELLA PARKER DEBBIE 296 .80 MO BIPOLAR NOS 06/25/2008 STELLA PARKER DEBBIE 300 .01 AN PANIC DIS W/O AGORA 06/25/2008 DE JESUS DO, ERA K 296.80 MO BIPOLAR NOS 06/25/2008 DE JESUS DOJONNIEA K 300.01 AN PANIC DIS W/O AGORA 06/25/2008 STELLA POLISHER SAND, DEBBIE 296 .80 MO BIPOLAR NOS 06/25/2008 STELLA POLISHER SAND, DEBBIE 300 .01 AN PANIC DIS W/O AGORA 06/25/2008 DAVEY LOU, BRISSA Harden 296.80 MO BIPOLAR NOS 06/25/2008 DAVEY LOU, BRISSA Harden 300.01 AN PANIC DIS W/O AGORA 06/25/2008 ERA DE JESUS DO 296.80 MO BIPOLAR NOS 06/25/2008 ERA DE JESUS DO 300.01 AN PANIC DIS W/O AGORA 06/25/2008 BRAD REID MD 296.8 0 MO BIPOLAR NOS 06/25/2008 BRAD REID MD 300.0 1 AN PANIC DIS W/O AGORA 08/29/2008 ERA DE JESUS DO K 300.00 AN ANXIETY UNSPEC 08/29/2008 ERA DE JESUS DO 307.47 SI DYSSOMNIA NOS 08/29/2008 ERA DE JESUS DO K 312.30 I IMPULSE CONTROL DISORDER NOS 08/29/2008 300.00 AN ANXIETY UNSPEC 08/29/2008 307.47 SI DYSSOMNIA NOS 08/29/2008 312.30 I I MPULSE CONTROL DISORDER NOS 08/29/2008 ERA DE JESUS [...] 307.47 SI DYSSOMNIA NOS 08/29/2008 312.30 I I MPULSE CONTROL DISORDER NOS 08/29/2008 300.00 AN ANXIETY UNSPEC 08/29/2008 307.47 SI DYSSOMNIA NOS 08/29/2008 312.30 I I MPULSE CONTROL DISORDER NOS 08/29/2008 300.00 AN ANXIETY UNSPEC 08/29/2008 307.47 SI DYSSOMNIA NOS 08/29/2008 312.30 I I MPULSE CONTROL DISORDER NOS 08/29/2008 BOB TOMAS DDS 300 .00 AN ANXIETY UNSPEC 08/29/2008 BOB TOMAS DDS 307 .47 SI DYSSOMNIA NOS 08/29/2008 GENOV[facility] BOB YAP 312 .30 I IMPULSE CONTROL DISORDER NOS 08/29/2008 JOSEE NELSON 300.00 AN ANXIETY UNSPEC 08/29/2008 [facility], JOSEE R 307.47 SI DYSSOMNIA NOS 08/29/2008 [facility], JOSEE R 312.30 I IMPULSE CONTROL [...] 312.30 I IMPULSE CONTROL DISORDER NOS 08/29/2008 [facility], JOSEE R 300.00 AN ANXIETY UNSPEC 08/29/2008 [facility], JOSEE R 307.47 SI DYSSOMNIA NOS 08/29/2008 [facility], JOSEE R 312.30 I IMPULSE CONTROL DISORDER NOS 08/29/2008 DE JESUS DO, ERA K 300.00 AN ANXIETY UNSPEC 08/29/2008 DE JESUS , ERA K 307.47 SI DYSSOMNIA NOS 08/29/2008 [...] 312.30 I IMPULSE CONTROL DISORDER NOS 08/29/2008 DEBBIE DOUGLAS APRN 300 .00 AN ANXIETY UNSPEC 08/29/2008 DEBBIE DOUGLAS APRN 307 .47 SI DYSSOMNIA NOS 08/29/2008 DAVID DOUGLAS APRNETTE 312 .30 I IMPULSE CONTROL DISORDER NOS 08/29/2008 DE JESUS DO, ERA K 300.00 AN ANXIETY UNSPEC 08/29/2008 DE JESUS DO, ERA K 307.47 SI DYSSOMNIA NOS 08/29/2008 DE JESUS DO, ERA K 312.30 I IMPULSE CONTROL DISORDER NOS 08/29/2008 STELLA POLISHER SAND, DEBBIE 300 .00 AN ANXIETY UNSPEC 08/29/2008 STELLA POLISHER SAND, DEBBIE 307 .47 SI DYSSOMNIA NOS 08/29/2008 STELLA POLISHER SAND, DEBBIE 312 .30 I IMPULSE CONTROL DISORDER NOS 08/29/2008 DAVEY PHD, BRISSA A 300.00 AN ANXIETY UNSPEC 08/29/2008 DAVEY PHD, BRISSA A 307.47 SI DYSSOMNIA NOS 08/29/2008 DAVEY PHD, BRISSA A 312.30 I IMPULSE CONTROL DISORDER NOS 08/29/2008 JONNIE DE JESUS DOA K 300.00 AN ANXIETY UNSPEC 08/29/2008 ERA DE JESUS DO K 307.47 SI DYSSOMNIA NOS 08/29/2008 JONNIE DE JESUS DOA K 312.30 I IMPULSE CONTROL DISORDER NOS 08/29/2008 BRAD REID MD 300.0 0 AN ANXIETY UNSPEC 08/29/2008 BRAD REID MD 307.4 7 SI DYSSOMNIA NOS 08/29/2008 BRAD REID MD 312.3 0 I IMPULSE CONTROL DISORDER NOS 09/18/2008 ERA DE JESUS DO 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 09/18/2008 ERA DE JESUS DO 297.0 PARANOID STATE SIMPLE 09/18/2008 ERA DE JESUS DO 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 09/18/2008 JONNIE DE JESUS DOA K 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 09/18/2008 JONNIE DE JESUS DOA K 316 PF PSYCHIC FACTORS MED COND 09/18/2008 ERA DE JESUS DO V61.10 RL RELATION COUNS 09/18/2008 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 09/18/2008 297.0 PARA NOID STATE SIMPLE 09/18/2008 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 09/18/2008 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 09/18/2008 316 PF PSY CHIC FACTORS MED COND 09/18/2008 V61.10 RL RELATION COUNS 09/18/2008 ERA DE JESUS DO K 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 09/18/2008 JONNIE DE JESUS DOA K 297.0 PARANOID STATE SIMPLE 09/18/2008 ERA DE JESUS DO K 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 09/18/2008 REA DE JESUS DO K 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 09/18/2008 ERA DE JESUS DO K 316 PF PSYCHIC FACTORS MED COND 09/18/2008 ERA DE JESUS DO K V61.10 RL RELATION COUNS 09/18/2008 ERA DE [...] MO BIPOLAR I MIXED UNSPECIFIED 09/18/2008 297.0 PARA NOID STATE SIMPLE 09/18/2008 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 09/18/2008 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 09/18/2008 316 PF PSY CHIC FACTORS MED COND 09/18/2008 V61.10 RL RELATION COUNS 09/18/2008 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 09/18/2008 297.0 PARA NOID STATE SIMPLE 09/18/2008 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 09/18/2008 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 09/18/2008 316 PF PSY CHIC FACTORS MED COND 09/18/2008 V61.10 RL RELATION COUNS 09/18/2008 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 09/18/2008 297.0 PARA NOID STATE SIMPLE 09/18/2008 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 09/18/2008 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 09/18/2008 316 PF PSY CHIC FACTORS MED COND 09/18/2008 V61.10 RL RELATION COUNS 09/18/2008 GEN[facility] DDS, BOB B 296 .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 09/18/2008 GNEOVEVA DDS, BOB B 297 .0 PARANOID STATE SIMPLE 09/18/2008 GEN[facility] DDS, BOB B 305 .20 SA CANNABIS ABUSE 09/18/2008 GENOVEVA DDS, BOB B 314 .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 09/18/2008 GENOVEVA DDS, BOB B 316 PF PSYCHIC FACTORS MED COND 09/18/2008 [facility] DDS, BOB B V61 .10 RL RELATION COUNS 09/18/2008 [facility], JOSEE R 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 09/18/2008 [facility] 297.0 PARANOID STATE SIMPLE 09/18/2008 [facility], JOSEE R 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 09/18/2008 [facility] R 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 09/18/2008 [facility], JOSEE R 316 PF PSYCHIC FACTORS MED COND 09/18/2008 [facility], JOSEE R V61.10 RL RELATION COUNS [...] ERA K V61.10 RL RELATION COUNS 09/18/2008 [facility], JSOEE R 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 09/18/2008 [facility], JOSEE R 297.0 PARANOID STATE SIMPLE 09/18/2008 [facility], JOSEE R 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 09/18/2008 [facility], JOSEE R 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 09/18/2008 [facility], JO[facility] R 316 PF PSYCHIC FACTORS MED COND 09/18/2008 [facility], JOSEE R V61.10 RL RELATION COUNS [...] APRN V61.10 RL RELATION COUNS 09/18/2008 STELLA POLISHER SAND, DEBBIE 296 .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 09/18/2008 STELLA POLISHER SAND, DEBBIE 297 .0 PARANOID STATE SIMPLE 09/18/2008 STELLA POLISHER SAND, DEBBIE 305 .20 SA CANNABIS ABUSE 09/18/2008 STELLA POLISHER SAND, DEBBIE 314 .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 09/18/2008 STELLA POLISHER SAND, DEBBIE 316 PF PSYCHIC FACTORS MED COND 09/18/2008 STELLA POLISHER SAND, DEBBIE V61 .10 RL RELATION COUNS 09/18/2008 DE JESUS DO, [...] K V61.10 RL RELATION COUNS 09/18/2008 STELLA POLISHER SAND, DEBBIE 296 .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 09/18/2008 STELLA POLISHER SAND, DEBBIE 297 .0 PARANOID STATE SIMPLE 09/18/2008 STELLA POLISHER SAND, DEBBIE 305 .20 SA CANNABIS ABUSE 09/18/2008 STELLA POLISHER SAND, DEBBIE 314 .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 09/18/2008 STELLA POLISHER SAND, DEBBIE 316 PF PSYCHIC FACTORS MED COND 09/18/2008 STELLA POLISHER SAND, DEBBIE V61 .10 RL RELATION COUNS 09/18/2008 DAVEY PHD, BIRSSA A 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 09/18/2008 DAVEY PHD, BRISSA Hraden 297.0 PARANOID STATE SIMPLE 09/18/2008 DAVEY PHD, BRISSA A 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 09/18/2008 DAVEY PHD, BRISSA Harden 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 09/18/2008 DAVEY PHD, BRISSA A 3 16 PF PSYCHIC FACTORS MED COND 09/18/2008 DAVEY PHD, BRISSA A V61.10 RL RELATION COUNS 09/18/2008 DE JESUS DO, ERA K 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 09/18/2008 DE JESUS DO, ERA K 297.0 PARANOID STATE SIMPLE 09/18/2008 DE JESUS DO, ERA K 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 09/18/2008 DE JESUS DO, ERA K 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 09/18/2008 DE JESUS DO ERA K 316 PF PSYCHIC FACTORS MED COND 09/18/2008 DE JESUS DO ERA K V61.10 RL RELATION COUNS 09/18/2008 BRAD REID MD 296.6 0 MO BIPOLAR I MIXED UNSPECIFIED 09/18/2008 BRAD REID MD 297.0 PARANOID STATE SIMPLE 09/18/2008 BRAD REID MD 305.2 0 SA CANNABIS ABUSE 09/18/2008 BRAD REID MD 314.0 1 CD ADHD COMBINED 09/18/2008 BRAD REID MD 316 PF PSYCHIC FACTORS MED COND 09/18/2008 BRAD REID MD V61.1 0 RL RELATION COUNS 11/09/2008 DE JESUS DO, ERA K 590.2 KIDNEY STONES 11/09/2008 590.2 KIDN EY STONES 11/09/2008 DE JESUS DO, ERA K 590.2 KIDNEY STONES 11/09/2008 DE JESUS DO, ERA K 590.2 KIDNEY STONES 11/09/2008 590.2 KIDN EY STONES 11/09/2008 590.2 KIDN EY STONES 11/09/2008 590.2 KIDN EY STONES 11/09/2008 [facility] DDS, BOB B 590 .2 KIDNEY STONES 11/09/2008 [facility], JOSEE R 590.2 KIDNEY STONES 11/09/2008 DE JESUS DO, ERA K 590.2 KIDNEY STONES 11/09/2008 DE JESUS DO, ERA K 590.2 KIDNEY STONES 11/09/2008 [facility], JOSEE R 590.2 KIDNEY STONES 11/09/2008 DE JESUS DO, ERA K 590.2 KIDNEY STONES 11/09/2008 HAN CABALLERO APRN 590.2 KIDNEY STONES 11/09/2008 HAN CABALLERO APRN 590.2 KIDNEY STONES 11/09/2008 STELLA POLISHER SAND, DEBBIE 590 .2 KIDNEY STONES 11/09/2008 DE JESUS DO, ERA K 590.2 KIDNEY STONES 11/09/2008 STELLA POLISHER SAND, DEBBIE 590 .2 KIDNEY STONES 11/09/2008 DAVEY PHD, BRISSA Harden [...] ERA K 466.0 BRONCHITIS, ACUTE 07/26/2010 305.1 NOND EPENDENT TOBACCO USE DISORDER 07/26/2010 465.9 UPPE R RESPIRATORY INFECTION 07/26/2010 466.0 BRON CHITIS, ACUTE 07/26/2010 DE JESUS DO, ERA K 305.1 NONDEPENDENT TOBACCO USE DISORDER 07/26/2010 DE JESUS DO, ERA K 465.9 UPPER RESPIRATORY INFECTION 07/26/2010 DE JESUS DO, ERA K 466.0 BRONCHITIS, ACUTE 07/26/2010 DE JESUS DO, ERA K 305.1 NONDEPENDENT TOBACCO USE DISORDER 07/26/2010 DE JESUS DO, ERA K 465.9 UPPER RESPIRATORY INFECTION 07/26/2010 DE JESUS DO, ERA K 466.0 BRONCHITIS, ACUTE 07/26/2010 305.1 NOND EPENDENT TOBACCO USE DISORDER 07/26/2010 465.9 UPPE R RESPIRATORY INFECTION 07/26/2010 466.0 BRON CHITIS, ACUTE 07/26/2010 305.1 NOND EPENDENT TOBACCO USE DISORDER 07/26/2010 465.9 UPPE R RESPIRATORY INFECTION 07/26/2010 466.0 BRON CHITIS, ACUTE 07/26/2010 305.1 NOND EPENDENT TOBACCO USE DISORDER 07/26/2010 465.9 UPPE R RESPIRATORY INFECTION 07/26/2010 466.0 BRON CHITIS, ACUTE 07/26/2010 [facility] DDS, BOB B 305 .1 NONDEPENDENT TOBACCO USE DISORDER 07/26/2010 [facility] DDS, BOB B 465 .9 UPPER RESPIRATORY INFECTION 07/26/2010 [facility] DDS, BOB B 466 .0 BRONCHITIS, ACUTE 07/26/2010 [facility], JOSEE R 305.1 NONDEPENDENT TOBACCO USE DISORDER 07/26/2010 [facility], JOSEE R 465.9 UPPER RESPIRATORY INFECTION 07/26/2010 [facility], JOSEE R 466.0 BRONCHITIS, ACUTE 07/26/2010 [...] DO, ERA K 466.0 BRONCHITIS, ACUTE 07/26/2010 [facility], JOSEE R 305.1 NONDEPENDENT TOBACCO USE DISORDER 07/26/2010 [facility], JOSEE R 465.9 UPPER RESPIRATORY INFECTION 07/26/2010 [facility], JOSEE R 466.0 BRONCHITIS, ACUTE 07/26/2010 DE JESUS DO, ERA K 305.1 NONDEPENDENT TOBACCO USE DISORDER 07/26/2010 DE JESUS DO, ERA K 465.9 UPPER RESPIRATORY INFECTION 07/26/2010 DE JESUS DO ERA K 466.0 BRONCHITIS, ACUTE 07/26/2010 GARTON POLISHER SANDHAN Zuniga D 305.1 NONDEPENDENT TOBACCO USE DISORDER 07/26/2010 GARTON POLISHER SANDERICHHAN D 465.9 UPPER RESPIRATORY INFECTION 07/26/2010 GARTON POLISHER SANDERICHHAN D 466.0 BRONCHITIS, ACUTE 07/26/2010 GARTON POLISHER SANDERICHHAN D 305.1 NONDEPENDENT TOBACCO USE DISORDER 07/26/2010 GARTON POLISHER SANDBHAVNAHAN D 465.9 UPPER RESPIRATORY INFECTION 07/26/2010 GARTON POLISHER SANDBHAVNAHAN D 466.0 BRONCHITIS, ACUTE 07/26/2010 STELLA POLISHER SAND, DEBBIE 305 .1 NONDEPENDENT TOBACCO USE DISORDER 07/26/2010 STELLA POLISHER SAND, DEBBIE 465 .9 UPPER RESPIRATORY INFECTION 07/26/2010 STELLA POLISHER SAND, DEBBIE 466 .0 BRONCHITIS, ACUTE 07/26/2010 [facility] VALENCIA ERA K 305.1 NONDEPENDENT TOBACCO USE DISORDER 07/26/2010 DE JESUS DO ERA K 465.9 UPPER RESPIRATORY INFECTION 07/26/2010 DE JESUS DO ERA K 466.0 BRONCHITIS, ACUTE 07/26/2010 STELLA POLISHER SAND, DEBBIE 305 .1 NONDEPENDENT TOBACCO USE DISORDER 07/26/2010 STELLA POLISHER SAND, DEBBIE 465 .9 UPPER RESPIRATORY INFECTION 07/26/2010 STELLA POLISHER SAND, DEBBIE 466 .0 BRONCHITIS, ACUTE 07/26/2010 DAVEY LOU, BRISSA A 305.1 NONDEPENDENT TOBACCO USE DISORDER 07/26/2010 DAVEY PHD, BRISSA A 465.9 UPPER RESPIRATORY INFECTION 07/26/2010 DAVEY PHD, BRISSA A 466.0 BRONCHITIS, ACUTE 07/26/2010 DE JESUS DO ERA K 305.1 NONDEPENDENT TOBACCO USE DISORDER 07/26/2010 DE JESUS DO ERA K 465.9 UPPER RESPIRATORY INFECTION 07/26/2010 DE JESUS DO ERA K 466.0 BRONCHITIS, ACUTE 07/26/2010 BRAD REID MD 305.1 NONDEPENDENT TOBACCO USE DISORDER 07/26/2010 BRAD REID MD 465.9 UPPER RESPIRATORY INFECTION 07/26/2010 BRAD REID MD 466.0 BRONCHITIS, ACUTE 09/20/2010 DE JESUS DO, ERA K 401.1 ESSENTIAL HYPERTENSION BENIGN 09/20/2010 DE JESUS DO, ERA K 719.45 joint pain, localized in the hip 09/20/2010 401.1 ESSE NTIAL HYPERTENSION BENIGN 09/20/2010 719.45 hung nt pain, localized in the hip 09/20/2010 DE JESUS DO, ERA K 401.1 ESSENTIAL HYPERTENSION BENIGN 09/20/2010 DE JESUS DO, ERA K 719.45 joint pain, localized in the hip 09/20/2010 DE JESUS DO, ERA K 401.1 ESSENTIAL HYPERTENSION BENIGN 09/20/2010 DE JESUS DO, ERA K 719.45 joint pain, localized in the hip 09/20/2010 401.1 ESSE NTIAL HYPERTENSION BENIGN 09/20/2010 719.45 hung nt pain, localized in the hip 09/20/2010 401.1 ESSE NTIAL HYPERTENSION BENIGN 09/20/2010 719.45 hung nt pain, localized in the hip 09/20/2010 401.1 ESSE NTIAL HYPERTENSION BENIGN 09/20/2010 719.45 hung nt pain, localized in the hip 09/20/2010 GEN[facility] DDS, BOB B 401 .1 ESSENTIAL HYPERTENSION BENIGN 09/20/2010 [facility] DDS, BOB B 719 .45 joint pain, localized in the hip 09/20/2010 [facility], JOSEE R 401.1 ESSENTIAL HYPERTENSION BENIGN 09/20/2010 [facility], JOSEE R 719.45 joint pain, localized in the hip 09/20/2010 DE JESUS DO, ERA K 401.1 ESSENTIAL HYPERTENSION BENIGN 09/20/2010 DE JESUS DO, ERA K 719.45 joint pain, localized in the hip 09/20/2010 DE JESUS DO, ERA K 401.1 ESSENTIAL HYPERTENSION BENIGN 09/20/2010 DE JESUS DO, ERA K 719.45 joint pain, localized in the hip 09/20/2010 [facility], JOSEE R 401.1 ESSENTIAL HYPERTENSION BENIGN 09/20/2010 [facility], JOSEE R 719.45 joint pain, localized in the hip 09/20/2010 DE JESUS DO, ERA K 401.1 ESSENTIAL HYPERTENSION BENIGN 09/20/2010 DE JESUS DO, ERA K 719.45 joint pain, localized in the hip 09/20/2010 HAN CABALLERO APRN 401.1 ESSENTIAL HYPERTENSION BENIGN 09/20/2010 HAN CABALLERO APRN 719.45 joint pain, localized in the hip 09/20/2010 HAN CABALLERO APRN 401.1 ESSENTIAL HYPERTENSION BENIGN 09/20/2010 LITAT[employer] POLISHER SANDHAN 719.45 joint pain, localized in the hip 09/20/2010 STELLA POLISHER SAND, DEBBIE 401 .1 ESSENTIAL HYPERTENSION BENIGN 09/20/2010 STELLA POLISHER SAND, DEBBIE 719 .45 joint pain, localized in the hip 09/20/2010 JONNIE DE JESUS DOA K 401.1 ESSENTIAL HYPERTENSION BENIGN 09/20/2010 JONNIE DE JESUS DOA K 719.45 joint pain, localized in the hip 09/20/2010 STELLA POLISHER SAND, DEBBIE 401 .1 ESSENTIAL HYPERTENSION BENIGN 09/20/2010 STELLA POLISHER SAND, DEBBIE 719 .45 joint pain, localized in the hip 09/20/2010 DAVEY LOU, BRISSA Harden 401.1 ESSENTIAL HYPERTENSION BENIGN 09/20/2010 DAVEY LOU, BRISSA Harden 719.45 joint pain, localized in the hip 09/20/2010 LIZA VALENCIA ERA K 401.1 ESSENTIAL HYPERTENSION BENIGN 09/20/2010 JONNIE DE JESUS DOA K 719.45 joint pain, localized in the hip 09/20/2010 BRAD REID MD 401.1 ESSENTIAL HYPERTENSION BENIGN 09/20/2010 BRAD REID MD 719.4 5 joint pain, localized in the hip 09/30/2010 ERA DE JESUS DO K 726.5 ENTHESOPATHY OF HIP REGION 09/30/2010 726.5 ENTH ESOPATHY OF HIP REGION 09/30/2010 JONNIE DE JESUS DOA K 726.5 ENTHESOPATHY OF HIP REGION 09/30/2010 JONNIE DE JESUS DOA K 726.5 ENTHESOPATHY OF HIP REGION 09/30/2010 726.5 ENTH ESOPATHY OF HIP REGION 09/30/2010 726.5 ENTH ESOPATHY OF HIP REGION 09/30/2010 726.5 ENTH ESOPATHY OF HIP REGION 09/30/2010 GENOVEVA YAP, BOB Schmidt 726 .5 ENTHESOPATHY OF HIP REGION 09/30/2010 TOMASA BOWMAN, JOSEE Watters 726.5 ENTHESOPATHY OF HIP REGION 09/30/2010 JONNIE DE JESUS DOA K 726.5 ENTHESOPATHY OF HIP REGION 09/30/2010 ERA DE JESUS DO 726.5 ENTHESOPATHY OF HIP REGION 09/30/2010 [facility] ENTHESOPATHY OF HIP REGION 09/30/2010 ERA DE JESUS DO 726.5 ENTHESOPATHY OF HIP REGION 09/30/2010 HAN CABALLERO APRN 726.5 ENTHESOPATHY OF HIP REGION 09/30/2010 HAN CABALLERO APRN 726.5 ENTHESOPATHY OF HIP REGION 09/30/2010 DEBBIE DOUGLAS APRN 726 .5 ENTHESOPATHY OF HIP REGION 09/30/2010 ERA DE JESUS DO 726.5 ENTHESOPATHY OF HIP REGION 09/30/2010 DEBBIE DOUGLAS APRN 726 .5 ENTHESOPATHY OF HIP REGION 09/30/2010 DAVEY LOU, BRISSA Harden 726.5 ENTHESOPATHY OF HIP REGION 09/30/2010 ERA DE JESUS DO 726.5 ENTHESOPATHY OF HIP REGION 09/30/2010 JEANETTE TORRES, BRAD 726.5 ENTHESOPATHY OF HIP REGION 01/10/2012 Ot 845.00 SPR AIN OF ANKLE NOS 01/10/2012 Ot 959.7 LOWE R LEG INJURY NOS 01/10/2012 Ot E000.8 OTH ER EXTERNAL CAUSE STATUS 01/10/2012 Ot E849.0 ACC IDENT IN HOME 01/10/2012 Ot E927.0 OVE REXERTION FROM SUDDEN STRENUOUS MOVEM 02/28/2012 ERA DE JESUS DO 311 DEPRESSIVE DISORDER NOS 02/28/2012 311 DEPRES SIVE DISORDER NOS 02/28/2012 ERA DE JESUS DO K 311 DEPRESSIVE DISORDER NOS 02/28/2012 ERA DE JESUS DO K 311 DEPRESSIVE DISORDER NOS 02/28/2012 311 DEPRES SIVE DISORDER NOS 02/28/2012 311 DEPRES SIVE DISORDER NOS 02/28/2012 311 DEPRES SIVE DISORDER NOS 02/28/2012 BOB TOMAS DDS 311 DEPRESSIVE DISORDER NOS 02/28/2012 [facility] DEPRESSIVE DISORDER NOS 02/28/2012 ERA DE JESUS DO 311 DEPRESSIVE DISORDER NOS 02/28/2012 ERA DE JESUS DO 311 DEPRESSIVE DISORDER NOS 02/28/2012 [facility], JOSEE R 311 DEPRESSIVE DISORDER NOS 02/28/2012 DE JESUS DO ERA K 311 DEPRESSIVE DISORDER NOS 02/28/2012 HAN CABALLERO APRN 311 DEPRESSIVE DISORDER NOS 02/28/2012 HAN CABALLERO APRN 311 DEPRESSIVE DISORDER NOS 02/28/2012 DEBBIE DOUGLAS APRN 311 DEPRESSIVE DISORDER NOS 02/28/2012 DE JESUS JONNIE VALENCIAA K 311 DEPRESSIVE DISORDER NOS 02/28/2012 DEBBIE DOUGLAS APRN 311 DEPRESSIVE DISORDER NOS 02/28/2012 DAVEY PHD, BRISSA Harden 3 11 DEPRESSIVE DISORDER NOS 02/28/2012 DE JESUS JONNIE VALENCIAA K 311 DEPRESSIVE DISORDER NOS 02/28/2012 JEANETTE TORRES, BRAD 311 DEPRESSIVE DISORDER NOS 05/13/2012 Ot 719.41 HUNG NT PAIN-SHLDER 05/13/2012 Ot 959.2 SHLD R/UPPER ARM INJ NOS 05/13/2012 Ot E000.8 OTH ER EXTERNAL CAUSE STATUS 05/13/2012 Ot E927.0 OVE REXERTION FROM SUDDEN STRENUOUS MOVEM 05/16/2012 ERA DE JESUS DO K 726.12 BICIPITAL TENOSYNOVITIS 05/16/2012 726.12 BIC IPITAL TENOSYNOVITIS 05/16/2012 ERA DE JESUS DO K 726.12 BICIPITAL TENOSYNOVITIS 05/16/2012 ERA DE JESUS DO K 726.12 BICIPITAL TENOSYNOVITIS 05/16/2012 726.12 BIC IPITAL TENOSYNOVITIS 05/16/2012 726.12 BIC IPITAL TENOSYNOVITIS 05/16/2012 726.12 BIC IPITAL TENOSYNOVITIS 05/16/2012 GENOVEVA HERNANDEZS, BOB B 726 .12 BICIPITAL TENOSYNOVITIS 05/16/2012 [facility], JOSEE R 726.12 BICIPITAL TENOSYNOVITIS 05/16/2012 ERA DE JESUS DO K 726.12 BICIPITAL TENOSYNOVITIS 05/16/2012 ERA DE JESUS DO K 726.12 BICIPITAL TENOSYNOVITIS 05/16/2012 [facility], JOSEE R 726.12 BICIPITAL TENOSYNOVITIS 05/16/2012 ERA DE JESUS DO K 726.12 BICIPITAL TENOSYNOVITIS 05/16/2012 HAN CABALLERO APRN 726.12 BICIPITAL TENOSYNOVITIS 05/16/2012 HAN CABALLERO APRN 726.12 BICIPITAL TENOSYNOVITIS 05/16/2012 DEBBIE DOUGLAS APRN 726 .12 BICIPITAL TENOSYNOVITIS 05/16/2012 ERA DE JESUS DO 726.12 BICIPITAL TENOSYNOVITIS 05/16/2012 STELLA PARKER DEBBIE 726 .12 BICIPITAL TENOSYNOVITIS 05/16/2012 ERA DE JESUS DO 726.12 BICIPITAL TENOSYNOVITIS 05/16/2012 JEANETTE TORRES, BRAD 726.1 2 BICIPITAL TENOSYNOVITIS 06/20/2012 719.41 TORIBIO N IN JOINT INVOLVING SHOULDER REGION 06/20/2012 ERA DE JESUS DO 719.41 PAIN IN JOINT INVOLVING SHOULDER REGION 06/20/2012 ERA DE JESUS DO 719.41 PAIN IN JOINT INVOLVING SHOULDER REGION 06/20/2012 719.41 TORIBIO N IN JOINT INVOLVING SHOULDER REGION 06/20/2012 719.41 TORIBIO N IN JOINT INVOLVING SHOULDER REGION 06/20/2012 719.41 TORIBIO N IN JOINT INVOLVING SHOULDER REGION 06/20/2012 GENOVEVACARLEE HERNANDEZS, BOB B 719 .41 PAIN IN JOINT INVOLVING SHOULDER REGION 06/20/2012 [...] INVOLVING SHOULDER REGION 06/20/2012 DEBBIE DOUGLAS APRN 719 .41 PAIN IN JOINT INVOLVING SHOULDER REGION 06/20/2012 ERA DE JESUS DO 719.41 PAIN IN JOINT INVOLVING SHOULDER REGION 06/20/2012 DEBBIE DOUGLAS APRN 719 .41 PAIN IN JOINT INVOLVING SHOULDER REGION 06/20/2012 ERA DE JESUS DO 719.41 PAIN IN JOINT INVOLVING SHOULDER REGION 06/20/2012 JEANETTE TORRES, BRAD 719.4 1 PAIN IN JOINT INVOLVING SHOULDER REGION 08/03/2012 Ot 719.41 HUNG NT PAIN-SHLDER 08/03/2012 Ot V57.1 PHYS ICAL THERAPY NEC 08/07/2012 ERA DE JESUS DO 724.2 LUMBAGO/ LOW BACK PAIN 08/07/2012 724.2 LUMB AGO/ LOW BACK PAIN 08/07/2012 724.2 LUMB AGO/ LOW BACK PAIN 08/07/2012 724.2 LUMB AGO/ LOW BACK PAIN 08/07/2012 GENOVEVA HERNANDEZS, BOB B 724 .2 LUMBAGO/ LOW BACK PAIN 08/07/2012 [facility], JOSEE R 724.2 LUMBAGO/ LOW BACK PAIN 08/07/2012 ERA DE JESUS DO K 724.2 LUMBAGO/ LOW BACK PAIN 08/07/2012 ERA DE JESUS DO K 724.2 LUMBAGO/ LOW BACK PAIN 08/07/2012 [facility], JOSEE R 724.2 LUMBAGO/ LOW BACK PAIN 08/07/2012 JONNIE DE JESUS DOA K 724.2 LUMBAGO/ LOW BACK PAIN 08/07/2012 HAN CABALLERO APRN 724.2 LUMBAGO/ LOW BACK PAIN 08/07/2012 HAN CABALLERO APRN 724.2 LUMBAGO/ LOW BACK PAIN 08/07/2012 DEBBIE DOUGLAS APRN 724 .2 LUMBAGO/ LOW BACK PAIN 08/07/2012 ERA DE JESUS DO K 724.2 LUMBAGO/ LOW BACK PAIN 08/07/2012 STELLA PARKER DEBBIE 724 .2 LUMBAGO/ LOW BACK PAIN 08/07/2012 ERA DE [...] BEHAVIOR 09/17/2012 300.02 AN GEN ANXIETY 09/17/2012 [facility] DAVIDSBOB B 296 .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 09/17/2012 [facility] DDS, BOB B 300 .02 AN GEN ANXIETY 09/17/2012 [facility], JOSEE R 296.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 09/17/2012 [facility], JOSEE R 300.02 AN GEN ANXIETY 09/17/2012 ERA DE JESUS DO 296.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 09/17/2012 ERA DE JESUS DO 300.02 AN GEN ANXIETY 09/17/2012 ERA DE JESUS DO K 296.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 09/17/2012 ERA DE JESUS DO 300.02 AN GEN ANXIETY 09/17/2012 [facility], JOSEE R 296.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 09/17/2012 [facility], JOSEE R 300.02 AN GEN ANXIETY [...] AN GEN ANXIETY 09/17/2012 STELLA PARKER DEBBIE 296 .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 09/17/2012 STELLA PARKER DEBBIE 300 .02 AN GEN ANXIETY 09/17/2012 ERA DE JESUS DO K 296.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 09/17/2012 ERA DE JESUS DO K 300.02 AN GEN ANXIETY 09/17/2012 STELLA PARKER DEBBIE 296 .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 09/17/2012 STELLA PARKER DEBBIE 300 .02 AN GEN ANXIETY 09/17/2012 ERA DE JESUS DO 296.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 09/17/2012 ERA DE JESUS DO K 300.02 AN GEN ANXIETY 09/17/2012 BRAD REID MD 296.3 3 MO DEPRESSIVE 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 09/17/2012 BRAD REID MD 300.0 2 AN GEN ANXIETY 10/09/2012 309.81 AN PTSD 10/09/2012 314.00 ADH D INATTENTIVE 10/09/2012 [facility] DDS, BOB B 309 .81 AN PTSD 10/09/2012 [facility] DDS, BOB B 314 .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 10/09/2012 [facility], JOSEE R 309.81 AN PTSD 10/09/2012 [facility], JOSEE R 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 10/09/2012 JONNIE DE JESUS DOA K 309.81 AN PTSD 10/09/2012 JONNIE DE JESUS DOA K 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 10/09/2012 ERA DE JESUS DO K 309.81 AN PTSD 10/09/2012 JONNIE DE JESUS DOA K 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 10/09/2012 [facility], JOSEE R 309.81 AN PTSD 10/09/2012 [facility], JOSEE R 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 10/09/2012 JONNIE DE JESUS DOA K 309.81 AN PTSD 10/09/2012 JONNIE DE JESUS DOA K 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 10/09/2012 HAN CABALLERO APRN 309.81 AN PTSD 10/09/2012 HAN CABALLERO APRN 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 10/09/2012 HAN CABALLERO APRN 309.81 AN PTSD 10/09/2012 HAN CABALLERO APRN 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 10/09/2012 DAVID DOUGLAS APRNETTE 309 .81 AN PTSD 10/09/2012 STELLA PARKER DEBBIE 314 .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 10/09/2012 JONNIE DE JESUS DOA K 309.81 AN PTSD 10/09/2012 JONNIE DE JESUS DOA K 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 10/09/2012 STELLARUSTY PARKER DEBBIE 309 .81 AN PTSD 10/09/2012 STELLARUSTY PARKER DEBBIE 314 .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 10/09/2012 ERA DE JESUS DO 309.81 AN PTSD 10/09/2012 JONNIE DE JESUS DOA K 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 10/09/2012 BRAD REID MD 309.8 1 AN PTSD 10/09/2012 BRAD REID MD 314.0 0 ADHD INATTENTIVE 07/29/2013 LIZA VALENCIA ERA K 715.00 OSTEOARTHROSIS GENERALIZED INVOLVING UNSPECIFIED SITE 07/29/2013 LIZA VALENCIA ERA K V65.42 COUNSELING - SMOKING CESSATION 07/29/2013 LIZA VALENCIA ERA K 715.00 OSTEOARTHROSIS GENERALIZED INVOLVING UNSPECIFIED SITE 07/29/2013 LIZA VALENCIA ERA K V65.42 COUNSELING - SMOKING CESSATION 07/29/2013 [facility], JOSEE R 715.00 OSTEOARTHROSIS GENERALIZED INVOLVING UNSPECIFIED SITE 07/29/2013 [facility], JOSEE R V65.42 COUNSELING - SMOKING CESSATION 07/29/2013 JONNIE [...] - SMOKING CESSATION 07/29/2013 DEBBIE DOUGLAS APRN 715 .00 OSTEOARTHROSIS GENERALIZED INVOLVING UNSPECIFIED SITE 07/29/2013 STELLA PARKER DEBBIE V65 .42 COUNSELING - SMOKING CESSATION 07/29/2013 JONNIE DE JESUS DOA K 715.00 OSTEOARTHROSIS GENERALIZED INVOLVING UNSPECIFIED SITE 07/29/2013 LIZA VALENCIA ERA K V65.42 COUNSELING - SMOKING CESSATION 07/29/2013 STELLA PARKER DEBBIE 715 .00 OSTEOARTHROSIS GENERALIZED INVOLVING UNSPECIFIED SITE 07/29/2013 STELLA PARKER DEBBIE V65 .42 COUNSELING - SMOKING CESSATION 07/29/2013 LIZA VALENCIA ERA K 715.00 OSTEOARTHROSIS GENERALIZED INVOLVING UNSPECIFIED SITE 07/29/2013 ERA DE JESUS DO V65.42 COUNSELING - SMOKING CESSATION 07/29/2013 BRAD REID MD 715.0 0 OSTEOARTHROSIS GENERALIZED INVOLVING UNSPECIFIED SITE 07/29/2013 BRAD REID MD V65.4 2 COUNSELING - SMOKING CESSATION 08/02/2013 ERA DE JESUS DO 296.32 MO DEPRESSIVE RECURRENT MODERATE 08/02/2013 [facility], JOSEE R 296.32 MO DEPRESSIVE RECURRENT MODERATE 08/02/2013 ERA DE JESUS DO 296.32 MO DEPRESSIVE RECURRENT MODERATE 08/02/2013 HAN CABALLERO APRN 296.32 MO DEPRESSIVE RECURRENT MODERATE 08/02/2013 HAN CABALLERO APRN 296.32 MO DEPRESSIVE RECURRENT MODERATE 08/02/2013 DEBBIE DOUGLAS APRN 296 .32 MO DEPRESSIVE RECURRENT MODERATE 08/02/2013 ERA DE JESUS DO 296.32 MO DEPRESSIVE RECURRENT MODERATE 08/02/2013 DEBBIE DOUGLAS APRN 296 .32 MO DEPRESSIVE RECURRENT MODERATE 08/02/2013 ERA DE JESUS DO 296.32 MO DEPRESSIVE RECURRENT MODERATE 08/02/2013 BRAD REID MD 296.3 2 MO DEPRESSIVE RECURRENT MODERATE 08/30/2013 MICKEY TORRES, TITO Robles Ot 780.2 SYNCOPE AND COLLAPSE 08/30/2013 MICKEY TORRES, TITO Robles Ot 910.8 SUPERFIC INJ HEAD NEC 08/30/2013 MICKEY TORRES, TITO T Ot E000.8 OTHER EXTERNAL CAUSE STATUS 08/30/2013 MICKEY TORRES, TITO Robles Ot E849.0 ACCIDENT IN HOME 08/30/2013 MICKEY TORRES, TIOT T Ot E888.9 FALL NOS 09/13/2013 ERA DE JESUS DO 780.2 SYNCOPE 09/13/2013 ERA DE JESUS DO 850.9 CONCUSSION UNSPECIFIED 09/13/2013 ERA DE JESUS DO E888.9 UNSPECIFIED ACCIDENTAL FALL 09/13/2013 HAN CABALLERO APRN 780.2 SYNCOPE 09/13/2013 HAN CABALLERO APRN 850.9 CONCUSSION UNSPECIFIED 09/13/2013 HAN CABALLERO APRN E888.9 UNSPECIFIED ACCIDENTAL FALL 09/13/2013 HAN CABALLERO APRN 780.2 SYNCOPE 09/13/2013 HAN CABALLERO APRN 850.9 CONCUSSION UNSPECIFIED 09/13/2013 HAN CABALLERO APRN E888.9 UNSPECIFIED ACCIDENTAL FALL 09/13/2013 STELLA POLISHER SAND, DEBBIE 780 .2 SYNCOPE 09/13/2013 STELLA POLISHER SAND, DEBBIE 850 .9 CONCUSSION UNSPECIFIED 09/13/2013 STELLA POLISHER SAND, DEBBIE E88 8.9 UNSPECIFIED ACCIDENTAL FALL 09/13/2013 DE JESUS DO, ERA K 780.2 SYNCOPE 09/13/2013 DE JESUS DO, ERA K 850.9 CONCUSSION UNSPECIFIED 09/13/2013 DE JESUS DO, ERA K E888.9 UNSPECIFIED ACCIDENTAL FALL 09/13/2013 STELLA POLISHER SAND, DEBBIE 780 .2 SYNCOPE 09/13/2013 STELLA POLISHER SAND, DEBBIE 850 .9 CONCUSSION UNSPECIFIED 09/13/2013 STELLA POLISHER SAND, DEBBIE E88 8.9 UNSPECIFIED ACCIDENTAL FALL 09/13/2013 DE JESUS DO, ERA K 780.2 SYNCOPE 09/13/2013 DE JESUS DO, ERA K 850.9 CONCUSSION UNSPECIFIED 09/13/2013 DE JESUS DO, ERA K E888.9 UNSPECIFIED ACCIDENTAL FALL 09/13/2013 BRAD REID MD 780.2 SYNCOPE 09/13/2013 BRAD REID MD 850.9 CONCUSSION UNSPECIFIED 09/13/2013 BRAD REID MD E888. 9 UNSPECIFIED ACCIDENTAL FALL 11/26/2013 DE JESUS DO, ERA K V65.49 OTHER SPECIFIED COUNSELING 11/26/2013 DEBBIE DOUGLAS APRN V65 .49 OTHER SPECIFIED COUNSELING 11/26/2013 DE JESUS DO ERA K V65.49 OTHER SPECIFIED COUNSELING 11/26/2013 BRAD REID MD V65.4 9 OTHER SPECIFIED COUNSELING 09/08/2014 BRAD REID MD 892.0 OPEN WOUND OF FOOT EXCEPT TOE(S) ALONE WITHOUT COMPLICATION 04/16/2015 Ot 592.0 04/16/2015 EMI YBARRA MD Ot S43.401A UNSPECIFIED SPRAIN OF RIGHT SHOULDER HUNG 04/16/2015 EMI YBARRA MD Ot Y93. G1 ACTIVITY, FOOD PREPARATION AND CLEAN UP 04/16/2015 EMI YBARRA MD Ot Y99. 8 OTHER EXTERNAL CAUSE STATUS 06/22/2015 Ot 592.0 06/22/2015 BERGER DO, ADRIANA L Ot F12.1 0 CANNABIS ABUSE, UNCOMPLICATED 06/22/2015 BERGER DO, ADRIANA L Ot F17.2 10 NICOTINE DEPENDENCE, CIGARETTES, UNCOMPL 06/22/2015 BERGER DO, ADRIANA L Ot R56.9 UNSPECIFIED CONVULSIONS 06/22/2015 BERGER DO, ADRIANA L Ot S13.4XXA SPRAIN OF LIGAMENTS OF CERVICAL SPINE, I 06/22/2015 BERGER DO, ADRIANA L Ot W18.30XA FALL ON SAME LEVEL, UNSPECIFIED, INITIAL 06/22/2015 BERGER DO, ADRIANA L Ot Y92.[address] [facility] NON-[facility] 06/22/2015 BERGER DO, ADRIANA L Ot [...] AREVALO MD Ot Y92.[address] [facility] 05/01/2016 TITO AREVALO MD [...] AREVALO MD Ot Y92.[address] [facility] 05/03/2016 TITO AREVALO MD Ot Y93.9 [...] AREVALO MD Ot Y92.[address] [facility] ([facility] 05/07/2016 TITO AREVALO MD Ot Y93.9 [...] Sobia Morales J01.90 ACUTE SINUSITIS, UNSPECIFIED 12/13/2016 GRACIATAYLA CAMPOS A HEEL BURNISHER Ot M54.5 LOW BACK PAIN 12/15/2016 GRACIA TAYLA A HEEL BURNISHER Ot M54.5 LOW BACK PAIN 12/15/2016 GRACIA, TAYLA A HEEL BURNISHER Ot M54.5 LOW BACK PAIN 12/19/2016 GRACIA, TAYLA A HEEL BURNISHER Ot M54.5 LOW BACK PAIN 12/30/2016 GRACIA, TAYLA A HEEL BURNISHER Ot M54.5 LOW BACK PAIN 01/04/2017 GRACIA, TAYLA A HEEL BURNISHER Ot M54.5 LOW BACK PAIN 05/19/2017 HUGH [...] OTALGIA, LEFT EAR 05/19/2017 HUGH [place] Ot I 10 ESSENTIAL (PRIMARY) HYPERTENSION 05/19/2017 [facility]GH [place] Ot Z87.440 PERSONAL HISTORY OF URINARY (TRACT) INFE 05/19/2017 [facility] [place] Ot Z87.442 PERSONAL HISTORY OF URINARY CALCULI 07/17/2017 RAMIRO FRAZIER MD Ot H65.23 CHRONIC SEROUS OTITIS MEDIA, BILATERAL 07/17/2017 RAMIRO FRAZIER MD Ot Z01.812 ENCOUNTER FOR PREPROCEDURAL LABORATORY E 07/17/2017 RAMIRO FRAZIER MD Ot Z11 .2 ENCOUNTER FOR SCREENING FOR OTHER BACTER 07/18/2017 RAMIRO FRAZIER MD Ot H65.23 CHRONIC SEROUS OTITIS MEDIA, BILATERAL 07/18/2017 RAMIRO FRAZIER MD Ot Z01.812 ENCOUNTER FOR PREPROCEDURAL LABORATORY E 07/18/2017 RAMIRO FRAZIER MD Ot Z11 .2 ENCOUNTER FOR SCREENING FOR OTHER BACTER 07/20/2017 [...] 07/20/2017 RAMIRO FRAZIER MD Ot Z79.899 OTHER LONG-TERM (CURRENT) DRUG THERAPY 07/26/2017 RAMIRO FRAZIER MD Ot F17.210 NICOTINE DEPENDENCE, CIGARETTES, UNCOMPL 07/26/2017 RAMIRO FRAZIER MD Ot F43.10 POST-TRAUMATIC STRESS DISORDER, UNSPECIF 07/26/2017 RAMIRO FRAZIER MD Ot H65.23 CHRONIC SEROUS OTITIS MEDIA, BILATERAL 07/26/2017 RAMIRO FRAZIER MD Ot I10 ESSENTIAL (PRIMARY) HYPERTENSION 07/26/2017 RAMIRO FRAZIER MD Ot J34.89 OTHER SPECIFIED DISORDERS OF NOSE AND NA 07/26/2017 RAMIRO FRAZIER MD Ot Z79.899 OTHER HEALTH SCREENER (CURRENT) DRUG THERAPY 07/28/2017 RAMIRO FRAZIER MD Ot F17.210 NICOTINE DEPENDENCE, CIGARETTES, UNCOMPL 07/28/2017 RAMIRO FRAZIER MD Ot F43.10 POST-TRAUMATIC STRESS DISORDER, UNSPECIF 07/28/2017 RAMIRO FRAZIER MD Ot H65.23 CHRONIC SEROUS OTITIS MEDIA, BILATERAL 07/28/2017 RAMIRO FRAZIER MD Ot I10 ESSENTIAL (PRIMARY) HYPERTENSION 07/28/2017 RAMIRO FRAZIER MD Ot J34.89 OTHER SPECIFIED DISORDERS OF NOSE AND NA 07/28/2017 RAMIRO FRAZIER MD Ot Z79.899 OTHER LONG-TERM (CURRENT) DRUG THERAPY 12/26/2017 Lawrence Booth 382.9 UNSPECIFIED OTITIS MEDIA 12/26/2017 Lawrence Booth H66.93 OTITIS MEDIA, UNSPECIFIED, BILATERAL 12/30/2017 Ot F32.9 ALVINO R DEPRESSIVE DISORDER, SINGLE EPISOD 12/30/2017 Ot F41.9 ANXI ETY DISORDER, UNSPECIFIED 12/30/2017 Ot F43.10 POS T-TRAUMATIC STRESS DISORDER, UNSPECIF 12/30/2017 Ot G40.909 EP ILEPSY, UNSP, NOT INTRACTABLE, WITHOUT 12/30/2017 Ot H92.02 SANITARY INSPECTOR LGIA, LEFT EAR 12/30/2017 Ot I10 ESSENT IAL (PRIMARY) HYPERTENSION 12/30/2017 Ot Z87.442 PE RSONAL HISTORY OF URINARY CALCULI 12/30/2017 Ot Z87.891 PE RSONAL HISTORY OF NICOTINE DEPENDENCE 01/04/2018 Ot F12.10 CAN NABIS ABUSE, UNCOMPLICATED 01/04/2018 Ot F17.210 NI COTINE DEPENDENCE, CIGARETTES, UNCOMPL 01/04/2018 Ot F32.9 ALVINO R DEPRESSIVE DISORDER, SINGLE EPISOD 01/04/2018 Ot F41.9 ANXI ETY DISORDER, UNSPECIFIED 01/04/2018 Ot F43.10 POS T-TRAUMATIC STRESS DISORDER, UNSPECIF 01/04/2018 Ot G40.909 EP ILEPSY, UNSP, NOT INTRACTABLE, WITHOUT 01/04/2018 Ot H60.92 UNS PECIFIED OTITIS EXTERNA, LEFT EAR 01/04/2018 Ot H92.02 SANITARY INSPECTOR LGIA, LEFT EAR 01/04/2018 Ot I10 ESSENT IAL (PRIMARY) HYPERTENSION 01/04/2018 Ot Z87.442 PE RSONAL HISTORY OF URINARY CALCULI 01/08/2018 Ot F12.10 CAN NABIS ABUSE, UNCOMPLICATED 01/08/2018 Ot F17.210 NI COTINE DEPENDENCE, CIGARETTES, UNCOMPL 01/08/2018 Ot F32.9 ALVINO R DEPRESSIVE DISORDER, SINGLE EPISOD 01/08/2018 Ot F41.9 ANXI ETY DISORDER, UNSPECIFIED 01/08/2018 Ot F43.10 POS T-TRAUMATIC STRESS DISORDER, UNSPECIF 01/08/2018 Ot G40.909 EP ILEPSY, UNSP, NOT INTRACTABLE, WITHOUT 01/08/2018 Ot H60.92 UNS PECIFIED OTITIS EXTERNA, LEFT EAR 01/08/2018 Ot H92.02 BUTCH LGIA, LEFT EAR 01/08/2018 Ot I10 ESSENT IAL (PRIMARY) HYPERTENSION 01/08/2018 Ot Z87.442 PE RSONAL HISTORY OF URINARY CALCULI 01/10/2018 Ot F12.10 CAN NABIS ABUSE, UNCOMPLICATED 01/10/2018 Ot F17.210 NI COTINE DEPENDENCE, CIGARETTES, UNCOMPL 01/10/2018 Ot F32.9 ALVINO R DEPRESSIVE DISORDER, SINGLE EPISOD 01/10/2018 Ot F41.9 ANXI ETY DISORDER, UNSPECIFIED 01/10/2018 Ot F43.10 POS T-TRAUMATIC STRESS DISORDER, UNSPECIF 01/10/2018 Ot G40.909 EP ILEPSY, UNSP, NOT INTRACTABLE, WITHOUT 01/10/2018 Ot H60.92 UNS PECIFIED OTITIS EXTERNA, LEFT EAR 01/10/2018 Ot H92.02 SANITARY INSPECTOR LGIA, LEFT EAR 01/10/2018 Ot I10 ESSENT IAL (PRIMARY) HYPERTENSION 01/10/2018 Ot Z87.442 PE RSONAL HISTORY OF URINARY CALCULI 01/27/2018 JOANN, SEA Ot F12.10 CANNABIS ABUSE, UNCOMPLICATED 01/27/2018 BERNROMEO, SEA Ot F17.210 NICOTINE DEPENDENCE, CIGARETTES, UNCOMPL 01/27/2018 SEA DAVID Ot F32.9 MAJOR DEPRESSIVE DISORDER, SINGLE EPISOD 01/27/2018 JOANN SEA Ot F41.9 ANXIETY DISORDER, UNSPECIFIED 01/27/2018 BERNOT, SEA Ot F43.10 POST-TRAUMATIC STRESS DISORDER, UNSPECIF 01/27/2018 JOANN SEA Ot G40.909 EPILEPSY, UNSP, NOT INTRACTABLE, WITHOUT 01/27/2018 BERNOT, SEA Ot H66.92 OTITIS MEDIA, UNSPECIFIED, LEFT EAR 01/27/2018 BERNOT, SEA Ot H92.02 OTALGIA, LEFT EAR 01/27/2018 DONOT, SEA Ot I10 ESSENTIAL (PRIMARY) HYPERTENSION 01/27/2018 DONOT, SEA Ot Z87.442 PERSONAL HISTORY OF URINARY CALCULI 01/30/2018 JOANN, SEA Ot F12.10 CANNABIS ABUSE, UNCOMPLICATED 01/30/2018 JOANN, SEA Ot F17.210 NICOTINE DEPENDENCE, CIGARETTES, UNCOMPL 01/30/2018 JOANN SEA Ot F32.9 MAJOR DEPRESSIVE DISORDER, SINGLE EPISOD 01/30/2018 BERNROMEO, SEA Ot F41.9 ANXIETY DISORDER, UNSPECIFIED 01/30/2018 JOANN SEA Ot F43.10 POST-TRAUMATIC STRESS DISORDER, UNSPECIF 01/30/2018 DONOT, SEA Ot G40.909 EPILEPSY, UNSP, NOT INTRACTABLE, WITHOUT 01/30/2018 JOANNISIDRAIS Ot H66.92 OTITIS MEDIA, UNSPECIFIED, LEFT EAR 01/30/2018 DONROMEOISIDRAIS Ot H92.02 OTALGIA, LEFT EAR 01/30/2018 DONROMEO SEA Ot I10 ESSENTIAL (PRIMARY) HYPERTENSION 01/30/2018 ISIDRA DAVIDIS Ot Z87.442 PERSONAL HISTORY OF URINARY CALCULI 02/02/2018 SEA DAVID Ot F12.10 CANNABIS ABUSE, UNCOMPLICATED 02/02/2018 ISIDRA DAVIDIS Ot F17.210 NICOTINE DEPENDENCE, CIGARETTES, UNCOMPL 02/02/2018 SEA DAVID Ot F32.9 MAJOR DEPRESSIVE DISORDER, SINGLE EPISOD 02/02/2018 SEA DAVID Ot F41.9 ANXIETY DISORDER, UNSPECIFIED 02/02/2018 ISIDRA DAVIDIS Ot F43.10 POST-TRAUMATIC STRESS DISORDER, UNSPECIF 02/02/2018 JOANN SEA Ot G40.909 EPILEPSY, UNSP, NOT INTRACTABLE, WITHOUT 02/02/2018 JOANN SEA Ot H66.92 OTITIS MEDIA, UNSPECIFIED, LEFT EAR 02/02/2018 DONROMEO SEA Ot H92.02 OTALGIA, LEFT EAR 02/02/2018 JOANN SEA Ot I10 ESSENTIAL (PRIMARY) HYPERTENSION 02/02/2018 JOANN SEA Ot Z87.442 PERSONAL HISTORY OF URINARY CALCULI 02/03/2018 KEI TORRES, EL Workman Ot H92. 02 OTALGIA, LEFT EAR 02/04/2018 PEYTON TORRES, BENIGNO Khalil Ot H66.90 OTITIS MEDIA, UNSPECIFIED, UNSPECIFIED E 02/05/2018 Lawrence Booth 382.9 UNSPECIFIED OTITIS MEDIA 02/05/2018 Lawrence Booth H66.92 OTITIS MEDIA, UNSPECIFIED, LEFT EAR 02/06/2018 KEI TORRES, EL Workman Ot H92. 02 OTALGIA, LEFT EAR 02/06/2018 PEYTON TORRES, BENIGNO Khalil Ot H66.90 OTITIS MEDIA, UNSPECIFIED, UNSPECIFIED E 04/04/2018 KEI TORRES, EL Workman Ot M54. 9 DORSALGIA, UNSPECIFIED 04/04/2018 Quiana Wells 724.4 THORACIC OR LUMBOSACRAL NEURITIS OR RADICULITIS, UNSPECIFIED 04/04/2018 Priscilla Quiana Harden M54.16 RADICULOPATHY, LUMBAR REGION 04/06/2018 KEI TORRES, EL Workman Ot M54. 9 DORSALGIA, UNSPECIFIED 05/21/2018 BERNOT, SEA Ot H66.90 OTITIS MEDIA, UNSPECIFIED, UNSPECIFIED E 05/24/2018 BERNOT, SEA Ot H66.90 OTITIS MEDIA, UNSPECIFIED, UNSPECIFIED E 06/05/2018 SOBIA MORALES APRN Ot F12.10 CANNABIS ABUSE, UNCOMPLICATED 06/05/2018 SOBIA MORALES APRN Ot F17.210 NICOTINE DEPENDENCE, CIGARETTES, UNCOMPL 06/05/2018 SOBIA MORALES APRN Ot F32 .9 MAJOR DEPRESSIVE DISORDER, SINGLE EPISOD 06/05/2018 SOBIA MORALES APRN Ot F41 .9 ANXIETY DISORDER, UNSPECIFIED 06/05/2018 SOBIA MORALES APRN [...] CIGARETTES, UNCOMPL 06/07/2018 SOBIA MORALES APRN Ot F32 .9 MAJOR DEPRESSIVE DISORDER, SINGLE EPISOD 06/07/2018 SOBIA MORALES APRN Ot F41 .9 ANXIETY DISORDER, UNSPECIFIED 06/07/2018 SOBIA MORALES APRN Ot F43.10 POST-TRAUMATIC STRESS DISORDER, UNSPECIF 06/07/2018 SOBIA MORALES APRN Ot G40.909 EPILEPSY, UNSP, NOT INTRACTABLE, WITHOUT 06/07/2018 SOBIA MORALES POLISHER SAND Ot H60.92 UNSPECIFIED OTITIS EXTERNA, LEFT EAR 06/07/2018 SOBIA MORALES APRN Ot H92.02 OTALGIA, LEFT EAR 06/07/2018 SOBIA MORALES POLISHER SAND Ot I10 ESSENTIAL (PRIMARY) HYPERTENSION 06/07/2018 SOBIA MORALES POLISHER SAND Ot Z87.442 PERSONAL HISTORY OF URINARY CALCULI 06/07/2018 SOBIA MORALES POLISHER SAND Ot Z98.890 OTHER SPECIFIED POSTPROCEDURAL STATES 06/24/2018 SEA DAVID Ot F12.10 CANNABIS ABUSE, UNCOMPLICATED 06/24/2018 BERNISIDRA WALTERSIS Ot F17.210 NICOTINE DEPENDENCE, CIGARETTES, UNCOMPL 06/24/2018 SEA DAVID Ot F32.9 MAJOR DEPRESSIVE DISORDER, SINGLE EPISOD 06/24/2018 IISDRA DAVIDIS Ot F41.9 ANXIETY DISORDER, UNSPECIFIED 06/24/2018 ISIDRA DAVIDIS Ot F43.10 POST-TRAUMATIC STRESS DISORDER, UNSPECIF 06/24/2018 JOANN SEA Ot G40.909 EPILEPSY, UNSP, NOT INTRACTABLE, WITHOUT 06/24/2018 BERNOT SEA Ot H66.92 OTITIS MEDIA, UNSPECIFIED, LEFT EAR 06/24/2018 BERNOT, SEA Ot H92.02 OTALGIA, LEFT EAR 06/24/2018 BERNOT SEA Ot I10 ESSENTIAL (PRIMARY) HYPERTENSION 06/24/2018 ISIDRA DAVIDIS Ot Z87.442 PERSONAL HISTORY OF URINARY CALCULI 06/26/2018 ISIDRA DAVIDIS Ot F12.10 CANNABIS ABUSE, UNCOMPLICATED 06/26/2018 DONOT SEA Ot F17.210 NICOTINE DEPENDENCE, CIGARETTES, UNCOMPL 06/26/2018 ISIDRA DAVIDIS Ot F32.9 MAJOR DEPRESSIVE DISORDER, SINGLE EPISOD 06/26/2018 BERNOTISIDRAIS Ot F41.9 ANXIETY DISORDER, UNSPECIFIED 06/26/2018 BERNOTISIDRAIS Ot F43.10 POST-TRAUMATIC STRESS DISORDER, UNSPECIF 06/26/2018 BERNOT SEA Ot G40.909 EPILEPSY, UNSP, NOT INTRACTABLE, WITHOUT 06/26/2018 BERNOT SEA Ot H66.92 OTITIS MEDIA, UNSPECIFIED, LEFT EAR 06/26/2018 DONOT, SEA Ot H92.02 OTALGIA, LEFT EAR 06/26/2018 DONROMEOISIDRAIS Ot I10 ESSENTIAL (PRIMARY) HYPERTENSION 06/26/2018 SEA DAVID Ot Z87.442 PERSONAL HISTORY OF URINARY CALCULI 07/01/2018 SOBIA MORALES APRN Ot F32 .9 MAJOR DEPRESSIVE DISORDER, SINGLE EPISOD 07/01/2018 SOBIA MORALES APRN Ot F41 .9 ANXIETY DISORDER, UNSPECIFIED 07/01/2018 SOBIA MORALES APRN Ot F43.10 POST-TRAUMATIC STRESS DISORDER, UNSPECIF 07/01/2018 SOBIA MORALES APRN Ot G40.909 EPILEPSY, UNSP, NOT INTRACTABLE, WITHOUT 07/01/2018 SOBIA MORALES APRN Ot G89.29 OTHER CHRONIC PAIN 07/01/2018 SOBIA MORALES APRN Ot H92.03 OTALGIA, BILATERAL 07/01/2018 SOBIA MORALES APRN Ot I10 ESSENTIAL (PRIMARY) HYPERTENSION 07/01/2018 SOBIA MORALES APRN Ot Z87.442 PERSONAL HISTORY OF URINARY CALCULI 07/01/2018 SOBIA MORALES APRN Ot Z98.890 OTHER SPECIFIED POSTPROCEDURAL STATES 07/03/2018 SOBIA MORALES APRN Ot F32 .9 MAJOR DEPRESSIVE DISORDER, SINGLE EPISOD 07/03/2018 SOBIA MORALES APRN Ot F41 .9 ANXIETY DISORDER, UNSPECIFIED 07/03/2018 SOBIA MORALES APRN [...] APRN Ot Z98.890 OTHER SPECIFIED POSTPROCEDURAL STATES 07/11/2018 KEI TORRES, EL Workman Ot F12. 10 CANNABIS ABUSE, UNCOMPLICATED 07/11/2018 EL CHOUDHURY MD Ot F17.210 NICOTINE DEPENDENCE, CIGARETTES, UNCOMPL 07/11/2018 EL CHOUDHURY MD Ot F32. 9 MAJOR DEPRESSIVE DISORDER, SINGLE EPISOD 07/11/2018 EL CHOUDHURY MD Ot F41. 9 ANXIETY DISORDER, UNSPECIFIED 07/11/2018 EL CHOUDHURY MD Ot F43. 10 POST-TRAUMATIC STRESS DISORDER, UNSPECIF 07/11/2018 EL CHOUDHURY MD Ot G40.909 EPILEPSY, UNSP, NOT INTRACTABLE, WITHOUT 07/11/2018 EL CHOUDHURY MD Ot H65. 93 UNSPECIFIED NONSUPPURATIVE OTITIS MEDIA, 07/11/2018 EL CHOUDHURY MD Ot I10 ESSENTIAL (PRIMARY) HYPERTENSION 07/11/2018 EL CHOUDHURY MD Ot K02. 9 DENTAL CARIES, UNSPECIFIED 07/11/2018 EL CHOUDHURY MD Ot R68. 84 JAW PAIN 07/11/2018 EL CHOUDHURY MD Ot Z87.442 PERSONAL HISTORY OF URINARY CALCULI 07/11/2018 EL CHOUDHURY MD Ot Z96. 22 MYRINGOTOMY TUBE(S) STATUS 07/11/2018 EL CHOUDHURY MD Ot Z98.890 OTHER SPECIFIED POSTPROCEDURAL STATES 07/13/2018 EL CHOUDHURY MD Ot F12. 10 CANNABIS ABUSE, UNCOMPLICATED 07/13/2018 EL CHOUDHURY MD Ot F17.210 NICOTINE DEPENDENCE, CIGARETTES, UNCOMPL 07/13/2018 EL CHOUDHURY MD Ot F32. 9 MAJOR DEPRESSIVE DISORDER, SINGLE EPISOD 07/13/2018 EL CHOUDHURY MD Ot F41. 9 ANXIETY DISORDER, UNSPECIFIED 07/13/2018 EL CHOUDHURY MD Ot F43. 10 POST-TRAUMATIC STRESS DISORDER, UNSPECIF 07/13/2018 EL CHOUDHURY MD Ot G40.909 EPILEPSY, UNSP, NOT INTRACTABLE, WITHOUT 07/13/2018 EL CHOUDHURY MD Ot H65. 93 UNSPECIFIED NONSUPPURATIVE OTITIS MEDIA, 07/13/2018 EL CHOUDHURY MD Ot I10 ESSENTIAL (PRIMARY) HYPERTENSION 07/13/2018 EL CHOUDHURY MD Ot K02. 9 DENTAL CARIES, UNSPECIFIED 07/13/2018 EL CHOUDHURY MD Ot R68. 84 JAW PAIN 07/13/2018 EL CHOUDHURY MD Ot Z87.442 PERSONAL HISTORY OF URINARY CALCULI 07/13/2018 EL CHOUDHURY MD Ot Z96. 22 MYRINGOTOMY TUBE(S) STATUS 07/13/2018 EL CHOUDHURY MD Ot Z98.890 OTHER SPECIFIED POSTPROCEDURAL STATES 07/14/2018 EL CHOUDHURY MD Ot F12. 10 CANNABIS ABUSE, UNCOMPLICATED 07/14/2018 EL CHOUDHURY MD Ot F17.210 NICOTINE DEPENDENCE, CIGARETTES, UNCOMPL 07/14/2018 EL CHOUDHURY MD Ot F32. 9 MAJOR DEPRESSIVE DISORDER, SINGLE EPISOD 07/14/2018 EL CHOUDHURY MD Ot F41. 9 ANXIETY DISORDER, UNSPECIFIED 07/14/2018 EL CHOUDHURY MD Ot F43. 10 POST-TRAUMATIC STRESS DISORDER, UNSPECIF 07/14/2018 EL CHOUDHURY MD Ot G40.909 EPILEPSY, UNSP, NOT INTRACTABLE, WITHOUT 07/14/2018 EL CHOUDHURY MD Ot H65. 93 UNSPECIFIED NONSUPPURATIVE OTITIS MEDIA, 07/14/2018 EL CHOUDHURY MD Ot I10 ESSENTIAL (PRIMARY) HYPERTENSION 07/14/2018 EL CHOUDHURY MD Ot K02. 9 DENTAL CARIES, UNSPECIFIED 07/14/2018 EL CHOUDHURY MD Ot R68. 84 JAW PAIN 07/14/2018 EL CHOUDHURY MD Ot Z87.442 PERSONAL HISTORY OF URINARY CALCULI 07/14/2018 EL CHOUDHURY MD Ot Z96. 22 MYRINGOTOMY TUBE(S) STATUS 07/14/2018 EL CHOUDHURY MD Ot Z98.890 OTHER SPECIFIED POSTPROCEDURAL STATES 07/31/2018 SEA DAVID Ot F32.9 MAJOR DEPRESSIVE DISORDER, SINGLE EPISOD 07/31/2018 BERNSEA WALTERS Ot F41.9 ANXIETY DISORDER, UNSPECIFIED 07/31/2018 SEA DAVID Ot F43.10 POST-TRAUMATIC STRESS DISORDER, UNSPECIF 07/31/2018 SEA DAVID Ot G40.909 EPILEPSY, UNSP, NOT INTRACTABLE, WITHOUT 07/31/2018 BERNOTSEA Ot H66.92 OTITIS MEDIA, UNSPECIFIED, LEFT EAR 07/31/2018 BERNOT, SEA Ot H92.03 OTALGIA, BILATERAL 07/31/2018 BERNOT, SEA Ot I10 ESSENTIAL (PRIMARY) HYPERTENSION 07/31/2018 BERNOTISIDRAIS Ot Z77.22 CNTCT W AND EXPSR TO ENVIRON TOBACCO SMO 07/31/2018 BERNOT SEA Ot Z79.51 LONG-TERM (CURRENT) USE OF INHALED STERO 07/31/2018 ISIDRA DAVIDIS Ot Z87.442 PERSONAL HISTORY OF URINARY CALCULI 07/31/2018 ISIDRA DAVIDIS Ot Z96.22 MYRINGOTOMY TUBE(S) STATUS 07/31/2018 ISIDRA DAVIDIS Ot Z98.890 OTHER SPECIFIED POSTPROCEDURAL STATES 08/02/2018 ISIDRA DAVIDIS Ot F32.9 MAJOR DEPRESSIVE DISORDER, SINGLE EPISOD 08/02/2018 ISIDRA DAVIDIS Ot F41.9 ANXIETY DISORDER, UNSPECIFIED 08/02/2018 ISIDRA DAVIDIS Ot F43.10 POST-TRAUMATIC STRESS DISORDER, UNSPECIF 08/02/2018 ISIDRA DAVIDIS Ot G40.909 EPILEPSY, UNSP, NOT INTRACTABLE, WITHOUT 08/02/2018 ISIDRA DAVIDIS Ot H66.92 OTITIS MEDIA, UNSPECIFIED, LEFT EAR 08/02/2018 JOANN SEA Ot H92.03 OTALGIA,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
== END 2019-07-30 11:29 | disposition home or self-care (01) ==
LOC: EDUNIT# 10:52 → ER 10:53
DX: H66.93 Otitis media, unspecified, bilateral (principal); I10 Essential (primary) hypertension; F41.9 Anxiety disorder, unspecified; F32.9 Major depressive disorder, single episode, unspecified; Z77.22 Contact with and (suspected) exposure to environmental tobacco smoke (acute) (chronic); Z79.52 Long term (current) use of systemic steroids; Z96.22 Myringotomy tube(s) status
CPT/HCPCS: 99282

== ENCOUNTER 2020-03-25 09:08 | Emergency (ER) | payer SELFPAY ==
[~2020-03-25] VITALS: Ht 182 cm; Wt 102.0 kg
[2020-03-25 09:20] VITALS: BP 127/80
--- NOTE | 2020-03-25 09:22 | ED EENT ---
History of Present Illness General Stated Complaint: EAR PAIN R Source: patient Exam Limitations: no limitations History of Present Illness Date Seen by Provider: Mar 25, 2020 Time Seen by Provider: 09:22 Initial Comments 40-year-old male presents with right ear pain. Patient has had chronic right ear infections for the last 2 years. Patient reports he used to see Dr. Juarez but has not recently due to insurance issues. Patient was seen at [facility] 7 days ago and started on amoxicillin with no relief. Patient reports symptoms of the ear pain is getting worse. He reports no fevers, chills, nausea vomiting or other systemic complaints. Allergies and Home Medications Allergies Coded Allergies: No Known Drug Allergies (Unverified , 10/29/08) Home Medications Amitriptyline HCl 25 Mg Tablet, 25 MG PO HS, (Reported) Amoxicillin/Potassium Clav 1 Each Tablet, 1 EACH PO BID Prescribed by: EL CHOUDHURY on 04/05/19 1232 Amoxicillin/Potassium Clav 1 Each Tablet, 1 EACH PO BID Prescribed by: SOBIA MORALES on 07/30/19 1120 Bupropion HCl 200 Mg Tablet.er, 200 MG PO DAILY, (Reported) Cyclobenzaprine HCl 10 Mg Tablet, 10 MG PO Q8H PRN for SPASMS Prescribed by: SEA DAVID on 03/19/19 1137 Diclofenac Potassium 25 Mg Capsule, 25 MG PO Q8H PRN for PAIN-BREAKTHROUGH Prescribed by: EL CHOUDHURY on 04/05/19 1232 Gabapentin 800 Mg Tablet, 800 MG PO QID, (Reported) Hydrocodone Bit/Acetaminophen 1 Tab Tab, 1-2 EACH PO Q6H PRN for PAIN-MODERATE Prescribed by: SEA DAVID on 03/19/19 1137 Ofloxacin 5 Ml Drops, 3 DROPS EACH EAR BID Prescribed by: SERA MAYFIELD on 08/16/18 0833 Prednisone 50 Mg Tab, 50 MG PO DAILY Prescribed by: SEA DAVID on 03/19/19 1137 Patient Home Medication List Home Medication List Reviewed: Yes Review of Systems Review of Systems Constitutional: No chills, No fever Eyes: No Symptoms Reported Ears: See HPI Nose: no symptoms reported Mouth: no symptoms reported Throat: no symptoms reported Respiratory: no symptoms reported Cardiovascular: no symptoms reported Gastrointestinal: no symptoms reported Musculoskeletal: no symptoms reported Past Dvdperi-Agzdlq-Ctwusl Hx Past Med/Social Hx: Reviewed Nursing Past Med/Soc Hx Patient Social History Alcohol Beverage of Choice: Beer Drug of Choice: marijuana Type Used: Cigarettes 2nd Hand Smoke Exposure: Yes Recent Foreign Travel: No Contact w/Someone Who Travel: No Recent Hopitalizations: No Immunizations Up To Date Tetanus Booster (TDap): Unknown PED Vaccines UTD: Yes Seasonal Allergies Seasonal Allergies: No Past Medical History Surgeries: Yes (right hand surgery fx repair, 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 0.0oz. 99.741806iw; 33.00 BMI Method:Stated General Appearance: WD/WN, no apparent distress Ears: right ear swelling, right ear tenderness, right ear TM bulging; left ear TM normal Nose: normal inspection Neck: supple, normal inspection Cardiovascular: normal peripheral pulses, regular rate, rhythm Respiratory: lungs clear, normal breath sounds Gastrointestinal: non tender, soft Neurologic/Psychiatric: normal mood/affect, oriented x 3 Skin: normal color, warm/dry Progress/Results/Core Measures Results/Orders My Orders Orders - ADRIANA BERGER DO Ceftriaxone For Im Use (Rocephin For Im (03/25/20 09:30) Lidocaine 1% Inj 20 Ml (Xylocaine 1% Inj (03/25/20 09:30) Ketorolac Injection (Toradol Injection) (03/25/20 09:25) Progress Progress Note : Time: 09:32 Progress Note A shunt with known recurrent chronic right ear infection. I will start him on cefdinir and Ciprodex. I read recommended that he reestablish care with Dr. Juarez due to the chronicity and further management possibly needed. Patient stable will be discharged home. Departure Impression Primary Impression: Otitis media Qualified Codes: H66.3X1 - Other chronic suppurative otitis media, right ear Disposition: 01 HOME, SELF-CARE Condition: Stable Departure-Patient Inst. Referrals: RAMIRO JUAREZ MD, DAVID F MD (PCP/Family) Primary Care Physician Patient Instructions: DR. JUAREZ-MIDDLE EAR Scripts Cefdinir (Cefdinir) 300 Mg Capsule 300 MG PO BID, #20 CAP 0 Refills Prov: ADRIANA BERGER DO 03/25/20 Ciprofloxacin HCl/Dexameth (Ciproflox-Dexameth Otic Susp) 7.5 Ml Drops.susp 7.5 ML OT BID for 7 Days, #1 EACH 4 gtts rt ear bid Prov: ADRIANA BERGER DO 03/25/20 ADRIANA BERGER DO Mar 25, 2020 09:22
[2020-03-25] MEDS ORDERED: KETOROLAC 60 MG/2 ML VIAL IM STA (09:25)
[2020-03-25] MEDS ORDERED: cefTRIAXone 1,000 MG/2.86 ml vial (IM ONLY) IM ONE (09:30)
[2020-03-25] MEDS ORDERED: LIDOCAINE 1% INJ 20 ML 20 ML VIAL INJ ONE (09:30)
[2020-03-25] MEDS ORDERED: CEFD300C3 PO (09:31)
[2020-03-25] MEDS ORDERED: CIPR7.5D6 OT (09:31)
== END 2020-03-25 10:05 | disposition home or self-care (01) ==
LOC: EDUNIT# 09:08 → ER 09:11
DX: H66.91 Otitis media, unspecified, right ear (principal); F32.9 Major depressive disorder, single episode, unspecified; F41.9 Anxiety disorder, unspecified; G40.909 Epilepsy, unspecified, not intractable, without status epilepticus; G89.29 Other chronic pain; M54.9 Dorsalgia, unspecified; Z77.22 Contact with and (suspected) exposure to environmental tobacco smoke (acute) (chronic); Z79.52 Long term (current) use of systemic steroids; Z79.891 Long term (current) use of opiate analgesic
CPT/HCPCS: 99284

== ENCOUNTER 2020-04-01 14:12 | Emergency (ER) | payer SELFPAY ==
[~2020-04-01] VITALS: Ht 182.8 cm; Wt 104.5 kg
[~2020-04-01 14:12] MED LIST changes: +CIPR7.5D6 OT
--- NOTE | 2020-04-01 14:45 | ED EENT ---
History of Present Illness General Chief Complaint: Ear Problems Stated Complaint: R EAR PAIN Nursing Triage Note: AMB TO ED C/O R EAR PAIN FOR A MONTH HAS BEEN SEEN HERE AND [facility] ON ANTIBIOTICS AND NOT ANY BETTER. WAS SEEN AT [facility] YESTERDAY AND STARTED ON SUAFED WHICH IS NOT HELPING. Source: patient Exam Limitations: no limitations History of Present Illness Date Seen by Provider: Apr 01, 2020 Time Seen by Provider: 14:30 Timing/Duration: gradual Severity: severe Location: ear (R) Prearrival Treatment: prescription meds Associated Symptoms: change in hearing, ear drainage Allergies and Home Medications Allergies Coded Allergies: prednisone (Verified Adverse Reaction, Unknown, MAKES SHANA SAUNDERS, 04/01/20) Home Medications Amitriptyline HCl 25 Mg Tablet, 25 MG PO HS, (Reported) Amoxicillin/Potassium Clav 1 Each Tablet, 1 EACH PO BID Prescribed by: EL CHOUDHURY on 04/05/19 1232 Amoxicillin/Potassium Clav 1 Each Tablet, 1 EACH PO BID Prescribed by: SOBIA MORALES on 07/30/19 1120 Bupropion HCl 200 Mg Tablet.er, 200 MG PO DAILY, (Reported) Cefdinir 300 Mg Capsule, 300 MG PO BID Prescribed by: ADRIANA BERGER on 03/25/20 0931 Ciprofloxacin HCl/Dexameth 7.5 Ml Drops.susp, 7.5 ML OT BID 4 gtts rt ear bid Prescribed by: ADRIANA BERGER on 03/25/20 0931 Cyclobenzaprine HCl 10 Mg Tablet, 10 MG PO Q8H PRN for SPASMS Prescribed by: SEA DAVID on 03/19/19 1137 Diclofenac Potassium 25 Mg Capsule, 25 MG PO Q8H PRN for PAIN-BREAKTHROUGH Prescribed by: EL CHOUDHURY on 04/05/19 1232 Gabapentin 800 Mg Tablet, 800 MG PO QID, (Reported) Hydrocodone Bit/Acetaminophen 1 Tab Tab, 1-2 EACH PO Q6H PRN for PAIN-MODERATE Prescribed by: SEA DAVID on 03/19/19 1137 Hydrocodone/Acetaminophen 1 Each Tablet, 1 EACH PO Q6H PRN for PAIN-SEVERE (8- 10) Prescribed by: SHAWNA LINARES on 04/01/20 1526 Ofloxacin 5 Ml Drops, 3 DROPS EACH EAR BID Prescribed by: SERA MAYFIELD on 08/16/18 0833 Prednisone 50 Mg Tab, 50 MG PO DAILY Prescribed by: SEA DAVID on 03/19/19 1137 Patient Home Medication List Home Medication List Reviewed: Yes Review of Systems Review of Systems Constitutional: no symptoms reported Eyes: No Symptoms Reported Ears: Purulent Discharge (right ear) Nose: no symptoms reported Mouth: no symptoms reported Throat: no symptoms reported Respiratory: no symptoms reported Cardiovascular: no symptoms reported Gastrointestinal: no symptoms reported Musculoskeletal: no symptoms reported Skin: no symptoms reported Neurological: No Symptoms Reported All Other Systems Reviewed Negative Unless Noted: Yes Past Jvikszz-Fllikc-Ihjqyu Hx Patient Social History Alcohol Use: Denies Use Number of Drinks Today: AA Alcohol Beverage of Choice: Beer Recreational Drug Use: No Drug of Choice: marijuana Smoking Status: Current Everyday Smoker Type Used: Cigarettes 2nd Hand Smoke Exposure: Yes Recent Foreign Travel: No Contact w/Someone Who Travel: No Recent Infectious Disease Expo: No Recent Hopitalizations: No Immunizations Up To Date Tetanus Booster (TDap): Unknown PED Vaccines UTD: Yes Seasonal Allergies Seasonal Allergies: No Past Medical History Surgeries: Yes (right hand surgery fx repair, 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) Ear Surgery, Gallbladder Respiratory: No Cardiac: Yes Hypertension Neurological: Yes (last seizure 2016) Seizure Disorder Reproductive Disorders: No Genitourinary: Yes Kidney Stones Gastrointestinal: No Musculoskeletal: Yes Arthritis, Chronic Back Pain Endocrine: No HEENT: Yes (Tubes in Ears) Chronic Ear Infection Cancer: No Psychosocial: No Anxiety, PTSD, Depression Integumentary: No Blood Disorders: No Family Medical History No Pertinent Family Hx Physical Exam Vital Signs Vital Signs - First Documented 04/01/20 04/01/20 14:15 15:36 Temp 35.9 Pulse 96 Resp 18 B/P (MAP) 134/98 (110) Pulse Ox 98 O2 Delivery Room Air Height, Weight, BMI Height: 6'0.00" Weight: 220lbs. 0.0oz. [id number]; 31.00 BMI Method:Stated General Appearance: WD/WN, moderate distress Eyes: bilateral eye normal inspection, bilateral eye PERRL, bilateral eye EOMI Ears: right ear discharge, right ear swelling, right ear tenderness, right ear other (unable to see the Right TM secondary to debris and canal swelling); left ear auricle normal, left ear canal normal, left ear TM normal (PET noted in the left TM, appears patent) Nose: normal inspection Mouth/Throat: normal mouth inspection Neck: full range of motion, supple Respiratory: normal breath sounds, no respiratory distress, no accessory muscle use Neurologic/Psychiatric: alert, normal mood/affect, oriented x 3 Skin: normal color, warm/dry Progress/Results/Core Measures Results/Orders My Orders Orders - SHAWNA LINARES MD Ketorolac Injection (Toradol Injection) (04/01/20 15:00) Hydrocodone/Apap 10/325 Tablet (Lortab 1 (04/01/20 15:00) Neomy/Poly/Hc Otic Suspension (Cortispor (04/01/20 17:00) Medications Given in ED Vital Signs/I&O Blood Pressure Mean: 110 Progress Progress Note : Time: 15:17 Progress Note Ear wick fashioned from a Merocel nasal pack. Placed without too much discomfort into the patient's right ear canal. He tolerated this well. Packing was soaked with Cortisporin otic suspension drops. Discussed plan of care and follow-up with the patient. Recommended smoking cessation which he states that he is doing. Recommended strongly that he follow-up with Dr. Juarez with ENT as Dr. Juarez placed PE tubes in the patient approximately 3 years ago. Patient is comfortable with the plan of care all questions are sought and answered he will be sent home with the Cortisporin otic suspension drops as well as a prescription for some pain medicine and additional drops. He is recommended to use the drops for at least 1 week. Departure Impression Primary Impression: Otitis externa Qualified Codes: H60.311 - Diffuse otitis externa, right ear Disposition: 01 HOME, SELF-CARE Condition: Stable Departure-Patient Inst. Decision time for Depature: 15:19 Referrals: RAMIRO JUAREZ MD, DAVID F MD (PCP/Family) Primary Care Physician Patient Instructions: Outer Ear Infection (DC), DR. JUAREZ-MIDDLE EAR Add. Discharge Instructions: USE THE EAR DROPS DIRECTED - 5 DROPS IN YOUR RIGHT EAR 4 TIMES A DAY FOR A MAXIMUM OF 10 DAYS. TAKE OVER THE COUNTER ALLEVE 2 PILLS TWICE A DAY WITH FOOD FOR PAIN. DO NOT TAKE IBUPROFEN WHILE TAKING ALLEVE. I HAVE PRESCRIBED YOU HYDROCODONE FOR A COUPLE OF DAYS. USE THIS SPARINGLY AND REMEMBER IT I VERY ADDICTIVE. FOLLOW UP WITH AN ENT DOCTOR - I HAVE GIVEN YOU DR JUAREZ'S REFERRAL INFORMATION. RETURN TO THE ER FOR ANY WORSENING SYMPTOMS, FEVER, SEVERE HEADACHE OR OTHER EMERGENT CONCERNS. All discharge instructions reviewed with patient and/or family. Voiced understanding. Scripts Hydrocodone/Acetaminophen (Hydrocodone-Acetamin 10-325 mg) 1 Each Tablet 1 EACH PO Q6H PRN for PAIN-SEVERE (8-10), #10 TAB Prov: SHAWNA LINARES MD 04/01/20 SHAWNA LINARES MD Apr 01, 2020 14:45
[2020-04-01] MEDS ORDERED: KETOROLAC 60 MG/2 ML VIAL IM ONE (15:00)
[2020-04-01] MEDS ORDERED: HYDROcodone/APAP 10 MG/325 MG (LORTAB) TAB PO ONE (15:00)
[2020-04-01] MEDS ORDERED: HYDR-3820 PO (15:26)
[2020-04-01 15:36] VITALS: BP 134/98
[2020-04-01] MEDS ORDERED: NEOMY/POLYM/HC (CORTISPORIN) 10 ML BTL OT SCH (17:00)
== END 2020-04-01 15:36 | disposition home or self-care (01) ==
LOC: EDUNIT# 14:12 → ER 14:13
DX: H60.311 Diffuse otitis externa, right ear (principal); I10 Essential (primary) hypertension; G40.909 Epilepsy, unspecified, not intractable, without status epilepticus; F41.9 Anxiety disorder, unspecified; F32.9 Major depressive disorder, single episode, unspecified; F43.10 Post-traumatic stress disorder, unspecified; Z96.22 Myringotomy tube(s) status; Z86.018 Personal history of other benign neoplasm; Z87.442 Personal history of urinary calculi; F17.210 Nicotine dependence, cigarettes, uncomplicated; Z88.8 Allergy status to other drugs, medicaments and biological substances; Z79.52 Long term (current) use of systemic steroids; Z79.2 Long term (current) use of antibiotics
CPT/HCPCS: 99284

== ENCOUNTER 2020-10-24 10:57 | Emergency (ER) | payer SELFPAY ==
[~2020-10-24] VITALS: Ht 182.9 cm; Wt 104.3 kg
[~2020-10-24 10:57] MED LIST changes: +HYDR-3820 PO
[2020-10-24 11:03] VITALS: BP 136/83
--- NOTE | 2020-10-24 11:32 | ED EENT ---
History of Present Illness General Chief Complaint: Facial Problems Stated Complaint: FALL 2 DAYS AGO/R SIDE FACE INJ Nursing Triage Note: PT AMBULATE TO TRIAGE WITH C/O RIDE SIDE FACE PAIN. PT REPORT FALLING X2 DAYS AGO. PT STATES THIS IS THE "WORST PAIN I HAVE EVER FELT AND THE PAIN AND SWELLING IS JUST GETTING WORSE". REDNESS NOTED TO THE RIGHT SIDE OF PT'S FACE WITH SLIGHT SWELLING. PT STATES HE HAS BEEN TAKING TYLENOL AND NAPROXEN FOR THE PAIN WITHOUT RELIEF. Source: patient Exam Limitations: no limitations (SOBIA MORALES APRN) History of Present Illness Date Seen by Provider: Oct 24, 2020 Time Seen by Provider: 11:31 Initial Comments Fell two days ago and hit the right side of the head near the catholic. c/o severe pain despite tylenol and naproxen. Also c/o fluid on left ear. Timing/Duration: abrupt Severity: moderate Associated Symptoms: denies symptoms (SOBIA MORALES APRN) Allergies and Home Medications Allergies Coded Allergies: prednisone (Verified Adverse Reaction, Unknown, MAKES HIM NICKY, 04/01/20) Home Medications Amitriptyline HCl 25 Mg Tablet, 25 MG PO HS, (Reported) Amoxicillin/Potassium Clav 1 Each Tablet, 1 EACH PO BID Prescribed by: EL CHOUDHURY on 04/05/19 1232 Amoxicillin/Potassium Clav 1 Each Tablet, 1 EACH PO BID Prescribed by: SOBIA MORALES on 07/30/19 1120 Bupropion HCl 200 Mg Tablet.er, 200 MG PO DAILY, (Reported) Cefdinir 300 Mg Capsule, 300 MG PO BID Prescribed by: ADRIANA BERGER on 03/25/20 0931 Ciprofloxacin HCl/Dexameth 7.5 Ml Drops.susp, 7.5 ML OT BID 4 gtts rt ear bid Prescribed by: ADRIANA BERGER on 03/25/20 0931 Clindamycin HCl 300 Mg Capsule, 300 MG PO TID Prescribed by: SOBIA MORALES on 10/24/20 1230 Cyclobenzaprine HCl 10 Mg Tablet, 10 MG PO Q8H PRN for SPASMS Prescribed by: SEA DAVID on 03/19/19 1137 Diclofenac Potassium 25 Mg Capsule, 25 MG PO Q8H PRN for PAIN-BREAKTHROUGH Prescribed by: EL CHOUDHURY on 04/05/19 1232 Gabapentin 800 Mg Tablet, 800 MG PO QID, (Reported) Hydrocodone Bit/Acetaminophen 1 Tab Tab, 1-2 EACH PO Q6H PRN for PAIN-MODERATE Prescribed by: SEA DAVID on 03/19/19 1137 Hydrocodone/Acetaminophen 1 Each Tablet, 1 EACH PO Q6H PRN for PAIN-SEVERE (8- 10) Prescribed by: SHAWNA LINARES on 04/01/20 1526 Hydrocodone/Acetaminophen 1 Each Tablet, 1 TAB PO Q6H PRN for PAIN-MODERATE (5- 7) Prescribed by: SOBIA MORALES on 10/24/20 1136 Ofloxacin 5 Ml Drops, 3 DROPS EACH EAR BID Prescribed by: SERA MAYFIELD on 08/16/18 0833 Prednisone 50 Mg Tab, 50 MG PO DAILY Prescribed by: SEA DAVID on 03/19/19 1137 Patient Home Medication List Home Medication List Reviewed: Yes (SOBIA MORALES APRN) Review of Systems Review of Systems Constitutional: see HPI Eyes: No Symptoms Reported Ears: No Symptoms Reported Nose: no symptoms reported Mouth: no symptoms reported Throat: no symptoms reported Respiratory: no symptoms reported Cardiovascular: no symptoms reported Musculoskeletal: no symptoms reported Skin: no symptoms reported Neurological: No Symptoms Reported Hematologic/Lymphatic: No Symptoms Reported Immunological/Allergic: no symptoms reported (SOBIA MORALES APRN) Past Tnxwrgs-Tenzaw-Qcsbpu Hx Patient Social History Alcohol Use: Denies Use Number of Drinks Today: AA Alcohol Beverage of Choice: Beer Drug of Choice: marijuana Smoking Status: Current Everyday Smoker Type Used: Cigarettes 2nd Hand Smoke Exposure: Yes Recent Infectious Disease Expo: No Recent Hopitalizations: No (SOBIA MORALES APRN) Immunizations Up To Date Tetanus Booster (TDap): Unknown PED Vaccines UTD: Yes (SOBIA MORALES APRN) Seasonal Allergies Seasonal Allergies: No (SOBIA MORALES APRN) Past Medical History Surgeries: Yes (right hand surgery fx repair, 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) Ear Surgery, Gallbladder Respiratory: No Cardiac: Yes Hypertension Neurological: Yes (last seizure 2017) Seizure Disorder Reproductive Disorders: No Genitourinary: Yes Kidney Stones Gastrointestinal: No Musculoskeletal: Yes Arthritis, Chronic Back Pain Endocrine: No HEENT: Yes (Tubes in Ears) Chronic Ear Infection Cancer: No Psychosocial: No Anxiety, PTSD, Depression Integumentary: No Blood Disorders: No (SOBIA MORALES APRN) Family Medical History No Pertinent Family Hx (SOBIA MORALES APRN) Physical Exam Vital Signs Vital Signs - First Documented 10/24/20 11:03 Temp 36.9 Pulse 85 Resp 17 B/P (MAP) 136/83 (100) O2 Delivery Room Air (TITO AREVALO MD) Height, Weight, BMI Height: 6'0.00" Weight: 220lbs. 0.0oz. 99.517043db; 31.00 BMI Method:Stated General Appearance: WD/WN, no apparent distress Eyes: bilateral eye normal inspection, bilateral eye PERRL, bilateral eye EOMI, bilateral eye other (ecchymosis right catholic, minor bruising to lateral upper and lower right lid without edema. No subconjunctival hemorrhage. EMOI. PERRLA. ) Ears: right ear TM normal; left ear TM bulging; bilateral ear auricle normal, bilateral ear canal normal Neck: non-tender, full range of motion Respiratory: no respiratory distress, no accessory muscle use Gastrointestinal: normal bowel sounds, non tender Neurologic/Psychiatric: alert, normal mood/affect, oriented x 3 Skin: normal color, warm/dry (SOBIA MORALES APRN) Progress/Results/Core Measures Results/Orders Blood Pressure Mean: 100 Progress Progress Note : Progress Note I was physically present in the emergency department as attending physician during the care of this patient, but I was not directly involved in this pa tient's care. (TITO AREVALO MD) Departure Communication (Admissions) NAME: ZACKERY HART [facility] REC#: [id number] PT STATUS: REG ER : 1980 PHYSICIAN: SOBIA MORALES APRN ADMIT DATE: 10/24/20/ER Draft Date of Exam:10/24/20 CT HEAD WO PROCEDURE: CT head without contrast. TECHNIQUE: Multiple contiguous axial images were obtained through the brain without the use of intravenous contrast. Auto Exposure Controls were utilized during the CT exam to meet ALARA standards for radiation dose reduction. INDICATION: Right-sided headache after a fall 2 days ago. COMPARISON: 06/22/2015. DISCUSSION: No acute intracranial hemorrhage, mass, midline shift, or hydrocephalus. The ventricles and sulci are normal in size and configuration for age. Left mastoid air cell effusion is new. The right mastoid air cells are well-aerated. The sinuses are well-aerated. The orbits are symmetrical. Soft tissues are unremarkable. IMPRESSION: 1. No acute intracranial abnormality identified. 2. Left mastoid air cell effusion. Dictated on workstation # [id number] Dict: 10/24/20 1217 Trans: 10/24/20 1225 [facility] [id number] Interpreted by: BRAD CHAUHAN MD Electronically signed by: (SOBIA MORALES APRN) Impression Primary Impression: Contusion of face Additional Impression: Left mastoid effusion Disposition: HOME, SELF-CARE Condition: Stable Departure-Patient Inst. Decision time for Depature: 11:34 (SOBIA MORALES APRN) Referrals: RAMIRO JUAREZ MD, DAVID F MD (PCP/Family) Primary Care Physician Patient Instructions: Contusion (DC) Add. Discharge Instructions: Ice pack to the area. tylenol and motrin for pain. Follow up wtih Dr Juarez in regards to your left ear. Call Monday for an appointment. All discharge instructions reviewed with patient and/or family. Voiced understanding. Scripts Clindamycin HCl (Clindamycin HCl) 300 Mg Capsule 300 MG PO TID, #21 CAP Prov: SOBIA MORALES APRN 10/24/20 Hydrocodone/Acetaminophen (Hydrocodone-Acetamin 5-325 mg) 1 Each Tablet 1 TAB PO Q6H PRN for PAIN-MODERATE (5-7), #5 TAB Prov: SOBIA MORALES APRN 10/24/20 SOBIA MORALES APRN Oct 24, 2020 11:31 TITO AREVALO MD Oct 26, 2020 09:52
[2020-10-24] MEDS ORDERED: ACHD5005 PO (11:35)
--- NOTE | 2020-10-24 12:27 | Diagnostic Imaging Report ---
PROCEDURE: CT head without contrast. TECHNIQUE: Multiple contiguous axial images were obtained through the brain without the use of intravenous contrast. Auto Exposure Controls were utilized during the CT exam to meet ALARA standards for radiation dose reduction. INDICATION: Right-sided headache after a fall 2 days ago. COMPARISON: 06/22/2015. DISCUSSION: No acute intracranial hemorrhage, mass, midline shift, or hydrocephalus. The ventricles and sulci are normal in size and configuration for age. Left mastoid air cell effusion is new. The right mastoid air cells are well-aerated. The sinuses are well-aerated. The orbits are symmetrical. Soft tissues are unremarkable. IMPRESSION: 1. No acute intracranial abnormality identified. 2. Left mastoid air cell effusion. Dictated by: Dictated on workstation # [id number]
[2020-10-24] MEDS ORDERED: CLIN300C12 PO (12:30)
== END 2020-10-24 12:33 | disposition home or self-care (01) ==
LOC: EDUNIT# 10:57 → ER 10:58
DX: S00.83XA Contusion of other part of head, initial encounter (principal); H74.8X2 Other specified disorders of left middle ear and mastoid; I10 Essential (primary) hypertension; G40.909 Epilepsy, unspecified, not intractable, without status epilepticus; G89.29 Other chronic pain; M54.9 Dorsalgia, unspecified; F41.9 Anxiety disorder, unspecified; F32.9 Major depressive disorder, single episode, unspecified; F17.210 Nicotine dependence, cigarettes, uncomplicated; Z79.891 Long term (current) use of opiate analgesic; Z79.899 Other long term (current) drug therapy; W01.198A Fall on same level from slipping, tripping and stumbling with subsequent striking against other object, initial encounter
CPT/HCPCS: 70450

== ENCOUNTER 2020-11-06 08:57 | Emergency (ER) | payer SELFPAY ==
[~2020-11-06] VITALS: Ht 182.8 cm; Wt 104.5 kg
[~2020-11-06 08:57] MED LIST changes: +CLIN300C12 PO
[2020-11-06 09:59] VITALS: BP_SYST 131; BP_SYST 138; BP_SYST 139; BP_DIAS 86; BP_DIAS 90; BP_DIAS 93
--- NOTE | 2020-11-06 09:59 | ED EENT ---
History of Present Illness General Chief Complaint: Ear Problems Stated Complaint: PASSING OUT/ EAR INFECTION L EAR Nursing Triage Note: AMB TO ROOM WITH L EAR PAIN FOR 5 YEARS IS DIZZY WITH IS WORSE LAST 1MONTH HAS BEEN SEEN FOR SEVERAL TIMES IN ED HAS MISSED HIS FOLLOW UP Source: patient Exam Limitations: no limitations (KULWINDER ROSE MED STUDENT) History of Present Illness Date Seen by Provider: Nov 06, 2020 Time Seen by Provider: 09:45 Initial Comments Mr Bland is a 40 yo male that presents today with L sided ear pain and multiple episodes of syncope. States his L ear pain is a long standing problem that started a couple of years ago when he had a fungal infection of his ear that was missed. States that since then he has had ongoing pain and pressure in the ear. He has seen Dr. Juarez in [place] as well as Dr. Juarez in [place]. He has most recently seen Dr. Juarez in [place] in May. At that appointment he had his ear tubes taken out and his pain had been well under control. The pain has now recently only recently started to get worse. He presented in this ER 13 days ago with similar complains, he was seen by Sobia Maher APRN. He received a head CT that showed new L mastoid air cell effusion, he was sent home with clindamycin and pain medication, he was also advised to follow up with his ENT. Today he states along with the pain and pressure he has been experiencing multiple episodes of syncope. He feels pressure behind his left ear and feels a lot of pressure behind his eyes. States the syncope happens if he gets up too fast or doing extraneous activity. States that one of the times when he came to he noticed that he had a tremor. He states that his pain is very severe and states that he thinks he might . He denies fevers and chest pain. (KULWINDER ROSE MED STUDENT) Allergies and Home Medications Allergies Coded Allergies: prednisone (Verified Adverse Reaction, Unknown, MAKES HIM NICKY, 04/01/20) Home Medications Amitriptyline HCl 25 Mg Tablet, 25 MG PO HS, (Reported) Amoxicillin/Potassium Clav 1 Each Tablet, 1 EACH PO BID Prescribed by: EL CHOUDHURY on 04/05/19 1232 Amoxicillin/Potassium Clav 1 Each Tablet, 1 EACH PO BID Prescribed by: SOBIA MAHER on 07/30/19 1120 Amoxicillin/Potassium Clav 1 Each Tablet, 1 EACH PO BID Prescribed by: TITO ORR on 11/06/20 1205 Bupropion HCl 200 Mg Tablet.er, 200 MG PO DAILY, (Reported) Cefdinir 300 Mg Capsule, 300 MG PO BID Prescribed by: ADRIANA BERGER on 03/25/20 09 Ciprofloxacin HCl/Dexameth 7.5 Ml Drops.susp, 7.5 ML OT BID 4 gtts rt ear bid Prescribed by: ADRIANA BERGER on 03/25/20 0931 Clindamycin HCl 300 Mg Capsule, 300 MG PO TID Prescribed by: SOBIA MAHER on 10/24/20 1230 Cyclobenzaprine HCl 10 Mg Tablet, 10 MG PO Q8H PRN for SPASMS Prescribed by: SEA DAVID on 03/19/19 113 Diclofenac Potassium 25 Mg Capsule, 25 MG PO Q8H PRN for PAIN-BREAKTHROUGH Prescribed by: LE CHOUDHURY on 04/05/19 1232 Fluticasone Propionate 9.9 Ml [place].susp, 2 SPRAY NS BID 2 SPRAYS PER NOSTRIL DAILY X 2 DAYS THEN 1 SPRAY DAILY Prescribed by: TITO ORR on 11/06/20 1205 Gabapentin 800 Mg Tablet, 800 MG PO QID, (Reported) Hydrocodone Bit/Acetaminophen 1 Tab Tab, 1-2 EACH PO Q6H PRN for PAIN-MODERATE Prescribed by: SEA DAVID on 03/19/19 1137 Hydrocodone/Acetaminophen 1 Each Tablet, 1 EACH PO Q6H PRN for PAIN-SEVERE (8- 10) Prescribed by: SHAWNA LINARES on 04/01/20 1526 Hydrocodone/Acetaminophen 1 Each Tablet, 1 TAB PO Q6H PRN for PAIN-MODERATE (5- 7) Prescribed by: SOBIA MAHER on 10/24/20 1136 Ofloxacin 5 Ml Drops, 3 DROPS EACH EAR BID Prescribed by: SERA MAYFIELD on 08/16/18 0833 Prednisone 50 Mg Tab, 50 MG PO DAILY Prescribed by: SEA DAVID on 03/19/19 1137 Patient Home Medication List Home Medication List Reviewed: Yes (KULWINDER ROSE MED STUDENT) Review of Systems Review of Systems Constitutional: no symptoms reported Eyes: See HPI Ears: See HPI Nose: no symptoms reported Mouth: no symptoms reported Throat: no symptoms reported Respiratory: no symptoms reported Cardiovascular: see HPI, syncope Gastrointestinal: no symptoms reported Musculoskeletal: no symptoms reported Skin: no symptoms reported Neurological: No Symptoms Reported Hematologic/Lymphatic: No Symptoms Reported Immunological/Allergic: no symptoms reported (TITO AREVALO MD) Past Hzzumky-Wafiev-Joropi Hx Past Med/Social Hx: Reviewed Nursing Past Med/Soc Hx (TITO AREVALO MD) Patient Social History Alcohol Use: Denies Use Number of Drinks Today: AA Alcohol Beverage of Choice: Beer Drug of Choice: marijuana Smoking Status: Current Everyday Smoker Type Used: Cigarettes 2nd Hand Smoke Exposure: Yes Recent Infectious Disease Expo: No Recent Hopitalizations: No (KULWINDER ROSE) Immunizations Up To Date Tetanus Booster (TDap): Unknown PED Vaccines UTD: Yes (KULWINDER ROSE) Seasonal Allergies Seasonal Allergies: No (KULWINDER ROSE) Past Medical History Surgeries: Yes (right hand surgery fx repair, 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) Ear Surgery, Gallbladder Respiratory: No Cardiac: Yes Hypertension Neurological: Yes (last seizure 2016) Seizure Disorder Reproductive Disorders: No Genitourinary: Yes Kidney Stones Gastrointestinal: No Musculoskeletal: Yes Arthritis, Chronic Back Pain Endocrine: No HEENT: Yes (Tubes in Ears) Chronic Ear Infection Cancer: No Psychosocial: No Anxiety, PTSD, Depression Integumentary: No Blood Disorders: No (KULWINDER ROSE) Family Medical History No Pertinent Family Hx (KULWINDER ROSE) Physical Exam Vital Signs Vital Signs - First Documented 11/06/20 09:00 Temp 37.0 Pulse 97 Resp 18 B/P (MAP) 149/107 (121) Pulse Ox 96 O2 Delivery Room Air (TITO AREVALO MD) Height, Weight, BMI Height: 6'0.00" Weight: 220lbs. 0.0oz. 99.892336kc; 31.00 BMI Method:Stated (KULWINDER ROSE) General Appearance: WD/WN, no apparent distress (TITO AREVALO MD) Progress/Results/Core Measures Results/Orders Lab Results Laboratory Tests Test 11/06/20 10:00 Range/Units White Blood Count 11.1 H 4.3-11.0 10^3/uL Red Blood Count 4.76 4.30-5.52 10^6/uL Hemoglobin 14.6 13.3-17.7 g/dL Hematocrit 43 40-54 % Mean Corpuscular Volume 90 80-99 fL Mean Corpuscular Hemoglobin 31 25-34 pg Mean Corpuscular Hemoglobin Concent 34 32-36 g/dL Red Cell Distribution Width 12.3 10.0-14.5 % Platelet Count 301 130-400 10^3/uL Mean Platelet Volume 10.4 9.0-12.2 fL Immature Granulocyte % (Auto) 1 % Neutrophils (%) (Auto) 59 42-75 % Lymphocytes (%) (Auto) 28 12-44 % Monocytes (%) (Auto) 10 0-12 % Eosinophils (%) (Auto) 2 0-10 % Basophils (%) (Auto) 1 0-10 % Neutrophils # (Auto) 6.6 1.8-7.8 10^3/uL Lymphocytes # (Auto) 3.1 1.0-4.0 10^3/uL Monocytes # (Auto) 1.1 H 0.0-1.0 10^3/uL Eosinophils # (Auto) 0.2 0.0-0.3 10^3/uL Basophils # (Auto) 0.1 0.0-0.1 10^3/uL Immature Granulocyte # (Auto) 0.1 0.0-0.1 10^3/uL Sodium Level 137 135-145 MMOL/L Potassium Level 3.8 3.6-5.0 MMOL/L Chloride Level 102 98-107 MMOL/L Carbon Dioxide Level 26 21-32 MMOL/L Anion Gap 9 5-14 MMOL/L Blood Urea Nitrogen 12 7-18 MG/DL Creatinine 0.82 0.60-1.30 MG/DL Estimat Glomerular Filtration Rate > 60 BUN/Creatinine Ratio 15 Glucose Level 78 70-105 MG/DL Calcium Level 9.8 8.5-10.1 MG/DL Corrected Calcium 9.5 8.5-10.1 MG/DL Magnesium Level 2.3 1.6-2.4 MG/DL Total Bilirubin 0.4 0.1-1.0 MG/DL Aspartate Amino Transf (AST/SGOT) 30 5-34 U/L Alanine Aminotransferase (ALT/SGPT) 46 0-55 U/L Alkaline Phosphatase 119 40-136 U/L Troponin I < 0.028 <0.028 NG/ML C-Reactive Protein High Sensitivity 2.05 H 0.00-0.50 MG/DL Total Protein 7.8 6.4-8.2 GM/DL Albumin 4.4 3.2-4.5 GM/DL TSH [place] Testing 0.58 0.35-4.94 UIU/ML (TITO AREVALO MD) My Orders Orders - TITO AREVALO MD Cbc With Automated Diff (11/06/20 09:41) Comprehensive Metabolic Panel (11/06/20 09:41) Hs C Reactive Protein (11/06/20 09:41) Magnesium (11/06/20 09:41) Thyroid Analyzer (11/06/20 09:41) Troponin I (11/06/20 09:41) Ekg Tracing (11/06/20 09:41) Monitor-Rhythm Ecg Trace Only (11/06/20 09:41) Ed Iv/Invasive Line Start (11/06/20 09:45) Ct Head Wo (11/06/20 09:45) Orthostatic Vital Signs (Adult (11/06/20 09:49) Ceftriaxone (Rocephin) (11/06/20 11:30) (TITO AREVALO MD) Medications Given in ED Current Medications Medications Dose Ordered Sig/Spring Route Start Time Stop Time Status Last Admin Dose Admin Ceftriaxone Sodium 1000 mg/ Sterile Water 10 ml @ 200 mls/hr ONCE ONCE IV 11/06/20 11:30 11/06/20 11:32 DC 11/06/20 11:48 200 MLS/HR (TITO AREVALO MD) Vital Signs/I&O 11/06/20 11/06/20 09:59 12:22 Pulse 85 77 81 90 Resp 18 B/P (MAP) 131/86 (101) 126/96 138/90 (106) 139/93 (108) Pulse Ox 98 O2 Delivery Room Air (TITO AREVALO MD) Blood Pressure Mean: 121 Progress Progress Note : Progress Note This patient was interviewed and examined by me personally. EKG and cardiac rhythm monitoring were unremarkable. Patient seemed to have a rebounding symptoms after treatment with clindamycin. He has tenderness over the left mastoid. For this reason a repeat CT of the head was offered to evaluate the mastoid effusion and ensure he is not developing a worsening mastoiditis. Patient requested to proceed with CT. The complaint of syncope seems to be a separate issue. He reports an episode of syncope this morning, 2 syncopal episodes yesterday, and one syncopal episode about a week ago. He reports complete loss of just notes with each of these episodes. And this morning he had some tremors while coming out of his loss of consciousness. Based on his recounting of reports from witnesses, it does not sound like he had convulsions during any of his episodes to suggest seizure. Episodes have generally occurred when upright and active. He denies any chest pain or shortness of breath. He denies any drug or alcohol use. After evaluation was complete, case was discussed with Dr. Guerrero. He and I are both concerned about the frequency and abruptness of the syncopal episodes. We believe a cardiogenic etiology should be ruled out. Admission was advised. Patient declined admission stating it is Father's Day weekend and his children are already at his home. He does not see them often and does not want to miss this opportunity. He expressed understanding that he could be leaving with a dangerous or life-threatening situation without complete evaluation and treatment. (TITO AREVALO MD) Initial ECG Impression Date: Nov 06, 2020 Initial ECG Impression Time: 09:06 Initial ECG Rate: 105 Initial ECG Rhythm: S.Tach Comment Sinus tachycardia with no ST elevation or depression. No abnormal intervals or axis deviation. (TITO AREVALO MD) Departure Impression Primary Impression: Syncope Qualified Codes: R55 - Syncope and collapse Additional Impressions: Acute sinusitis Qualified Codes: J01.00 - Acute maxillary sinusitis, unspecified Chronic headache Qualified Codes: R51.9 - Headache, unspecified; G89.29 - Other chronic pain Disposition: 07 AGAINST MEDICAL ADVICE Condition: Against Medical Advice Departure-Patient Inst. Decision time for Depature: 12:01 (TITO AREVALO MD) Referrals: BRAD REID MD (PCP/Family) Primary Care Physician DAWN GUERRERO MD Patient Instructions: Sinusitis in Adults, Syncope (Fainting) Add. Discharge Instructions: You are leaving the hospital AGAINST MEDICAL ADVICE. Please be advised that syncope is a dangerous condition that could result from serious disease such as cardiac arrhythmias. If unmonitored and not evaluated properly, syncope could lead to injury, other problems, and sudden . Please return to the emergency department if you change your mind about admission. Otherwise, follow-up with your primary care provider and the cardiology clinic as soon as possible. Please call as soon as possible to schedule the appointments. Return the emergency room if you have worsening symptoms. Complete antibiotics and nasal sprays as prescribed. All discharge instructions reviewed with patient and/or family. Voiced understanding. Scripts Fluticasone Propionate (Flonase Allergy Relief) 9.9 Ml [place].susp 2 SPRAY NS BID, #1 EACH 2 SPRAYS PER NOSTRIL DAILY X 2 DAYS THEN 1 SPRAY DAILY Prov: TITO AREVALO MD 11/06/20 Amoxicillin/Potassium Clav (Augmentin 875-125 Tablet) 1 Each Tablet 1 EACH PO BID, #28 TAB 0 Refills Prov: TITO AREVALO MD 11/06/20 Medical Student Attestation and Attending Note: I have personally interviewed and examined this patient along with Kulwinder Rose MS4. I have reviewed student documentation including history, physical, and assessments. I agree with the documentation except where otherwise noted. Exam: General: Alert, oriented, no acute distress, well developed HEENT: Normocephalic and atraumatic, left tympanic membrane cloudy without inflammation or apparent effusion, right TM normal, left mastoid tender to palpation Neck: Normal to inspection with no JVD or carotid bruit Heart: Regular rate and rhythm without murmur Lungs: Clear to auscultation bilaterally with normal effort Neuropsych: Alert, oriented, no focal deficits Extremities: Normal to inspection with no edema Skin: Warm and dry without rashes (TITO AREVALO MD) Copy Copies To 1: BRAD REID MD Copies To 2: DAWN GUERRERO MD, DEREK MED STUDENT Nov 06, 2020 09:59 TITO AREVALO MD Nov 06, 2020 12:06
--- NOTE | 2020-11-06 10:09 | Diagnostic Imaging Report ---
PROCEDURE: CT head without contrast. TECHNIQUE: Multiple contiguous axial images were obtained through the brain without the use of intravenous contrast. Auto Exposure Controls were utilized during the CT exam to meet ALARA standards for radiation dose reduction. INDICATION: Left ear pain for 5 years as well as increasing dizziness. CORRELATION is made with a recent head CT from 10/24/2020. The ventricles and sulci are within normal limits. No sulcal effacement or midline shift is identified. No acute intra-axial or extra-axial hemorrhage is detected. Cisterns are patent. The patient has developed moderate mucosal thickening involving the bilateral maxillary sinuses as well as some maxillary sinus fluid. Ethmoids and sphenoid sinuses are clear. The frontal sinus is clear. Right mastoid air cells are well-aerated. There continues to be opacification of multiple left-sided mastoid air cells, similar to prior exam consistent with a mastoid effusion. No bony destructive changes are seen. There is also a small amount of fluid in the middle ear cavity. IMPRESSION: 1. No acute intracranial process detected. 2. Continued left mastoid effusion as well as fluid in the middle ear cavity. 3. Interval development of bilateral maxillary sinus disease with mucosal thickening and fluid. Dictated by: Dictated on workstation # [id number]
[2020-11-06 10:34] LABS: BASOPHILS # (AUTO) 0.1 10^3/uL (0.0-0.1); BASOPHILS % (AUTO) 1 % (0-10); EOSINOPHILS # (AUTO) 0.2 10^3/uL (0.0-0.3); EOSINOPHILS % (AUTO) 2 % (0-10); HEMATOCRIT 43 % (40-54); HEMOGLOBIN 14.6 g/dL (13.3-17.7); LYMPHOCYTES # (AUTO) 3.1 10^3/uL (1.0-4.0); LYMPHOCYTES % (AUTO) 28 % (12-44); MEAN CORPUSCULAR HEMOGLOBIN 31 pg (25-34); MEAN CORPUSCULAR HGB CONC 34 g/dL (32-36); MEAN CORPUSCULAR VOLUME 90 fL (80-99); MEAN PLATELET VOLUME 10.4 fL (9.0-12.2); MONOCYTES # (AUTO) 1.1 10^3/uL (0.0-1.0); MONOCYTES % (AUTO) 10 % (0-12); NEUTROPHILS # (AUTO) 6.6 10^3/uL (1.8-7.8); NEUTROPHILS % (AUTO) 59 % (42-75); PLATELET COUNT 301 10^3/uL (130-400); WHITE BLOOD COUNT 11.1 10^3/uL (4.3-11.0)
[2020-11-06 10:52] LABS: ALANINE AMINOTRANSFERASE 46 U/L (0-55); ALBUMIN 4.4 GM/DL (3.2-4.5); ALKALINE PHOSPHATASE 119 U/L (40-136); BILIRUBIN,TOTAL 0.4 MG/DL (0.1-1.0); BUN/CREATININE RATIO 15; CALCIUM 9.8 MG/DL (8.5-10.1); CARBON DIOXIDE 26 MMOL/L (21-32); CHLORIDE 102 MMOL/L (98-107); CREATININE SERUM 0.82 MG/DL (0.60-1.30); GFR ESTIMATED > 60; GLUCOSE 78 MG/DL (70-105); MAGNESIUM 2.3 MG/DL (1.6-2.4); POTASSIUM 3.8 MMOL/L (3.6-5.0); SODIUM 137 MMOL/L (135-145); TOTAL PROTEIN 7.8 GM/DL (6.4-8.2)
[2020-11-06 11:12] LABS: TSH (THYROID ANALYZER) 0.58 UIU/ML (0.35-4.94)
[2020-11-06] MEDS ORDERED: cefTRIAXone 1,000 MG in WATER (STERILE) FOR INJECTION 10 ML IV ONE (11:30)
[2020-11-06] MEDS ORDERED: FLUT9.9S NS (12:05)
[2020-11-06] MEDS ORDERED: AMOX-358 PO (12:05)
[2020-11-06 12:22] VITALS: BP 126/96
== END 2020-11-06 12:22 | disposition left against medical advice (07) ==
LOC: EDUNIT# 08:57 → ER 09:00
DX: R55 Syncope and collapse (principal); J01.90 Acute sinusitis, unspecified; G89.29 Other chronic pain; R51.9 Headache, unspecified; I10 Essential (primary) hypertension; G40.909 Epilepsy, unspecified, not intractable, without status epilepticus; F32.9 Major depressive disorder, single episode, unspecified; M54.9 Dorsalgia, unspecified; F41.9 Anxiety disorder, unspecified; F17.210 Nicotine dependence, cigarettes, uncomplicated; Z79.52 Long term (current) use of systemic steroids; Z79.899 Other long term (current) drug therapy; Z79.891 Long term (current) use of opiate analgesic
CPT/HCPCS: 36415; 70450; 80053; 83735; 84443; 84484; 85025; 86141; 93005

== ENCOUNTER 2021-05-05 02:35 | Emergency (ER) | payer SELFPAY ==
[~2021-05-05 02:35] MED LIST changes: +CLIN-144 PO; -CLIN300C12 PO; +CYCL10TA25 PO; -LISI1TAB26; +LISI1TAB48
[2021-05-05] MEDS ORDERED: NF-CIPDEC OT (03:04)
[2021-05-05] MEDS ORDERED: CEFD300C3 PO (03:04)
[2021-05-05] MEDS ORDERED: TRAM-42 PO (03:04)
--- NOTE | 2021-05-05 03:05 | ED EENT ---
History of Present Illness General Stated Complaint: LEFT EAR PAIN Source: patient History of Present Illness Date Seen by Provider: May 05, 2021 Time Seen by Provider: 02:54 Initial Comments PT ARRIVES VIA POV FROM HOME C/O SEVERE LEFT EAR PAIN SINCE MONDAY SLIGHT DRAINAGE C/O DECREASED HEARING FROM RIGHT EAR NO FEVER NO URI/SINUS SYMPTOMS STATES HE TOOK TYLENOL AT 2300 TONIGHT, AND MOTRIN AROUND 1800--NO RELIEF STATES "THE PAIN HAS NEVER BEEN THIS BAD" THIS IS A CHRONIC, RECURRENT PROBLEM STATES HE HAS HAD 4 SETS OF TUBES IN EARS IN THE LAST 3 YEARS STATES TUBES WERE REMOVED IN NOVEMBER, AND STATES HE WAS SUPPOSED TO HAVE ANOTHER SURGERY, BUT NEVER FOLLOWED UP WITH ANYONE. CLAIMS HIS LAST INFECTION WAS LESS THAN 2 MONTHS AGO PT'S LAST VISIT TO THIS ER FOR THIS PROBLEM WAS MARCH OF 2020. PT HAS SEEN BOTH DR. FRAZIER AND AN ENT AT [facility] IN [place] PCP: [facility] Allergies and Home Medications Allergies Coded Allergies: prednisone (Verified Adverse Reaction, Unknown, MAKES SHANA SAUNDERS, 04/01/20) Patient Home Medication List Home Medication List Reviewed: Yes Amitriptyline HCl (Amitriptyline HCl) 25 Mg Tablet, 25 MG PO HS, (Reported) Entered as Reported by: BOY NAIK on 08/14/18 1241 Amoxicillin/Potassium Clav (Augmentin 875-125 Tablet) 1 Each Tablet, 1 EACH PO BID Prescribed by: EL CHOUDHURY on 04/05/19 1232 Amoxicillin/Potassium Clav (Augmentin 875-125 Tablet) 1 Each Tablet, 1 EACH PO BID Prescribed by: SOBIA MORALES on 07/30/19 1120 Amoxicillin/Potassium Clav (Augmentin 875-125 Tablet) 1 Each Tablet, 1 EACH PO BID Prescribed by: TITO ORR on 11/06/20 1205 Bupropion HCl (Wellbutrin Sr) 200 Mg Tablet.er, 200 MG PO DAILY, (Reported) Entered as Reported by: BOY NAIK on 08/14/18 1241 Cefdinir (Cefdinir) 300 Mg Capsule, 300 MG PO BID Prescribed by: ADRIANA BERGER on 03/25/20 0931 Cefdinir (Cefdinir) 300 Mg Capsule, 300 MG PO BID Prescribed by: LYDIA SHERIFF on 05/05/21 0304 Ciprofloxacin HCl/Dexameth (Ciproflox-Dexameth Otic Susp) 7.5 Ml Drops.susp, 7.5 ML OT BID Prescribed by: ADRIANA BERGER on 03/25/20 0931 Ciprofloxacin HCl/Dexameth (Ciprodex Otic Suspension) 7.5 Ml Soln, 7.5 ML OT BID Prescribed by: LYDIA SHERIFF on 05/05/21 0304 Clindamycin HCl (Clindamycin HCl) 300 Mg Capsule, 300 MG PO TID Prescribed by: SOBIA MORALES on 10/24/20 1230 Cyclobenzaprine HCl (Cyclobenzaprine HCl) 10 Mg Tablet, 10 MG PO Q8H PRN for SPASMS Prescribed by: SEA DAVID on 03/19/19 1137 Diclofenac Potassium (Zipsor) 25 Mg Capsule, 25 MG PO Q8H PRN for PAIN- BREAKTHROUGH Prescribed by: EL CHOUDHURY on 04/05/19 1232 Fluticasone Propionate (Flonase Allergy Relief) 9.9 Ml [place].susp, 2 SPRAY NS BID Prescribed by: TITO ORR on 11/06/20 1205 Gabapentin (Gabapentin) 800 Mg Tablet, 800 MG PO QID, (Reported) Entered as Reported by: AMELIA PATEL on 05/19/17 1216 Hydrocodone Bit/Acetaminophen (Lortab 5 Mg Tablet) 1 Tab Tab, 1-2 EACH PO Q6H PRN for PAIN-MODERATE Prescribed by: SEA DAVID on 03/19/19 1137 Hydrocodone/Acetaminophen (Hydrocodone-Acetamin 10-325 mg) 1 Each Tablet, 1 EACH PO Q6H PRN for PAIN-SEVERE (8-10) Prescribed by: SHAWNA LINARES on 04/01/20 1526 Hydrocodone/Acetaminophen (Hydrocodone-Acetamin 5-325 mg) 1 Each Tablet, 1 TAB PO Q6H PRN for PAIN-MODERATE (5-7) Prescribed by: SOBIA MORALES on 10/24/20 1136 Lisinopril/Hydrochlorothiazide (Lisinopril-Hctz 20-25 mg Tab) 1 Each Tablet, (Reported) Entered as Reported by: AMELIA PATEL on 05/19/17 1216 Loratadine/Pseudoephedrine (Claritin-D 12 Hour Tablet) 1 Each Tab.er.12h, 1 EACH PO BID Prescribed by: LYDIA SHERIFF on 05/05/21 030 Ofloxacin (Floxin (Non-Formulary)) 5 Ml Drops, 3 DROPS EACH EAR BID Prescribed by: SERA MAYFIELD on 08/16/18 0833 Prednisone (Prednisone) 50 Mg Tab, 50 MG PO DAILY Prescribed by: SEA DAVID on 03/19/19 1137 Tramadol HCl (Ultram) 50 Mg Tablet, 50 MG PO Q4H Prescribed by: LYDIA SHERIFF on 05/05/21 030 Triamcinolone Acetonide (Nasacort) 10.8 Ml [place], 2 SPRAYS NS BID Prescribed by: LYDIA SHERIFF on 05/05/21306 Review of Systems Review of Systems Constitutional: no symptoms reported Eyes: No Symptoms Reported Ears: See HPI Nose: no symptoms reported Mouth: no symptoms reported Throat: no symptoms reported Respiratory: no symptoms reported Cardiovascular: no symptoms reported Gastrointestinal: no symptoms reported Musculoskeletal: no symptoms reported Skin: no symptoms reported Neurological: Anxiety; Denies Headache Hematologic/Lymphatic: No Symptoms Reported Immunological/Allergic: no symptoms reported Past Ipwdfsc-Pqxlmn-Xfqvwe Hx Immunizations Up To Date Tetanus Booster (TDap): Unknown PED Vaccines UTD: Yes Seasonal Allergies Seasonal Allergies: No Past Medical History Surgery/Hospitalization HX: BMT'S-MULTIPLE SETS Surgeries: Yes (right hand surgery fx repair, 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 0.0oz. 99.056042tp; 31.00 BMI Method:Stated General Appearance: other (VERY ANXIOUS, VERY DRAMATIC, CONSTANT MOVEMENTS, MOANING LOUDLY, HOLDING LEFT EAR. ) Ears: right ear auricle normal, right ear canal normal, right ear TM normal; left ear other (LEFT PINNA APPEARS NORMAL, BUT HAS PAIN ON TRACTION OF PINNA. LEFT EAC MILDLY INFLAMED WITH SMALL AMOUNT OF ADHERENT EXUDATE. LEFT TM DULL, SCLEROTIC AND MILDLY INJECTED. ) Nose: normal inspection Mouth/Throat: pharynx normal Neck: non-tender, full range of motion, supple, lymphadenopathy (R) (MILD ANTERIOR/POSTERIOR), lymphadenopathy (L) (MILD ANTERIOR / POSTERIOR) Cardiovascular: regular rate, rhythm, no murmur Respiratory: normal breath sounds Neurologic/Psychiatric: ordnance mechanic II-XII nml as tested, no motor/sensory deficits, alert, oriented x 3 Skin: normal color, warm/dry; No rash Progress/Results/Core Measures Results/Orders My Orders Orders - SHARITAGIOVANNYA K DO Rx-Tramadol Hcl (Rx-Ultram) (05/05/21 03:01) Cefdinir Capsule (Omnicef Capsule) (05/05/21 03:15) Departure Impression Primary Impression: Left otitis media Additional Impression: Left otitis externa Disposition: HOME, SELF-CARE Condition: Stable Departure-Patient Inst. Decision time for Depature: 03:00 Referrals: RAMIRO FRAZIER MD, DAVID F MD (PCP/Family) Primary Care Physician Patient Instructions: Ear Infection ED, Outer Ear Infection (DC) Add. Discharge Instructions: TYLENOL 1 GRAM AND MOTRIN 800 MG 4 TIMES A DAY FOR PAIN USE EAR DROPS AND TAKE ORAL ANTIBIOTICS PRESCRIBED FOLLOW UP WITH DR. FRAZIER THIS WEEK FOR FURTHER CARE Scripts Loratadine/Pseudoephedrine (Claritin-D 12 Hour Tablet) 1 Each Tab.er.12h 1 EACH PO BID, #20 TAB Prov: SHARITAGIOVANNYA K DO 05/05/21 Triamcinolone Acetonide (Nasacort) 10.8 Ml [place] 2 SPRAYS NS BID, #1 SPRAY Prov: SHARITA,LYDIA K DO 05/05/21 Tramadol HCl (Ultram) 50 Mg Tablet 50 MG PO Q4H for Pain, #10 TAB Prov: SHARITAGIOVANNYA K DO 05/05/21 Ciprofloxacin HCl/Dexameth (Ciprodex Otic Suspension) 7.5 Ml Soln 7.5 ML OT BID for 7 Days, #1 EA Prov: SHARITALYDIA K DO 05/05/21 Cefdinir (Cefdinir) 300 Mg Capsule 300 MG PO BID, #20 CAP Prov: SHARITA,LYDIA K DO 05/05/21 SHARITA,LYDIA Roberst DO May 05, 2021 03:05
[2021-05-05] MEDS ORDERED: LORA1TAB59 PO (03:07)
[2021-05-05] MEDS ORDERED: TRIA10.8 NS (03:07)
[2021-05-05] MEDS ORDERED: CEFDINIR 300 MG (OMNICEF) CAP PO ONE (03:15)
[2021-05-05 03:23] VITALS: BP 139/99
== END 2021-05-05 03:24 | disposition home or self-care (01) ==
LOC: EDUNIT# 02:35 → ER 02:38
DX: H60.92 Unspecified otitis externa, left ear (principal); H66.92 Otitis media, unspecified, left ear; I10 Essential (primary) hypertension; F41.9 Anxiety disorder, unspecified; F32.9 Major depressive disorder, single episode, unspecified; F43.10 Post-traumatic stress disorder, unspecified; G40.909 Epilepsy, unspecified, not intractable, without status epilepticus; Z88.8 Allergy status to other drugs, medicaments and biological substances; Z79.899 Other long term (current) drug therapy
CPT/HCPCS: 99283

== ENCOUNTER 2022-03-07 08:26 | Emergency (ER) | payer SELFPAY ==
[~2022-03-07] VITALS: Ht 182 cm; Wt 104.0 kg
[~2022-03-07 08:26] MED LIST changes: +LORA1TAB59 PO; +NF-CIPDEC OT; +TRIA10.8 NS
[2022-03-07] MEDS ORDERED: CLIN-144 PO (08:47)
--- NOTE | 2022-03-07 08:47 | ED EENT ---
History of Present Illness General Chief Complaint: Dental Problems/Pain Stated Complaint: TOOTH/EAR INFECTION Source: patient Exam Limitations: no limitations History of Present Illness Date Seen by Provider: Mar 07, 2022 Time Seen by Provider: 08:33 Initial Comments 42-year-old male presents the emergency department today for left upper jaw left ear pain. Symptoms started on Monday and have been persistent through the weekend. He continues Motrin and Tylenol without much relief. He has had this happen several times in the past, most recently just couple of months ago. Tubes in his ear several times and does not know if he still has tubes in his ears currently. He thinks his current symptoms are coming from his dentition. No fevers or chills. No nausea or vomiting. Allergies and Home Medications Allergies Coded Allergies: prednisone (Verified Adverse Reaction, Unknown, MAKES SHANA SAUNDERS, 04/10) Patient Home Medication List Home Medication List Reviewed: Yes Amitriptyline HCl (Amitriptyline HCl) 25 Mg Tablet, 25 MG PO HS, (Reported) Entered as Reported by: BOY NAIK on 08/14/18 1241 Amoxicillin/Potassium Clav (Augmentin 875-125 Tablet) 1 Each Tablet, 1 EACH PO BID Prescribed by: EL CHOUDHURY on 04/05/19 1232 Amoxicillin/Potassium Clav (Augmentin 875-125 Tablet) 1 Each Tablet, 1 EACH PO BID Prescribed by: SOBIA MORALES on 07/30/19 1120 Amoxicillin/Potassium Clav (Augmentin 875-125 Tablet) 1 Each Tablet, 1 EACH PO BID Prescribed by: TITO ORR on 11/06/20 1205 Bupropion HCl (Wellbutrin Sr) 200 Mg Tablet.er, 200 MG PO DAILY, (Reported) Entered as Reported by: BOY NAIK on 08/14/18 1241 Cefdinir (Cefdinir) 300 Mg Capsule, 300 MG PO BID Prescribed by: ADRIANA BERGER on 03/25/20 0931 Cefdinir (Cefdinir) 300 Mg Capsule, 300 MG PO BID Prescribed by: LYDIA SHERIFF on 05/05/21 0304 Ciprofloxacin HCl/Dexameth (Ciproflox-Dexameth Otic Susp) 7.5 Ml Drops.susp, 7.5 ML OT BID Prescribed by: ADRIANA BERGER on 03/25/20 0931 Ciprofloxacin HCl/Dexameth (Ciprodex Otic Suspension) 7.5 Ml Soln, 7.5 ML OT BID Prescribed by: LYDIA SHERIFF on 05/05/21 0304 Clindamycin HCl (Clindamycin HCl) 300 Mg Capsule, 300 MG PO TID Prescribed by: SOBIA MORALES on 10/24/20 1230 Cyclobenzaprine HCl (Cyclobenzaprine HCl) 10 Mg Tablet, 10 MG PO Q8H PRN for SPASMS Prescribed by: SEA DAVID on 03/19/19 1137 Diclofenac Potassium (Zipsor) 25 Mg Capsule, 25 MG PO Q8H PRN for PAIN- BREAKTHROUGH Prescribed by: EL CHOUDHURY on 04/05/19 1232 Fluticasone Propionate (Flonase Allergy Relief) 9.9 Ml [place].susp, 2 SPRAY NS BID Prescribed by: TITO ORR on 11/06/20 1205 Gabapentin (Gabapentin) 800 Mg Tablet, 800 MG PO QID, (Reported) Entered as Reported by: MAELIA PATEL on 05/19/17 1216 Hydrocodone Bit/Acetaminophen (Lortab 5 Mg Tablet) 1 Tab Tab, 1-2 EACH PO Q6H PRN for PAIN-MODERATE Prescribed by: SEA DAVID on 03/19/19 1137 Hydrocodone/Acetaminophen (Hydrocodone-Acetamin 10-325 mg) 1 Each Tablet, 1 EACH PO Q6H PRN for PAIN-SEVERE (8-10) Prescribed by: SHAWNA LINARES on 04/01/20 1526 Hydrocodone/Acetaminophen (Hydrocodone-Acetamin 5-325 mg) 1 Each Tablet, 1 TAB PO Q6H PRN for PAIN-MODERATE (5-7) Prescribed by: SOBIA MORALES on 10/24/20 1136 Lisinopril/Hydrochlorothiazide (Lisinopril-Hctz 20-25 mg Tab) 1 Each Tablet, (Reported) Entered as Reported by: AMELIA PATEL on 05/19/17 1216 Loratadine/Pseudoephedrine (Claritin-D 12 Hour Tablet) 1 Each Tab.er.12h, 1 EACH PO BID Prescribed by: LYDIA SHERIFF on 05/05/21 0307 Ofloxacin (Floxin (Non-Formulary)) 5 Ml Drops, 3 DROPS EACH EAR BID Prescribed by: SERA MAYFIELD on 08/16/18 0833 Prednisone (Prednisone) 50 Mg Tab, 50 MG PO DAILY Prescribed by: SEA DAVID on 03/19/19 1137 Tramadol HCl (Ultram) 50 Mg Tablet, 50 MG PO Q4H Prescribed by: LYDIA SHERIFF on 05/05/21 0305 Triamcinolone Acetonide (Nasacort) 10.8 Ml [place], 2 SPRAYS NS BID Prescribed by: LYDIA SHERIFF on 05/05/21 0307 Review of Systems Review of Systems Constitutional: no symptoms reported Eyes: No Symptoms Reported Ears: Pain Nose: no symptoms reported Mouth: pain Throat: no symptoms reported Respiratory: no symptoms reported Cardiovascular: no symptoms reported Gastrointestinal: no symptoms reported Musculoskeletal: no symptoms reported Skin: no symptoms reported Neurological: No Symptoms Reported Hematologic/Lymphatic: No Symptoms Reported Immunological/Allergic: no symptoms reported Past Jseqmcy-Dkmxsg-Ceirru Hx Patient Social History Tobacco Use?: Yes Use of E-Cig and/or Vaping dev: No Substance use?: No Immunizations Up To Date Tetanus Booster (TDap): Unknown PED Vaccines UTD: Yes Seasonal Allergies Seasonal Allergies: No Past Medical History Surgery/Hospitalization HX: BMT'S-MULTIPLE SETS Surgeries: Yes (right hand surgery fx repair, 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 0.0oz. [id number]; 31.00 BMI Method:Stated General Appearance: WD/WN, no apparent distress Nose: normal inspection Mouth/Throat: other (severe dental ollie to the left upper jaw. This is the only tooth present in this location. No fluctuance. He is significantly tender to palpation.) Neck: non-tender, full range of motion, supple, normal inspection Cardiovascular: regular rate, rhythm, no edema, no gallop, no JVD, no murmur Respiratory: chest non-tender, lungs clear, normal breath sounds, no res piratory distress, no accessory muscle use Gastrointestinal: normal bowel sounds, non tender, soft, no organomegaly, no pulsatile mass Neurologic/Psychiatric: alert, normal mood/affect, oriented x 3 Skin: normal color, warm/dry Departure Communication (Admissions) Patient is hemodynamically stable. Physical anxiety dental caries. No evidence for abscess that is drainable at this time. No evidence for Edd's, peritonsillar or retropharyngeal abscess. Ears do not appear acutely infected. Discharged in stable condition with supportive care and dental follow-up. Impression Primary Impression: Infected dental caries Disposition: HOME, SELF-CARE Condition: Stable Departure-Patient Inst. Referrals: BRAD REID MD (PCP/Family) Primary Care Physician Patient Instructions: Dental Pain Add. Discharge Instructions: Take the antibiotics as prescribed until gone. Use Motrin and Tylenol for pain. 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 Return to the emergency department for any severe concerns All discharge instructions reviewed with patient and/or family. Voiced understanding. Scripts Clindamycin HCl (Clindamycin HCl) 300 Mg Capsule 300 MG PO TID for 7 Days, #21 CAP Prov: AGUSTIN BAÑUELOS DO 03/07/22 AGUSTIN BAÑUELOS DO Mar 07, 2022 08:47
[2022-03-07 09:03] VITALS: BP 140/105
== END 2022-03-07 09:03 | disposition home or self-care (01) ==
LOC: EDUNIT# 08:26 → ER 08:29
DX: K02.9 Dental caries, unspecified (principal); Z72.0 Tobacco use; Z28.311 Partially vaccinated for COVID-19
CPT/HCPCS: 99282

== ENCOUNTER 2022-07-26 21:50 | Emergency (ER) | payer SELFPAY ==
[2022-07-26] MEDS ORDERED: AMOXICILLIN 500 MG (POLYMOX) CAP PO STA (22:35)
[2022-07-26] MEDS ORDERED: AMOX500C2 PO (22:42)
[2022-07-26] MEDS ORDERED: ACHD5005 PO (22:42)
--- NOTE | 2022-07-26 22:43 | ED EENT ---
History of Present Illness General Chief Complaint: Dental Problems/Pain Stated Complaint: ABCESS TOOTH Nursing Triage Note: PT AMB TO FT WITH C/O POSS ABSCESS ON TOOTH ON L SIDE. PT HAS KNOWN CAVITY ON THAT TOOTH AND THE PAIN STARTED X3 DAYS Source: patient Exam Limitations: no limitations History of Present Illness Date Seen by Provider: Jul 26, 2022 Time Seen by Provider: 22:28 Initial Comments This 42-year-old man presents to the emergency room with complaints of 2-3 days of of pain from a severely eroded tooth in the left upper mouth. He denies any fevers. He has been taking Tylenol, ibuprofen, and Orajel without sufficient relief. He has tried teabags as well. He has not yet seen a dentist for this problem. He has also had issues with chronic otitis media and has a tympanic tube on the left. Allergies and Home Medications Allergies Coded Allergies: prednisone (Verified Adverse Reaction, Unknown, MAKES SHANA SAUNDERS, 04/01/20) Patient Home Medication List Home Medication List Reviewed: Yes Amitriptyline HCl (Amitriptyline HCl) 25 Mg Tablet, 25 MG PO HS, (Reported) Entered as Reported by: BOY NAIK on 08/14/18 1241 Amoxicillin (Amoxicillin) 500 Mg Capsule, 1,000 MG PO BID Prescribed by: TITO ORR on 07/26/22 2242 Amoxicillin/Potassium Clav (Augmentin 875-125 Tablet) 1 Each Tablet, 1 EACH PO BID Prescribed by: EL CHOUDHURY on 04/05/19 1232 Amoxicillin/Potassium Clav (Augmentin 875-125 Tablet) 1 Each Tablet, 1 EACH PO BID Prescribed by: SOBIA MORALES on 07/30/19 1120 Amoxicillin/Potassium Clav (Augmentin 875-125 Tablet) 1 Each Tablet, 1 EACH PO BID Prescribed by: TITO ORR on 11/06/20 1205 Bupropion HCl (Wellbutrin Sr) 200 Mg Tablet.er, 200 MG PO DAILY, (Reported) Entered as Reported by: BOY NAIK on 08/14/18 1241 Cefdinir (Cefdinir) 300 Mg Capsule, 300 MG PO BID Prescribed by: ADRIANA BERGER on 03/25/20 0931 Cefdinir (Cefdinir) 300 Mg Capsule, 300 MG PO BID Prescribed by: LYDIA SHERIFF on 05/05/21 0304 Ciprofloxacin HCl/Dexameth (Ciproflox-Dexameth Otic Susp) 7.5 Ml Drops.susp, 7.5 ML OT BID Prescribed by: ADRIANA BERGER on 03/25/20 0931 Ciprofloxacin HCl/Dexameth (Ciprodex Otic Suspension) 7.5 Ml Soln, 7.5 ML OT BID Prescribed by: LYDIA SHERIFF on 05/05/21 0304 Clindamycin HCl (Clindamycin HCl) 300 Mg Capsule, 300 MG PO TID Prescribed by: SOBIA MORALES on 10/24/20 1230 Clindamycin HCl (Clindamycin HCl) 300 Mg Capsule, 300 MG PO TID Prescribed by: AGUSTIN BAÑUELOS MD on 03/07/22 0847 Cyclobenzaprine HCl (Cyclobenzaprine HCl) 10 Mg Tablet, 10 MG PO Q8H PRN for SPASMS Prescribed by: SEA DAVID on 03/19/19 1137 Diclofenac Potassium (Zipsor) 25 Mg Capsule, 25 MG PO Q8H PRN for PAIN- BREAKTHROUGH Prescribed by: EL CHOUDHURY on 04/05/19 1232 Fluticasone Propionate (Flonase Allergy Relief) 9.9 Ml [place].susp, 2 SPRAY NS BID Prescribed by: TITO ORR on 11/06/20 1205 Gabapentin (Gabapentin) 800 Mg Tablet, 800 MG PO QID, (Reported) Entered as Reported by: AMELIA PATEL on 05/19/17 1216 Hydrocodone Bit/Acetaminophen (Lortab 5 Mg Tablet) 1 Tab Tab, 1-2 EACH PO Q6H PRN for PAIN-MODERATE Prescribed by: SEA DAVID on 03/19/19 1137 Hydrocodone/Acetaminophen (Hydrocodone-Acetamin 10-325 mg) 1 Each Tablet, 1 EACH PO Q6H PRN for PAIN-SEVERE (8-10) Prescribed by: SHAWNA LINARES on 04/01/20 1526 Hydrocodone/Acetaminophen (Hydrocodone-Acetamin 5-325 mg) 1 Each Tablet, 1 TAB PO Q6H PRN for PAIN-MODERATE (5-7) Prescribed by: SOBIA MORALES on 10/24/20 1136 Hydrocodone/Acetaminophen (Hydrocodone-Acetamin 5-325 mg) 5 Mg-325 Mg Tablet, 1 TAB PO Q4H PRN for PAIN BREAKTROUGH Prescribed by: TITO ORR on 07/26/22 2243 Lisinopril/Hydrochlorothiazide (Lisinopril-Hctz 20-25 mg Tab) 1 Each Tablet, (Reported) Entered as Reported by: AMELIA PATEL on 05/19/17 1216 Loratadine/Pseudoephedrine (Claritin-D 12 Hour Tablet) 1 Each Tab.er.12h, 1 EACH PO BID Prescribed by: LYDIA SHERIFF on 05/05/21 030 Ofloxacin (Floxin (Non-Formulary)) 5 Ml Drops, 3 DROPS EACH EAR BID Prescribed by: SERA MAYFIELD on 08/16/18 0833 Prednisone (Prednisone) 50 Mg Tab, 50 MG PO DAILY Prescribed by: SEA DAVID on 03/19/19 1137 Tramadol HCl (Ultram) 50 Mg Tablet, 50 MG PO Q4H Prescribed by: LYDIA SHERIFF on 05/05/21 030 Triamcinolone Acetonide (Nasacort) 10.8 Ml [place], 2 SPRAYS NS BID Prescribed by: LYDIA SHERIFF on 05/05/21 030 Review of Systems Review of Systems Constitutional: no symptoms reported Eyes: No Symptoms Reported Ears: See HPI Nose: no symptoms reported Mouth: see HPI Throat: no symptoms reported Respiratory: no symptoms reported Cardiovascular: no symptoms reported Gastrointestinal: no symptoms reported Musculoskeletal: no symptoms reported Skin: no symptoms reported Neurological: No Symptoms Reported Hematologic/Lymphatic: No Symptoms Reported Past Gdjmnaf-Fcfvrj-Xxopqf Hx Patient Social History Tobacco Use?: Yes Tobacco type used: Cigarettes Smoking Status: Current Everyday Smoker Substance use?: Yes Substance type: Marijuana Alcohol Use?: No Pt feels they are or have been: No Immunizations Up To Date Tetanus Booster (TDap): Unknown PED Vaccines UTD: Yes Influenza Vaccine Up-to-Date: Yes; Up-to-Date First/Initial COVID19 Vaccinat: 2020 COVID19 Vaccine Dust Collector Attendant: MAURICIO Seasonal Allergies Seasonal Allergies: No Past Medical History Surgery/Hospitalization HX: HX EAR SURGERY X 5 Surgeries: Yes (right hand surgery fx repair, 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) Ear Surgery (left TM tube), Gallbladder Respiratory: No Cardiac: Yes Hypertension Neurological: Yes (last seizure 2016) Seizure Disorder Reproductive Disorders: No Genitourinary: Yes Kidney Stones Gastrointestinal: No Musculoskeletal: Yes Arthritis, Chronic Back Pain Endocrine: No HEENT: Yes (BMT'S-MULTIPLE SETS) Chronic Ear Infection Cancer: No Psychosocial: No Anxiety, PTSD, Depression Integumentary: No Blood Disorders: No Family Medical History No Pertinent Family Hx Physical Exam Vital Signs Vital Signs - First Documented 07/26/22 07/26/22 22:11 23:01 Temp 36.0 Pulse 80 Resp 18 B/P (MAP) 153/97 (115) Pulse Ox 98 Height, Weight, BMI Height: 6'0.00" Weight: 220lbs. 0.0oz. 99.546253ri; 31.00 BMI Method:Stated General Appearance: WD/WN, mild distress Eyes: bilateral eye normal inspection Ears: left ear other (intact TM tube); bilateral ear auricle normal, bilateral ear canal normal, bilateral ear TM normal Nose: normal inspection Mouth/Throat: other (several teeth missing. Severely eroded left upper molar that is tender to the touch. No obvious abscess. Localized gingivitis noted.) Neck: normal inspection Cardiovascular: regular rate, rhythm, no edema, no murmur Respiratory: lungs clear, normal breath sounds, no respiratory distress Gastrointestinal: non tender, soft Neurologic/Psychiatric: no motor/sensory deficits, alert, normal mood/affect Progress/Results/Core Measures Results/Orders My Orders Vital Signs/I&O Blood Pressure Mean: 115 Progress Progress Note : Progress Note Hydrocodone given for pain. Anesthetic gauze pads were prepped and patient was educated on proper use. Amoxicillin was started for treatment of possible abscess. Prompt follow-up with a dentist for tooth extraction was emphasized. Departure Impression Primary Impression: Dental decay Additional Impression: Pain, dental Disposition: HOME, SELF-CARE Condition: Improved Departure-Patient Inst. Decision time for Depature: 22:38 Referrals: BRAD REID MD (PCP/Family) Primary Care Physician Patient Instructions: Dental Pain ED, Tooth Decay, Adult (DC) Add. Discharge Instructions: Complete your antibiotics as prescribed. Get into a dentist as soon as possible as extraction is likely the only effective and permanent treatment for your dental pain. Use ibuprofen up to 600 mg every 6 hours as needed for primary pain control. Add hydrocodone for pain not controlled by ibuprofen. Hydrocodone may cause drowsiness so do not drive, operate machinery, or make important decisions on hydrocodone. Hydrocodone may also cause constipation, so you may wish to use a stool softener while on hydrocodone. [place] your teeth gently with a soft bristled toothbrush twice daily. You may also rinse with an antiseptic mouthwash if tolerated. You may use anesthetic gauze pads provided in the emergency room for topical treatment of pain. Drape of the gauze pad over the tooth and surrounding gums. This may cause numbing of the lips, tongue, and throat. Eat and drink very carefully after use. Do NOT fall asleep with gauze pads in your mouth as this presents a choking hazard. Return to care promptly if you have worsening symptoms such as fever, notable swelling of the face, escalating pain not responsive to medications, etc. All discharge instructions reviewed with patient and/or family. Voiced understanding. Scripts Hydrocodone/Acetaminophen (Hydrocodone-Acetamin 5-325 mg) 5 Mg-325 Mg Tablet 1 TAB PO Q4H PRN for PAIN BREAKTROUGH, #10 TAB Prov: TITO AREVALO MD 07/26/22 Amoxicillin (Amoxicillin) 500 Mg Capsule 1000 MG PO BID, #40 CAP 0 Refills Prov: TITO AREVALO MD 07/26/22 TITO AREVALO MD Jul 26, 2022 22:43
[2022-07-26] MEDS ORDERED: LIDOCAINE 2% VISCOUS 15 ML UDC MM ONE (22:45)
[2022-07-26] MEDS ORDERED: HYDROcodone/APAP 5 MG/325 MG (LORTAB) TAB PO ONE (22:45)
[2022-07-26 23:01] VITALS: BP 153/97
== END 2022-07-26 23:01 | disposition home or self-care (01) ==
LOC: EDUNIT# 21:50 → ER 21:52
DX: K02.9 Dental caries, unspecified (principal); F17.210 Nicotine dependence, cigarettes, uncomplicated
CPT/HCPCS: 99283

== ENCOUNTER 2022-08-10 08:44 | Emergency (ER) | payer SELFPAY ==
[~2022-08-10] VITALS: Ht 182.8 cm; Wt 104.3 kg
--- NOTE | 2022-08-10 08:50 | ED EENT ---
History of Present Illness General Stated Complaint: LT EAR INFECTION History of Present Illness Date Seen by Provider: Aug 10, 2022 Time Seen by Provider: 08:50 Initial Comments 42-year-old male presents with left ear pain. Patient has a chronic left ear issue and told he needs surgery. He is following up with ENT Dr. Juarez at [facility] and has an appointment on the . Reports her last couple days has had worsening pain and drainage. He denies any fevers or chills. Allergies and Home Medications Allergies Coded Allergies: prednisone (Verified Adverse Reaction, Unknown, MAKES SHANA SAUNDERS, 04/01/20) Patient Home Medication List Home Medication List Reviewed: Yes Amitriptyline HCl (Amitriptyline HCl) 25 Mg Tablet, 25 MG PO HS, (Reported) Entered as Reported by: BOY NAIK on 08/14/18 1241 Amoxicillin (Amoxicillin) 500 Mg Capsule, 1,000 MG PO BID Prescribed by: TITO ORR on 07/26/22 2242 Amoxicillin/Potassium Clav (Augmentin 875-125 Tablet) 1 Each Tablet, 1 EACH PO BID Prescribed by: EL CHOUDHURY on 04/05/19 1232 Amoxicillin/Potassium Clav (Augmentin 875-125 Tablet) 1 Each Tablet, 1 EACH PO BID Prescribed by: SOBIA MORALES on 07/30/19 1120 Amoxicillin/Potassium Clav (Augmentin 875-125 Tablet) 1 Each Tablet, 1 EACH PO BID Prescribed by: TITO ORR on 11/06/20 1205 Bupropion HCl (Wellbutrin Sr) 200 Mg Tablet.er, 200 MG PO DAILY, (Reported) Entered as Reported by: BOY NAIK on 08/14/18 1241 Cefdinir (Cefdinir) 300 Mg Capsule, 300 MG PO BID Prescribed by: ADRIANA BERGER on 03/25/20 0931 Cefdinir (Cefdinir) 300 Mg Capsule, 300 MG PO BID Prescribed by: LYDIA SHERIFF on 05/05/21 0304 Ciprofloxacin HCl/Dexameth (Ciproflox-Dexameth Otic Susp) 7.5 Ml Drops.susp, 7.5 ML OT BID Prescribed by: ADRIANA BERGER on 03/25/20 0931 Ciprofloxacin HCl/Dexameth (Ciprodex Otic Suspension) 7.5 Ml Soln, 7.5 ML OT BID Prescribed by: LYDIA SHERIFF on 05/05/21 0304 Clindamycin HCl (Clindamycin HCl) 300 Mg Capsule, 300 MG PO TID Prescribed by: SOBIA MORALES on 10/24/20 1230 Clindamycin HCl (Clindamycin HCl) 300 Mg Capsule, 300 MG PO TID Prescribed by: AGUSTIN BAÑUELOS MD on 03/07/22 0847 Cyclobenzaprine HCl (Cyclobenzaprine HCl) 10 Mg Tablet, 10 MG PO Q8H PRN for SPASMS Prescribed by: SEA DAVID on 03/19/19 1137 Diclofenac Potassium (Zipsor) 25 Mg Capsule, 25 MG PO Q8H PRN for PAIN- BREAKTHROUGH Prescribed by: EL CHOUDHURY on 04/05/19 1232 Fluticasone Propionate (Flonase Allergy Relief) 9.9 Ml [place].susp, 2 SPRAY NS BID Prescribed by: TITO ORR on 11/06/20 1205 Gabapentin (Gabapentin) 800 Mg Tablet, 800 MG PO QID, (Reported) Entered as Reported by: AMELIA PATEL on 05/19/17 1216 Hydrocodone Bit/Acetaminophen (Lortab 5 Mg Tablet) 1 Tab Tab, 1-2 EACH PO Q6H PRN for PAIN-MODERATE Prescribed by: SEA DAVID on 03/19/19 1137 Hydrocodone/Acetaminophen (Hydrocodone-Acetamin 10-325 mg) 1 Each Tablet, 1 EACH PO Q6H PRN for PAIN-SEVERE (8-10) Prescribed by: SHAWNA LINARES on 04/01/20 1526 Hydrocodone/Acetaminophen (Hydrocodone-Acetamin 5-325 mg) 1 Each Tablet, 1 TAB PO Q6H PRN for PAIN-MODERATE (5-7) Prescribed by: SOBIA MORALES on 10/24/20 1136 Hydrocodone/Acetaminophen (Hydrocodone-Acetamin 5-325 mg) 5 Mg-325 Mg Tablet, 1 TAB PO Q4H PRN for PAIN BREAKTROUGH Prescribed by: TITO ORR on 07/26/22 2243 Lisinopril/Hydrochlorothiazide (Lisinopril-Hctz 20-25 mg Tab) 1 Each Tablet, (Reported) Entered as Reported by: AMELIA PATEL on 05/19/17 1216 Loratadine/Pseudoephedrine (Claritin-D 12 Hour Tablet) 1 Each Tab.er.12h, 1 EACH PO BID Prescribed by: LYDIA SHERIFF on 05/05/21 030 Ofloxacin (Floxin (Non-Formulary)) 5 Ml Drops, 3 DROPS EACH EAR BID Prescribed by: SERA MAYFIELD on 08/16/18 0833 Prednisone (Prednisone) 50 Mg Tab, 50 MG PO DAILY Prescribed by: SEA DAVID on 03/19/19 1137 Tramadol HCl (Ultram) 50 Mg Tablet, 50 MG PO Q4H Prescribed by: LYDIA SHERIFF on 05/05/21 030 Triamcinolone Acetonide (Nasacort) 10.8 Ml [place], 2 SPRAYS NS BID Prescribed by: LYDIA SHERIFF on 05/05/21306 Review of Systems Review of Systems Constitutional: no symptoms reported Ears: See HPI, Pain, Purulent Discharge Nose: no symptoms reported Mouth: no symptoms reported Throat: no symptoms reported Respiratory: no symptoms reported Cardiovascular: no symptoms reported Gastrointestinal: no symptoms reported Past Haqgpjc-Erfhvn-Qgqtpg Hx Immunizations Up To Date Tetanus Booster (TDap): Unknown PED Vaccines UTD: Yes First/Initial COVID19 Vaccinat: 2020 Seasonal Allergies Seasonal Allergies: No Past Medical History Surgery/Hospitalization HX: HX EAR SURGERY X 5 Surgeries: Yes (right hand surgery fx repair, 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 0.0oz. 99.134362vb; 31.00 BMI Method:Stated General Appearance: WD/WN, no apparent distress Ears: left ear other (TM tube in place with drainage) Neck: full range of motion, supple Respiratory: chest non-tender, lungs clear Gastrointestinal: non tender Neurologic/Psychiatric: alert, normal mood/affect, oriented x 3 Skin: normal color, warm/dry Progress/Results/Core Measures Progress Progress Note : Progress Note Patient with known chronic left ear issue with likely acute infection. He has been on multiple rounds of Augmentin and antibiotic drops. Patient to be prescribed cefdinir.. He has an appointment on the with ENT. He should follow-up with a primary care provider or ENT sooner if symptoms continue to worsen. Departure Impression Primary Impression: Left otitis media Qualified Codes: H66.92 - Otitis media, unspecified, left ear Additional Impression: Otorrhea, left ear Disposition: HOME, SELF-CARE Condition: Stable Departure-Patient Inst. Referrals: BRAD REID MD (PCP/Family) Primary Care Physician Patient Instructions: Ear Infections (Otitis Media) in Adults (DC) Add. Discharge Instructions: Please follow-up with your primary care provider or Dr. Juarez if symptoms continue to worsen or not improving over the next couple days. Scripts Cefdinir (Cefdinir) 300 Mg Capsule 300 MG PO BID, #14 CAP 0 Refills Prov: ADRIANA BERGER DO 08/10/22 ADRIANA BERGER DO Aug 10, 2022 08:50
[2022-08-10] MEDS ORDERED: CEFD300C3 PO (09:03)
[2022-08-10 09:32] VITALS: BP 162/94
== END 2022-08-10 09:32 | disposition home or self-care (01) ==
LOC: EDUNIT# 08:44 → ER 08:46
DX: H66.92 Otitis media, unspecified, left ear (principal); Z28.311 Partially vaccinated for COVID-19
CPT/HCPCS: 99282